=== PATIENT | female | born 1955 | race Caucasian/White ===

== ENCOUNTER → 2017-10-23 13:13 | Outpatient (CLI) | payer OTHER, SELFPAY ==
--- NOTE | 2017-10-23 13:16 | CT_ITS ---
STUDY: CT CHEST WITHOUT CONTRAST REASON FOR EXAM: Female, 62 years old. Lung nodule. History of breast cancer with prior right mastectomy and right breast reconstruction. RADIATION DOSAGE (If Supplied By Facility): CTDIvol = ( 13.72 ) mGy, DLP = ( 479.87 ) mGycm TECHNIQUE: Transaxial imaging was performed without the administration of intravenous contrast material. Multiplanar coronal and sagittal images were reformatted. Individualized dose optimization techniques were used for this CT. COMPARISON: None. FINDINGS: The patient is status post right mastectomy with reconstruction. There is a 7.1 mm calcification in the deep medial aspect of the right breast most likely resenting a calcified fibroadenoma. Increased markings in the anterior aspect of the right middle lobe. This most likely represents post radiation scarring with the patient's history of right breast cancer. There is no demonstrated pleural abnormality. There are calcifications of the coronary arteries. Normal mediastinum. Normal hilar regions. Normal unenhanced pulmonary arteries. Normal aorta arch and descending thoracic aorta. There are degenerative changes of the thoracic spine. Healed anterior right rib fractures. Small hiatal hernia. CT/Chest without Contrast IMPRESSION: No pulmonary nodule is seen. Findings uterus is of scarring in the anterior aspect of the right middle lobe most likely secondary to prior radiation of the right breast. Electronically Signed: Johnathon Benjamin MD at 15:34 EST Tel [phone], Service support ,
== END ==
PROVIDERS: Family Provider Internal Medicine; PCP Internal Medicine; Visit Provider Internal Medicine
DX: R91.1 Solitary pulmonary nodule (principal); Z85.3 Personal history of malignant neoplasm of breast; Z90.11 Acquired absence of right breast and nipple
CPT/HCPCS: 71250

== ENCOUNTER 2017-11-13 10:30 | Outpatient (RCR) | payer OTHER, SELFPAY | END 2017-11-22 23:59 | LOC: DC 10:30 | PROVIDERS: Family Provider Internal Medicine; PCP Internal Medicine; Visit Provider Nurse Practitioner Family | DX: E11.9 Type 2 diabetes mellitus without complications (principal); Z71.3 Dietary counseling and surveillance | CPT/HCPCS: 97802; G0108 ==

== ENCOUNTER 2017-11-30 15:09 | Outpatient (RCR) | payer OTHER, SELFPAY | END 2017-12-23 23:59 | LOC: DC 15:09 | PROVIDERS: Family Provider Internal Medicine; PCP Internal Medicine; Visit Provider Nurse Practitioner Family | DX: E11.9 Type 2 diabetes mellitus without complications (principal); Z71.3 Dietary counseling and surveillance | CPT/HCPCS: 97803 ==

== ENCOUNTER 2017-12-28 16:46 | Outpatient (RCR) | payer OTHER, SELFPAY | END 2018-01-22 23:59 | LOC: DC 16:46 | PROVIDERS: Family Provider Internal Medicine; PCP Internal Medicine; Visit Provider Nurse Practitioner Family | DX: E11.9 Type 2 diabetes mellitus without complications (principal); Z71.3 Dietary counseling and surveillance | CPT/HCPCS: G0109 ==

== ENCOUNTER → 2018-01-17 07:01 | Outpatient (CLI) | payer OTHER, SELFPAY ==
[2018-01-17 09:18] LABS: Hemoglobin A1c 7.6 % (4.2-6.3)
[2018-01-17 09:22] LABS: Microalbumin,Random Urine 16.4 mg/L (NO RANGE EST.); Microalbumin:Creatinine Ratio 72.2 mg/g CRE (<30 mg/g CRE)
== END ==
PROVIDERS: Family Provider Internal Medicine; PCP Internal Medicine; Visit Provider Nurse Practitioner Family
DX: E11.9 Type 2 diabetes mellitus without complications (principal)
CPT/HCPCS: 36415; 82043; 82570; 83036

== ENCOUNTER 2018-02-01 18:30 | Outpatient (RCR) | payer OTHER, SELFPAY | END 2018-02-01 23:59 | LOC: DC 18:30 | PROVIDERS: Family Provider Internal Medicine; PCP Internal Medicine; Visit Provider Nurse Practitioner Family | DX: E11.9 Type 2 diabetes mellitus without complications (principal); Z71.3 Dietary counseling and surveillance | CPT/HCPCS: 97803; G0109 ==

== ENCOUNTER 2018-03-07 15:47 | Outpatient (RCR) | payer OTHER, SELFPAY | END 2018-03-24 23:59 | LOC: DC 15:47 | PROVIDERS: Family Provider Internal Medicine; PCP Internal Medicine; Visit Provider Nurse Practitioner Family | DX: E11.9 Type 2 diabetes mellitus without complications (principal); Z71.3 Dietary counseling and surveillance ==

== ENCOUNTER → 2018-03-23 06:55 | Outpatient (CLI) | payer OTHER, SELFPAY ==
[2018-03-23 08:36] LABS: Microalbumin,Random Urine 64.7 mg/L (NO RANGE EST.); Microalbumin:Creatinine Ratio 120.3 mg/g CRE (<30 mg/g CRE)
[2018-03-23 08:39] LABS: Hemoglobin A1c 8.2 % (4.2-6.3)
[2018-03-23 08:58] LABS: ALB/GLOB Ratio 0.9 RATIO (0.9-2.4); AST(SGOT) 22 U/L (15-37); Alanine Aminotransfer ALT/SGPT 39 U/L (13-56); Albumin, Serum 3.7 g/dL (3.2-5.0); Alkaline Phosphatase 108 U/L (45-117); Anion Gap 8 (5-15); BUN 13 mg/dL (7-18); BUN/Creat Ratio 19.3 RATIO (10-20); Calcium,Total 8.7 mg/dL (8.5-10.1); Chloride 104 mmol/L (98-107); Cholesterol 149 mg/dL (200); Creatinine, Serum 0.68 mg/dL (0.55-1.02); EST Glomerular Filtration Rate 94 mL/min (>60); Est Glom Filt Rate - Afr Amer 114 mL/min (>60); Globulin 3.9 g/dL (2.2-4.2); Glucose 162 mg/dL (74-106); High Density Lipoprotein 41 mg/dL; Potassium 4.4 mmol/L (3.5-5.1); Protein, Total 7.6 g/dL (6.4-8.2); Sodium Level 139 mmol/L (136-145); Triglycerides 96 mg/dL; Very Low Density Lipoprotein 19 mg/dL (5-40)
== END ==
PROVIDERS: Family Provider Internal Medicine; PCP Internal Medicine; Visit Provider Nurse Practitioner Family
DX: E11.9 Type 2 diabetes mellitus without complications (principal); E78.5 Hyperlipidemia, unspecified
CPT/HCPCS: 36415; 80053; 80061; 82043; 82570; 83036

== ENCOUNTER → 2018-04-13 07:58 | Outpatient (CLI) | payer OTHER, SELFPAY ==
[2018-04-13 10:28] LABS: Anion Gap 10 (5-15); BUN 13 mg/dL (7-18); BUN/Creat Ratio 20.7 RATIO (10-20); Calcium,Total 9.5 mg/dL (8.5-10.1); Chloride 102 mmol/L (98-107); Creatinine, Serum 0.63 mg/dL (0.55-1.02); EST Glomerular Filtration Rate 102 mL/min (>60); Est Glom Filt Rate - Afr Amer 123 mL/min (>60); Glucose 115 mg/dL (74-106); Potassium 4.6 mmol/L (3.5-5.1); Sodium Level 139 mmol/L (136-145)
[2018-04-13 10:34] LABS: Hemoglobin A1c 8.6 % (4.2-6.3)
== END ==
PROVIDERS: Family Provider Internal Medicine; PCP Internal Medicine; Visit Provider Nurse Practitioner Family
DX: E11.9 Type 2 diabetes mellitus without complications (principal)
CPT/HCPCS: 36415; 80048; 83036

== ENCOUNTER 2018-06-28 08:53 | Outpatient (RCR) | payer OTHER, SELFPAY | END 2018-07-25 23:59 | LOC: DC 08:53 | PROVIDERS: Family Provider Internal Medicine; PCP Internal Medicine; Visit Provider Nurse Practitioner Family | DX: E11.9 Type 2 diabetes mellitus without complications (principal); Z71.3 Dietary counseling and surveillance ==

== ENCOUNTER → 2018-07-02 10:43 | Outpatient (CLI) | payer OTHER, SELFPAY ==
[2018-07-02 11:55] LABS: Hemoglobin A1c 7.3 % (4.2-6.3)
[2018-07-02 12:19] LABS: Microalbumin,Random Urine 15.8 mg/L (NO RANGE EST.); Microalbumin:Creatinine Ratio 47.4 mg/g CRE (<30 mg/g CRE)
== END ==
PROVIDERS: Nurse Practitioner Family; Family Provider Internal Medicine; PCP Internal Medicine; Referring Provider Internal Medicine; Visit Provider Internal Medicine
DX: E11.9 Type 2 diabetes mellitus without complications (principal)
CPT/HCPCS: 36415; 82043; 82570; 83036

== ENCOUNTER → 2018-10-20 07:32 | Outpatient (CLI) | payer OTHER, SELFPAY ==
[2018-10-20 07:32] VITALS: BMI 28.0
[2018-10-20 08:49] LABS: Hemoglobin A1c 7.9 % (4.2-6.3)
== END ==
PROVIDERS: Family Provider Internal Medicine; PCP Internal Medicine; Referring Provider Nurse Practitioner Family; Visit Provider Nurse Practitioner Family
DX: E11.9 Type 2 diabetes mellitus without complications (principal)
CPT/HCPCS: 36415; 83036

== ENCOUNTER → 2018-10-30 14:35 | Outpatient (CLI) | payer OTHER, SELFPAY ==
[2018-10-30 13:39] VITALS: BMI 26.8
--- NOTE | 2018-10-30 14:39 | EKG12_ITS ---
Test Reason : TACHY Blood Pressure : / mmHG Vent. Rate : 091 BPM Atrial Rate : 091 BPM P-R Int : 176 ms QRS Dur : 090 ms QT Int : 368 ms P-R-T Axes : 063 002 039 degrees QTc Int : 452 ms Normal sinus rhythm with sinus arrhythmia Normal ECG Confirmed by CARMEN DYER, JOSE LUIS ([id number]), social media editor ALOK SOLIMAN ([id number]) on 11/05/2018 10:07:55 AM Referred By: Wan Jain Confirmed By:JOSE LUIS MORALES MD
[2018-10-30 16:08] LABS: T4 Free Direct 0.95 ng/dL (0.76-1.46); Thyroid Stim Hormone (TSH) 1.77 uIU/mL (0.358-3.74)
== END ==
PROVIDERS: Family Provider Internal Medicine; PCP Internal Medicine; Referring Provider Internal Medicine; Visit Provider Internal Medicine
DX: R00.0 Tachycardia, unspecified (principal)
CPT/HCPCS: 36415; 84439; 84443; 93005

== ENCOUNTER 2019-01-07 09:07 | Day surgery (SDC) | payer OTHER, SELFPAY ==
[2018-12-25 10:51] VITALS: BMI 26.8
[2019-01-07] VITALS (7 sets, daily range): BP systolic 86–116; BP diastolic 59–86; PULSE 64–72; RESP 16; TEMP 36.4–36.6; O2SAT 95–100; BMI 26.0
--- NOTE | 2019-01-07 | COLBX_PTH ---
PATIENT: MARYAN HOGAN LOC: EN U#:[id number] AGE/SX: 63/F ROOM: RE01/07/[address]: Dr. Kath Reddy MD : [id number] BED: DIS: 01/07/2019 SPEC #: [id number] RECD: 01/07/19 13:29 STATUS: KENTRELL RESelvin #: [id number] MARY JANE: 01/07/19 00:[address]: Kath Reddy DEPT: SURGICAL PATHOLOGY RECD BY: Jules Colindres ENTERED: 01/07/19 13:29 SP TYPE: COLON BX TAYLOR DR: Dr. Wan Jain MD Tissues: A - Ascending colon B - Transverse colon C - Transverse colon Procedures: Surgery Specimen Level IV HEADER OPERATION: Colonoscopy - open access (MAC) PRE-OP DIAGNOSIS: Screening TISSUE SUBMITTED: A - Ascending colon polyp, B - Transverse colon polyp biopsy, C - Mid transverse colon polyps MICROSCOPIC DIAGNOSIS A. Ascending colon polyp, biopsy: Tubular adenoma. B. Transverse colon polyp, biopsy: Fragments of tubular adenoma. C. Mid transverse colon polyps, biopsy: Fragments of tubular adenoma. AM:zheng 01/08/19 MICROSCOPIC DESCRIPTION Slides are reviewed. GROSS DESCRIPTION A - Received in fixative is one container labeled with the patient's name and designated ascending colon polyp. The specimen consists of one irregular fragment of light hernandez soft tissue that measures 0.4 x 0.3 x 0.1 cm. The specimen is totally submitted in one cassette. B - Received in fixative is one container labeled with the patient's name and designated transverse colon polyp. The specimen consists of multiple irregular fragments of light hernandez soft tissue that in aggregate measure 1 x 0.5 x 0.1 cm. The specimen is totally submitted in one cassette. C - Received in fixative is one container labeled with the patient's name and designated mid transverse colon polyp. The specimen consists of multiple irregular fragments of light hernandez soft tissue that in aggregate measure 1.5 x 0.5 x 0.1 cm. The specimen is totally submitted in one cassette. / JESSICA:zheng 01/07/19 TC:5 CPT: 76986 x3
--- NOTE | 2019-01-07 09:19 | H&P.OPEN ---
History of Present Illness Date of Admission: 01/07/19 The patient is a 63 year old F presents for screening colonoscopy. Patient did have polyps during her last colonoscopy which was about 8 years ago. She was recommended to come back in 5 years. Patient does have balance about every other day, occasional blood she contributes to her hemorrhoids. Patient states her maternal uncle had colon cancer in his 70s. No immediate family history of colon cancer. Past Medical/Surgical History - Planned Operation Planned Operative Procedure/s: cscope open access Date of Operative Procedure: 01/07/19 Permit Signed: No S.O.S: No Is This Patient Having a Total Joint: No - Previous Hospitalizations/Surgeries HX Hospitalizations: Yes - cdiff in the past/septic after 1999 surgery HX of Surgeries: mastectomy right 1995. abdominal tram flap 1999. colonoscopy x2. kidney stones Any Problems With Anesthesia: No You/Your Family Experience Fever (Hyperthermia) With Anes: No Cholinesterase deficiency: No - Cardiovascular Hx Chest Pain within Last 2 months: No Hx of Irregular Heartbeat and/or Afib: No Hx Heart Attack: No Hx Congestive Heart Failure: No Hx Rheumatic Fever: No Hx Hypertension: Yes - controlled with med Hx Internal Defibrillator: No Hx Pacemaker: No Hx Cardiac Catheterization: No Hx Cardiac Surgery/Stents/Etc.: No Hx Stress Test: No HX Edema: No Hx Pain in Legs when Walking/Leg Cramps: No - Respiratory Chronic Cough: No HX of Shortness of Breath: No Hoarseness: No Hx Chronic Obstructive Pulmonary Disease (COPD): No Hx Asthma: No Hx Emphysema: No Hx Sleep Apnea: Yes - . CPAP: Yes BIPAP: No Hx Oxygen Use at Home: No Hx Respiratory Tract Infection/Cold (presently): No Result (for STOP score): Positive Hx Smoking: Yes - quit 15 yrs ago/social smoker Smoking Status: Former smoker - Gastrointestinal Hx Gastroesophageal Reflux: No Hx Gastrointestinal Disorders: No Hx Gastrointestinal Bleed: No Hx Ulcer: No Hx Hiatal Hernia: No Difficulty Chewing/Swallowing: No Recent Onset of Swallowing Problems: No Special diet followed at home: Yes - ada Hx Unplanned Weight Loss of 20#: No HX Unplanned Weight Gain of 20#: No - Neurological Hx Seizures: No HX Syncope/Blackout Spells/Unconsciousness: No Hx CVA/Stroke: No Hx Transient Ischemic Attacks (TIA): No Hx Multiple Sclerosis: No Hx Parkinson's Disease: No Hx Head/Neck Injury: No Hx Headaches: Yes - occ Hx Back Injury/Pain: No Recent Onset of Speech Difficulty: No Restless Legs: No Does patient have nerve stimulator: No Patient instructed to have device shut off: No Rep notified?: No - Blood Disorder Hx Leukemia: No Bleeding Tendencies: No Hx Deep Vein Thrombosis: No Hx High Cholesterol: Yes - on med Blood Transmitted Disease: No Hx Hepatitis: No Hx Cirrhosis: No Hx Anemia: No Hx Blood Disorders: Yes - 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 Insulin: Yes Thyroid Disease: No Hx Steroid Therapy: No - Psycho/Social Hx Substance Use: No Hx Alcohol Use: Yes - occ Hx Anxiety: Yes - on med Hx Depression: Yes - on med Mental Illness: No Hx Dementia: No - Miscellaneous Hx Cancer: Yes - RT MASTECTOMY/chemo and radiation 22 yrs ago Recent Exposure to Contagious Disease: No Active MRSA: No Hx of C-Diff: No Any Loose Teeth: No Allergies amoxicillin Allergy (Verified 01/04/19 11:18) Rash levofloxacin [From Levaquin] Allergy (Verified 01/04/19 11:18) Vomiting promethazine [From Phenergan] Allergy (Verified 01/04/19 11:18) Other - Discharge Is Pt Admitted From a [facility], or a [facility]: No Who Could Help: family After D/C, Where Do you Plan to Go: Return Home - From the PAT History Number of Risk Factors: 6 - Physical Exam General: Alert, Oriented x3, Cooperative, No apparent distress HEENT: Atraumatic Lungs: Normal air movement Cardiovascular: Regular rate Abdomen: Soft, Non Tender, Non-Distended, - - Lower midline scar from previous TRAM flap Extremities: No clubbing, No cyanosis, No edema Neurological: Cranial nerves II-XII grossly intact Psych/Mental Status: Normal Affect Body Mass Index (BMI) 26.8 Assessment/Plan All Active Problems (Last Reviewed 10/30/18 @ 13:38 by Elise Gray) History of breast cancer (Acute) 63-year-old female for screening for colon cancer Surgery Risks - Colonoscopy I discussed with the patient the risks of the procedure: Yes Risks Include but are not Limited To: Risks include but are not limited to: Bleeding, perforation requiring further surgery, inability to complete colonoscopy requiring barium enema. Patient had no further questions.
--- NOTE | 2019-01-07 10:58 | OP.ENDO_ITS ---
01/07/2019 Wna Jain MD [address] [place] [address] [place] [address] Re : Colonoscopy procedure for Brook Burns Dear Dr. Jain This procedure was performed on Monday, January 07, 2019. My impressions and recommendations are as follows: Impressions : - Two less than 5 mm polyps in the transverse colon and in the mid transverse colon, removed with a cold biopsy forceps. Resected and retrieved. - One less than 5 mm polyp in the transverse colon, removed with cold forceps. Resected and retrieved. - One 5 mm polyp in the ascending colon, removed with a hot snare. Resected and retrieved. - The examination was otherwise normal on direct and retroflexion views. Recommendations : - Discharge patient to home. - Continue present medications. - Repeat colonoscopy in 3 - 5 years for surveillance based on pathology results. My findings are described in the full procedure note, which is enclosed. If I can be of further assistance, please feel free to contact me at Doctor phone number(s): , Work: . Sincerely, MD Kath Sam MD 01/07/2019 10:58:13 AM This report has been signed electronically.
[2019-01-07 11:35] LABS: Bedside Glucose 171 mg/dL (70-110)
== END 2019-01-07 11:49 | disposition home or self-care (01) ==
LOC: EN 09:08 → AC 09:09
PROVIDERS: Family Provider Internal Medicine; PCP Internal Medicine; Referring Provider Surgery; Visit Provider Surgery
PROC: 0DJD8ZZ Inspection of Lower Intestinal Tract, Via Natural or Artificial Opening Endoscopic (ICD-10-PCS; CPT 45378; principal; 2019-01-07 10:10)
DX: Z12.11 Encounter for screening for malignant neoplasm of colon (principal); I10 Essential (primary) hypertension; D12.3 Benign neoplasm of transverse colon; D12.2 Benign neoplasm of ascending colon; Z86.010 Personal history of colon polyps; Z87.891 Personal history of nicotine dependence; Z85.3 Personal history of malignant neoplasm of breast; Z90.11 Acquired absence of right breast and nipple
CPT/HCPCS: 45380; 82962; 88305; J7120

== ENCOUNTER → 2019-03-06 21:14 | Outpatient (CLI) | payer OTHER, SELFPAY ==
[2019-02-04 15:05] VITALS: BMI 26.0
== END ==
PROVIDERS: Family Provider Internal Medicine; PCP Internal Medicine; Referring Provider Internal Medicine; Visit Provider Internal Medicine
DX: G47.30 Sleep apnea, unspecified (principal)
CPT/HCPCS: 95810

== ENCOUNTER → 2019-03-13 | Outpatient (CLI) | payer OTHER, SELFPAY ==
[2019-02-04 15:05] VITALS: BMI 26.0
--- NOTE | 2019-03-13 13:39 | RAD_ITS ---
STUDY: X-RAY - RIGHT ANKLE REASON FOR EXAM: Female, 64 years old. Medial ankle pain and swelling following injury. TECHNIQUE: 3 view(s) of the ankle. COMPARISON: None. FINDINGS: Normal visualized distal tibia and fibula. Normal medial and lateral malleoli. Normal tibiotalar articulation and ankle mortise. Plantar spur. The visualized subtalar, talonavicular, calcaneocuboid and tarsal articulations are normal. Medial soft tissue swelling. RAD/Ankle min 3 Views IMPRESSION: Medial soft tissue swelling. Plantar spur. Electronically Signed: Johnathon Benjamin, at 14:07 EDT , Service support ,
== END | disposition home or self-care (01) ==
LOC: HPRAD 13:37
PROVIDERS: Family Provider Internal Medicine; PCP Internal Medicine; Referring Provider Physician Assistant; Visit Provider Physician Assistant
DX: S99.911A Unspecified injury of right ankle, initial encounter (principal)
CPT/HCPCS: 73610

== ENCOUNTER 2019-04-23 10:22 | Emergency (ER) | payer OTHER, SELFPAY ==
[2019-04-19 09:28] VITALS: BMI 26.9
[2019-04-23 10:22] VITALS: BP 110/68; PULSE 82; RESP 17; TEMP 36.5; O2SAT 96; BMI 26.6
--- NOTE | 2019-04-23 10:37 | ED.DCSUM_ITS ---
- ER Visit Summary Date of Service: 04/23/19 Chief Complaint: [Right calf injury] History of Present Illness: The patient is a 64 F [presents to the emergency department with injury to her right calf. Patient states that she was at [employer] doing mountain climbers when she felt a pop in her right calf and she was unable to bear weight. Patient noted pain and swelling to the area. Patient currently being treated for nonhealing wound to the right lower extremity as well and has a wound VAC on the anterior ankle. Patient is a diabetic and has history of hypertension and high cholesterol.] Physical Examination: [HEENT-PERRLA, EOMI. Cranial nerves II through XII grossly intact. TMs clear. Mucous membranes moist. No adenopathy. Cardiovascular-regular rate and rhythm without murmur or ectopy Lungs-clear to auscultation, chest wall stable without crepitus or subcu emphyse ma Abdomen-normoactive bowel sounds, soft, nontender, no rebound or rigidity, no peritoneal signs. Extremities-intact ?4, normal range of motion, normal pulses. Right leg-patient has pain on palpation of the right calf diffusely and edema of the calf. She has no tenderness over the Achilles tendon. Achilles tendon is intact and she has a normal Waters's test. Patient is neurovascular intact distally. She has no bony tenderness over the tibia or fibula. He has normal flexion extension at the knee. Test Results: [None indicated] Emergency Department Course and Treatment: [I suspect patient likely has a tear of her right calf muscle. She will be given crutches. She refused any pain medication. Patient will be referred to orthopedics for follow-up.] Treatment Plan: [Follow-up with orthopedics in 3 to 5 days. Patient advised to be nonweightbearing until that time.] Disposition: [Discharged home in stable condition Impression: [Right calf strain] This note was generated with In Flow dictation software. It may contain incorrect words, spelling, and punctuation that were not noted in review of the chart prior to signing ED Disposition - Plan for ED Patient: Referrals: Wan Jain MD [Primary Care Provider] -
--- NOTE | 2019-04-23 10:40 | ED.DEP ---
ED Disposition - Plan for ED Patient: Instructions: MUSCLE STRAIN, Extremity Referrals: Wan Jain MD [Primary Care Provider] - Melchor Meehan DO [STAFF PHYSICIAN] - 3-5 Days
== END 2019-04-23 11:15 | disposition home or self-care (01) ==
LOC: ED 10:47
PROVIDERS: Emergency Provider Emergency Medicine; Family Provider Internal Medicine; PCP Internal Medicine
DX: S86.811A Strain of other muscle(s) and tendon(s) at lower leg level, right leg, initial encounter (principal); X58.XXXA Exposure to other specified factors, initial encounter; Y93.31 Activity, mountain climbing, rock climbing and wall climbing; Y92.39 Other specified sports and athletic area as the place of occurrence of the external cause; Y99.8 Other external cause status; E11.9 Type 2 diabetes mellitus without complications; I10 Essential (primary) hypertension; E78.00 Pure hypercholesterolemia, unspecified; Z79.4 Long term (current) use of insulin
CPT/HCPCS: 99283

== ENCOUNTER 2019-04-24 08:00 | Outpatient (RCR) | payer OTHER, SELFPAY ==
[2019-03-26 11:17] VITALS: BMI 26.0
[2019-03-27 08:54] VITALS: BP 111/75; PULSE 83; RESP 16; TEMP 36.1; BMI 26.9
--- NOTE | 2019-03-27 09:07 | PCM.WC.HP ---
(1) Wound of right lower extremity Status: Acute Current Visit: Yes Code(s): S81.801A - Unspecified open wound, right lower leg, initial encounter Comment: Traumatic, penetrating with fat layer exposed (2) Type 2 diabetes mellitus Status: Chronic Current Visit: Yes Qualifiers: Code(s): E11.9 - Type 2 diabetes mellitus without complications History of Present Illness Date of Service: 03/27/19 Chief Complaint: Right Leg Wound History of Wound: Ms. Gordon is a 64yo who was referred here by me due to a none healing right lower extremity wound. She was hit by a kettle neri whie exercising and sustained a wound to the area. [facility] and managed as a case of cellulitis. She was has also applied silver dressings and Medihoney without any significant improvement. No significant swelling or drainage. She feels well otherwise. Past Medical History Past Medical History: Chronic Problems (Last Reviewed 03/26/19 @ 11:16 by Catarina Avelar) Tachycardia (Chronic) Type 2 diabetes mellitus (Chronic) Arthritis (Chronic) Vitamin D deficiency (Chronic) Sleep apnea (Chronic) Initial AHI of 17.5 events per hour Hypertension (Chronic) Hyperlipemia (Chronic) Anxiety and depression (Chronic) Diabetes type 2, controlled (Chronic) Allergies/Adverse Reactions: Allergies amoxicillin Allergy (Verified 02/04/19 15:02) Rash levofloxacin [From Levaquin] Allergy (Verified 02/04/19 15:02) Vomiting promethazine [From Phenergan] Allergy (Verified 02/04/19 15:02) Other Home Medications: Ambulatory Orders Medication Instructions Recorded aspirin 81 mg tablet,delayed 81 mg PO QDAY 10/05/17 release cholecalciferol (vitamin D3) 2,000 2,000 unit PO DAILY 10/05/17 unit capsule metformin 1,000 mg tablet 1,000 mg PO BIDCM #180 tab 05/04/18 atorvastatin 80 mg tablet 80 mg PO DAILY #90 tab 06/13/18 Dapagliflozin Propanediol [Farxiga] 10 mg PO QDAY 01/04/19 Insulin Glargine,Hum.rec.anlog 50 unit SUBCUT QHS 01/04/19 [Basaglar Kwikpen U-100] Liraglutide [Victoza 3-José Manuel] 1.8 mg SUBCUT QHS 01/04/19 Venlafaxine HCl 225 mg PO DAILY 01/04/19 lisinopril 20 mg tablet 20 mg PO DAILY #90 tab 03/07/19 Smoking Status: Former smoker Review of Systems Constitutional: Denies: Anorexia, Chills, Night Sweats Eyes: Denies: Blurred vision, Eyelid Inflammation HEENT: Denies: Difficulty Hearing, Difficulty Swallowing Cardiovascular: Denies: Chest Pain, Chest Tightness Respiratory: Denies: Hemoptysis Gastrointestinal: Denies: Abdominal Pain, Hematemesis, Vomiting Genitourinary: Denies: Hematuria Skin: Denies: Jaundice - Physical Exam Vital Signs Temp Pulse Resp BP 96.9 F L 83 16 111/75 03/27/19 08:54 03/27/19 08:54 03/27/19 08:54 03/27/19 08:54 General: Alert, Oriented x3, Cooperative, No apparent distress HEENT: Atraumatic, Normocephalic Oral: Moist Mucosa Neck: Supple, No JVD Lungs: Normal air movement Cardiovascular: Regular rate, Regular Rhythm Extremities: No clubbing, No cyanosis Skin: Ulcer/ Wound Wound Measurements and Assessment WC - Nurse 1 - General Ulcer Measurement Start: 03/27/19 08:49 Freq: Status: Active Protocol: Activity Type Activity Date Activity User E-Sign Co-Sign Detail Recorded Client Recorded Date Recorded By Document 03/27/19 08:54 DV [id number] 03/27/19 09:00 DV 03/27/19 08:54 Wound Center Nurse 1 [Ulcer Assessment] #1 Medial RLE -Combined with other wound No -Current Size (cm) - Length 1.3 -Current Size (cm) - Width 0.7 -Current Size (cm) - Depth 0.1 -Total Square Cm 0.91 -Date of Last Picture (Recall this 03/27/19 field) -Photo Taken Yes -Epithelialization None Present -Tunneling No -Undermining/Tunneling No -Circular Undermining No -Classification - Thickness Full Thickness without Exposed Support Structure -Exudate Amt Medium -Exudate Type Serosanguineous -Wound Margin Flat & Intact -Granulation Amt None Present (0 %) -Granulation Quality N/A -Slough/Fibrin Yes -Necrosis Amt Large (67-100%) -Necrotic Tissue Type Adherent Slough -Structure Exposed None/Limited to Skin Breakdown -Texture (Radha-wound Skin Appearance) Assessed, Localized Edema -Moisture (Radha-wound Skin Appearance Assessed, ) Weeping -Color (Radha-wound Skin Appearance) Assessed, Erythema -Temperature (Radha-wound Skin No Abnormality Appearance) (Pt Warm) -Tenderness on Palpation (Radha-wound No Skin Appearance) -Foul Odor after Cleansing No -Anesthetic Used 5% Lidocaine Gel WC - Nurse 2 - General Ulcer CM Notes Start: 03/27/19 08:49 Freq: Status: Active Protocol: Activity Type Activity Date Activity User E-Sign Co-Sign Detail Recorded Client Recorded Date Recorded By Document 03/27/19 09:01 MW [id number] 03/27/19 09:04 MW 03/27/19 09:01 Wound Center Nurse 2 [Procedure/Treatment] -Time 09:01 -Correct Patient Yes -Correct Side, Site, Position Yes -Correct Procedure Yes -Procedure Performed Yes -Type of Procedure Debridement -Clinical Debridement Subcutaneous -Post Debridement Size (cm) - Length 1.1 -Post Debridement Size (cm) - Width 0.6 -Post Debridement Size (cm) - Depth 0.1 -Total Square Cm 0.66 -Wound/Ulcer Outcome Not Healed -Ulcer Cleansing Rinsed/ Irrigated with Saline -Foul Odor after Cleansing No -Bioengineered Tissue No -Bleeding Controlled with Pressure -Offloading No -Treatment Response Procedure Tolerated Well [See Physician Procedure note for Specifics] Pain Scale: 0-10 Numeric [Pain] -Is Patient Pain Free? Yes Musculoskeletal: No Muscle Wasting Neurological: Cranial nerves II-XII grossly intact Psych/Mental Status: Normal Affect Debridement Note Post-Debridement Measurements/Treatment WC - Nurse 2 - General Ulcer CM Notes Start: 03/27/19 08:49 Freq: Status: Active Protocol: Activity Type Activity Date Activity User E-Sign Co-Sign Detail Recorded Client Recorded Date Recorded By Document 03/27/19 09:01 MW [id number] 03/27/19 09:04 MW 03/27/19 09:01 Wound Center Nurse 2 #1 [facility] RLE -Time 09:01 -Correct Patient Yes -Correct Side, Site, Position Yes -Correct Procedure Yes -Procedure Performed Yes -Type of Procedure Debridement -Clinical Debridement Subcutaneous -Post Debridement Size (cm) - Length 1.1 -Post Debridement Size (cm) - Width 0.6 -Post Debridement Size (cm) - Depth 0.1 -Total Square Cm 0.66 -Wound/Ulcer Outcome Not Healed -Ulcer Cleansing Rinsed/ Irrigated with Saline -Foul Odor after Cleansing No -Bioengineered Tissue No -Bleeding Controlled with Pressure -Offloading No -Treatment Response Procedure Tolerated Well Pain Scale: 0-10 Numeric Is Patient Pain Free? Yes Wound debrided: Right leg ( medial ) Wound Grade/Stage: Stage II Type of Debridement: Excisional debridement Anesthesia Used: 4% Lidocaine Solution Depth: Down to and including healthy tissue, in the subcutaneous layer Percentage of wound debrided: 100 Instrument Used: 3mm curette, #15 blade, Forceps Tissue Removed: Slough and devitalized tissue Severity: Fat Layer Exposed Amount of bleeding with debridement: Mild Bleeding Controlled with: Pressure Patient tolerated procedure well Assessment/Plan Active Problems (Last Reviewed 03/26/19 @ 11:16 by Catarina Avelar) Wound of right lower extremity (Acute) Traumatic, penetrating with fat layer exposed Type 2 diabetes mellitus (Chronic) Assessment: Non healing right lower extremity wound with fat layer exposed. Traumatic. Type 2 diabetes mellitus. Plan: Debridement done as documeneted above, procedure was well tolerated. Moistened Pomogran with adaptoc over top. Chnage daily. 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 optimal blood glucose control and increased protein intkae recommended. Elevate lower extremities when seated and in bed. All her questions were answered and she was advised t call with any questions or concerns.
[2019-04-03 09:05] VITALS: BP 115/69; PULSE 70; RESP 16; TEMP 36.7; BMI 26.9
--- NOTE | 2019-04-03 10:26 | RAD_ITS ---
STUDY: X-RAY - RIGHT TIBIA AND FIBULA REASON FOR EXAM: Female, 64 years old. Trauma TECHNIQUE: 4 view(s) of the tibia and fibula were obtained. COMPARISON: None. FINDINGS: Normal visualized tibia. Normal visualized fibula. Soft tissue wound medial to the distal tibial shaft. No radiopaque foreign body within the soft tissues RAD/Tibia & Fibula 2 Views IMPRESSION: Soft tissue wound medial to the distal tibia without radiopaque foreign body in the soft tissues or acute osteomyelitis Electronically Signed: Garrison Hernandez MD at 20:42 EDT , Service support ,
--- NOTE | 2019-04-03 10:51 | PCM.WC.PN ---
(1) Wound of right lower extremity Status: Acute Current Visit: Yes Code(s): S81.801A - Unspecified open wound, right lower leg, initial encounter Comment: Traumatic, penetrating with fat layer exposed (2) Type 2 diabetes mellitus Status: Chronic Current Visit: Yes Qualifiers: Code(s): E11.9 - Type 2 diabetes mellitus without complications Type of Wound Date of Service: 04/03/19 Chief Complaint: Right Leg Wound History of Wound: Ms. Gordon is a 64yo who was referred here by me due to a none healing right lower extremity wound. She was hit by a kettle neri whie exercising and sustained a wound to the area. [facility] and managed as a case of cellulitis. She was has also applied silver dressings and Medihoney without any significant improvement. No significant swelling or drainage. She feels well otherwise. Progress of Wound: Depth increased. No drianage of significant pain. - Physical Exam Vital Signs Temp Pulse Resp BP 98.0 F 70 16 115/69 04/03/19 09:05 04/03/19 09:05 04/03/19 09:05 04/03/19 09:05 General: Alert, Oriented x3, Cooperative, No apparent distress HEENT: Atraumatic, Normocephalic Oral: Moist Mucosa Neck: Supple Lungs: Normal air movement Extremities: No cyanosis Skin: Ulcer/ Wound Wound Measurements and Assessment WC - Nurse 1 - General Ulcer Measurement Start: 03/27/19 08:49 Freq: Status: Active Protocol: Activity Type Activity Date Activity User E-Sign Co-Sign Detail Recorded Client Recorded Date Recorded By Document 04/03/19 09:05 DV [id number] 04/03/19 09:09 DV 04/03/19 09:05 Wound Center Nurse 1 [Ulcer Assessment] #1 Medial RLE -Combined with other wound No -Current Size (cm) - Length 0.8 -Current Size (cm) - Width 0.4 -Current Size (cm) - Depth 0.1 -Total Square Cm 0.32 -Photo Taken No -Epithelialization None Present -Tunneling No -Undermining/Tunneling No -Circular Undermining No -Classification - Thickness Full Thickness without Exposed Support Structure -Exudate Amt Medium -Exudate Type Serosanguineous -Wound Margin Flat & Intact -Granulation Amt None Present (0 %) -Granulation Quality N/A -Slough/Fibrin Yes -Necrosis Amt Large (67-100%) -Necrotic Tissue Type Adherent Slough -Structure Exposed None/Limited to Skin Breakdown -Texture (Radha-wound Skin Appearance) Assessed, Localized Edema -Moisture (Radha-wound Skin Appearance Assessed, ) Weeping -Color (Radha-wound Skin Appearance) Assessed, Erythema -Temperature (Radha-wound Skin No Abnormality Appearance) (Pt Warm) -Tenderness on Palpation (Radha-wound No Skin Appearance) -Foul Odor after Cleansing No -Anesthetic Used 5% Lidocaine Gel WC - Nurse 2 - General Ulcer CM Notes Start: 03/27/19 08:49 Freq: Status: Active Protocol: Activity Type Activity Date Activity User E-Sign Co-Sign Detail Recorded Client Recorded Date Recorded By Document 04/03/19 09:27 MW [id number] 04/03/19 09:38 MW 04/03/19 09:27 Wound Center Nurse 2 [Procedure/Treatment] -Time 09:27 -Correct Patient Yes -Correct Side, Site, Position Yes -Correct Procedure Yes -Procedure Performed Yes -Type of Procedure Debridement -Clinical Debridement Subcutaneous -Post Debridement Size (cm) - Length 1.0 -Post Debridement Size (cm) - Width 0.6 -Post Debridement Size (cm) - Depth 0.5 -Total Square Cm 0.60 -Wound/Ulcer Outcome Not Healed -Ulcer Cleansing Rinsed/ Irrigated with Saline -Foul Odor after Cleansing No -Bioengineered Tissue No -Bleeding Controlled with Pressure -Offloading No -Treatment Response Procedure Tolerated Well [See Physician Procedure note for Specifics] Pain Scale: 0-10 Numeric [Pain] -Is Patient Pain Free? Yes Musculoskeletal: No Muscle Wasting Neurological: Cranial nerves II-XII grossly intact Psych/Mental Status: Normal Affect Debridement Note Post-Debridement Measurements/Treatment - Nurse 2 - General Ulcer CM Notes Start: 03/27/19 08:49 Freq: Status: Active Protocol: Activity Type Activity Date Activity User E-Sign Co-Sign Detail Recorded Client Recorded Date Recorded By Document 03/27/19 09:01 MW [id number] 03/27/19 09:04 MW Document 04/03/19 09:27 MW [id number] 04/03/19 09:38 MW 03/27/19 04/03/19 09:01 09:27 Wound Center Nurse 2 #1 [facility] RLE -Time 09:01 09:27 -Correct Patient Yes Yes -Correct Side, Site, Position Yes Yes -Correct Procedure Yes Yes -Procedure Performed Yes Yes -Type of Procedure Debridement Debridement -Clinical Debridement Subcutaneous Subcutaneous -Post Debridement Size (cm) - Length 1.1 1.0 -Post Debridement Size (cm) - Width 0.6 0.6 -Post Debridement Size (cm) - Depth 0.1 0.5 -Total Square Cm 0.66 0.60 -Wound/Ulcer Outcome Not Healed Not Healed -Ulcer Cleansing Rinsed/ Rinsed/ Irrigated with Irrigated with Saline Saline -Foul Odor after Cleansing No No -Bioengineered Tissue No No -Bleeding Controlled with Pressure Pressure -Offloading No No -Treatment Response Procedure Procedure Tolerated Well Tolerated Well Pain Scale: 0-10 Numeric Is Patient Pain Free? Yes Yes Wound debrided: Right lower extremity Wound Grade/Stage: Stage II Type of Debridement: Excisional debridement Anesthesia Used: 4% Lidocaine Solution Depth: Down to and including healthy tissue, in the subcutaneous layer Percentage of wound debrided: 100 Instrument Used: 3mm curette Tissue Removed: Slough and devitalized tissue Severity: Fat Layer Exposed Amount of bleeding with debridement: Mild Bleeding Controlled with: Pressure Patient tolerated procedure well Assessment/Plan Active Problems (Last Reviewed 03/26/19 @ 11:16 by Catarina Avelar) Wound of right lower extremity (Acute) Traumatic, penetrating with fat layer exposed Type 2 diabetes mellitus (Chronic) Assessment: Non healing right lower extremity wound with fat layer exposed. Traumatic. Type 2 diabetes mellitus. Plan: Debridement done as documeneted above, procedure was well tolerated. Depth has worsened. No significant drainage apprecaited and probes to bones. Culture taken and Xray ordered. Continue Moistened Pomogran with adaptic over top. Chnage daily. Single layer Tubigrip for edema management. optimal blood glucose control and increased protein intkae recommended. Elevate lower extremities when seated and in bed. All her questions were answered and she was advised to call with any questions or concerns. Follow up in 2 weeks. Out on vacation.
[2019-04-17 08:55] VITALS: BP 121/75; PULSE 86; RESP 18; TEMP 36.6; BMI 26.9
--- NOTE | 2019-04-17 09:53 | PCM.WC.PN ---
(1) Wound of right lower extremity Status: Acute Current Visit: Yes Code(s): S81.801A - Unspecified open wound, right lower leg, initial encounter Comment: Traumatic, penetrating with fat layer exposed (2) Type 2 diabetes mellitus Status: Chronic Current Visit: Yes Qualifiers: Code(s): E11.9 - Type 2 diabetes mellitus without complications Type of Wound Date of Service: 04/17/19 Chief Complaint: Right Leg Wound History of Wound: Ms. Gordon is a 64yo who was referred here by me due to a none healing right lower extremity wound. She was hit by a kettle neri whie exercising and sustained a wound to the area. [facility] and managed as a case of cellulitis. She was has also applied silver dressings and Medihoney without any significant improvement. No significant swelling or drainage. She feels well otherwise. Progress of Wound: No new concerns at this time. Has completed her course of antibiotics. - Physical Exam Vital Signs Temp Pulse Resp BP 97.9 F 86 18 121/75 H 04/17/19 08:55 04/17/19 08:55 04/17/19 08:55 04/17/19 08:55 General: Alert, Oriented x3, Cooperative, No apparent distress HEENT: Atraumatic, Normocephalic Oral: Moist Mucosa Neck: Supple Lungs: Normal air movement Extremities: No cyanosis Skin: Ulcer/ Wound Wound Measurements and Assessment WC - Nurse 1 - General Ulcer Measurement Start: 03/27/19 08:49 Freq: Status: Active Protocol: Activity Type Activity Date Activity User E-Sign Co-Sign Detail Recorded Client Recorded Date Recorded By Document 04/17/19 08:55 DL [id number] 04/17/19 09:02 DL 04/17/19 08:55 Wound Center Nurse 1 [Ulcer Assessment] #1 Medial RLE -Current Size (cm) - Length 0.5 -Current Size (cm) - Width 0.4 -Current Size (cm) - Depth 0.2 -Total Square Cm 0.20 -Photo Taken No -Maximum Distance #2 (cm) 0.2 -Circular Undermining Yes -Exudate Amt Small -Exudate Type Serosanguineous -Wound Margin Distinct, Outline Attached -Granulation Amt None Present (0 %) -Necrosis Amt Large (67-100%) -Necrotic Tissue Type Adherent Slough -Structure Exposed N/A -Texture (Radha-wound Skin Appearance) Scarring -Moisture (Radha-wound Skin Appearance No Abnormality ) -Color (Radha-wound Skin Appearance) Erythema -Temperature (Radha-wound Skin No Abnormality Appearance) (Pt Warm) -Tenderness on Palpation (Radha-wound No Skin Appearance) -Ulcer Cleansing Rinsed/ Irrigated with Saline -Foul Odor after Cleansing No -Anesthetic Used 4% Lidocaine Solution [Edema Assessment] -Right Calf (cm) 36 -Right Ankle (cm) 19 - Nurse 2 - General Ulcer CM Notes Start: 03/27/19 08:49 Freq: Status: Active Protocol: Activity Type Activity Date Activity User E-Sign Co-Sign Detail Recorded Client Recorded Date Recorded By Document 04/17/19 09:20 MW [id number] 04/17/19 09:23 MW 04/17/19 09:20 Wound Center Nurse 2 [Procedure/Treatment] #1 Medial RLE -Time 09:20 -Correct Patient Yes -Correct Side, Site, Position Yes -Correct Procedure Yes -Procedure Performed Yes -Type of Procedure Debridement -Clinical Debridement Subcutaneous -Post Debridement Size (cm) - Length 0.7 -Post Debridement Size (cm) - Width 0.3 -Post Debridement Size (cm) - Depth 0.5 -Total Square Cm 0.21 -Wound/Ulcer Outcome Not Healed -Ulcer Cleansing Rinsed/ Irrigated with Saline -Foul Odor after Cleansing No -Bioengineered Tissue No -Bleeding Controlled with Pressure -Offloading No -Treatment Response Procedure Tolerated Well [See Physician Procedure note for Specifics] Pain Scale: 0-10 Numeric [Pain] -Is Patient Pain Free? Yes Musculoskeletal: No Muscle Wasting Neurological: Cranial nerves II-XII grossly intact Psych/Mental Status: Normal Affect Debridement Note Post-Debridement Measurements/Treatment - Nurse 2 - General Ulcer CM Notes Start: 03/27/19 08:49 Freq: Status: Active Protocol: Activity Type Activity Date Activity User E-Sign Co-Sign Detail Recorded Client Recorded Date Recorded By Document 03/27/19 09:01 MW [id number] 03/27/19 09:04 MW Document 04/03/19 09:27 MW [id number] 04/03/19 09:38 MW Document 04/17/19 09:20 MW [id number] 04/17/19 09:23 MW 03/27/19 04/03/19 04/17/19 09:01 09:27 09:20 Wound Center Nurse 2 #1 Medial RLE -Time 09: 09:27 09:20 -Correct Patient Yes Yes Yes -Correct Side, Site, Position Yes Yes Yes -Correct Procedure Yes Yes Yes -Procedure Performed Yes Yes Yes -Type of Procedure Debridement Debridement Debridement -Clinical Debridement Subcutaneous Subcutaneous Subcutaneous -Post Debridement Size (cm) - Length 1.1 1.0 0.7 -Post Debridement Size (cm) - Width 0.6 0.6 0.3 -Post Debridement Size (cm) - Depth 0.1 0.5 0.5 -Total Square Cm 0.66 0.60 0.21 -Wound/Ulcer Outcome Not Healed Not Healed Not Healed -Ulcer Cleansing Rinsed/ Rinsed/ Rinsed/ Irrigated with Irrigated with Irrigated with Saline Saline Saline -Foul Odor after Cleansing No No No -Bioengineered Tissue No No No -Bleeding Controlled with Pressure Pressure Pressure -Offloading No No No -Treatment Response Procedure Procedure Procedure Tolerated Well Tolerated Well Tolerated Well Pain Scale: 0-10 Numeric Is Patient Pain Free? Yes Yes Yes Wound debrided: Right lower extremity ( Medial ) Wound Grade/Stage: Stage III Type of Debridement: Excisional debridement Anesthesia Used: 4% Lidocaine Solution Depth: Down to and including healthy tissue, in the subcutaneous layer Percentage of wound debrided: 100 Instrument Used: 3mm curette Tissue Removed: Slough and devitalized tissue Severity: Fat Layer Exposed Amount of bleeding with debridement: Mild Bleeding Controlled with: Pressure Patient tolerated procedure well Assessment/Plan Clinical Impression(s) from Imaging Studies Tibia/Fibula X-Ray 04/03/19 10:26 IMPRESSION: Soft tissue wound medial to the distal tibia without radiopaque foreign body in the soft tissues or acute osteomyelitis Electronically Signed: Garrison Hernandez MD at 20:42 EDT , Service support , Active Problems (Last Reviewed 03/26/19 @ 11:16 by Catarina Avelar) Wound of right lower extremity (Acute) Traumatic, penetrating with fat layer exposed Type 2 diabetes mellitus (Chronic) Assessment: Non healing right lower extremity wound with fat layer exposed. Traumatic. Type 2 diabetes mellitus. Plan: Debridement done as documeneted above, procedure was well tolerated. Circumference improved however, depth is same. I believe she wouyld benefi froma Vac due to depth and drainage. History of Diabetes and increased risk for infection. Continue Moistened Pomogran with adaptic over top. Chnage daily. Single layer Tubigrip for edema management. optimal blood glucose control and increased protein intkae recommended. will apply for KOBE Vac. Elevate lower extremities when seated and in bed. All her questions were answered and she was advised to call with any questions or concerns. Follow up in 1 week.
[2019-04-19 09:28] VITALS: BP 125/79; PULSE 80; RESP 16; BMI 26.9
[2019-04-24 08:19] VITALS: BP 108/64; PULSE 68; RESP 18; TEMP 36.9; BMI 26.9
--- NOTE | 2019-04-24 08:49 | PN.PCM_ITS ---
(1) Wound of right lower extremity Status: Acute Current Visit: Yes Code(s): S81.801A - Unspecified open wound, right lower leg, initial encounter Comment: Traumatic, penetrating with fat layer exposed (2) Type 2 diabetes mellitus Status: Chronic Current Visit: Yes Qualifiers: Code(s): E11.9 - Type 2 diabetes mellitus without complications Type of Wound Date of Service: 04/24/19 Chief Complaint: Right Leg Wound History of Wound: Ms. Gordon is a 64yo who was referred here by me due to a none healing right lower extremity wound. She was hit by a kettle neri whie exercising and sustained a wound to the area. [facility] and managed as a case of cellulitis. She was has also applied silver dressings and Medihoney without any significant improvement. No significant swelling or drainage. She feels well otherwise. Progress of Wound: Started KOBE and is tolerating this well. - Physical Exam Vital Signs Temp Pulse Resp BP 98.4 F 68 18 108/64 04/24/19 08:19 04/24/19 08:19 04/24/19 08:19 04/24/19 08:19 General: Alert, Oriented x3, Cooperative, No apparent distress HEENT: Atraumatic, Normocephalic Oral: Moist Mucosa Neck: Supple Lungs: Normal air movement Extremities: No cyanosis Skin: Ulcer/ Wound Wound Measurements and Assessment WC - Nurse 1 - General Ulcer Measurement Start: 03/27/19 08:49 Freq: Status: Active Protocol: Activity Type Activity Date Activity User E-Sign Co-Sign Detail Recorded Client Recorded Date Recorded By Document 04/24/19 08:19 [id number] 04/24/19 08:22 DL 04/24/19 08:19 Wound Center Nurse 1 [Ulcer Assessment] #1 Medial RLE -Current Size (cm) - Length 0.2 -Current Size (cm) - Width 0.2 -Current Size (cm) - Depth 0.1 -Total Square Cm 0.04 -Photo Taken No -Exudate Amt None Present -Wound Margin Flat & Intact -Granulation Amt Small (1-33%) -Granulation [facility] -Necrosis Amt Small (1-33%) -Necrotic Tissue Type Adherent Slough -Structure Exposed N/A -Texture (Radha-wound Skin Appearance) No Abnormality -Moisture (Radha-wound Skin Appearance Maceration ) -Color (Radha-wound Skin Appearance) Hemosiderin Staining -Temperature (Radha-wound Skin No Abnormality Appearance) (Pt Warm) -Tenderness on Palpation (Radha-wound No Skin Appearance) -Ulcer Cleansing Wound Cleanser -Foul Odor after Cleansing No -Anesthetic Used 5% Lidocaine Gel [Edema Assessment] -Right Calf (cm) 36.5 -Right Ankle (cm) 18.8 WC - Nurse 2 - General Ulcer CM Notes Start: 03/27/19 08:49 Freq: Status: Active Protocol: Activity Type Activity Date Activity User E-Sign Co-Sign Detail Recorded Client Recorded Date Recorded By Document 04/24/19 08:28 MW [id number] 04/24/19 08:31 MW 04/24/19 08:28 Wound Center Nurse 2 [Procedure/Treatment] #1 [facility] -Time 08:28 -Correct Patient Yes -Correct Side, Site, Position Yes -Correct Procedure Yes -Procedure Performed Yes -Type of Procedure Debridement -Clinical Debridement Subcutaneous -Post Debridement Size (cm) - Length 0.6 -Post Debridement Size (cm) - Width 0.2 -Post Debridement Size (cm) - Depth 0.3 -Total Square Cm 0.12 -Wound/Ulcer Outcome Not Healed -Ulcer Cleansing Rinsed/ Irrigated with Saline -Foul Odor after Cleansing No -Bioengineered Tissue No -Bleeding Controlled with Pressure -Offloading No -Treatment Response Procedure Tolerated Well [See Physician Procedure note for Specifics] Pain Scale: 0-10 Numeric [Pain] -Is Patient Pain Free? Yes Neurological: Cranial nerves II-XII grossly intact Psych/Mental Status: Normal Affect Debridement Note Post-Debridement Measurements/Treatment - Nurse 2 - General Ulcer CM Notes Start: 03/27/19 08:49 Freq: Status: Active Protocol: Activity Type Activity Date Activity User E-Sign Co-Sign Detail Recorded Client Recorded Date Recorded By Document 03/27/19 09:01 MW [id number] 03/27/19 09:04 MW Document 04/03/19 09:27 MW [id number] 04/03/19 09:38 MW Document 04/17/19 09:20 MW [id number] 04/17/19 09:23 MW Document 04/24/19 08:28 MW [id number] 04/24/19 08:31 MW 07/12/1104/03/19 04/17/19 09:01 09:27 09:20 Wound Center Nurse 2 #1 [facility] RLE -Time 09:01 09:27 09:20 -Correct Patient Yes Yes Yes -Correct Side, Site, Position Yes Yes Yes -Correct Procedure Yes Yes Yes -Procedure Performed Yes Yes Yes -Type of Procedure Debridement Debridement Debridement -Clinical Debridement Subcutaneous Subcutaneous Subcutaneous -Post Debridement Size (cm) - Length 1.1 1.0 0.7 -Post Debridement Size (cm) - Width 0.6 0.6 0.3 -Post Debridement Size (cm) - Depth 0.1 0.5 0.5 -Total Square Cm 0.66 0.60 0.21 -Wound/Ulcer Outcome Not Healed Not Healed Not Healed -Ulcer Cleansing Rinsed/ Rinsed/ Rinsed/ Irrigated with Irrigated with Irrigated with Saline Saline Saline -Foul Odor after Cleansing No No No -Bioengineered Tissue No No No -Bleeding Controlled with Pressure Pressure Pressure -Offloading No No No -Treatment Response Procedure Procedure Procedure Tolerated Well Tolerated Well Tolerated Well Pain Scale: 0-10 Numeric Is Patient Pain Free? Yes Yes Yes 04/24/19 08:28 Wound Center Nurse 2 #1 [facility] RLE -Time 08:28 -Correct Patient Yes -Correct Side, Site, Position Yes -Correct Procedure Yes -Procedure Performed Yes -Type of Procedure Debridement -Clinical Debridement Subcutaneous -Post Debridement Size (cm) - Length 0.6 -Post Debridement Size (cm) - Width 0.2 -Post Debridement Size (cm) - Depth 0.3 -Total Square Cm 0.12 -Wound/Ulcer Outcome Not Healed -Ulcer Cleansing Rinsed/ Irrigated with Saline -Foul Odor after Cleansing No -Bioengineered Tissue No -Bleeding Controlled with Pressure -Offloading No -Treatment Response Procedure Tolerated Well Pain Scale: 0-10 Numeric Is Patient Pain Free? Yes Wound debrided: Right Leg Wound Grade/Stage: Stage II Type of Debridement: Excisional debridement Anesthesia Used: 4% Lidocaine Solution Depth: Down to and including healthy tissue, in the subcutaneous layer Percentage of wound debrided: 100 Instrument Used: 3mm curette Tissue Removed: Slough and devitalized tissue Severity: Fat Layer Exposed Amount of bleeding with debridement: Mild Bleeding Controlled with: Pressure Patient tolerated procedure well Assessment/Plan Clinical Impression(s) from Imaging Studies Tibia/Fibula X-Ray 04/03/19 10:26 IMPRESSION: Soft tissue wound medial to the distal tibia without radiopaque foreign body in the soft tissues or acute osteomyelitis Electronically Signed: Garrison Hernandez MD at 20:42 EDT , Service support , Active Problems (Last Reviewed 03/26/19 @ 11:16 by Catarina Avelar) Wound of right lower extremity (Acute) Traumatic, penetrating with fat layer exposed Type 2 diabetes mellitus (Chronic) Assessment: Non healing right lower extremity wound with fat layer exposed. Traumatic. Type 2 diabetes mellitus. Plan: Debridement done as documeneted above, procedure was well tolerated. Continue Moistened Pomogran with KOBE. Leave in place for 1 week. Continue Optimal blood glucose monitoring and increased protein intake. Elevate lower extremities when seated and in bed. All her questions were answered and she was advised to call with any questions or concerns. Follow up in 1 week.
== END 2019-04-24 23:59 ==
LOC: WC 08:00
PROVIDERS: Family Provider Internal Medicine; PCP Internal Medicine; Visit Provider Internal Medicine
DX: S81.831A Puncture wound without foreign body, right lower leg, initial encounter (principal); W22.8XXA Striking against or struck by other objects, initial encounter; Y93.B9 Activity, other involving muscle strengthening exercises; E11.9 Type 2 diabetes mellitus without complications; E78.5 Hyperlipidemia, unspecified; E55.9 Vitamin D deficiency, unspecified; G47.30 Sleep apnea, unspecified; I10 Essential (primary) hypertension; F41.9 Anxiety disorder, unspecified; F32.9 Major depressive disorder, single episode, unspecified; M19.90 Unspecified osteoarthritis, unspecified site; Z79.899 Other long term (current) drug therapy; Z79.4 Long term (current) use of insulin; Z79.82 Long term (current) use of aspirin; Z87.891 Personal history of nicotine dependence
CPT/HCPCS: 11042; 73590; 87070; 87075; 87077; 87186; 87205; 97607; 99212; 99213; G0463

== ENCOUNTER → 2019-04-29 08:13 | Outpatient (CLI) | payer OTHER, SELFPAY ==
[2019-04-29 07:51] VITALS: BMI 26.6
--- NOTE | 2019-04-29 08:14 | RAD_ITS ---
STUDY: X-RAY - RIGHT TIBIA AND FIBULA REASON FOR EXAM: Female, 64 years old. While working out recently heard and felt a pop in lower leg. TECHNIQUE: 2 view(s) of the tibia and fibula were obtained. COMPARISON: April 03, 2019 FINDINGS: Normal visualized tibia. Normal visualized fibula. Stable soft tissue structures are unremarkable. RAD/Tibia & Fibula 2 Views IMPRESSION: Within normal limits x-ray examination of the tibia and fibula. Electronically Signed: Italia Crump MD at 18:51 EDT Tel , Service support ,
== END ==
PROVIDERS: Family Provider Internal Medicine; PCP Internal Medicine; Referring Provider Orthopaedic Surgery; Visit Provider Orthopaedic Surgery
DX: M79.661 Pain in right lower leg (principal)
CPT/HCPCS: 73590

== ENCOUNTER → 2019-05-08 08:18 | Outpatient (CLI) | payer OTHER, SELFPAY ==
[2019-05-07 08:17] VITALS: BMI 26.6
[2019-05-08 12:38] LABS: AST(SGOT) 24 U/L (15-37); Alanine Aminotransfer ALT/SGPT 47 U/L (13-56); Albumin, Serum 3.9 g/dL (3.2-5.0); Alkaline Phosphatase 106 U/L (45-117); Anion Gap 6 (5-15); BUN 15 mg/dL (7-18); BUN/Creat Ratio 20.9 RATIO (10-20); Calcium,Total 8.8 mg/dL (8.5-10.1); Chloride 103 mmol/L (98-107); Cholesterol 146 mg/dL (200); Creatinine, Serum 0.72 mg/dL (0.55-1.02); EST Glomerular Filtration Rate 87 mL/min (>60); Est Glom Filt Rate - Afr Amer 105 mL/min (>60); Globulin 3.8 g/dL (2.2-4.2); Glucose 156 mg/dL (74-106); High Density Lipoprotein 46 mg/dL; Potassium 4.7 mmol/L (3.5-5.1); Protein, Total 7.7 g/dL (6.4-8.2); Sodium Level 135 mmol/L (136-145); Triglycerides 90 mg/dL; Very Low Density Lipoprotein 18 mg/dL (5-40)
[2019-05-08 12:55] LABS: Microalbumin,Random Urine 27.3 mg/L (NO RANGE EST.); Microalbumin:Creatinine Ratio 41.6 mg/g CRE (<30 mg/g CRE)
== END ==
PROVIDERS: Family Provider Internal Medicine; PCP Internal Medicine; Visit Provider Internal Medicine
DX: I10 Essential (primary) hypertension (principal); E11.9 Type 2 diabetes mellitus without complications; E78.5 Hyperlipidemia, unspecified
CPT/HCPCS: 36415; 80053; 80061; 82043; 82570

== ENCOUNTER 2019-05-16 12:30 | Outpatient (RCR) | payer OTHER, SELFPAY ==
[2019-04-24 09:06] VITALS: BMI 26.6
[2019-04-25 01:07] VITALS: BP 108/64; PULSE 68; RESP 18; TEMP 36.9
[2019-04-29 07:51] VITALS: BMI 26.6
[2019-05-02 09:16] VITALS: BP 117/73; PULSE 87; RESP 18; TEMP 36.1; BMI 26.6
--- NOTE | 2019-05-02 10:08 | PCM.WC.PN ---
(1) Wound of right lower extremity Status: Chronic Current Visit: Yes Code(s): S81.801A - Unspecified open wound, right lower leg, initial encounter Comment: Traumatic, penetrating with fat layer exposed Type of Wound Date of Service: 05/02/19 Chief Complaint: Right Leg Wound History of Wound: Ms. Gordon is a 64yo who was referred here by me due to a none healing right lower extremity wound. She was hit by a kettle neri whie exercising and sustained a wound to the area. [facility] and managed as a case of cellulitis. She was has also applied silver dressings and Medihoney without any significant improvement. No significant swelling or drainage. She feels well otherwise. Progress of Wound: No new cocnerns at this time. - Physical Exam Vital Signs Temp Pulse Resp BP 97 F L 87 18 117/73 05/02/19 09:16 05/02/19 09:16 05/02/19 09:16 05/02/19 09:16 General: Alert, Oriented x3, Cooperative, No apparent distress HEENT: Atraumatic, Normocephalic Oral: Moist Mucosa Neck: Supple Lungs: Normal air movement Extremities: No cyanosis Skin: Ulcer/ Wound Wound Measurements and Assessment WC - Nurse 1 - General Ulcer Measurement Start: 05/02/19 09:16 Freq: Status: Active Protocol: Activity Type Activity Date Activity User E-Sign Co-Sign Detail Recorded Client Recorded Date Recorded By Document 05/02/19 09:16 [id number] 05/02/19 09:18 RB 05/02/19 09:16 Wound Center Nurse 1 [Ulcer Assessment] #1 Medial RLE -Combined with other wound No -Current Size (cm) - Length 0.4 -Current Size (cm) - Width 0.2 -Current Size (cm) - Depth 0.1 -Total Square Cm 0.08 -Photo Taken No -Tunneling No -Undermining/Tunneling No -Circular Undermining No -Exudate Amt Small -Exudate Type Serosanguineous -Wound Margin Flat & Intact -Granulation Amt Large (67-100%) -Granulation Quality [place] -Slough/Fibrin Yes -Necrosis Amt Small (1-33%) -Necrotic Tissue Type Adherent Slough -Structure Exposed N/A -Texture (Radha-wound Skin Appearance) Assessed -Moisture (Radha-wound Skin Appearance Assessed ) -Color (Radha-wound Skin Appearance) Assessed -Temperature (Radha-wound Skin No Abnormality Appearance) (Pt Warm) -Tenderness on Palpation (Radha-wound No Skin Appearance) -Ulcer Cleansing Wound Cleanser -Foul Odor after Cleansing No -Anesthetic Used 5% Lidocaine Gel [Edema Assessment] -Lower Limb Edema Present Yes -Right Calf (cm) 37 -Right Ankle (cm) 22 - Nurse 2 - General Ulcer CM Notes Start: 05/02/19 09:16 Freq: Status: Active Protocol: Activity Type Activity Date Activity User E-Sign Co-Sign Detail Recorded Client Recorded Date Recorded By Document 05/02/19 09:42 MW [id number] 05/02/19 09:43 MW 05/02/19 09:42 Wound Center Nurse 2 [Procedure/Treatment] #1 [facility] RLE -Time 09:42 -Correct Patient Yes -Correct Side, Site, Position Yes -Correct Procedure Yes -Procedure Performed Yes -Type of Procedure Debridement -Clinical Debridement Subcutaneous -Post Debridement Size (cm) - Length 0.4 -Post Debridement Size (cm) - Width 0.2 -Post Debridement Size (cm) - Depth 0.3 -Total Square Cm 0.08 -Wound/Ulcer Outcome Not Healed -Ulcer Cleansing Rinsed/ Irrigated with Saline -Foul Odor after Cleansing No -Bioengineered Tissue No -Bleeding Controlled with Pressure -Offloading No -Treatment Response Procedure Tolerated Well [See Physician Procedure note for Specifics] Pain Scale: 0-10 Numeric [Pain] -Is Patient Pain Free? Yes Musculoskeletal: No Muscle Wasting Neurological: Cranial nerves II-XII grossly intact Psych/Mental Status: Normal Affect Debridement Note Post-Debridement Measurements/Treatment - Nurse 2 - General Ulcer CM Notes Start: 05/02/19 09:16 Freq: Status: Active Protocol: Activity Type Activity Date Activity User E-Sign Co-Sign Detail Recorded Client Recorded Date Recorded By Document 05/02/19 09:42 MW [id number] 05/02/19 09:43 MW 05/02/19 09:42 Wound Center Nurse 2 #1 [facility] RLE -Time 09:42 -Correct Patient Yes -Correct Side, Site, Position Yes -Correct Procedure Yes -Procedure Performed Yes -Type of Procedure Debridement -Clinical Debridement Subcutaneous -Post Debridement Size (cm) - Length 0.4 -Post Debridement Size (cm) - Width 0.2 -Post Debridement Size (cm) - Depth 0.3 -Total Square Cm 0.08 -Wound/Ulcer Outcome Not Healed -Ulcer Cleansing Rinsed/ Irrigated with Saline -Foul Odor after Cleansing No -Bioengineered Tissue No -Bleeding Controlled with Pressure -Offloading No -Treatment Response Procedure Tolerated Well Pain Scale: 0-10 Numeric Is Patient Pain Free? Yes Wound debrided: Right lower extremity Wound Grade/Stage: Stage II Type of Debridement: Excisional debridement Anesthesia Used: 4% Lidocaine Solution Depth: Down to and including healthy tissue, in the subcutaneous layer Percentage of wound debrided: 100 Instrument Used: - - 1mm Tissue Removed: Slough and devitalized tissue Severity: Fat Layer Exposed Amount of bleeding with debridement: Mild Bleeding Controlled with: Pressure Patient tolerated procedure well Assessment/Plan Active Problems (Last Reviewed 05/01/19 @ 08:13 by Sulema Wheeler) Wound of right lower extremity (Chronic) Traumatic, penetrating with fat layer exposed Assessment: Non healing right lower extremity wound with fat layer exposed. Traumatic. Type 2 diabetes mellitus. Plan: Debridement done as documeneted above, procedure was well tolerated. Had concerns with KOBE. Will DC. Continue Pommogran daily. Continue Optimal blood glucose monitoring and increased protein intake. Elevate lower extremities when seated and in bed. All her questions were answered and she was advised to call with any questions or concerns. Follow up in 2 weeks.
[2019-05-16 12:35] VITALS: BP 145/87; PULSE 110; RESP 18; TEMP 36.1; BMI 26.6
--- NOTE | 2019-05-16 13:53 | PN.PCM_ITS ---
(1) Wound of right lower extremity Status: Chronic Current Visit: Yes Code(s): S81.801A - Unspecified open wound, right lower leg, initial encounter Comment: Traumatic, penetrating with fat layer exposed Type of Wound Date of Service: 05/16/19 Chief Complaint: Right Leg Wound History of Wound: Ms. Gordon is a 64yo who was referred here by me due to a none healing right lower extremity wound. She was hit by a kettle neri whie exercising and sustained a wound to the area. [facility] and managed as a case of cellulitis. She was has also applied silver dressings and Medihoney without any significant improvement. No significant swelling or drainage. She feels well otherwise. Progress of Wound: Healed. No new concerns at this time. - Physical Exam Vital Signs Temp Pulse Resp BP 97 F L 110 H 18 145/87 H 05/16/19 12:35 05/16/19 12:35 05/16/19 12:35 05/16/19 12:35 General: Alert, Oriented x3, Cooperative, No apparent distress HEENT: Atraumatic, Normocephalic Oral: Moist Mucosa Neck: Supple Lungs: Normal air movement Extremities: No cyanosis, Edema Wound Measurements and Assessment WC - Nurse 1 - General Ulcer Measurement Start: 05/02/19 09:16 Freq: Status: Active Protocol: Activity Type Activity Date Activity User E-Sign Co-Sign Detail Recorded Client Recorded Date Recorded By Document 05/16/19 12:35 RB [id number] 05/16/19 12:38 RB 05/16/19 12:35 Wound Center Nurse 1 [Ulcer Assessment] #1 Medial RLE -Combined with other wound No -Current Size (cm) - Length 0.1 -Current Size (cm) - Width 0.1 -Current Size (cm) - Depth 0.1 -Total Square Cm 0.01 -Photo Taken No -Tunneling No -Undermining/Tunneling No -Circular Undermining No -Exudate Amt None Present -Wound Margin Distinct, Outline Attached -Granulation Amt Medium (34-66%) -Granulation Quality [place] -Slough/Fibrin No -Necrosis Amt None Present (0 %) -Structure Exposed N/A -Texture (Radha-wound Skin Appearance) Assessed -Moisture (Radha-wound Skin Appearance Assessed ) -Color (Radha-wound Skin Appearance) Assessed -Temperature (Radha-wound Skin No Abnormality Appearance) (Pt Warm) -Tenderness on Palpation (Radha-wound No Skin Appearance) -Ulcer Cleansing Wound Cleanser -Foul Odor after Cleansing No -Anesthetic Used 5% Lidocaine Gel [Edema Assessment] -Lower Limb Edema Present Yes -Right Calf (cm) 37.5 -Right Ankle (cm) 20.8 WC - Nurse 2 - General Ulcer CM Notes Start: 05/02/19 09:16 Freq: Status: Active Protocol: Activity Type Activity Date Activity User E-Sign Co-Sign Detail Recorded Client Recorded Date Recorded By Document 05/16/19 12:54 MW [id number] 05/16/19 12:55 MW 05/16/19 12:54 Wound Center Nurse 2 [Procedure/Treatment] #1 [facility] RLE -Time 12:54 -Correct Patient Yes -Correct Side, Site, Position Yes -Correct Procedure Yes -Procedure Performed No -Post Debridement Size (cm) - Length 0 -Post Debridement Size (cm) - Width 0 -Post Debridement Size (cm) - Depth 0 -Total Square Cm 0 -Wound/Ulcer Outcome Healed- Epithelialized [See Physician Procedure note for Specifics] Musculoskeletal: No Muscle Wasting Neurological: Cranial nerves II-XII grossly intact Psych/Mental Status: Normal Affect Debridement Note Post-Debridement Measurements/Treatment - Nurse 2 - General Ulcer CM Notes Start: 05/02/19 09:16 Freq: Status: Active Protocol: Activity Type Activity Date Activity User E-Sign Co-Sign Detail Recorded Client Recorded Date Recorded By Document 05/02/19 09:42 MW [id number] 05/02/19 09:43 MW Document 05/16/19 12:54 MW [id number] 05/16/19 12:55 MW 05/02/19 05/16/19 09:42 12:54 Wound Center Nurse 2 #1 [facility] RLE -Time 09:42 12:54 -Correct Patient Yes Yes -Correct Side, Site, Position Yes Yes -Correct Procedure Yes Yes -Procedure Performed Yes No -Type of Procedure Debridement -Clinical Debridement Subcutaneous -Post Debridement Size (cm) - Length 0.4 0 -Post Debridement Size (cm) - Width 0.2 0 -Post Debridement Size (cm) - Depth 0.3 0 -Total Square Cm 0.08 0 -Wound/Ulcer Outcome Not Healed Healed- Epithelialized -Ulcer Cleansing Rinsed/ Irrigated with Saline -Foul Odor after Cleansing No -Bioengineered Tissue No -Bleeding Controlled with Pressure -Offloading No -Treatment Response Procedure Tolerated Well Pain Scale: 0-10 Numeric Is Patient Pain Free? Yes No debridement was completed today Assessment/Plan Active Problems (Last Reviewed 05/01/19 @ 08:13 by Sulema Wheeler) Wound of right lower extremity (Chronic) Traumatic, penetrating with fat layer exposed Assessment: Non healing right lower extremity wound with fat layer exposed. Traumatic. Type 2 diabetes mellitus. Plan: Healed. Continue adaptic over top for 2 more weeks. Follow up with me at the office in 1 month. All her questions were answered and she was advised to call with any questions or concerns. Discharged from the wound clinic.
== END 2019-05-25 23:59 ==
LOC: WC 12:30
PROVIDERS: Family Provider Internal Medicine; PCP Internal Medicine; Visit Provider Internal Medicine
DX: S81.831A Puncture wound without foreign body, right lower leg, initial encounter (principal); W22.8XXA Striking against or struck by other objects, initial encounter; E11.9 Type 2 diabetes mellitus without complications; Y93.B9 Activity, other involving muscle strengthening exercises
CPT/HCPCS: 11042; 99213; G0463

== ENCOUNTER → 2019-11-04 06:58 | Outpatient (CLI) | payer OTHER, SELFPAY ==
[2019-08-07 16:50] VITALS: BMI 26.6
[2019-11-04 07:59] LABS: Anion Gap 5 (5-15); BUN 15 mg/dL (7-18); BUN/Creat Ratio 18.5 RATIO (10-20); Calcium,Total 9.3 mg/dL (8.5-10.1); Chloride 101 mmol/L (98-107); Creatinine, Serum 0.81 mg/dL (0.55-1.02); EST Glomerular Filtration Rate 76 mL/min (>60); Est Glom Filt Rate - Afr Amer 92 mL/min (>60); Glucose 173 mg/dL (74-106); Potassium 4.4 mmol/L (3.5-5.1); Sodium Level 135 mmol/L (136-145)
[2020-05-20 13:41] VITALS: BMI 27.6
== END ==
PROVIDERS: PCP Internal Medicine; Referring Provider Internal Medicine; Visit Provider Internal Medicine
DX: E11.9 Type 2 diabetes mellitus without complications (principal); I10 Essential (primary) hypertension
CPT/HCPCS: 36415; 80048

== ENCOUNTER → 2020-05-20 17:13 | Outpatient (CLI) | payer OTHER, SELFPAY ==
[2020-05-20 13:41] VITALS: BMI 27.6
[2020-05-25 13:27] LABS: HPV APTIMA, High Risk Negative (Negative)
== END ==
PROVIDERS: Referring Provider Obstetrics & Gynecology; Visit Provider Obstetrics & Gynecology
DX: Z12.4 Encounter for screening for malignant neoplasm of cervix (principal)
CPT/HCPCS: 87624; 88175; G0145

== ENCOUNTER → 2020-06-17 08:26 | Outpatient (CLI) | payer OTHER, SELFPAY ==
[2020-05-20 13:41] VITALS: BMI 27.6
--- NOTE | 2020-06-17 08:27 | BI_ITS ---
MAMMOGRAPHY - UNILATERAL SCREENING: LEFT BREAST REASON FOR EXAM: Female, 65 years old. Routine annual screening examination (unilateral). PERTINENT HISTORY: Personal history of breast cancer. Prior right mastectomy. Sister with breast cancer. Grandmother with breast cancer. TECHNIQUE: Digital unilateral breast chela (3D mammographic acquisition) in the CC and MLO projections. 2-D mediolateral oblique (MLO) and craniocaudad (CC) views of both breasts were obtained. CAD: Full Field Digital Mammography with Computer Added Detection was performed. COMPARISON: Comparison is made with prior examination dated 01/31/2019. FINDINGS: Breast Composition: There are scattered areas of fibroglandular density. There are no dominant masses or suspicious calcifications. Stable benign-appearing left axillary lymph nodes. No other significant abnormalities are identified. There has been no significant change since the prior study. BI/SCREEN MAMM (CAD) W/CHELA UNI L IMPRESSION: Stable unilateral screening mammogram. Yearly follow-up mammogram recommended. (A) ASSESSMENT CATEGORY: BIRADS Category 2: Benign. A letter regarding these results will be sent to the patient by the facility within 30 days. Approximately 10% of breast cancers are not detected by mammography. A normal mammogram should not delay biopsy of a clinically suspicious abnormality. [id number] Electronically Signed: Johnathon Benjamin, at 14:35 EDT , Service support ,
--- NOTE | 2020-06-17 09:12 | BD_ITS ---
STUDY: DUAL ENERGY X-RAY ABSORPTIOMETRY / DXA REASON FOR EXAM: Female, 65 years old. PMP0- EARLY CHEMO INDUCED AT AGE 41 -- HX OF BREAST CANCER -- TYPE 2 DIABETIC- ON MEDS -- HX OF SMOKING- QUIT AT AGE 41 -- HX OF TAKING ANTISEIZURE MEDS IN PAST 45 YRS AGO -- TAKES VITAMIN D -- DOES MODERATE AMOUNT OF EXERCISE -- FAMILY HX OF OSTEO- MOTHER -- MARY OF 1 INCH TECHNIQUE: Bone Mineral Density (BMD) measurements of lumbar spine and bilateral hips were obtained. COMPARISON: None. FINDINGS: Lumbar Spine (L1-L4): g/cm2 (1.301) / T-score (1.0) / Z-score (2.5) Findings are suggestive of normal bone density with a low fracture risk. Left Femur Total: g/cm2 (0.961) / T-score (-0.4) / Z-score (0.8) Left Femoral Neck: g/cm2 (0.949) / T-score (-0.6) / Z-score (0.8) Right Femur Total: g/cm2 (0.938) / T-score (-0.6) / Z-score (0.6) Right Femoral Neck: g/cm2 (0.917) / T-score (-0.9) / Z-score (0.6) BD/Dexa Bone Density Study IMPRESSION: The patient is considered normal as outlined below according to World Hilario Organization (WHO) criteria with a low fracture risk. Reference Information: The T-score is the number of standard deviations above or below the standard which is normal for young adults at their peak bone mineral density. The World Health Organization (WHO) interprets the T-scores as follows: Above -1 Normal bone density Between -1 and -2.5 Osteopenia Equal to / or below -2.5 Osteoporosis As a practical clinical guideline, osteopenia may be graded as follows: Mild -1 through -1.5 Moderate -1.6 through -2.0 Severe -2.1 through -2.4 The Z-score is the number of standard deviations above or below age-matched controls. A Z-score of less than -1.5 would be considered abnormal. References: 1. NIH Osteoporosis and Related Bone Diseases http://www.osteo.org 2. International Society for Clinical Densitometry http://www.iscd.org 3. National Osteoporosis Foundation http://www.nof.org Electronically Signed: Johnathon Benjamin, at 14:48 EDT , Service support ,
== END ==
PROVIDERS: PCP Internal Medicine; Referring Provider Obstetrics & Gynecology; Visit Provider Obstetrics & Gynecology
DX: Z12.31 Encounter for screening mammogram for malignant neoplasm of breast (principal); Z78.0 Asymptomatic menopausal state
CPT/HCPCS: 77063; 77067; 77080

== ENCOUNTER → 2020-06-24 | Outpatient (CLI) | payer OTHER, SELFPAY ==
[2020-06-24 15:38] VITALS: BMI 27.6
[2020-06-24 16:54] LABS: Absolute Lymphocyte Count 2.34 X10^3/uL (0.83-4.51); Absolute Neutrophil Count 7.3 X10^3/uL (2.0-7.7); Basophil# 0.07 X10^3/uL; Basophil% 0.7 % (0-1); Eosinophil# 0.17 X10^3/uL; Eosinophils% 1.6 % (0-5); Hematocrit 46.3 % (37-47); Hemoglobin 14.9 g/dL (12.0-15.0); Lymphocyte # 2.34 X10^3/ul (4.0); Lymphocyte % 21.9 % (19-41); Mean Corp Hgb Conc 32.2 g/dL (32-36); Mean Corpuscular Volume 90.3 fL (81-99); Mean Platelet Vol. 11.3 fl (6.2-12.0); Monocyte# 0.76 X10^3/uL; Monocyte% 7.1 % (0-10); NRBC Flagged by Analyzer 0 % (0-5); Neutrophil % 68.4 % (47-70); Platelet Count 230 K/mm3 (150-450); RBC Distribution Width CV 12.6 % (11.6-14.6); RBC Distribution Width SD 41.3 fl (35.1-43.9); Red Blood Count 5.13 M/mm3 (4.2-5.4); White Blood Count 10.7 K/mm3 (4.4-11.0)
[2020-06-24 17:34] LABS: AST(SGOT) 29 U/L (15-37); Alanine Aminotransfer ALT/SGPT 54 U/L (13-56); Albumin, Serum 4.1 g/dL (3.2-5.0); Alkaline Phosphatase 106 U/L (45-117); Anion Gap 7 (5-15); BUN 18 mg/dL (7-18); BUN/Creat Ratio 20.3 RATIO (10-20); Calcium,Total 9.7 mg/dL (8.5-10.1); Chloride 104 mmol/L (98-107); Cholesterol 153 mg/dL (200); Creatinine, Serum 0.89 mg/dL (0.55-1.02); EST Glomerular Filtration Rate 68 mL/min (>60); Est Glom Filt Rate - Afr Amer 82 mL/min (>60); Glucose 123 mg/dL (74-106); High Density Lipoprotein 39 mg/dL; Potassium 4.3 mmol/L (3.5-5.1); Protein, Total 8.1 g/dL (6.4-8.2); Sodium Level 136 mmol/L (136-145); Triglycerides 185 mg/dL; Very Low Density Lipoprotein 37 mg/dL (5-40)
[2020-06-24 17:36] LABS: Microalbumin,Random Urine 14.4 mg/L (NO RANGE EST.); Microalbumin:Creatinine Ratio 22.3 mg/g CRE (<30 mg/g CRE)
== END | disposition home or self-care (01) ==
LOC: BIMLAB 16:18
PROVIDERS: PCP Internal Medicine; Referring Provider Internal Medicine; Visit Provider Internal Medicine
DX: E11.9 Type 2 diabetes mellitus without complications (principal); E78.5 Hyperlipidemia, unspecified; I10 Essential (primary) hypertension
CPT/HCPCS: 36415; 80053; 80061; 82043; 82570; 85025

== ENCOUNTER → 2021-03-26 08:41 | Outpatient (CLI) | payer MEDICARE, SELFPAY ==
[2021-01-07 16:46] VITALS: BMI 24.7
[2021-03-26 10:03] LABS: ALB/GLOB Ratio 1.2 RATIO (0.9-2.4); AST(SGOT) 14 U/L (15-37); Alanine Aminotransfer ALT/SGPT 25 U/L (13-56); Albumin, Serum 4.1 g/dL (3.2-5.0); Alkaline Phosphatase 92 U/L (45-117); Anion Gap 4 (5-15); BUN 16 mg/dL (7-18); Calcium,Total 9.5 mg/dL (8.5-10.1); Chloride 101 mmol/L (98-107); EST Glomerular Filtration Rate 76 mL/min (>60); Est Glom Filt Rate - Afr Amer 92 mL/min (>60); Globulin 3.4 g/dL (2.2-4.2); Glucose 135 mg/dL (74-106); Potassium 4.6 mmol/L (3.5-5.1); Protein, Total 7.5 g/dL (6.4-8.2); Sodium Level 135 mmol/L (136-145)
== END ==
PROVIDERS: PCP Internal Medicine; Visit Provider Internal Medicine
DX: I10 Essential (primary) hypertension (principal)
CPT/HCPCS: 36415; 80053

== ENCOUNTER → 2021-04-19 09:49 | Outpatient (CLI) | payer MEDICARE, SELFPAY ==
[2021-04-19 08:59] VITALS: BMI 24.7
[2021-04-19 12:42] LABS: Vitamin B12 308 pg/mL (211-911); Vitamin D,25 Hydroxy 45.1 ng/mL
[2021-04-19 12:49] LABS: Cholesterol 148 mg/dL (200); High Density Lipoprotein 48 mg/dL; Triglycerides 77 mg/dL; Very Low Density Lipoprotein 15 mg/dL (5-40)
== END ==
PROVIDERS: PCP Internal Medicine; Referring Provider Nurse Practitioner Family; Visit Provider Nurse Practitioner Family
DX: E55.9 Vitamin D deficiency, unspecified (principal); R20.0 Anesthesia of skin; R20.2 Paresthesia of skin; E11.29 Type 2 diabetes mellitus with other diabetic kidney complication; R80.9 Proteinuria, unspecified; Z79.4 Long term (current) use of insulin
CPT/HCPCS: 36415; 80061; 82306; 82607

== ENCOUNTER → 2021-04-27 14:24 | Outpatient (CLI) | payer MEDICARE, SELFPAY ==
[2021-04-19 08:59] VITALS: BMI 24.7
--- NOTE | 2021-04-27 14:28 | US_ITS ---
INDICATION: Left soft tissue swelling -- ATTN: LEFT SUPRACLAVICULAR AREA EXAMINATION: Ultrasound US Head/Neck Soft Tissue TECHNIQUE: Mayers scale and color doppler imaging was performed of the thyroid gland. COMPARISON: Previous CT scan of the chest obtained on 10/23/2017 FINDINGS: Serial longitudinal and transverse scans of the left supraclavicular region and in the region of the palpable mass was performed with real-time sector scanner. No obvious mass or lesion is noted in this location the palpable soft tissue density noted by the patient probably represents a subcutaneous lipoma. US/Head/Neck Soft Tissue IMPRESSION: No obvious abnormality is identified in the palpable density noted in the left supraclavicular region probably represents a subcutaneous lipoma Electronically Signed: Vincent Purcell DO at 14:26 EDT Tel , Service support ,
== END ==
PROVIDERS: PCP Internal Medicine; Referring Provider Nurse Practitioner Family; Visit Provider Nurse Practitioner Family
DX: R22.9 Localized swelling, mass and lump, unspecified (principal)
CPT/HCPCS: 76536

== ENCOUNTER → 2021-07-07 09:39 | Outpatient (CLI) | payer MEDICARE, SELFPAY ==
[2021-07-07 12:18] LABS: Absolute Lymphocyte Count 1.78 X10^3/uL (0.83-4.51); Absolute Neutrophil Count 4.7 X10^3/uL (2.0-7.7); Basophil# 0.07 X10^3/uL; Basophil% 0.9 % (0-1); Eosinophil# 0.12 X10^3/uL; Eosinophils% 1.6 % (0-5); Hematocrit 45.3 % (37-47); Hemoglobin 14.8 g/dL (12.0-15.0); Lymphocyte # 1.78 X10^3/ul (0.83-4.51); Mean Corp Hgb Conc 32.7 g/dL (32-36); Mean Corpuscular Volume 88.8 fL (81-99); Mean Platelet Vol. 12.1 fl (6.2-12.0); Monocyte# 0.69 X10^3/uL; Monocyte% 9.3 % (0-10); NRBC Flagged by Analyzer 0 % (0-5); Neutrophil # 4.72 X10^3/uL (2.7-7.7); Neutrophil % 63.8 % (47-70); Platelet Count 295 K/mm3 (150-450); RBC Distribution Width CV 12.4 % (11.6-14.6); RBC Distribution Width SD 40.8 fl (35.1-43.9); White Blood Count 7.4 K/mm3 (4.4-11.0)
[2021-07-07 12:34] LABS: AST(SGOT) 17 U/L (15-37); Alanine Aminotransfer ALT/SGPT 23 U/L (13-56); Albumin, Serum 4.2 g/dL (3.2-5.0); Alkaline Phosphatase 83 U/L (45-117); Anion Gap 4 (5-15); BUN 14 mg/dL (7-18); BUN/Creat Ratio 14.9 RATIO (10-20); Calcium,Total 10.2 mg/dL (8.5-10.1); Chloride 101 mmol/L (98-107); Creatinine, Serum 0.94 mg/dL (0.55-1.02); EST Glomerular Filtration Rate 64 mL/min (>60); Est Glom Filt Rate - Afr Amer 77 mL/min (>60); Globulin 4.2 g/dL (2.2-4.2); Glucose 144 mg/dL (74-106); Potassium 4.8 mmol/L (3.5-5.1); Protein, Total 8.4 g/dL (6.4-8.2); Sodium Level 134 mmol/L (136-145)
[2021-07-07 15:20] LABS: Erythrocyte Sedimentation Rate 11 mm/hr (0-30)
== END ==
PROVIDERS: PCP Internal Medicine; Referring Provider Internal Medicine; Visit Provider Internal Medicine
DX: R68.81 Early satiety (principal); R11.0 Nausea; E11.9 Type 2 diabetes mellitus without complications
CPT/HCPCS: 36415; 80053; 85025; 85652

== ENCOUNTER → 2021-07-14 10:17 | Outpatient (CLI) | payer MEDICARE, SELFPAY ==
--- NOTE | 2021-07-14 10:21 | NM_ITS ---
CLINICAL: 66-year-old female with reported history of chronic nausea and early satiety. SEMI-SOLID PHASE 99m Tc SULFUR COLLOID GASTRIC EMPTYING STUDY COMPARISON: None available FINDINGS: The patient was administered 1.1 mCi of 99m Tc sulfur colloid mixed with oatmeal and consumed per os. Image acquisitions in the anterior-posterior projections for a total of 60 minutes. There is prompt visualization of the stomach. There is no gastroesophageal reflux identified. The T ? emptying was calculated to be 47.64 minutes, (Normal: 12-56 minutes). NM/Gastric Emptying Study IMPRESSION: 1. NORMAL 99m Tc sulfur colloid semi-solid phase (oatmeal) gastric emptying imaging examination. A. There is normal and preserved semi-solid phase gastric emptying compared to normal controls. (Hallie et al, J Nucl Med Tech 38: 186, 2010). Electronically Signed: Jos Burton DO at 23:12 EDT Tel , Service support ,
== END ==
PROVIDERS: PCP Internal Medicine; Referring Provider Internal Medicine; Visit Provider Internal Medicine
DX: R68.81 Early satiety (principal); R11.0 Nausea
CPT/HCPCS: 78264; A9541

== ENCOUNTER → 2021-07-16 07:38 | Outpatient (CLI) | payer MEDICARE, SELFPAY ==
--- NOTE | 2021-07-16 07:58 | BI_ITS ---
MAMMOGRAPHY - UNILATERAL SCREENING: LEFT BREAST REASON FOR EXAM: Female, 66 years old. Routine annual screening examination (unilateral). PERTINENT HISTORY: Personal history of breast cancer. Prior right mastectomy. Sister with breast cancer. Grandmother with breast cancer. TECHNIQUE: Digital unilateral breast chela (3D mammographic acquisition) in the CC and MLO projections. 2-D mediolateral oblique (MLO) and craniocaudad (CC) views of both breasts were obtained. CAD: Full Field Digital Mammography with Computer Added Detection was performed. COMPARISON: Comparison is made with prior study 06/17/2020. FINDINGS: Breast Composition: There are scattered areas of fibroglandular density. There are no dominant masses or suspicious calcifications. No other significant abnormalities are identified. There has been no significant change since the prior study. BI/SCREEN MAMM (CAD) W/CHELA UNI L IMPRESSION: Stable unilateral screening mammogram. Yearly follow-up mammogram recommended. (A) ASSESSMENT CATEGORY: BIRADS Category 1: Negative. A letter regarding these results will be sent to the patient by the facility within 30 days. Approximately 10% of breast cancers are not detected by mammography. A normal mammogram should not delay biopsy of a clinically suspicious abnormality. [id number] Electronically Signed: Johnathon Benjamin MD at 8:40 EDT , Service support ,
== END ==
PROVIDERS: PCP Internal Medicine; Referring Provider Obstetrics & Gynecology; Visit Provider Obstetrics & Gynecology
DX: Z12.31 Encounter for screening mammogram for malignant neoplasm of breast (principal); Z90.11 Acquired absence of right breast and nipple; Z98.890 Other specified postprocedural states
CPT/HCPCS: 77063; 77067

== ENCOUNTER 2021-09-07 13:57 | Day surgery (SDC) | payer MEDICARE, SELFPAY ==
[2021-09-07] VITALS (7 sets, daily range): BP systolic 99–115; BP diastolic 53–67; PULSE 70–78; RESP 16–18; TEMP 36.1; O2SAT 99–100; BMI 22.1
[2021-09-07] MEDS: Lactated Ringers 1,000 ML 15 ML IV (14:44)
[2021-09-07 14:51] LABS: Bedside Glucose 96 mg/dL (70-110)
--- NOTE | 2021-09-07 15:00 | COLBX_PTH ---
PATIENT: MARYAN HOGAN LOC: EN U#:[id number] AGE/SX: 66/F ROOM: RE09/07/[address]: Dr. Nick Gomez DO : 1955 BED: DIS: 09/07/2021 SPEC #: [id number] RECD: 09/07/21 16:17 STATUS: KENTRELL CHRISTOS #: [id number] MARY JANE: 09/07/21 15:[address]: Nick Gomez DEPT: SURGICAL PATHOLOGY RECD BY: Ranjeet Brooks ENTERED: 09/08/21 09:55 SP TYPE: COLON BX OTHR DR: Dr. Wan Jain MD Tissues: A - Gastric mucous membrane B - Duodenum, NOS C - Esophagus, NOS D - Ileum, NOS E - COLON BIOPSY F - Sigmoid colon biopsy Procedures: Special Stain Group II Surgery Specimen Level IV Alcian Blue/PAS (control) HEADER OPERATION: Colonoscopy, EGD ([facility]) PRE-OP DIAGNOSIS: Chronic nausea, early satiety TISSUE SUBMITTED: A ? Gastric body ulcer biopsy, B ? Duodenum biopsy, C ? Distal esophagus biopsy, D ? Terminal ileum biopsy, E ? Random colonic biopsy, F ? Sigmoid biopsy MICROSCOPIC DIAGNOSIS A. Gastric ulcer, biopsy: Chronic gastritis. Focal mucosal ulceration. B. Duodenum, biopsy: No pathologic change. C. Distal esophagus, biopsy: Fragments of gastric mucosa with chronic inflammation. No evidence of goblet cell metaplasia. See comment. D. Terminal ileum, biopsy: No pathologic change. E. Colon, random biopsy: No pathologic change. F. Sigmoid colon, biopsy: No pathologic change. AM:zheng 09/09/2021 COMMENT C. Alcian blue/PAS stain with matched control supports the above diagnosis. MICROSCOPIC DESCRIPTION Slides are reviewed. GROSS DESCRIPTION A - Received in fixative is one container labeled with the patient's name and designated gastric body ulcer. The specimen consists of multiple irregular fragments of light hernandez soft tissue that in aggregate measure 1 x 0.6 x 0.1 cm. The specimen is totally submitted in one cassette. B - Received in fixative is one container labeled with the patient's name and designated duodenum. The specimen consists of multiple irregular fragments of light hernandez soft tissue that in aggregate measure 1 x 0.5 x 0.1 cm. The specimen is totally submitted in one cassette. C - Received in fixative is one container labeled with the patient's name and designated distal esophagus. The specimen consists of two irregular fragments of light hernandez soft tissue that in aggregate measure 0.7 x 0.7 x 0.1 cm. The specimen is totally submitted in one cassette. D - Received in fixative is one container labeled with the patient's name and designated terminal ileum biopsy. The specimen consists of one irregular fragment of light hernandez soft tissue that measures 1 x 0.2 x 0.1 cm. The specimen is totally submitted in one cassette. E - Received in fixative is one container labeled with the patient's name and designated random colon biopsy. The specimen consists of multiple irregular fragments of light hernandez soft tissue that in aggregate measure 2 x 1 x 0.1 cm. The specimen is totally submitted in one cassette. F - Received in fixative is one container labeled with the patient's name and designated sigmoid colon biopsy. The specimen consists of multiple irregular fragments of light hernandez soft tissue that in aggregate measure 1 x 0.2 x 0.1 cm. The specimen is totally submitted in one cassette. / AM:zheng 09/08/21 TC:3 CPT: 96252 x6, [id number]
--- NOTE | 2021-09-07 15:05 | PCM.HP.BLA ---
History and Physical Date of Admission: 09/07/21 66 F who presents to the office today for the evaluation of nausea. She has a long history of diabetes mellitus. She was on insulin for a long time up until recently. She has lost approximately 30 pounds. She has been doing very well on her current regimen. However she has a lot of nausea and abdominal pain. It was originally attributed to her diabetic medicines in particular Ozempic and Metformin. However when she underwent a gastric emptying study did not show any signs of gastroparesis which was the leading diagnosis. The symptom onset this recent spring and include nausea, sudden vomiting, urgent and incontinent diarrhea, weight loss (reports 30lb), LLQ pain. Ozempic started around this time also. Dose reduced and symptoms continued. Blood sugars since starting Ozempic have been very well controlled. Gastric emptying study performed and normal, time 47.6 minutes. Colonoscopy last performed 2 years prior. No history of EGD. ROS Const Constitutional: Positive for fatigue Gastro GI: Positive for abdominal pain, bloating, diarrhea, heartburn and nausea/dyspepsia Musc Musculoskeletal: Positive for stiffness Psych Psychiatric: Positive for anxiety and Positive for depression Endo Endocrine: Positive for fatigue Exam Const General: cooperative and comfortable Nutritional Appearance: average body habitus and well nourished [facility] Head: normal to inspection Ears: hearing grossly normal bilaterally Nose: external nose normal Face and sinus: normal facial exam Mouth: oral mucosae normal Throat: posterior oropharynx normal Eyes General: appearance normal, both eyes and all related structures Neck Neck: normal visual inspection Chest Chest palpation & inspection: normal inspection of the chest and normal palpation of entire chest wall Resp Effort & Inspection: normal respiratory effort Auscultation: Bilateral: Clear to Auscultation Cardio Palpation: normal PMI Rate: regular rate Rhythm: regular rhythm GI Inspection: normal to inspection Auscultation: normal bowel sounds Percussion: normal to percussion Palpation: no hepatosplenomegaly Skin General: no rashes or lesions noted Neuro General: patient alert Extrem General: normal to inspection Psych Affect: normal affect Quality Reporting Tobacco Screening ([facility] 138) Smoking Status: Never smoker Assessment and Plan Assessment and Plan (1) Chronic nausea: Status: Chronic Plan - Dr. Romero Friend, DO: This is probably medication side effect. This is a common problem with Metformin. However she does take an aspirin and in the setting of diabetes she could have nonhealing gastritis or gastric ulcer or duodenal ulcer. She could also be exhibiting symptoms of atypical reflux disease. We will evaluate her upper GI tract with an upper endoscopy. (2) Early satiety: Status: Chronic Plan - Dr. Romero Friend, DO: Early CAD still could be a side effect of a medicine that she is taking. She did have an CT scan the chest in which a hiatal hernia was seen. I do not think that is causing her upper GI symptoms however this week be evaluated with upper endoscopy. I have re-examined the patient. There are no clinical changes since date of exam.
--- NOTE | 2021-09-07 15:36 | OP.EGD_ITS ---
Patient Name: Brook Burns Procedure Date: 09/07/2021 3:09 PM Date of : 1955 Age: 66 Procedure: Upper GI endoscopy Indications: Dyspepsia Providers: Nick Gomez DO Medicines: See the Anesthesia note for documentation of the administered medications Patient Profile: This is a 66 year old female. Refer to note in patient chart for documentation of history and physical. Patient has symptoms of acute nausea. Complications: No immediate complications. Procedure: Pre-Anesthesia Assessment: - Prior to the procedure, a History and Physical was performed, and patient medications and allergies were reviewed. The patient is competent. The risks and benefits of the procedure and the sedation options and risks were discussed with the patient. All questions were answered and informed consent was obtained. Patient identification and proposed procedure were verified by the physician in the pre-procedure area. Mental Status Examination: alert and oriented. Airway Examination: normal oropharyngeal airway and neck mobility. Respiratory Examination: clear to auscultation. CV Examination: normal. Prophylactic Antibiotics: The patient does not require prophylactic antibiotics. Prior Anticoagulants: The patient has taken no previous anticoagulant or antiplatelet agents. After reviewing the risks and benefits, the patient was deemed in satisfactory condition to undergo the procedure. The anesthesia plan was to use moderate sedation / analgesia (conscious sedation). Immediately prior to administration of medications, the patient was re-assessed for adequacy to receive sedatives. The heart rate, respiratory rate, oxygen saturations, blood pressure, adequacy of pulmonary ventilation, and response to care were monitored throughout the procedure. The physical status of the patient was re-assessed after the procedure. After obtaining informed consent, the endoscope was passed under direct vision. Throughout the procedure, the patient's blood pressure, pulse, and oxygen saturations were monitored continuously. The Endoscope was introduced through the mouth, and advanced to the second part of duodenum. The upper GI endoscopy was accomplished without difficulty. The patient tolerated the procedure well. Moderate Sedation: Moderate (conscious) sedation was administered by the endoscopy nurse and supervised by the endoscopist. The following parameters were monitored: oxygen saturation, heart rate, blood pressure, and response to care. Total physician intraservice time was 15 minutes. Scope In: 3:26:28 PM Scope Out: 3:32:11 PM Total Procedure Duration Time 0 hours 5 minutes 43 seconds Findings: LA Grade A (one or more mucosal breaks less than 5 mm, not extending between tops of 2 mucosal folds) esophagitis with no bleeding was found 34 to 35 cm from the incisors. Biopsies were taken with a cold forceps for histology. Verification of patient identification for the specimen was done. Estimated blood loss was minimal. Four non-bleeding cratered gastric ulcers with no stigmata of bleeding were found in the gastric body, on the greater curvature of the stomach and in the gastric antrum. The largest lesion was 5 mm in largest dimension. Biopsies were taken with a cold forceps for histology. Verification of patient identification for the specimen was done. Estimated blood loss was minimal. Estimated blood loss: none. Diffuse mildly erythematous mucosa without active bleeding and with no stigmata of bleeding was found in the duodenal bulb, in the first portion of the duodenum and in the second portion of the duodenum. This was biopsied with a cold forceps for histology. Verification of patient identification for the specimen was done. Estimated blood loss was minimal. Impression: - LA Grade A reflux esophagitis. Biopsied. - Non-bleeding gastric ulcers with no stigmata of bleeding. Biopsied. - Erythematous duodenopathy. Biopsied. Recommendation: - Discharge patient to home. - Resume previous diet. - Continue present medications. - Await pathology results. - Return to my office in 2 weeks. Procedure Code(s): --- Professional --- 36329, Esophagogastroduodenoscopy, flexible, transoral; with biopsy, single or multiple G0500, Moderate sedation services provided by the same physician or other qualified health tire care manager performing a gastrointestinal endoscopic service that sedation supports, requiring the presence of an independent trained observer to assist in the monitoring of the patient's level of consciousness and physiological status; initial 15 minutes of intra-service time; patient age 5 years or older (additional time may be reported with 97931, as appropriate) CPT copyright 2017 [employer]. All rights reserved. The codes documented in this report are preliminary and upon quickbooks bookkeeper review may be revised to meet current compliance requirements. Nick Gomez DO 09/07/2021 3:35:41 PM This report has been signed electronically. Number of Addenda: 1 Note Initiated On: 09/07/2021 3:09 PM Addendum Number: 1 Addendum Date: 06/01/2022 7:11:43 AM MAC was used instead of moderate sedation for the patient. Nick Gomez DO 06/01/2022 7:11:53 AM This report has been signed electronically.
--- NOTE | 2021-09-07 15:37 | OP.CCLET_ITS ---
06/01/2022 Wan Jain MD [address] [place] [place] [address] Re : Upper GI endoscopy procedure for Brook Burns Dear Dr. Jain This procedure was performed on Tuesday, September 07, 2021. My impressions and recommendations are as follows: Impressions : - LA Grade A reflux esophagitis. Biopsied. - Non-bleeding gastric ulcers with no stigmata of bleeding. Biopsied. - Erythematous duodenopathy. Biopsied. Recommendations : - Discharge patient to home. - Resume previous diet. - Continue present medications. - Await pathology results. - Return to my office in 2 weeks. My findings are described in the full procedure note, which is enclosed. If I can be of further assistance, please feel free to contact me at . Sincerely, Nick Gomez, 09/07/2021 3:35:41 PM This report has been signed electronically.
--- NOTE | 2021-09-07 16:06 | OP.COLON_ITS ---
Patient Name: Brook Burns Procedure Date: 09/07/2021 3:34 PM Date of : 1955 Age: 66 Procedure: Colonoscopy Indications: Clinically significant diarrhea of unexplained origin Providers: Nick Gomez DO Medicines: See the Anesthesia note for documentation of the administered medications Patient Profile: This is a 66 year old female. Refer to note in patient chart for documentation of history and physical. Patient has symptoms of acute nausea. Last Colonoscopy: within the past 3 years. Complications: No immediate complications. Procedure: Pre-Anesthesia Assessment: - Prior to the procedure, a History and Physical was performed, and patient medications and allergies were reviewed. The patient is competent. The risks and benefits of the procedure and the sedation options and risks were discussed with the patient. All questions were answered and informed consent was obtained. Patient identification and proposed procedure were verified by the physician in the pre-procedure area. Mental Status Examination: alert and oriented. Airway Examination: normal oropharyngeal airway and neck mobility. Respiratory Examination: clear to auscultation. CV Examination: normal. Prophylactic Antibiotics: The patient does not require prophylactic antibiotics. Prior Anticoagulants: The patient has taken no previous anticoagulant or antiplatelet agents. After reviewing the risks and benefits, the patient was deemed in satisfactory condition to undergo the procedure. The anesthesia plan was to use moderate sedation / analgesia (conscious sedation). Immediately prior to administration of medications, the patient was re-assessed for adequacy to receive sedatives. The heart rate, respiratory rate, oxygen saturations, blood pressure, adequacy of pulmonary ventilation, and response to care were monitored throughout the procedure. The physical status of the patient was re-assessed after the procedure. After I obtained informed consent, the scope was passed under direct vision. Throughout the procedure, the patient's blood pressure, pulse, and oxygen saturations were monitored continuously. The pediatric colonoscope was introduced through the anus and advanced to the terminal ileum. The colonoscopy was performed without difficulty. The patient tolerated the procedure well. The quality of the bowel preparation was good. Moderate Sedation: Moderate (conscious) sedation was administered by the endoscopy nurse and supervised by the endoscopist. The patient's oxygen saturation, heart rate, blood pressure and response to care were monitored. Total physician intraservice time was 15 minutes. Scope In: 3:37:34 PM Scope Withdrawal Time 0 hours 12 minutes 29 seconds Scope Out: 3:59:13 PM Total Procedure Duration Time 0 hours 21 minutes 39 seconds Findings: The perianal and digital rectal examinations were normal. An area of mildly congested mucosa was found in the sigmoid colon. Biopsies were taken with a cold forceps for histology. Verification of patient identification for the specimen was done. Estimated blood loss was minimal. Random biopsies were taken in the colon and in the terminal ileum to look for microscopic disease. The exam was otherwise without abnormality on direct and retroflexion views. Impression: - Congested mucosa in the sigmoid colon. Biopsied. - The examination was otherwise normal on direct and retroflexion views. Recommendation: - Discharge patient to home. - Resume previous diet. - Continue present medications. - Await pathology results. - Return to my office in 2 weeks. - Repeat colonoscopy is recommended for surveillance. The colonoscopy date will be determined after pathology results from today's exam become available for review. Procedure Code(s): --- Professional --- 50757, Colonoscopy, flexible; with biopsy, single or multiple G0500, Moderate sedation services provided by the same physician or other qualified health nursing care partner performing a gastrointestinal endoscopic service that sedation supports, requiring the presence of an independent trained observer to assist in the monitoring of the patient's level of consciousness and physiological status; initial 15 minutes of intra-service time; patient age 5 years or older (additional time may be reported with 91001, as appropriate) CPT copyright 2017 [employer]. All rights reserved. The codes documented in this report are preliminary and upon panel installer review may be revised to meet current compliance requirements. Nick Gomez DO 09/07/2021 4:06:05 PM This report has been signed electronically. Number of Addenda: 1 Note Initiated On: 09/07/2021 3:34 PM Addendum Number: 1 Addendum Date: 06/01/2022 7:13:37 AM MAC was used instead of moderate sedation for the patient. Nick Gomez DO 06/01/2022 7:13:47 AM This report has been signed electronically.
--- NOTE | 2021-09-07 16:07 | OP.CCLET_ITS ---
06/01/2022 Wan Jain MD [address] [place] [address] [place] [address] Re : Colonoscopy procedure for Brook Burns Dear Dr. Jain This procedure was performed on Tuesday, September 07, 2021. My impressions and recommendations are as follows: Impressions : - Congested mucosa in the sigmoid colon. Biopsied. - The examination was otherwise normal on direct and retroflexion views. Recommendations : - Discharge patient to home. - Resume previous diet. - Continue present medications. - Await pathology results. - Return to my office in 2 weeks. - Repeat colonoscopy is recommended for surveillance. The colonoscopy date will be determined after pathology results from today's exam become available for review. My findings are described in the full procedure note, which is enclosed. If I can be of further assistance, please feel free to contact me at . Sincerely, Nick Friend, 09/07/2021 4:06:05 PM This report has been signed electronically.
== END 2021-09-07 17:00 | disposition home or self-care (01) ==
LOC: EN 14:03 → AC 14:05
PROVIDERS: PCP Internal Medicine; Referring Provider Internal Medicine; Visit Provider Internal Medicine Gastroenterology
PROC: 0DJD8ZZ Inspection of Lower Intestinal Tract, Via Natural or Artificial Opening Endoscopic (ICD-10-PCS; CPT 45378; principal; 2021-09-07 14:55)
DX: R19.7 Diarrhea, unspecified (principal); K29.50 Unspecified chronic gastritis without bleeding; K21.00 Gastro-esophageal reflux disease with esophagitis, without bleeding; K25.9 Gastric ulcer, unspecified as acute or chronic, without hemorrhage or perforation; E11.9 Type 2 diabetes mellitus without complications; R68.81 Early satiety; I25.10 Atherosclerotic heart disease of native coronary artery without angina pectoris; K31.89 Other diseases of stomach and duodenum; K44.9 Diaphragmatic hernia without obstruction or gangrene
CPT/HCPCS: 43239; 45380; 82962; 88305; 88313; J7120; J2405

== ENCOUNTER → 2021-09-22 15:14 | Outpatient (CLI) | payer MEDICARE, SELFPAY ==
[2021-09-22 15:39] LABS: Absolute Lymphocyte Count 2.44 X10^3/uL (0.83-4.51); Absolute Neutrophil Count 5.8 X10^3/uL (2.0-7.7); Basophil# 0.08 X10^3/uL; Basophil% 0.9 % (0-1); Eosinophil# 0.15 X10^3/uL; Eosinophils% 1.7 % (0-5); Hematocrit 44.3 % (37-47); Lymphocyte # 2.44 X10^3/ul (0.83-4.51); Mean Corp Hgb Conc 33.9 g/dL (32-36); Mean Corpuscular Hgb 29.8 pg (27.0-32.0); Mean Corpuscular Volume 88.1 fL (81-99); Monocyte# 0.54 X10^3/uL; NRBC Flagged by Analyzer 0 % (0-5); Neutrophil # 5.81 X10^3/uL (2.7-7.7); Neutrophil % 64.1 % (47-70); Platelet Count 263 K/mm3 (150-450); RBC Distribution Width CV 13.1 % (11.6-14.6); RBC Distribution Width SD 42.5 fl (35.1-43.9); Red Blood Count 5.03 M/mm3 (4.2-5.4); White Blood Count 9.1 K/mm3 (4.4-11.0)
[2021-09-22 16:04] LABS: Erythrocyte Sedimentation Rate 6 mm/hr (0-30)
[2021-09-22 16:07] LABS: AST(SGOT) 14 U/L (15-37); Alanine Aminotransfer ALT/SGPT 27 U/L (13-56); Alkaline Phosphatase 89 U/L (45-117); Anion Gap 7 (5-15); BUN 14 mg/dL (7-18); BUN/Creat Ratio 16.1 RATIO (10-20); CRP < 2.90 mg/L (0.0-3.0); Calcium,Total 9.4 mg/dL (8.5-10.1); Chloride 99 mmol/L (98-107); Creatinine, Serum 0.87 mg/dL (0.55-1.02); EST Glomerular Filtration Rate 69 mL/min (>60); Est Glom Filt Rate - Afr Amer 84 mL/min (>60); Globulin 4.1 g/dL (2.2-4.2); Glucose 148 mg/dL (74-106); Potassium 4.4 mmol/L (3.5-5.1); Protein, Total 8.1 g/dL (6.4-8.2); Sodium Level 135 mmol/L (136-145); Thyroid Stim Hormone (TSH) 2.48 uIU/mL (0.358-3.74)
[2021-09-23 09:12] LABS: PTHIN 45.4 pg/mL (18.4-80.1)
[2021-09-24 15:07] LABS: Endomysial Antibody IgA Negative (Negative)
[2021-09-24 22:36] LABS: Deamidated Gliadin IgA 4 units (0-19); Deamidated Gliadin IgG 2 units (0-19); Immunoglobulin A 370 mg/dL (87-352); t-Transglutaminase IgA <2 U/mL (0-3)
== END ==
PROVIDERS: PCP Internal Medicine; Visit Provider Internal Medicine Gastroenterology
DX: E11.29 Type 2 diabetes mellitus with other diabetic kidney complication (principal); R11.0 Nausea; R80.9 Proteinuria, unspecified; Z79.4 Long term (current) use of insulin; E11.9 Type 2 diabetes mellitus without complications
CPT/HCPCS: 36415; 80053; 82784; 83516; 83970; 84443; 85025; 85652; 86140; 86255

== ENCOUNTER → 2022-01-15 | Outpatient (CLI) | payer MEDICARE, SELFPAY ==
[2022-01-19 11:52] LABS: Calprotectin, Stool 174 ug/g (0-120)
[2022-01-19 19:26] LABS: Giardia Lamblia, Stool EIA Negative (Negative)
== END | disposition home or self-care (01) ==
LOC: LABSPEC 08:00
PROVIDERS: PCP Internal Medicine; Visit Provider Internal Medicine Gastroenterology
DX: R19.7 Diarrhea, unspecified (principal)
CPT/HCPCS: 83630; 83993; 87177; 87209; 87329; 87493; 87506

== ENCOUNTER → 2022-01-17 | Outpatient (CLI) | payer MEDICARE, SELFPAY | END | disposition home or self-care (01) | LOC: LAB 11:42 | PROVIDERS: PCP Internal Medicine; Referring Provider Internal Medicine Gastroenterology; Visit Provider Internal Medicine Gastroenterology | DX: Z00.00 Encounter for general adult medical examination without abnormal findings (principal) ==

== ENCOUNTER → 2022-05-03 | Outpatient (CLI) | payer MEDICARE, SELFPAY ==
[2022-05-03 08:13] LABS: ALB/GLOB Ratio 0.9 RATIO (0.9-2.4); AST(SGOT) 16 U/L (15-37); Alanine Aminotransfer ALT/SGPT 27 U/L (13-56); Albumin, Serum 3.7 g/dL (3.2-5.0); Alkaline Phosphatase 89 U/L (45-117); Anion Gap 5 (5-15); BUN 23 mg/dL (7-18); BUN/Creat Ratio 28.7 RATIO (10-20); Calcium,Total 8.7 mg/dL (8.5-10.1); Chloride 104 mmol/L (98-107); Cholesterol 155 mg/dL (200); EST Glomerular Filtration Rate 76 mL/min (>60); Est Glom Filt Rate - Afr Amer 92 mL/min (>60); Globulin 3.9 g/dL (2.2-4.2); Glucose 159 mg/dL (74-106); High Density Lipoprotein 49 mg/dL; Potassium 4.5 mmol/L (3.5-5.1); Protein, Total 7.6 g/dL (6.4-8.2); Sodium Level 135 mmol/L (136-145); Thyroid Stim Hormone (TSH) 1.44 uIU/mL (0.358-3.74); Triglycerides 120 mg/dL; Very Low Density Lipoprotein 24 mg/dL (5-40)
[2022-05-03 08:29] LABS: Vitamin D,25 Hydroxy 50.6 ng/mL
== END | disposition home or self-care (01) ==
LOC: LAB 07:17
PROVIDERS: PCP Internal Medicine; Referring Provider Nurse Practitioner Family; Visit Provider Nurse Practitioner Family
DX: E55.9 Vitamin D deficiency, unspecified (principal); E11.29 Type 2 diabetes mellitus with other diabetic kidney complication; Z79.4 Long term (current) use of insulin; R00.0 Tachycardia, unspecified; R80.9 Proteinuria, unspecified; E78.2 Mixed hyperlipidemia
CPT/HCPCS: 36415; 80053; 80061; 82306; 84443

== ENCOUNTER → 2022-08-09 | Outpatient (CLI) | payer MEDICARE, SELFPAY ==
--- NOTE | 2022-08-09 07:36 | BI_ITS ---
MAMMOGRAPHY - UNILATERAL SCREENING: LEFT BREAST REASON FOR EXAM: Female, 67 years old. Routine annual screening examination (unilateral). PERTINENT HISTORY: Personal history of breast cancer. Prior right mastectomy with chemotherapy and radiation therapy. Sister with breast cancer. Grandmother with breast cancer. TECHNIQUE: Digital unilateral breast chela (3D mammographic acquisition) in the CC and MLO projections. 2-D mediolateral oblique (MLO) and craniocaudad (CC) views of both breasts were obtained. CAD: Full Field Digital Mammography with Computer Added Detection was performed. COMPARISON: Comparison is made with prior study dated 07/16/2021 and 06/17/2020. FINDINGS: Breast Composition: There are scattered areas of fibroglandular density. There are no dominant masses or suspicious calcifications. No other significant abnormalities are identified. There has been no significant change since the prior study. BI/SCREEN MAMM (CAD) W/CHELA UNI L IMPRESSION: Stable unilateral screening mammogram. Yearly follow-up mammogram recommended. (A) ASSESSMENT CATEGORY: BIRADS Category 1: Negative. A letter regarding these results will be sent to the patient by the facility within 30 days. Approximately 10% of breast cancers are not detected by mammography. A normal mammogram should not delay biopsy of a clinically suspicious abnormality. [id number] Electronically Signed: Johnathon Benjamin MD at 9:08 EST ,
== END | disposition home or self-care (01) ==
LOC: OPBI 07:35
PROVIDERS: PCP Internal Medicine; Referring Provider Internal Medicine; Visit Provider Internal Medicine
DX: Z12.31 Encounter for screening mammogram for malignant neoplasm of breast (principal); Z90.11 Acquired absence of right breast and nipple; Z92.21 Personal history of antineoplastic chemotherapy; Z80.3 Family history of malignant neoplasm of breast; Z85.3 Personal history of malignant neoplasm of breast
CPT/HCPCS: 77063; 77067

== ENCOUNTER → 2022-09-30 | Outpatient (CLI) | payer MEDICARE, SELFPAY ==
[2022-09-30 07:29] LABS: Absolute Lymphocyte Count 1.84 X10^3/uL (0.83-4.51); Absolute Neutrophil Count 5.6 X10^3/uL (2.0-7.7); Basophil# 0.07 X10^3/uL; Basophil% 0.8 % (0-1); Eosinophil# 0.26 X10^3/uL; Eosinophils% 3.1 % (0-5); Hematocrit 45.7 % (37-47); Lymphocyte # 1.84 X10^3/ul (0.83-4.51); Lymphocyte % 21.6 % (19-41); Mean Corp Hgb Conc 32.8 g/dL (32-36); Mean Corpuscular Hgb 29.6 pg (27.0-32.0); Mean Corpuscular Volume 90.1 fL (81-99); Mean Platelet Vol. 10.9 fl (6.2-12.0); Monocyte# 0.68 X10^3/uL; NRBC Flagged by Analyzer 0 % (0-5); Neutrophil # 5.64 X10^3/uL (2.7-7.7); Neutrophil % 66.3 % (47-70); Platelet Count 236 K/mm3 (150-450); RBC Distribution Width CV 12.7 % (11.6-14.6); RBC Distribution Width SD 41.6 fl (35.1-43.9); Red Blood Count 5.07 M/mm3 (4.2-5.4); White Blood Count 8.5 K/mm3 (4.4-11.0)
[2022-09-30 07:56] LABS: Anion Gap 2 (5-15); BUN 25 mg/dL (7-18); BUN/Creat Ratio 28.8 RATIO (10-20); Calcium,Total 9.5 mg/dL (8.5-10.1); Chloride 106 mmol/L (98-107); Creatinine, Serum 0.87 mg/dL (0.55-1.02); EST Glomerular Filtration Rate 69 mL/min (>60); Est Glom Filt Rate - Afr Amer 84 mL/min (>60); Glucose 170 mg/dL (74-106); Potassium 4.2 mmol/L (3.5-5.1); Sodium Level 137 mmol/L (136-145)
[2022-09-30 08:08] LABS: Hemoglobin A1c 6.4 % (3.8-5.6)
== END | disposition home or self-care (01) ==
LOC: LAB 07:10
PROVIDERS: Nurse Practitioner Family; PCP Internal Medicine; Referring Provider Internal Medicine; Visit Provider Internal Medicine
DX: I10 Essential (primary) hypertension (principal); E11.29 Type 2 diabetes mellitus with other diabetic kidney complication; Z79.4 Long term (current) use of insulin; R80.9 Proteinuria, unspecified
CPT/HCPCS: 36415; 80048; 83036; 85025

== ENCOUNTER 2022-10-21 09:30 | Outpatient (RCR) | payer MEDICARE, SELFPAY ==
--- NOTE | 2022-09-21 11:03 | HP.PTEVAL ---
Patient's Visit Information MARYAN HAQ is a 67 year old F referred to Physical Therapy by Dr. Melchor Meehan DO with a diagnosis of ADHESIVE CAPSULITIS OF LEFT SHOULDER ,CERVICAL DDD. Date of Evaluation: 09/21/22 Physical Therapist: Mo Hussein, PT, Cert MDT, OCS - Visit Plan Frequency: 2x /Week Duration: 4 Weeks Plan: PT INTERVETIONS ROM/STRERTCHING,MANUAL THERAPY G-H,STRENGTHNEING RTC/SCAPULAR AND POSTURAL EX'S - Subjective This 67 y/o female present to physical therapy with left frozen shoulder . Patient has left shoulder pain for 4 months which progressively worsen. Seen DR Meehan recommended PT and prescribed Celebrex and Steriod injection. Patient has occasionally left arm symptom. Denies paresthesia/tingling. Aggravating factors activity above 90 degrees affects housework tasks ,reaching behind back ,in a cupboards and self hygiene. Patient is right hand dominant. Alleviating factors rest, Patient cervical pain ois absent symptoms not affects by movements or positioning . Patient has no NA/dizziness/nausea. Patient pain affects sleeping on left side . Patient condition affects QOL and function. SOCIAL: . VOCATION: retired teacher - Pain Left Shoulder Pain Intensity (Out of 10): 8 Pain Intensity Range: 10 Comment: movement - Objective POSTURE: mild forward posture. NEURO: denies paresthesia/tingling ,reflexes C5-6-7 2/3. PALAPTION: unremarkable. CERVICAL ROM: flexion min loss, extension/lateral flexion/rotation mod loss. AROM SHOULDER: flexion 120 degrees ,abduction 90 degrees , ER 80 degrees ,IR side of pelvis. MMT: RTC 4/5 ,DELTOID 4-/5 - Special Tests C/S Radiculapathy - Left Upper limb tension test: Negative C/S Radiculapathy - Right Upper limb tension test: Negative C/S Radiculapathy - Left Spurlings: Negative C/S Radiculapathy - Right Spurlings: Negative C/S Radiculapathy - Left Cervical distraction: Negative C/S Radiculapathy - Right Cervical distraction: Negative C/S Radiculapathy - Left Relief test: Negative C/S Radiculapathy - Right Relief test: Negative C/S Radiculapathy - Valsalva: Negative Sharp Cony: Negative Vertebral Artery Test: Negative L Shoulder External Rotation Lag Test - RC Tear: Negative L Shoulder Lift Off Test - Subscapular Tear: Negative L Shoulder Drop Sign - IS Test: Negative L Shoulder Empty Can - SS: Negative L Shoulder Neer - Impingement: Positive L Shoulder Woodson Pacheco - Impingement: Positive L Shoulder Shrug Sign - OA/Adhesive Capsulitis: Positive - Balance/Special Test Scores Quick DASH Score: 47.7250 - Goals Goal 1:: Patient to be I with HEP Goal Time Frame: 4-6 Weeks Goal 2:: Patient to demonstrate 75% improvement with improve ROM for function with less pain Goal Time Frame: 4-6 Weeks Goal 3:: Patient to improve AROM shoulder flexion/abduction to 150 degrees and ER to improve function Goal Time Frame: 4-6 Weeks Goal 4:: Patient to improve quick dash by 10 points to improve QOL and function Goal Time Frame: 4-6 Weeks Goal 5:: Patient to improve strength of left shoulder to good to improve function Goal Time Frame: 4-6 Weeks - Rehabilitation Potential Physical Therapy Diagnosis: This patient has left shoulder adhesive capsulitis with decrease ROM ,strength and pain which impairs activities above 90 degrees ,self hygiene and housework tasks thus benefit from skilled PT Rehabilitation Potential: Good - Anticipated Interventions Patient/Client Instruction: Educate patient on: Condition, Plan of Care For the Purpose of:: To decrease pain, To increase ROM, To improve muscle performance and motor function, To increase tolerance to activity/condition/position, To improve performance and independence with ADL's, To improve ability of physical actions for home/community/work/leisure, To improve health of tissue, To decrease soft tissue restriction, To increase flexibility/ROM, To improve tolerance to ADL's Therapeutic Exercise to Include: Strength training, Postural training, Flexibilty training, Active ROM Comment: RTC/SCAPULAR For the Purpose of:: To decrease pain, To increase ROM, To improve muscle performance and motor function, To improve ability to perform ADL's, To increase tolerance to activity/condition/position, To improve ability of physical actions for home/community/work/leisure, To improve health of tissue, To decrease soft tissue restriction, To increase flexibility/ROM, To prevent re-injury, To improve tolerance to ADL's Manual Therapy Techniques to Include: Mobilization Comment: G-H JOINT GRADE 2-3 For the Purpose of:: To decrease pain, To increase ROM, To improve nutrient delivery to tissue, To increase oxygenation perfusion, To improve health of tissue, To decrease soft tissue restriction, To increase flexibility/ROM TENS: Yes IF ES: Yes Cryotherapy (ice pack, ice massage): Yes Thermo therapy (hot pack): Yes Ultrasound (thermal/non thermal): Yes For the Purpose of:: To decrease pain, To increase ROM, To improve health of tissue, To decrease soft tissue restriction, To increase flexibility/ROM Thank you for the opportunity to evaluate your patient. For Medicare and Medicare HMO plans, please review the plan of care and approve it. It will need to be FAXED BACK to us at [phone] for Medicare purposes. For Medicare only, by signing this I certify the plan of care. Please let me know if there are questions or concerns regarding this plan of care. Physician Signature: Date:
--- NOTE | 2023-01-31 11:04 | HP.PTDCSUM ---
It has been my pleasure to treat MARYAN HAQ referred by Dr. Melchor Meehan DO, with the diagnosis of ADHESIVE CAPSULITIS OF LEFT SHOULDER ,CERVICAL DDD for a total of 10 visit(s). Discharge Date: 10/21/22 Please see the following information for a summary of their discharge status. Subjective: Doing better overall ,have some difficulty with raising arm to get in top cupboard Left Shoulder Pain Intensity (Out of 10): 1 % Improvement: 75 Objective/Function: AROM: shoulder flexion 160 degrees ,abduction 155 degrees ,ER 85 ,IR T11. MMT:4/5 RTC ,DELTOID 4-/5 ,MILD PAIN ABDUCTION Goal 1:: Patient to be I with HEP Goal Progress: Goal Met Goal 2:: Patient to demonstrate 75% improvement with improve ROM for function with less pain Goal Progress: Goal Met Goal 3:: Patient to improve AROM shoulder flexion/abduction to 150 degrees and ER to improve function Goal Progress: Goal Met Goal 4:: Patient to improve quick dash by 10 points to improve QOL and function Goal Progress: Goal Met Goal 5:: Patient to improve strength of left shoulder to good to improve function Plan: RTD If there are questions or concerns regarding this patient's physical therapy, please feel free to call me at [phone]. Thank you for the referral of this patient. Sincerely, Mo Hussein PT, Cert MDT, OCS Balance/Gait/Functional tests - Balance/Special Test Scores Quick DASH Score: 22.7250
== END 2022-10-21 19:00 | disposition home or self-care (01) ==
LOC: PT 09:30
PROVIDERS: PCP Internal Medicine; Referring Provider Orthopaedic Surgery; Visit Provider Orthopaedic Surgery
DX: M50.30 Other cervical disc degeneration, unspecified cervical region (principal); M75.02 Adhesive capsulitis of left shoulder
CPT/HCPCS: 97110; 97162; 97530

== ENCOUNTER → 2023-02-10 | Outpatient (CLI) | payer MEDICARE, SELFPAY ==
[2023-02-10 12:42] LABS: AST(SGOT) 21 U/L (15-37); Alanine Aminotransfer ALT/SGPT 31 U/L (13-56); Albumin, Serum 3.8 g/dL (3.2-5.0); Alkaline Phosphatase 120 U/L (45-117); Anion Gap 5 (5-15); BUN 18 mg/dL (7-18); BUN/Creat Ratio 24.8 RATIO (10-20); Calcium,Total 9.2 mg/dL (8.5-10.1); Chloride 108 mmol/L (98-107); Cholesterol 147 mg/dL (200); Creatinine, Serum 0.73 mg/dL (0.55-1.02); EST Glomerular Filtration Rate 85 mL/min (>60); Est Glom Filt Rate - Afr Amer 103 mL/min (>60); Globulin 3.8 g/dL (2.2-4.2); Glucose 133 mg/dL (74-106); High Density Lipoprotein 43 mg/dL; Protein, Total 7.6 g/dL (6.4-8.2); Sodium Level 139 mmol/L (136-145); Triglycerides 76 mg/dL; Very Low Density Lipoprotein 15 mg/dL (5-40)
== END | disposition home or self-care (01) ==
LOC: BIMLAB 08:37
PROVIDERS: PCP Internal Medicine; Referring Provider Internal Medicine; Visit Provider Internal Medicine
DX: I10 Essential (primary) hypertension (principal); E78.2 Mixed hyperlipidemia
CPT/HCPCS: 36415; 80053; 80061

== ENCOUNTER 2023-04-21 23:02 | Emergency (ER) | payer MEDICARE, SELFPAY ==
[2023-04-21 23:03] VITALS: BP 118/80; PULSE 80; RESP 16; TEMP 36; BMI 24.1
[2023-04-21 23:06] VITALS: BP 118/80; PULSE 80; RESP 16; TEMP 36
[2023-04-21 23:10] VITALS: BP 118/80; PULSE 80; RESP 16; TEMP 36
--- NOTE | 2023-04-21 23:23 | ED.VIS.LOWEX ---
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 She has been able to walk on it without difficulty, she has been on her feet a lot today and it is more sore today, and she noticed more redness and a little swelling around the scabbed abrasion and is concerned about infection. No fevers, chills, systemic symptoms. She is a diabetic. [facility] Medical History Abdominal pain Abrasion, right lower leg, initial encounter Alcohol use Arthritis Cellulitis of right lower leg Chronic nausea Contusion of right lower leg CPAP (continuous positive airway pressure) dependence Early satiety Easy bruising Grief reaction Health care maintenance Heartburn History of breast cancer History of Clostridium difficile infection History of hiatal hernia History of kidney stones History of stress test Itching of ear Preventative health care Tachycardia Vitamin D deficiency Wound of right lower extremity Home Medications aspirin 81 mg tablet,delayed release (Adult Aspirin Regimen) 81 mg PO QDAY 10/05/17 [History Last Taken 01/02/19] cholecalciferol (vitamin D3) 50 mcg (2,000 unit) capsule 2,000 unit PO DAILY 10/05/17 [History Last Taken Unknown] flash glucose scanning reader (Mtivity John 14 Day [place]) #1 ea 11/11/19 [Rx Last Taken Unknown] pen needle, diabetic 29 gauge x 1/2 (Ultra-Thin II Insulin Pen [place]) #100 ea 04/19/21 [Rx Last Taken Unknown] venlafaxine 75 mg tablet 225 mg (3 x 75 mg) PO QHS ANTIDEPRESSANT #270 tabs 02/18/22 [Rx Last Taken Unknown] dapagliflozin propanediol 10 mg tablet 10 mg PO QDAY diabetes #90 tabs 04/20/22 [Rx Last Taken Unknown] oxybutynin chloride 10 mg tablet,extended release 24 hr 15 mg PO DAILY 04/20/22 [History Last Taken Unknown] cyanocobalamin (vitamin B-12) 2,500 mcg tablet 2,500 mcg PO .THREE TIMES A WEEK 07/27/22 [History Last Taken Unknown] docusate sodium 100 mg capsule (Colace) 100 mg PO BID 11/02/22 [History Last Taken Unknown] celecoxib 200 mg capsule (Celebrex) 200 mg PO DAILY #60 caps 09/12/22 [Rx Last Taken Unknown] Ozempic 1 mg/dose (4 mg/3 mL) subcutaneous pen injector (semaglutide) 1 mg (0.75 mL) subcut QWEEK #3 mL 11/02/22 [Rx Last Taken Unknown] True Metrix Glucose Test Strip (blood sugar diagnostic) #50 ea 11/10/22 [Rx Last Taken Unknown] blood-glucose meter (True Metrix Glucose Meter kit) #1 ea 11/10/22 [Rx Last Taken Unknown] flash glucose sensor (FreeStyle John 14 Day Sensor kit) #6 ea 11/11/22 [Rx Last Taken Unknown] lisinopril 20 mg tablet See Rx Instructions .Route .COMPLEX #90 tabs 02/15/23 [Rx Last Taken Unknown] atorvastatin 80 mg tablet 80 mg PO QHS #90 tabs 02/21/23 [Rx Last Taken Unknown] glimepiride 2 mg tablet 1 mg (1/2 x 2 mg) PO DAILY #90 tabs 03/16/23 [Rx Last Taken Unknown] cephalexin 500 mg capsule 500 mg PO Q6 #40 CAPSULES 04/21/23 [Rx Last Taken Unknown] Allergy/AdvReac Type Severity Reaction Status Date / Time amoxicillin Allergy Rash Verified 04/21/23 23:08 levofloxacin [From Levaquin] Allergy Vomiting Verified 04/21/23 23:08 promethazine [From Phenergan] Allergy Other Verified 04/21/23 23:08 Family History Sister Breast cancer Grandmother Breast cancer Uncle Breast cancer Mother Heart disease Thyroid disorder Father Heart disease CVA (cerebral vascular accident) Cancer prostate Brother Crohns disease Grandfather CVA (cerebral vascular accident) Grandmother Diabetes Surgical History abdominal tram flap bunionecmy of right foot History of colonoscopy History of total mastectomy of right breast Hx of cataract extraction Social History Smoking Status: Never smoker alcohol intake: current alcohol intake frequency: a few times a month Alcohol type: beer substance use type: does not use caffeine: Yes what type of physical activity do you participate in: walking frequency: 5-6 times per week do you feel safe at home: Yes ROS ROS ED Constitutional Constitutional ED: Denies chills or fever(s) Musculoskeletal Musculoskeletal: Reports extremity pain; Denies neck pain Integumentary Reports Abrasions and wounds; Denies rash Neurologic Neurologic: Denies paresthesias or weakness EXAM Physical Exam Const Vital Signs: 04/21/23 23:03 04/21/23 23:06 04/21/23 23:10 Temperature 96.8 F L 96.8 F L 96.8 F L Temperature Source Temporal Temporal Oral Pulse Rate 80 80 80 Respiratory Rate 16 16 16 Blood Pressure 118/80 118/80 118/80 Blood Pressure Mean 92 92 92 Oxygen Delivery Method Room Air Positive well nourished and well developed General Appearance ED: well developed and NAD Neck full ROM and supple Back/Spine normal ROM and normal to inspection Extremity Extremity Narrative: There is a broad-based scab at the distal aspect of the anterior right knee, there is only 1 small area that is open without any bleeding or drainage at the distal aspect of it that is very small. Patient there is very mild erythema surrounding the edges, very faint erythema around that. Objectively not tender, the patient states it is sore. She has very slight edema in the tibia proximal half of the lower leg, nothing distal to that. No palpable cords or calf tenderness. No lymphangitis. Nothing seems to be spreading proximally. Neuro oriented x3, no focal motor deficits and no sensory deficits noted Sensorium / Orientation: alert Psych mental status grossly normal and thought process normal Skin Skin Narrative: Scabbed abrasion/wound right knee, see above. No abscess. Rashes: no rashes MDM MDM MDM Narrative Medical decision making narrative: This wound in my opinion does not appear to be acutely infected. However, the patient is concerned because she is a diabetic and there was a change today. We discussed the pros and cons of antibiotics, and although I do not think this is grossly infected, I am not able to rule out the possibility that it is early in the process. I offered her a [id number] prescription for cephalexin, advising not to use it if things do not change, she is comfortable with that plan we discussed taking care of the wound. I did offer an x-ray, she declines does not think she broke anything, I agree. Discharge Plan Triage Chief Complaint: Wound ED Provider: Esau Strickland Dx/Rx/DC Orders Clinical Impression: Visit for wound check, Abrasion of knee, right Instructions: ED Wound Check (No Infection) Prescriptions: New cephalexin [cephalexin] 500 mg capsule 500 mg PO Q6 Qty: 40 0RF No Action aspirin [Adult Aspirin Regimen] 81 mg tablet,delayed release (DR/EC) 81 mg PO QDAY Patient Comments: PT STATES WILL STOP ASPIRIN ON 09/04/21 PER FRIEND INSTRUCTIONS FOR 09/07/21 cholecalciferol (vitamin D3) 2,000 unit capsule 2,000 unit PO DAILY (DME) FreeStyle John 14 Day [place] Misc See Rx Instructions .ROUTE .MEDSUPPLY Qty: 1 0RF Rx Instructions: As directed oxybutynin chloride 10 mg tablet extended release 24hr 15 mg PO DAILY Patient Comments: TAKE 1 TABLET ORALLY ONCE PER DAY FOR 30 DAYS (DME) pen needle, diabetic [Ultra-Thin II Ins Pen [place]] 29 gauge x 1/2 needle See Rx Instructions .ROUTE .MEDSUPPLY Qty: 100 3RF Rx Instructions: As directed twice daily (DME) blood-glucose meter [True Metrix Glucose Meter] Kit See Rx Instructions .Route Qty: 1 0RF Rx Instructions: As directed (DME) True Metrix Glucose Test Strip Strip See Rx Instructions .Route Qty: 50 12RF Rx Instructions: daily cyanocobalamin (vitamin B-12) 2,500 mcg tablet 2,500 mcg PO .THREE TIMES A WEEK docusate sodium [Colace] 100 mg capsule 100 mg PO BID celecoxib [Celebrex] 200 mg capsule 200 mg PO DAILY Qty: 60 0RF Rx Instructions: Do not take in combination with Motrin or other NSAID. Tylenol is okay. venlafaxine 75 mg tablet 225 mg PO QHS Qty: 270 3RF Rx Instructions: . dapagliflozin propanediol 10 mg tablet 10 mg PO QDAY Qty: 90 3RF Ozempic 1 mg/dose (4 mg/3 mL) pen injector 1 mg subcut QWEEK Qty: 3 6RF (DME) FreeStyle John 14 Day Sensor Kit See Rx Instructions .ROUTE .MEDSUPPLY Qty: 6 3RF Rx Instructions: As directed lisinopril 20 mg tablet See Rx Instructions .ROUTE .COMPLEX Qty: 90 3RF Dose Instruction: TAKE 1 TABLET DAILY Rx Instructions: TAKE 1 TABLET DAILY atorvastatin 80 mg tablet 80 mg PO QHS Qty: 90 3RF glimepiride 2 mg tablet 1 mg PO DAILY Qty: 90 1RF Primary Care Provider: Wan Jain Referrals: Wan Jain MD [Primary Care Provider] - 3-5 Days if not improving Activity Restrictions/Additional Instructions: Keep monitoring the wound, if redness and swelling increases outward from the scab, fill and take the prescription as prescribed until completely finished. If it is simply healing and not infected, you should not see worsening/spreading of the redness. Soreness and itching is normal if it is simply inflamed from normal healing processes. Disposition Disposition: Home, Self Care
[2023-04-21 23:36] VITALS: RESP 17
== END 2023-04-21 23:37 | disposition home or self-care (01) ==
LOC: ED 23:28
PROVIDERS: Emergency Provider Emergency Medicine; PCP Internal Medicine; Visit Provider Emergency Medicine
DX: Z51.89 Encounter for other specified aftercare (principal); E11.9 Type 2 diabetes mellitus without complications; S80.211A Abrasion, right knee, initial encounter; Z79.899 Other long term (current) drug therapy; Z79.85 Long-term (current) use of injectable non-insulin antidiabetic drugs; Z99.89 Dependence on other enabling machines and devices; Z90.11 Acquired absence of right breast and nipple; W17.89XA Other fall from one level to another, initial encounter
CPT/HCPCS: 99282

== ENCOUNTER → 2023-08-14 | Outpatient (CLI) | payer MEDICARE, SELFPAY ==
[2023-08-14 13:04] LABS: Anion Gap 5 (5-15); BUN 16 mg/dL (7-18); BUN/Creat Ratio 19.6 RATIO (10-20); Calcium,Total 9.2 mg/dL (8.5-10.1); Chloride 107 mmol/L (98-107); Creatinine, Serum 0.82 mg/dL (0.55-1.02); EST Glomerular Filtration Rate 74 mL/min (>60); Est Glom Filt Rate - Afr Amer 90 mL/min (>60); Glucose 150 mg/dL (74-106); Potassium 5.1 mmol/L (3.5-5.1); Sodium Level 141 mmol/L (136-145)
[2023-08-14 13:20] LABS: Hemoglobin A1c 6.4 % (3.8-5.6)
== END | disposition home or self-care (01) ==
LOC: BIMLAB 08:44
PROVIDERS: PCP Internal Medicine; Referring Provider Internal Medicine; Visit Provider Internal Medicine
DX: E11.69 Type 2 diabetes mellitus with other specified complication (principal)
CPT/HCPCS: 36415; 80048; 83036

== ENCOUNTER 2024-01-16 13:00 | Outpatient (RCR) | payer MEDICARE, SELFPAY ==
[2024-01-09 12:59] VITALS: BP 121/65; PULSE 83; RESP 18; TEMP 36.6; BMI 22.4
--- NOTE | 2024-01-09 13:35 | HP.PCM_ITS ---
History of Present Illness Date of Service: 01/09/24 Chief Complaint: Traumatic left pretibial wound History of Wound: This is a 68-year-old female who presents with a traumatic wound on the left pretibial surface. This occurred approximate 4 to 5 weeks prior to her admission, when she impacted the left pretibial surface against a metal object in her garage. She subsequently developed swelling and redness in the periwound area, for which she was evaluated and treated by her primary care physician. She has received a 10-day course of Keflex which was taken orally. She has been using bacitracin ointment topically on intermittent basis, and at times using only dry gauze. Since the time of her injury, the traumatic wound has failed to heal and progress. This has prompted her to seek medical attention in the [facility]. She is of normal body habitus. She is active, and ambulates liberally without limitations. She denies swelling in her lower extremities. She has no history of thrombophlebitis. [facility] Medical History Abdominal pain Abrasion, right lower leg, initial encounter Alcohol use Arthritis Cellulitis of right lower leg Chronic nausea Contusion of right lower leg CPAP (continuous positive airway pressure) dependence Early satiety Easy bruising Grief reaction Health care maintenance Heartburn History of breast cancer History of Clostridium difficile infection History of hiatal hernia History of kidney stones History of stress test Itching of ear Leg wound, left Obstructive sleep apnea Preventative health care Tachycardia Traumatic open wound of left lower leg with delayed healing Vitamin D deficiency Wound of right lower extremity Home Medications aspirin 81 mg tablet,delayed release (Adult Aspirin Regimen) 81 mg PO QDAY 10/05/17 [History Last Taken 01/02/19] cholecalciferol (vitamin D3) 50 mcg (2,000 unit) capsule 2,000 unit PO DAILY 10/05/17 [History Last Taken Unknown] flash glucose scanning reader (FreeStyle [facility] [employer]) #1 ea 11/11/19 [Rx Last Taken Unknown] pen needle, diabetic 29 gauge x 1/2 (Ultra-Thin II Insulin Pen [place]) #100 ea 04/19/21 [Rx Last Taken Unknown] oxybutynin chloride 10 mg tablet,extended release 24 hr 15 mg PO DAILY 04/20/22 [History Last Taken Unknown] cyanocobalamin (vitamin B-12) 2,500 mcg tablet 2,500 mcg PO .THREE TIMES A WEEK 07/27/22 [History Last Taken Unknown] docusate sodium 100 mg capsule (Colace) 100 mg PO DAILY 07/27/22 [History Last Taken Unknown] True Metrix Glucose Test Strip (blood sugar diagnostic) #50 ea 11/10/22 [Rx Last Taken Unknown] blood-glucose meter (True Metrix Glucose Meter kit) #1 ea 11/10/22 [Rx Last Taken Unknown] Ozempic 1 mg/dose (4 mg/3 mL) subcutaneous pen injector (semaglutide) 1 mg (0.75 mL) subcut QWEEK #3 mL 11/07/23 [Rx Last Taken Unknown] atorvastatin 80 mg tablet 80 mg PO QHS #90 tabs 11/07/23 [Rx Last Taken Unknown] dapagliflozin propanediol 10 mg tablet 10 mg PO QDAY diabetes #90 tabs 11/07/23 [Rx Last Taken Unknown] flash glucose sensor (FreeStyle John [facility] Sensor kit) #6 ea 11/07/23 [Rx Last Taken Unknown] glimepiride 2 mg tablet 1 mg (1/2 x 2 mg) PO DAILY #90 tabs 11/07/23 [Rx Last Taken Unknown] lisinopril 20 mg tablet See Rx Instructions .Route .COMPLEX #90 tabs 11/07/23 [Rx Last Taken Unknown] venlafaxine 75 mg tablet 275 mg PO QHS ANTIDEPRESSANT 01/09/24 [History Last Taken Unknown] Allergy/AdvReac Type Severity Reaction Status Date / Time amoxicillin Allergy Rash Verified 12/26/23 12:50 levofloxacin [From Levaquin] Allergy Vomiting Verified 12/26/23 12:50 promethazine [From Phenergan] Allergy Other Verified 12/26/23 12:50 Family History Sister Breast cancer Grandmother Breast cancer Uncle Breast cancer Mother Heart disease Thyroid disorder Father Heart disease CVA (cerebral vascular accident) Cancer prostate Brother Crohns disease Grandfather CVA (cerebral vascular accident) Grandmother Diabetes Surgical History abdominal tram flap bunionecmy of right foot History of colonoscopy History of total mastectomy of right breast Hx of cataract extraction Social History Smoking Status: Never smoker alcohol intake: current alcohol intake frequency: a few times a month Alcohol type: beer substance use type: does not use caffeine: Yes what type of physical activity do you participate in: walking frequency: 5-6 times per week do you feel safe at home: Yes Vital Signs Vital Signs Vital Signs: 01/09/24 12:59 Temperature 98 F Temperature Source Temporal Pulse Rate 83 Respiratory Rate 18 Blood Pressure 121/65 H Blood Pressure Mean 83 Blood Pressure Source Monitor Blood Pressure Position Semi-Fowlers Blood Pressure Location Left Arm Weight Weight: 143 lb Body Mass Index (BMI) 22.4 Physical Exam Const alert, oriented x3, no apparent distress, average body habitus and well nourished General Appearance: cooperative, comfortable, well kempt and well developed Orientation / Consciousness: awake, oriented to person, oriented to place and oriented to time Exam Limitations: no limitations HEENT normocephalic, head/scalp atraumatic and hearing grossly normal bilaterally Head and Scalp: normal to inspection, normocephalic and atraumatic Face and Sinus: normal facial exam Nose: external nose normal External Ear: external ears normal Eyes PERRL and EOMs intact bilaterally General Eye: normal appearance of both eyes Sclera: sclera normal Neck full ROM General: normal visual inspection and trachea midline Resp normal respiratory effort, normal air movement, no retractions, no use of accessory muscles and clear to auscultation bilaterally Effort and Inspection: able to speak in complete sentences and symmetric chest movement Cardio regular rate, regular rhythm, S1 normal heart sound, S2 normal heart sound and no murmurs Extremity no calf tenderness General Extremity: Negative for clubbing or cyanosis Skin Wound Narrative: A traumatic wound is noted on the patient's left pretibial surface. Dimensions are documented elsewhere. There is eschar at the site of the wound, as well as a significant amount of bioburden. A faint rim of erythema is noted about the wound. No swelling or edema are noted in the lower extremities bilaterally. No other wounds or ulcerations are observed. Neuro oriented x3, CN's II-XII intact bilaterally, moves all extremities and no focal motor deficits Sensorium / Orientation: awake, alert, oriented to person, oriented to place and oriented to time Psych Appearance: grossly normal and appropriate Attitude: calm Activity / Motor Behavior: appropriate eye contact Speech: normal speech Mood & Affect: euthymic mood Thought Process: normal thought process Thought Content: normal thought content Attention / Concentration: attention grossly intact Debridement Note Debridement Note Wound debrided: Left pretibial surface Laterality: Left Type of Debridement: Excisional debridement Anesthesia Used: 5% Lidocaine Gel Depth: Down to and including healthy tissue and in the subcutaneous layer Percentage of wound debrided: 100 Instrument Used: 5mm curette Tissue Removed: Bioburden and eschar Severity: Fat Layer Exposed Amount of bleeding with debridement: Mild Bleeding Controlled with: Compression and gauze Patient tolerated procedure: Patient tolerated procedure well Post-Debridement Measurements and Additional Note: Post-Debridement Measurements/Treatment - Nurse 1 - General Ulcer Assessment Start: 01/09/24 12:59 Freq: Status: Active Protocol: .LOWEXPeewee Activity Type Activity Date Activity User E-sign Co-sign Detail Recorded Client Recorded Date Recorded By Document 01/09/24 12:59 Desktop 01/09/24 13:10 01/09/24 12:59 - Today's Visit Information Type of service Nurse-only Visit Arrival Mode Ambulatory Transfer Assistance None Patient Identification Verified (Name & Yes ) Patient Requires Transmission-Based No Precautions Height and Weight Height 5 ft 7 in Weight 143 lb Weight in Pounds 143.0 lbs Body Mass Index (BMI) 22.4 BMI Classification Normal BSA - Snehal 1.75 Vital Signs Temperature (97.8 F-99.1 F) 98 F Temperature Source Temporal Pulse Rate (60-100) 83 Pulse Location Monitor Respiratory Rate (12-18) 18 Respiratory rate source Observation Blood Pressure (90/60-120/80) 121/65 H Blood Pressure Mean 83 Source Monitor Position Semi-Fowlers Blood Pressure Location Left Arm Pain Scale: 0-10 Numeric Is Patient Pain Free? Yes Lower Extremity Assessment/ Foot Assessment/ Toe Nail Assessment Right -Posterior Tibial Palpable Yes -Posterior Tibial Doppler Multiphasic -Dorsalis Pedis Palpable Yes -Dorsalis Pedis Doppler Multiphasic -Extremity Color Normal -Hair Growth on Legs No -Hair Growth on Toes No -Temperature of Extremity Cool -Capillary Refill Greater than 3 Seconds -Dependent Rubor No -Blanched when Elevated No -Lipodermatosclerosis No -Other Deformity No -Prior Foot Ulcer No -Charcot Joint No -Prior Amputation No -Thick No -Discolored No -Deformed No -Improper Length & Hygeine Yes Left -Posterior Tibial Palpable Yes -Posterior Tibial Doppler Multiphasic -Dorsalis Pedis Palpable Yes -Dorsalis Pedis Doppler Multiphasic -Extremity Color Normal -Hair Growth on Legs No -Hair Growth on Toes No -Temperature of Extremity Cool -Capillary Refill Greater than 3 Seconds -Dependent Rubor No -Blanched when Elevated No -Lipodermatosclerosis No -Other Deformity No -Prior Foot Ulcer No -Charcot Joint No -Prior Amputation No -Thick No -Discolored No -Deformed No -Improper Length & Hygeine Yes Neuropathy Assessment Feet - Top Side and Bottom <Entered> (a) Communication Assessment Preferred language [place] Distance Learning Program Coordinator Required No Able to Read Yes Able to Write Yes Communication Tools None Caregiver Communication Skills No Impairment Impairment Right Hearing Abillity Normal Left Hearing Abillity Normal Visual Assistive Devices None Functional Assessment Recent Decline in Ability to Perform Denies Any Declines Assistive Device With Patient No Culture/Nondenominational/Heading And Priming Operator Cultural/Nondenominational Needs that may affect No Treatment Plan Would you allow our hospital practice clinician to No meet you for the purpose of spiritual/ emotional support? Heading And Priming Operator to contact place of temple No Teaching: Wound Center *Welcome to the Wound Center -Person Taught Patient -Teaching Method Discussion -Response to teaching Verbalize understanding (a) 1 - + throughout WC - Nurse 1 - General Ulcer Measurement Start: 01/09/24 12:59 Freq: Status: Active Protocol: Activity Type Activity Date Activity User E-sign Co-sign Detail Recorded Client Recorded Date Recorded By Document 01/09/24 12:59 RB Desktop 01/09/24 13:10 RB 01/09/24 12:59 Wound Center Nurse 1 2. LLE anterior -Combined with other wound No -Current Size (cm) - Length 1 -Current Size (cm) - Width 0.6 -Current Size (cm) - Depth 0.1 -Total Square Cm 0.6 -Photo Taken Yes -Tunneling No -Undermining/Tunneling No -Circular Undermining No -Exudate Amt Medium -Exudate Type Serosanguineous -Wound Margin Distinct, Outline Attached -Granulation Amt Small (1-33%) -Slough/Fibrin Yes -Necrosis Amt Large (67-100%) -Necrotic Tissue Type Eschar -Structure Exposed N/A -Texture (Radha-wound Skin Appearance) Assessed -Moisture (Radha-wound Skin Appearance) Assessed -Color (Radha-wound Skin Appearance) Assessed, Erythema -Temperature (Radha-wound Skin No Abnormality Appearance) (Pt Warm) -Tenderness on Palpation (Radha-wound No Skin Appearance) -Ulcer Cleansing Wound Cleanser -Foul Odor after Cleansing No -Anesthetic Used 4% Lidocaine Solution Lower Limb Edema Present Yes Left Calf (cm) 34.6 Left Ankle (cm) 19 WC - Nurse 2 - General Ulcer CM Notes Start: 01/09/24 12:59 Freq: Status: Active Protocol: Activity Type Activity Date Activity User E-sign Co-sign Detail Recorded Client Recorded Date Recorded By Document 01/09/24 13:23 Laptop 01/09/24 13:34 01/09/24 13:23 Wound Center Nurse 2 2. LLE anterior -Time 13:25 -Correct Patient Yes -Correct Side, Site, Position Yes -Correct Procedure Yes -Procedure Performed Yes -Type of Procedure Debridement -Clinical Debridement Subcutaneous -Tissue Removed Subcutaneous -Post Debridement (cm) - Length 1.2 -Post Debridement (cm) - Width 1.0 -Post Debridement (cm) - Depth 0.2 -Total Square (Post) (cm) 1.20 -Area of Debridement (cm) - Length 1.2 -Area of Debridement (cm) - Width 1.0 -Total Square (Area) (cm) 1.20 -Tunneling No -Undermining/Tunneling No -Circular Undermining No -Wound/Ulcer Outcome Not Healed -Ulcer Cleansing Rinsed/ Irrigated with Saline -Foul Odor after Cleansing No -Bioengineered Tissue No -Bleeding Controlled with Pressure -Treatment Response Procedure Tolerated Well -Offloading No -Debridement - Subq, 1st 20sq cm Yes Pain Scale: 0-10 Numeric Is Patient Pain Free? Yes Assessment/Plan Assessment/Plan (1) Traumatic open wound of left lower leg with delayed healing: CODE(S): S81.802D - Unspecified open wound, left lower leg, subsequent encounter (2) Leg wound, left: CODE(S): S81.802A - Unspecified open wound, left lower leg, initial encounter QUALIFIERS: Encounter type: initial encounter Qualified Code(s): S81.802A - Unspecified open wound, left lower leg, initial encounter (3) Type 2 diabetes mellitus: CODE(S): E11.9 - Type 2 diabetes mellitus without complications QUALIFIERS: Diabetes mellitus chcf insulin use: unspecified laborer marine terminal insulin use status Diabetes mellitus complication status: with other specified complication Qualified Code(s): E11.69 - Type 2 diabetes mellitus with other specified complication (4) Mixed hyperlipidemia: CODE(S): E78.2 - Mixed hyperlipidemia (5) Sleep apnea: CODE(S): G47.30 - Sleep apnea, unspecified QUALIFIERS: Sleep apnea type: obstructive Qualified Code(s): G47.33 - Obstructive sleep apnea (adult) (pediatric) (6) Hypertension: CODE(S): I10 - Essential (primary) hypertension QUALIFIERS: Hypertension type: essential hypertension Qualified Code(s): I10 - Essential (primary) hypertension (7) Obstructive sleep apnea: CODE(S): G47.33 - Obstructive sleep apnea (adult) (pediatric) PLAN: Plan This is a 68-year-old female who is active and functional. She is of normal body habitus. She suffers from diabetes mellitus, hyperlipidemia, hypertension, and obstructive sleep apnea. She sustained a traumatic wound to the left pretibial surface approximately 4 to 5 weeks prior to her presentation at the [facility]. The wound has shown little progress toward healing, prompting her to seek medical attention. Debridement has been performed in the wound healing center today. The eschar and nonviable tissue present at the surface of the wound have been largely removed. The wound bed appears relatively healthy. Because of a faint rim of radha-wound erythema, swab wound cultures have been obtained for both aerobic and anaerobic bacterial growth. Culture results will be awaited, though may take several days. The patient has been counseled to optimize nutritional intake. She is already collaborating with an rug measurer for glycemic control. Review of past laboratory results reveals a hemoglobin A1c of 7.3 on November 07, 2023. We are temperamentally use of Aquacel silver, apply daily. Patient has been instructed in appropriate means of application. She is to be allowed to shower on a daily basis. The patient will return in 1 week for reevaluation. Total time: 46 minutes
--- NOTE | 2024-01-12 12:27 | NUR.TO.PHY ---
I called with the micro results of the pt wound culture. There was no growth but physician wanted contacted with results either way.
[2024-01-16 13:08] VITALS: BP 123/66; PULSE 101; RESP 18; TEMP 36.1; BMI 22.4
--- NOTE | 2024-01-16 13:26 | HP.PCM_ITS ---
History of Present Illness Date of Service: 01/16/24 Chief Complaint: Traumatic left pretibial wound History of Wound: This is a 68-year-old female who presented with a traumatic wound on the left pretibial surface. This occurred approximately 4 to 5 weeks prior to her admission, when she impacted the left pretibial surface against a metal object in her garage. She subsequently developed swelling and redness in the periwound area, for which she was evaluated and treated by her primary care physician. She received a 10-day course of Keflex which was taken orally. She had been using bacitracin ointment topically on an intermittent basis, and at times using only dry gauze. Since the time of her injury, the traumatic wound failed to heal and progress. This prompted her to seek medical attention in the [facility]. She is of normal body habitus. She is active, and ambulates liberally without limitations. She denies swelling in her lower extremities. She has no history of thrombophlebitis. [facility] [place] Medical History Abdominal pain Abrasion, right lower leg, initial encounter Alcohol use Arthritis Cellulitis of right lower leg Chronic nausea Contusion of right lower leg CPAP (continuous positive airway pressure) dependence Early satiety Easy bruising Grief reaction Health care maintenance Heartburn History of breast cancer History of Clostridium difficile infection History of hiatal hernia History of kidney stones History of stress test Itching of ear Leg wound, left Obstructive sleep apnea Preventative health care Tachycardia Traumatic open wound of left lower leg with delayed healing Vitamin D deficiency Wound of right lower extremity Home Medications aspirin 81 mg tablet,delayed release (Adult Aspirin Regimen) 81 mg PO QDAY 10/05/17 [History Last Taken 01/02/19] cholecalciferol (vitamin D3) 50 mcg (2,000 unit) capsule 2,000 unit PO DAILY 10/05/17 [History Last Taken Unknown] flash glucose scanning reader (Organic To Go John 14 Day [place]) #1 ea 11/11/19 [Rx Last Taken Unknown] pen needle, diabetic 29 gauge x 1/2 (Ultra-Thin II Insulin Pen [place]) #100 ea 04/19/21 [Rx Last Taken Unknown] oxybutynin chloride 10 mg tablet,extended release 24 hr 15 mg PO DAILY 04/20/22 [History Last Taken Unknown] cyanocobalamin (vitamin B-12) 2,500 mcg tablet 2,500 mcg PO .THREE TIMES A WEEK 07/27/22 [History Last Taken Unknown] docusate sodium 100 mg capsule (Colace) 100 mg PO DAILY 07/27/22 [History Last Taken Unknown] True Metrix Glucose Test Strip (blood sugar diagnostic) #50 ea 11/10/22 [Rx Last Taken Unknown] blood-glucose meter (True Metrix Glucose Meter kit) #1 ea 11/10/22 [Rx Last Taken Unknown] Ozempic 1 mg/dose (4 mg/3 mL) subcutaneous pen injector (semaglutide) 1 mg (0.75 mL) subcut QWEEK #3 mL 11/07/23 [Rx Last Taken Unknown] atorvastatin 80 mg tablet 80 mg PO QHS #90 tabs 11/07/23 [Rx Last Taken Unknown] dapagliflozin propanediol 10 mg tablet 10 mg PO QDAY diabetes #90 tabs 11/07/23 [Rx Last Taken Unknown] flash glucose sensor (FreeStyle John 14 Day Sensor kit) #6 ea 11/07/23 [Rx Last Taken Unknown] glimepiride 2 mg tablet 1 mg (1/2 x 2 mg) PO DAILY #90 tabs 11/07/23 [Rx Last Taken Unknown] lisinopril 20 mg tablet See Rx Instructions .Route .COMPLEX #90 tabs 11/07/23 [Rx Last Taken Unknown] venlafaxine 75 mg tablet 275 mg PO QHS ANTIDEPRESSANT 01/09/24 [History Last Taken Unknown] Allergy/AdvReac Type Severity Reaction Status Date / Time amoxicillin Allergy Rash Verified 12/26/23 12:50 levofloxacin [From Levaquin] Allergy Vomiting Verified 12/26/23 12:50 promethazine [From Phenergan] Allergy Other Verified 12/26/23 12:50 Family History Sister Breast cancer Grandmother Breast cancer Uncle Breast cancer Mother Heart disease Thyroid disorder Father Heart disease CVA (cerebral vascular accident) Cancer prostate Brother Crohns disease Grandfather CVA (cerebral vascular accident) Grandmother Diabetes Surgical History abdominal tram flap bunionecmy of right foot History of colonoscopy History of total mastectomy of right breast Hx of cataract extraction Social History Smoking Status: Never smoker alcohol intake: current alcohol intake frequency: a few times a month Alcohol type: beer substance use type: does not use caffeine: Yes what type of physical activity do you participate in: walking frequency: 5-6 times per week do you feel safe at home: Yes Vital Signs Vital Signs Vital Signs: 01/16/24 13:08 Temperature 97 F L Temperature Source Temporal Pulse Rate 101 H Respiratory Rate 18 Blood Pressure 123/66 H Blood Pressure Mean 85 Blood Pressure Source Monitor Blood Pressure Position Semi-Fowlers Blood Pressure Location Left Arm Weight Weight: 143 lb Body Mass Index (BMI) 22.4 Physical Exam Const alert, oriented x3, no apparent distress, average body habitus and well nourished General Appearance: cooperative, comfortable, well kempt and well developed Orientation / Consciousness: awake, oriented to person, oriented to place and oriented to time Exam Limitations: no limitations HEENT normocephalic, head/scalp atraumatic and hearing grossly normal bilaterally Head and Scalp: normal to inspection, normocephalic and atraumatic Face and Sinus: normal facial exam Nose: external nose normal External Ear: external ears normal Eyes PERRL and EOMs intact bilaterally General Eye: normal appearance of both eyes Sclera: sclera normal Neck full ROM General: normal visual inspection and trachea midline Resp normal respiratory effort, normal air movement, no retractions, no use of accessory muscles and clear to auscultation bilaterally Effort and Inspection: able to speak in complete sentences and symmetric chest movement Cardio regular rate, regular rhythm, S1 normal heart sound, S2 normal heart sound and no murmurs Extremity no calf tenderness General Extremity: Negative for clubbing or cyanosis Skin Wound Narrative: A traumatic wound is noted on the patient's left pretibial surface. Dimensions are documented elsewhere. The wound appears to be smaller than noted 1 week ago. The base of the wound is generally pink and healthy in appearance, with evidence of active, healthy granulation tissue. There is a small amount of bioburden. No significant periwound erythema is noted. No swelling or edema are noted in the lower extremities bilaterally. No other wounds or ulcerations are observed. Neuro oriented x3, CN's II-XII intact bilaterally, moves all extremities and no focal motor deficits Sensorium / Orientation: awake, alert, oriented to person, oriented to place and oriented to time Psych Appearance: grossly normal and appropriate Attitude: calm Activity / Motor Behavior: appropriate eye contact Speech: normal speech Mood & Affect: euthymic mood Thought Process: normal thought process Thought Content: normal thought content Attention / Concentration: attention grossly intact Debridement Note Debridement Note Wound debrided: Left pretibial surface Laterality: Left Type of Debridement: Excisional debridement Anesthesia Used: 5% Lidocaine Gel Depth: Down to and including healthy tissue and in the subcutaneous layer Percentage of wound debrided: 100 Instrument Used: 3mm curette Tissue Removed: Bioburden Severity: Fat Layer Exposed Amount of bleeding with debridement: Mild Bleeding Controlled with: Compression and gauze Patient tolerated procedure: Patient tolerated procedure well Post-Debridement Measurements and Additional Note: Post-Debridement Measurements/Treatment - Nurse 1 - General Ulcer Assessment Start: 01/09/24 12:59 Freq: Status: Active Protocol: JEANETTE Activity Type Activity Date Activity User E-sign Co-sign Detail Recorded Client Recorded Date Recorded By Document 01/09/24 12:59 RB Desktop 01/09/24 13:10 RB Document 01/16/24 13:08 RB Desktop 01/16/24 13:13 RB 01/09/24 01/16/24 12:59 13:08 - Today's Visit Information Type of service Nurse-only Follow-up Visit Visit (Physician/AUTOMATIC CIGAR WRAPPER TENDER ) Arrival Mode Ambulatory Ambulatory Transfer Assistance None None Patient Identification Verified (Name & Yes Yes ) Patient Requires Transmission-Based No No Precautions Height and Weight Height 5 ft 7 in Weight 143 lb Weight in Pounds 143.0 lbs Body Mass Index (BMI) 22.4 22.4 BMI Classification Normal Normal BSA - Snehal 1.75 Vital Signs Temperature (97.8 F-99.1 F) 98 F 97 F L Temperature Source Temporal Temporal Pulse Rate (60-100) 83 101 H Pulse Location Monitor Monitor Respiratory Rate (12-18) 18 18 Respiratory rate source Observation Observation Blood Pressure (90/60-120/80) 121/65 H 123/66 H Blood Pressure Mean 83 85 Source Monitor Monitor Position Semi-Fowlers Semi-Fowlers Blood Pressure Location Left Arm Left Arm History Since Last Visit- (Skip if this is Patient's initial visit) Have you changed medications since your No last visit? Any new allergies or adverse reactions No Had a fall/change in ADL's that may No increase risk of falls Signs or symptoms of abuse and/or No neglect since last visit Have you been in the hospital since your No last visit? Has dressing in place as prescribed Yes Has compression in place as prescribed Yes Has offloadiing in place as prescribed No Experienced any changes in pain level or No management Pain Scale: 0-10 Numeric Is Patient Pain Free? Yes Yes Lower Extremity Assessment/ Foot Assessment/ Toe Nail Assessment Right -Posterior Tibial Palpable Yes -Posterior Tibial Doppler Multiphasic -Dorsalis Pedis Palpable Yes -Dorsalis Pedis Doppler Multiphasic -Extremity Color Normal -Hair Growth on Legs No -Hair Growth on Toes No -Temperature of Extremity Cool -Capillary Refill Greater than 3 Seconds -Dependent Rubor No -Blanched when Elevated No -Lipodermatosclerosis No -Other Deformity No -Prior Foot Ulcer No -Charcot Joint No -Prior Amputation No -Thick No -Discolored No -Deformed No -Improper Length & Hygeine Yes Left -Posterior Tibial Palpable Yes -Posterior Tibial Doppler Multiphasic -Dorsalis Pedis Palpable Yes -Dorsalis Pedis Doppler Multiphasic -Extremity Color Normal -Hair Growth on Legs No -Hair Growth on Toes No -Temperature of Extremity Cool -Capillary Refill Greater than 3 Seconds -Dependent Rubor No -Blanched when Elevated No -Lipodermatosclerosis No -Other Deformity No -Prior Foot Ulcer No -Charcot Joint No -Prior Amputation No -Thick No -Discolored No -Deformed No -Improper Length & Hygeine Yes Neuropathy Assessment Feet - Top Side and Bottom <Entered> (a) Communication Assessment Preferred language [place] [employer] Required No Able to Read Yes Able to Write Yes Communication Tools None Caregiver Communication Skills No Impairment Impairment Right Hearing Abillity Normal Left Hearing Abillity Normal Visual Assistive Devices None Functional Assessment Recent Decline in Ability to Perform Denies Any Declines Assistive Device With Patient No Culture/Sikh/Avionics Manager Cultural/Sikh Needs that may affect No Treatment Plan Would you allow our hospital expansion joint builder to No meet you for the purpose of spiritual/ emotional support? Avionics Manager to contact place of scientology No Teaching: Wound Center *Welcome to the Wound Center -Person Taught Patient -Teaching Method Discussion -Response to teaching Verbalize understanding (a) 1 - + throughout WC - Nurse 1 - General Ulcer Measurement Start: 01/09/24 12:59 Freq: Status: Active Protocol: Activity Type Activity Date Activity User E-sign Co-sign Detail Recorded Client Recorded Date Recorded By Document 01/09/24 12:59 RB Desktop 01/09/24 13:10 RB Document 01/16/24 13:08 RB Desktop 01/16/24 13:13 01/09/24 01/16/24 12:59 13:08 Wound Center Nurse 1 2. LLE anterior -Combined with other wound No No -Current Size (cm) - Length 1 1 -Current Size (cm) - Width 0.6 0.7 -Current Size (cm) - Depth 0.1 0.2 -Total Square Cm 0.6 0.7 -Photo Taken Yes -Tunneling No No -Undermining/Tunneling No No -Circular Undermining No No -Exudate Amt Medium Medium -Exudate Type Serosanguineous Serosanguineous -Wound Margin Distinct, Distinct, Outline Outline Attached Attached -Granulation Amt Small (1-33%) Medium (34-66%) -Granulation Quality [place] -Slough/Fibrin Yes Yes -Necrosis Amt Large (67-100%) Medium (34-66%) -Necrotic Tissue Type Eschar Adherent Slough -Structure Exposed N/A N/A -Texture (Radha-wound Skin Appearance) Assessed Assessed -Moisture (Radha-wound Skin Appearance) Assessed Assessed -Color (Radha-wound Skin Appearance) Assessed, Assessed Erythema -Temperature (Radha-wound Skin No Abnormality No Abnormality Appearance) (Pt Warm) (Pt Warm) -Tenderness on Palpation (Radha-wound No No Skin Appearance) -Ulcer Cleansing Wound Cleanser Wound Cleanser -Foul Odor after Cleansing No No -Anesthetic Used 4% Lidocaine 5% Lidocaine Solution Gel Lower Limb Edema Present Yes Yes Left Calf (cm) 34.6 33.2 Left Ankle (cm) 19 19.4 - Nurse 2 - General Ulcer CM Notes Start: 01/09/24 12:59 Freq: Status: Active Protocol: Activity Type Activity Date Activity User E-sign Co-sign Detail Recorded Client Recorded Date Recorded By Document 01/09/24 13:23 Laptop 01/09/24 13:34 Document 01/16/24 13:23 Laptop 01/16/24 13:25 01/09/24 01/16/24 13:23 13:23 Wound Center Nurse 2 2. LLE anterior -Time 13:25 13:23 -Correct Patient Yes Yes -Correct Side, Site, Position Yes Yes -Correct Procedure Yes Yes -Procedure Performed Yes Yes -Type of Procedure Debridement Debridement -Clinical Debridement Subcutaneous Subcutaneous -Tissue Removed Subcutaneous Subcutaneous -Post Debridement (cm) - Length 1.2 1.1 -Post Debridement (cm) - Width 1.0 0.9 -Post Debridement (cm) - Depth 0.2 0.1 -Total Square (Post) (cm) 1.20 0.99 -Area of Debridement (cm) - Length 1.2 1.1 -Area of Debridement (cm) - Width 1.0 0.9 -Total Square (Area) (cm) 1.20 0.99 -Tunneling No No -Undermining/Tunneling No No -Circular Undermining No No -Wound/Ulcer Outcome Not Healed Not Healed -Ulcer Cleansing Rinsed/ Rinsed/ Irrigated with Irrigated with Saline Saline -Foul Odor after Cleansing No No -Bioengineered Tissue No No -Bleeding Controlled with Pressure Pressure -Treatment Response Procedure Procedure Tolerated Well Tolerated Well -Offloading No No -Debridement - Subq, 1st 20sq cm Yes Yes Pain Scale: 0-10 Numeric Is Patient Pain Free? Yes Yes - Nurse 3 - General Ulcer D/C NN Start: 01/09/24 12:59 Freq: Status: Active Protocol: Activity Type Activity Date Activity User E-sign Co-sign Detail Recorded Client Recorded Date Recorded By Document 01/09/24 13:44 Laptop 01/09/24 13:44 01/09/24 13:44 Wound Care Center Nurse 3 2. LLE anterior -Ulcer Cleansing Rinsed/ Irrigated with Saline -Foul Odor after Cleansing No -Primary Dressing Applied Aquacel AG 4x4 -Primary Dressing Covered/Secured with Dry Gauze, Secured with Tape -Aquacel AG 4x4 1 Pain Scale: 0-10 Numeric Is Patient Pain Free? Yes - Visit Discharge Discharge Condition Stable Ambulatory Status Ambulatory Transportation Private Auto Medication Reconcilliation completed & Yes provided to patient/care provider Clinical Summary of Care Provided Yes Assessment/Plan Assessment/Plan (1) Traumatic open wound of left lower leg with delayed healing: CODE(S): S81.802D - Unspecified open wound, left lower leg, subsequent encounter (2) Leg wound, left: CODE(S): S81.802A - Unspecified open wound, left lower leg, initial encounter QUALIFIERS: Encounter type: initial encounter Qualified Code(s): S81.802A - Unspecified open wound, left lower leg, initial encounter (3) Type 2 diabetes mellitus: CODE(S): E11.9 - Type 2 diabetes mellitus without complications QUALIFIERS: Diabetes mellitus snf insulin use: unspecified terminal makeup operator insulin use status Diabetes mellitus complication status: with other specified complication Qualified Code(s): E11.69 - Type 2 diabetes mellitus with other specified complication (4) Mixed hyperlipidemia: CODE(S): E78.2 - Mixed hyperlipidemia (5) Sleep apnea: CODE(S): G47.30 - Sleep apnea, unspecified QUALIFIERS: Sleep apnea type: obstructive Qualified Code(s): G47.33 - Obstructive sleep apnea (adult) (pediatric) (6) Hypertension: CODE(S): I10 - Essential (primary) hypertension QUALIFIERS: Hypertension type: essential hypertension Qualified Code(s): I10 - Essential (primary) hypertension (7) Obstructive sleep apnea: CODE(S): G47.33 - Obstructive sleep apnea (adult) (pediatric) PLAN: Plan This is a 68-year-old female who is active and functional. She is of normal body habitus. She suffers from diabetes mellitus, hyperlipidemia, hypertension, and obstructive sleep apnea. She sustained a traumatic wound to the left pretibial surface approximately 4 to 5 weeks prior to her presentation at the [facility]. The wound had shown little progress toward healing, prompting her to seek medical attention. Debridement has been performed in the wound healing center today. The wound appears much improved since the patient's initial visit. Recent culture results have been reviewed, and are negative for aerobic and anaerobic bacterial growth. The patient has been counseled to optimize nutritional intake. She is already collaborating with an laboratory monitor for glycemic control. Review of past laboratory results reveals a hemoglobin A1c of 7.3 on November 07, 2023. We are to continue the use of moistened Aquacel silver, which will be applied daily. The patient has been instructed in appropriate means of application. She is to be allowed to shower on a daily basis. The patient will return in 2 weeks, as she will accompanying her to the [facility] next week, where he is scheduled to undergo hip replacement surgery. Total time: 22 minutes
--- NOTE | 2024-01-30 16:53 | HP.PCM_ITS ---
History of Present Illness Date of Service: 01/30/24 Chief Complaint: Traumatic left pretibial wound History of Wound: This is a 69-year-old female who presented with a traumatic wound on the left pretibial surface. This occurred approximately 4 to 5 weeks prior to her admission, when she impacted the left pretibial surface against a metal object in her garage. She subsequently developed swelling and redness in the periwound area, for which she was evaluated and treated by her primary care physician. She received a 10-day course of Keflex which was taken orally. She had been using bacitracin ointment topically on an intermittent basis, and at times using only dry gauze. Since the time of her injury, the traumatic wound failed to heal and progress. This prompted her to seek medical attention in the [facility]. She is of normal body habitus. She is active, and ambulates liberally without limitations. She denies swelling in her lower extremities. She has no history of thrombophlebitis. [facility] Medical History Abdominal pain Abrasion, right lower leg, initial encounter Alcohol use Arthritis Cellulitis of right lower leg Chronic nausea Contusion of right lower leg CPAP (continuous positive airway pressure) dependence Early satiety Easy bruising Grief reaction Health care maintenance Heartburn History of breast cancer History of Clostridium difficile infection History of hiatal hernia History of kidney stones History of stress test Itching of ear Leg wound, left Obstructive sleep apnea Preventative health care Tachycardia Traumatic open wound of left lower leg with delayed healing Vitamin D deficiency Wound of right lower extremity Home Medications aspirin 81 mg tablet,delayed release (Adult Aspirin Regimen) 81 mg PO QDAY 10/05/17 [History Last Taken 01/02/19] cholecalciferol (vitamin D3) 50 mcg (2,000 unit) capsule 2,000 unit PO DAILY 10/05/17 [History Last Taken Unknown] flash glucose scanning reader (eSee[employer] John 14 Day [place]) #1 ea 11/11/19 [Rx Last Taken Unknown] pen needle, diabetic 29 gauge x 1/2 (Ultra-Thin II Insulin Pen [place]) #100 ea 04/19/21 [Rx Last Taken Unknown] oxybutynin chloride 10 mg tablet,extended release 24 hr 15 mg PO DAILY 04/20/22 [History Last Taken Unknown] cyanocobalamin (vitamin B-12) 2,500 mcg tablet 2,500 mcg PO .THREE TIMES A WEEK 07/27/22 [History Last Taken Unknown] docusate sodium 100 mg capsule (Colace) 100 mg PO DAILY 07/27/22 [History Last Taken Unknown] True Metrix Glucose Test Strip (blood sugar diagnostic) #50 ea 11/10/22 [Rx Last Taken Unknown] blood-glucose meter (True Metrix Glucose Meter kit) #1 ea 11/10/22 [Rx Last Taken Unknown] Ozempic 1 mg/dose (4 mg/3 mL) subcutaneous pen injector (semaglutide) 1 mg (0.75 mL) subcut QWEEK #3 mL 11/07/23 [Rx Last Taken Unknown] atorvastatin 80 mg tablet 80 mg PO QHS #90 tabs 11/07/23 [Rx Last Taken Unknown] dapagliflozin propanediol 10 mg tablet 10 mg PO QDAY diabetes #90 tabs 11/07/23 [Rx Last Taken Unknown] flash glucose sensor ([employer] John 14 Day Sensor kit) #6 ea 11/07/23 [Rx Last Taken Unknown] glimepiride 2 mg tablet 1 mg (1/2 x 2 mg) PO DAILY #90 tabs 11/07/23 [Rx Last Taken Unknown] lisinopril 20 mg tablet See Rx Instructions .Route .COMPLEX #90 tabs 11/07/23 [Rx Last Taken Unknown] venlafaxine 75 mg tablet 275 mg PO QHS ANTIDEPRESSANT 01/09/24 [History Last Taken Unknown] Allergy/AdvReac Type Severity Reaction Status Date / Time amoxicillin Allergy Rash Verified 12/26/23 12:50 levofloxacin [From Levaquin] Allergy Vomiting Verified 12/26/23 12:50 promethazine [From Phenergan] Allergy Other Verified 12/26/23 12:50 Family History Sister Breast cancer Grandmother Breast cancer Uncle Breast cancer Mother Heart disease Thyroid disorder Father Heart disease CVA (cerebral vascular accident) Cancer prostate Brother Crohns disease Grandfather CVA (cerebral vascular accident) Grandmother Diabetes Surgical History abdominal tram flap bunionecmy of right foot History of colonoscopy History of total mastectomy of right breast Hx of cataract extraction Social History Smoking Status: Never smoker alcohol intake: current alcohol intake frequency: a few times a month Alcohol type: beer substance use type: does not use caffeine: Yes what type of physical activity do you participate in: walking frequency: 5-6 times per week do you feel safe at home: Yes Vital Signs Vital Signs Vital Signs: Weight Weight: 143 lb Body Mass Index (BMI) 22.4 Physical Exam Const alert, oriented x3, no apparent distress, average body habitus and well nourished General Appearance: cooperative, comfortable, well kempt and well developed Orientation / Consciousness: awake, oriented to person, oriented to place and oriented to time Exam Limitations: no limitations HEENT normocephalic, head/scalp atraumatic and hearing grossly normal bilaterally Head and Scalp: normal to inspection, normocephalic and atraumatic Face and Sinus: normal facial exam Nose: external nose normal External Ear: external ears normal Eyes PERRL and EOMs intact bilaterally General Eye: normal appearance of both eyes Sclera: sclera normal Neck full ROM General: normal visual inspection and trachea midline Resp normal respiratory effort, normal air movement, no retractions, no use of accessory muscles and clear to auscultation bilaterally Effort and Inspection: able to speak in complete sentences and symmetric chest movement Cardio regular rate, regular rhythm, S1 normal heart sound, S2 normal heart sound and no murmurs Extremity no calf tenderness General Extremity: Negative for clubbing or cyanosis Skin Wound Narrative: A traumatic wound is noted on the patient's left pretibial surface. Dimensions are documented elsewhere. The wound appears to be slightly larger than noted 1 week ago. The base of the wound is generally pink and healthy in appearance, with a moderate amount of bioburden, though with evidence of active, healthy granulation tissue. There is a rim of peripheral erythema, which may be cellulitic in nature. Therefore, we have obtained swab cultures for aerobic and anaerobic bacterial growth. No swelling or edema are noted in the lower extremities bilaterally. No other wounds or ulcerations are observed. Neuro oriented x3, CN's II-XII intact bilaterally, moves all extremities and no focal motor deficits Sensorium / Orientation: awake, alert, oriented to person, oriented to place and oriented to time Psych Appearance: grossly normal and appropriate Attitude: calm Activity / Motor Behavior: appropriate eye contact Speech: normal speech Mood & Affect: euthymic mood Thought Process: normal thought process Thought Content: normal thought content Attention / Concentration: attention grossly intact Debridement Note Debridement Note Wound debrided: Left pretibial surface Laterality: Left Type of Debridement: Excisional debridement Anesthesia Used: 5% Lidocaine Gel Depth: Down to and including healthy tissue and in the subcutaneous layer Percentage of wound debrided: 100 Instrument Used: 3mm curette Tissue Removed: Bioburden Severity: Fat Layer Exposed Amount of bleeding with debridement: Mild Bleeding Controlled with: Compression and gauze Patient tolerated procedure: Patient tolerated procedure well Debridement Free Text: Because of erythema about the wound itself, there is suspicion of possible developing cellulitis. Therefore, swab cultures were obtained for aerobic and anaerobic bacterial growth. The results will be awaited. Post-Debridement Measurements and Additional Note: Post-Debridement Measurements/Treatment - Nurse 1 - General Ulcer Assessment Start: 01/09/24 12:59 Freq: Status: Active Protocol: JEANETTE Activity Type Activity Date Activity User E-sign Co-sign Detail Recorded Client Recorded Date Recorded By Document 01/09/24 12:59 Desktop 01/09/24 13:10 RB Document 01/16/24 13:08 RB Desktop 01/16/24 13:13 RB 01/09/24 01/16/24 12:59 13:08 - Today's Visit Information Type of service Nurse-only Follow-up Visit Visit (Physician/ADULT CARE MANAGER ) Arrival Mode Ambulatory Ambulatory Transfer Assistance None None Patient Identification Verified (Name & Yes Yes ) Patient Requires Transmission-Based No No Precautions Height and Weight Height 5 ft 7 in Weight 143 lb Weight in Pounds 143.0 lbs Body Mass Index (BMI) 22.4 22.4 BMI Classification Normal Normal BSA - Snehal 1.75 Vital Signs Temperature (97.8 F-99.1 F) 98 F 97 F L Temperature Source Temporal Temporal Pulse Rate (60-100) 83 101 H Pulse Location Monitor Monitor Respiratory Rate (12-18) 18 18 Respiratory rate source Observation Observation Blood Pressure (90/60-120/80) 121/65 H 123/66 H Blood Pressure Mean 83 85 Source Monitor Monitor Position Semi-Fowlers Semi-Fowlers Blood Pressure Location Left Arm Left Arm History Since Last Visit- (Skip if this is Patient's initial visit) Have you changed medications since your No last visit? Any new allergies or adverse reactions No Had a fall/change in ADL's that may No increase risk of falls Signs or symptoms of abuse and/or No neglect since last visit Have you been in the hospital since your No last visit? Has dressing in place as prescribed Yes Has compression in place as prescribed Yes Has offloadiing in place as prescribed No Experienced any changes in pain level or No management Pain Scale: 0-10 Numeric Is Patient Pain Free? Yes Yes Lower Extremity Assessment/ Foot Assessment/ Toe Nail Assessment Right -Posterior Tibial Palpable Yes -Posterior Tibial Doppler Multiphasic -Dorsalis Pedis Palpable Yes -Dorsalis Pedis Doppler Multiphasic -Extremity Color Normal -Hair Growth on Legs No -Hair Growth on Toes No -Temperature of Extremity Cool -Capillary Refill Greater than 3 Seconds -Dependent Rubor No -Blanched when Elevated No -Lipodermatosclerosis No -Other Deformity No -Prior Foot Ulcer No -Charcot Joint No -Prior Amputation No -Thick No -Discolored No -Deformed No -Improper Length & Hygeine Yes Left -Posterior Tibial Palpable Yes -Posterior Tibial Doppler Multiphasic -Dorsalis Pedis Palpable Yes -Dorsalis Pedis Doppler Multiphasic -Extremity Color Normal -Hair Growth on Legs No -Hair Growth on Toes No -Temperature of Extremity Cool -Capillary Refill Greater than 3 Seconds -Dependent Rubor No -Blanched when Elevated No -Lipodermatosclerosis No -Other Deformity No -Prior Foot Ulcer No -Charcot Joint No -Prior Amputation No -Thick No -Discolored No -Deformed No -Improper Length & Hygeine Yes Neuropathy Assessment Feet - Top Side and Bottom <Entered> (a) Communication Assessment Preferred language Upper Sorbian Caustic Plant Worker Required No Able to Read Yes Able to Write Yes Communication Tools None Caregiver Communication Skills No Impairment Impairment Right Hearing Abillity Normal Left Hearing Abillity Normal Visual Assistive Devices None Functional Assessment Recent Decline in Ability to Perform Denies Any Declines Assistive Device With Patient No Culture/Anabaptism/Bench Worker Binding Cultural/Anabaptism Needs that may affect No Treatment Plan Would you allow our hospital operator weapon locating radar to No meet you for the purpose of spiritual/ emotional support? Bench Worker Binding to contact place of restorationism No Teaching: Wound Center *Welcome to the Wound Center -Person Taught Patient -Teaching Method Discussion -Response to teaching Verbalize understanding (a) 1 - + throughout WC - Nurse 1 - General Ulcer Measurement Start: 01/09/24 12:59 Freq: Status: Active Protocol: Activity Type Activity Date Activity User E-sign Co-sign Detail Recorded Client Recorded Date Recorded By Document 01/09/24 12:59 RB Desktop 01/09/24 13:10 RB Document 01/16/24 13:08 RB Desktop 01/16/24 13:13 RB 01/09/24 01/16/24 12:59 13:08 Wound Center Nurse 1 2. LLE anterior -Combined with other wound No No -Current Size (cm) - Length 1 1 -Current Size (cm) - Width 0.6 0.7 -Current Size (cm) - Depth 0.1 0.2 -Total Square Cm 0.6 0.7 -Photo Taken Yes -Tunneling No No -Undermining/Tunneling No No -Circular Undermining No No -Exudate Amt Medium Medium -Exudate Type Serosanguineous Serosanguineous -Wound Margin Distinct, Distinct, Outline Outline Attached Attached -Granulation Amt Small (1-33%) Medium (34-66%) -Granulation Quality [place] -Slough/Fibrin Yes Yes -Necrosis Amt Large (67-100%) Medium (34-66%) -Necrotic Tissue Type Eschar Adherent Slough -Structure Exposed N/A N/A -Texture (Radha-wound Skin Appearance) Assessed Assessed -Moisture (Radha-wound Skin Appearance) Assessed Assessed -Color (Radha-wound Skin Appearance) Assessed, Assessed Erythema -Temperature (Radha-wound Skin No Abnormality No Abnormality Appearance) (Pt Warm) (Pt Warm) -Tenderness on Palpation (Radha-wound No No Skin Appearance) -Ulcer Cleansing Wound Cleanser Wound Cleanser -Foul Odor after Cleansing No No -Anesthetic Used 4% Lidocaine 5% Lidocaine Solution Gel Lower Limb Edema Present Yes Yes Left Calf (cm) 34.6 33.2 Left Ankle (cm) 19 19.4 - Nurse 2 - General Ulcer CM Notes Start: 01/09/24 12:59 Freq: Status: Active Protocol: Activity Type Activity Date Activity User E-sign Co-sign Detail Recorded Client Recorded Date Recorded By Document 01/09/24 13:23 Laptop 01/09/24 13:34 Document 01/16/24 13:23 Laptop 01/16/24 13:25 01/09/24 01/16/24 13:23 13:23 Wound Center Nurse 2 2. LLE anterior -Time 13:25 13:23 -Correct Patient Yes Yes -Correct Side, Site, Position Yes Yes -Correct Procedure Yes Yes -Procedure Performed Yes Yes -Type of Procedure Debridement Debridement -Clinical Debridement Subcutaneous Subcutaneous -Tissue Removed Subcutaneous Subcutaneous -Post Debridement (cm) - Length 1.2 1.1 -Post Debridement (cm) - Width 1.0 0.9 -Post Debridement (cm) - Depth 0.2 0.1 -Total Square (Post) (cm) 1.20 0.99 -Area of Debridement (cm) - Length 1.2 1.1 -Area of Debridement (cm) - Width 1.0 0.9 -Total Square (Area) (cm) 1.20 0.99 -Tunneling No No -Undermining/Tunneling No No -Circular Undermining No No -Wound/Ulcer Outcome Not Healed Not Healed -Ulcer Cleansing Rinsed/ Rinsed/ Irrigated with Irrigated with Saline Saline -Foul Odor after Cleansing No No -Bioengineered Tissue No No -Bleeding Controlled with Pressure Pressure -Treatment Response Procedure Procedure Tolerated Well Tolerated Well -Offloading No No -Debridement - Subq, 1st 20sq cm Yes Yes Pain Scale: 0-10 Numeric Is Patient Pain Free? Yes Yes - Nurse 3 - General Ulcer D/C NN Start: 01/09/24 12:59 Freq: Status: Active Protocol: Activity Type Activity Date Activity User E-sign Co-sign Detail Recorded Client Recorded Date Recorded By Document 01/09/24 13:44 Laptop 01/09/24 13:44 01/09/24 13:44 Wound Care Center Nurse 3 2. LLE anterior -Ulcer Cleansing Rinsed/ Irrigated with Saline -Foul Odor after Cleansing No -Primary Dressing Applied Aquacel AG 4x4 -Primary Dressing Covered/Secured with Dry Gauze, Secured with Tape -Aquacel AG 4x4 1 Pain Scale: 0-10 Numeric Is Patient Pain Free? Yes - Visit Discharge Discharge Condition Stable Ambulatory Status Ambulatory Transportation Private Auto Medication Reconcilliation completed & Yes provided to patient/care provider Clinical Summary of Care Provided Yes Assessment/Plan Assessment/Plan (1) Traumatic open wound of left lower leg with delayed healing: CODE(S): S81.802D - Unspecified open wound, left lower leg, subsequent encounter (2) Leg wound, left: CODE(S): S81.802A - Unspecified open wound, left lower leg, initial encounter QUALIFIERS: Encounter type: initial encounter Qualified Code(s): S81.802A - Unspecified open wound, left lower leg, initial encounter (3) Type 2 diabetes mellitus: CODE(S): E11.9 - Type 2 diabetes mellitus without complications QUALIFIERS: Diabetes mellitus terminal makeup operator insulin use: unspecified penitentiary insulin use status Diabetes mellitus complication status: with other specified complication Qualified Code(s): E11.69 - Type 2 diabetes mellitus with other specified complication (4) Mixed hyperlipidemia: CODE(S): E78.2 - Mixed hyperlipidemia (5) Sleep apnea: CODE(S): G47.30 - Sleep apnea, unspecified QUALIFIERS: Sleep apnea type: obstructive Qualified Code(s): G47.33 - Obstructive sleep apnea (adult) (pediatric) (6) Hypertension: CODE(S): I10 - Essential (primary) hypertension QUALIFIERS: Hypertension type: essential hypertension Qualified Code(s): I10 - Essential (primary) hypertension (7) Obstructive sleep apnea: CODE(S): G47.33 - Obstructive sleep apnea (adult) (pediatric) PLAN: Plan This is a 69-year-old female who is active and functional. She is of normal body habitus. She suffers from diabetes mellitus, hyperlipidemia, hypertension, and obstructive sleep apnea. She sustained a traumatic wound to the left pretibial surface approximately 4 to 5 weeks prior to her presentation at the [facility]. The wound had shown little progress toward healing, prompting her to seek medical attention. Debridement has been performed in the wound healing center today. The wound appears slightly larger than noted 1 week prior, and is now surrounded by erythema, likely cellulitic in nature. Therefore, swab cultures have been obtained for aerobic and anaerobic bacterial growth. Results of the cultures will be awaited. Cultures in the recent past have been negative for aerobic and anaerobic bacterial growth. The patient has been counseled to optimize nutritional intake. She is already collaborating with an inside sales professional for glycemic control. Review of past laboratory results reveals a hemoglobin A1c of 7.3 on November 07, 2023. We are to continue the use of moistened Aquacel silver, which will be applied daily. The patient has been instructed in appropriate means of application. She is to be allowed to shower on a daily basis. The patient will return in 1 week. Her is to undergo a cardiac catheterization later this week, and hip replacement surgery in the very near future at the [facility]. Total time: 26 minutes
== END 2024-01-23 23:59 | disposition home or self-care (01) ==
LOC: WC 13:00
PROVIDERS: PCP Internal Medicine; Referring Provider Physician Assistant; Visit Provider Surgery
DX: E11.622 Type 2 diabetes mellitus with other skin ulcer (principal); L97.222 Non-pressure chronic ulcer of left calf with fat layer exposed; E11.40 Type 2 diabetes mellitus with diabetic neuropathy, unspecified; S81.802D Unspecified open wound, left lower leg, subsequent encounter; G47.33 Obstructive sleep apnea (adult) (pediatric); Z80.3 Family history of malignant neoplasm of breast; Z79.82 Long term (current) use of aspirin; I10 Essential (primary) hypertension; E78.2 Mixed hyperlipidemia; Z79.85 Long-term (current) use of injectable non-insulin antidiabetic drugs; Z79.84 Long term (current) use of oral hypoglycemic drugs
CPT/HCPCS: 11042; 87070; 87075; 87205; 99213; G0463

== ENCOUNTER → 2024-02-12 | Outpatient (CLI) | payer MEDICARE, SELFPAY ==
[2024-02-12 12:46] LABS: Absolute Lymphocyte Count 1.65 X10^3/uL (0.83-4.51); Absolute Neutrophil Count 5.3 X10^3/uL (2.0-7.7); Basophil# 0.06 X10^3/uL; Basophil% 0.8 % (0-1); Eosinophil# 0.17 X10^3/uL; Eosinophils% 2.2 % (0-5); Hematocrit 43.9 % (37-47); Lymphocyte # 1.65 X10^3/ul (0.83-4.51); Lymphocyte % 21.4 % (19-41); Mean Corp Hgb Conc 31.9 g/dL (32-36); Mean Corpuscular Hgb 29.3 pg (27.0-32.0); Mean Corpuscular Volume 91.8 fL (81-99); Mean Platelet Vol. 12.3 fl (6.2-12.0); Monocyte# 0.51 X10^3/uL; Monocyte% 6.6 % (0-10); NRBC Flagged by Analyzer 0 % (0-5); Neutrophil % 68.6 % (47-70); Platelet Count 215 K/mm3 (150-450); RBC Distribution Width CV 12.8 % (11.6-14.6); RBC Distribution Width SD 42.9 fl (35.1-43.9); Red Blood Count 4.78 M/mm3 (4.2-5.4); White Blood Count 7.7 K/mm3 (4.4-11.0)
[2024-02-12 13:07] LABS: Vitamin D,25 Hydroxy 57.8 ng/mL
[2024-02-12 13:12] LABS: AST(SGOT) 17 U/L (15-37); Alanine Aminotransfer ALT/SGPT 32 U/L (13-56); Albumin, Serum 3.9 g/dL (3.2-5.0); Alkaline Phosphatase 121 U/L (45-117); Anion Gap 5 (5-15); BUN 19 mg/dL (7-18); BUN/Creat Ratio 20.9 RATIO (10-20); Calcium,Total 9.6 mg/dL (8.5-10.1); Chloride 106 mmol/L (98-107); Cholesterol 145 mg/dL (200); Creatinine, Serum 0.91 mg/dL (0.55-1.02); EST Glomerular Filtration Rate 65 mL/min (>60); Est Glom Filt Rate - Afr Amer 79 mL/min (>60); Globulin 3.8 g/dL (2.2-4.2); Glucose 247 mg/dL (74-106); High Density Lipoprotein 49 mg/dL; Potassium 4.8 mmol/L (3.5-5.1); Protein, Total 7.7 g/dL (6.4-8.2); Sodium Level 137 mmol/L (136-145); Triglycerides 110 mg/dL; Very Low Density Lipoprotein 22 mg/dL (5-40)
[2024-02-12 13:58] LABS: Thyroid Stim Hormone (TSH) 1.42 uIU/mL (0.358-3.74)
== END | disposition home or self-care (01) ==
LOC: BIMLAB 08:40
PROVIDERS: Internal Medicine Endocrinology, Diabetes & Metabolism; PCP Internal Medicine; Visit Provider Internal Medicine
DX: I10 Essential (primary) hypertension (principal); E11.9 Type 2 diabetes mellitus without complications; F41.8 Other specified anxiety disorders; E78.2 Mixed hyperlipidemia
CPT/HCPCS: 36415; 80053; 80061; 82306; 84443; 85025

== ENCOUNTER 2024-02-20 13:00 | Outpatient (RCR) | payer MEDICARE, SELFPAY ==
[2024-01-24 00:55] VITALS: BP 123/66; PULSE 101; RESP 18; TEMP 36.1; BMI 22.4
[2024-01-30 13:19] VITALS: BP 113/59; PULSE 87; RESP 18; TEMP 35.8; BMI 22.4
[2024-02-06 13:08] VITALS: BP 109/61; PULSE 67; RESP 18; TEMP 35.9; BMI 22.4
--- NOTE | 2024-02-06 16:23 | PCM.WC.HP ---
History of Present Illness Date of Service: 02/06/24 Chief Complaint: Traumatic left pretibial wound History of Wound: This is a 69-year-old female who presented with a traumatic wound on the left pretibial surface. This occurred approximately 4 to 5 weeks prior to her admission, when she impacted the left pretibial surface against a metal object in her garage. She subsequently developed swelling and redness in the periwound area, for which she was evaluated and treated by her primary care physician. She received a 10-day course of Keflex which was taken orally. She had been using bacitracin ointment topically on an intermittent basis, and at times using only dry gauze. Since the time of her injury, the traumatic wound failed to heal and progress. This prompted her to seek medical attention in the [facility]. She is of normal body habitus. She is active, and ambulates liberally without limitations. She denies swelling in her lower extremities. She has no history of thrombophlebitis. [facility] Medical History Leg wound, left Obstructive sleep apnea Traumatic open wound of left lower leg with delayed healing Itching of ear Health care maintenance Preventative health care Abdominal pain History of Clostridium difficile infection Alcohol use History of kidney stones Easy bruising History of hiatal hernia Heartburn CPAP (continuous positive airway pressure) dependence History of stress test Early satiety Chronic nausea Wound of right lower extremity Cellulitis of right lower leg Contusion of right lower leg Abrasion, right lower leg, initial encounter Grief reaction Tachycardia Arthritis Vitamin D deficiency History of breast cancer Home Medications ?Medication ?Instructions ?Recorded ?Last Taken ?Type aspirin 81 mg tablet,delayed 81 mg PO QDAY 10/05/17 01/02/19 History release (Adult Aspirin Regimen) cholecalciferol (vitamin D3) 50 2,000 unit PO DAILY 10/05/17 Unknown History mcg (2,000 unit) capsule flash glucose scanning reader #1 ea 11/11/19 Unknown Rx (FreeStyle John 14 Day [place]) pen needle, diabetic 29 gauge x #100 ea 04/19/21 Unknown Rx 1/2 (Ultra-Thin II Insulin Pen [facility]) oxybutynin chloride 10 mg 15 mg PO DAILY 04/20/22 Unknown History tablet,extended release 24 hr cyanocobalamin (vitamin B-12) 2,500 mcg PO .THREE TIMES A WEEK 07/27/22 Unknown History 2,500 mcg tablet docusate sodium 100 mg capsule 100 mg PO DAILY 07/27/22 Unknown History (Colace) True Metrix Glucose Test Strip #50 ea 11/10/22 Unknown Rx (blood sugar diagnostic) blood-glucose meter (True Metrix #1 ea 11/10/22 Unknown Rx Glucose Meter kit) Ozempic 1 mg/dose (4 mg/3 mL) 1 mg (0.75 mL) subcut QWEEK #3 mL 11/07/23 Unknown Rx subcutaneous pen injector (semaglutide) atorvastatin 80 mg tablet 80 mg PO QHS #90 tabs 11/07/23 Unknown Rx dapagliflozin propanediol 10 mg 10 mg PO QDAY diabetes #90 tabs 11/07/23 Unknown Rx tablet flash glucose sensor (FreeStyle #6 ea 11/07/23 Unknown Rx John 14 Day Sensor kit) glimepiride 2 mg tablet 1 mg (1/2 x 2 mg) PO DAILY #90 tabs 11/07/23 Unknown Rx lisinopril 20 mg tablet See Rx Instructions .Route 11/07/23 Unknown Rx .COMPLEX #90 tabs venlafaxine 75 mg tablet 275 mg PO QHS ANTIDEPRESSANT 01/09/24 Unknown History Allergy/AdvReac Type Severity Reaction Status Date / Time amoxicillin Allergy Rash Verified 12/26/23 12:50 levofloxacin (From Levaquin) Allergy Vomiting Verified 12/26/23 12:50 promethazine (From Phenergan) Allergy Other Verified 12/26/23 12:50 Family History Sister Breast cancer Grandmother Breast cancer Uncle Breast cancer Mother Heart disease Thyroid disorder Father Heart disease CVA (cerebral vascular accident) Cancer prostate Brother Crohns disease Grandfather CVA (cerebral vascular accident) Grandmother Diabetes Surgical History Hx of cataract extraction History of colonoscopy bunionecmy of right foot abdominal tram flap History of total mastectomy of right breast Social History Smoking Status: Never smoker alcohol intake: current alcohol intake frequency: a few times a month Alcohol type: beer substance use type: does not use caffeine: Yes what type of physical activity do you participate in: walking frequency: 5-6 times per week do you feel safe at home: Yes Vital Signs Vital Signs Vital Signs: 02/06/24 13:08 Temperature 96.7 F L Temperature Source Temporal Pulse Rate 67 Respiratory Rate 18 Blood Pressure 109/61 Blood Pressure Mean 77 Blood Pressure Source Monitor Blood Pressure Position Semi-Fowlers Blood Pressure Location Left Arm Weight Weight: 143 lb Body Mass Index (BMI) 22.4 Physical Exam Const alert, oriented x3, no apparent distress, average body habitus and well nourished General Appearance: cooperative, comfortable, well kempt and well developed Orientation / Consciousness: awake, oriented to person, oriented to place and oriented to time Exam Limitations: no limitations HEENT normocephalic, head/scalp atraumatic and hearing grossly normal bilaterally Head and Scalp: normal to inspection, normocephalic and atraumatic Face and Sinus: normal facial exam Nose: external nose normal External Ear: external ears normal Eyes PERRL and EOMs intact bilaterally General Eye: normal appearance of both eyes Sclera: sclera normal Neck full ROM General: normal visual inspection and trachea midline Resp normal respiratory effort, normal air movement, no retractions, no use of accessory muscles and clear to auscultation bilaterally Effort and Inspection: able to speak in complete sentences and symmetric chest movement Cardio regular rate, regular rhythm, S1 normal heart sound, S2 normal heart sound and no murmurs Extremity no calf tenderness General Extremity: Negative for clubbing or cyanosis Skin Wound Narrative: A traumatic wound is noted on the patient's left pretibial surface. Dimensions are documented elsewhere. The wound appears to be slightly smaller in size. The base of the wound is generally pink and healthy in appearance, with a small amount of bioburden, though with evidence of active, healthy granulation tissue. There is a slight rim of peripheral erythema, which has decreased since the week before. No swelling or edema are noted in the lower extremities bilaterally. No other wounds or ulcerations are observed. Neuro oriented x3, CN's II-XII intact bilaterally, moves all extremities and no focal motor deficits Sensorium / Orientation: awake, alert, oriented to person, oriented to place and oriented to time Psych Appearance: grossly normal and appropriate Attitude: calm Activity / Motor Behavior: appropriate eye contact Speech: normal speech Mood & Affect: euthymic mood Thought Process: normal thought process Thought Content: normal thought content Attention / Concentration: attention grossly intact Debridement Note Debridement Note Wound debrided: Left pretibial surface Laterality: Left Type of Debridement: Excisional debridement Anesthesia Used: 5% Lidocaine Gel Depth: Down to and including healthy tissue and in the subcutaneous layer Percentage of wound debrided: 100 Instrument Used: 3mm curette Tissue Removed: Bioburden Severity: Fat Layer Exposed Amount of bleeding with debridement: Mild Bleeding Controlled with: Compression and gauze Patient tolerated procedure: Patient tolerated procedure well Post-Debridement Measurements and Additional Note: Post-Debridement Measurements/Treatment - Nurse 1 - General Ulcer Assessment Start: 01/30/24 13:19 Freq: Status: Active Protocol: JEANETTE Activity Type Activity Date Activity User E-sign Co-sign Detail Recorded Client Recorded Date Recorded By Document 01/30/24 13:19 Desktop 01/30/24 13:21 RB Document 02/06/24 13:08 [id number] 02/06/24 13:11 KW 01/30/24 02/06/24 13:19 13:08 - Today's Visit Information Type of service Follow-up Visit Follow-up Visit (Physician/PATIENT FINANCIAL COUNSELOR (Physician/PATIENT FINANCIAL COUNSELOR ) ) Arrival Mode Ambulatory Ambulatory Transfer Assistance None None Patient Identification Verified (Name & Yes Yes ) Patient Requires Transmission-Based No No Precautions Height and Weight Body Mass Index (BMI) 22.4 22.4 BMI Classification Normal Normal Vital Signs Temperature (97.8 F-99.1 F) 96.5 F L 96.7 F L Temperature Source Temporal Temporal Pulse Rate (60-100) 87 67 Pulse Location Monitor Monitor Respiratory Rate (12-18) 18 18 Respiratory rate source Observation Observation Blood Pressure (90/60-120/80) 113/59 L 109/61 Blood Pressure Mean 77 77 Source Monitor Monitor Position Semi-Fowlers Semi-Fowlers Blood Pressure Location Left Arm Left Arm History Since Last Visit- (Skip if this is Patient's initial visit) Have you changed medications since your No No last visit? Any new allergies or adverse reactions No No Had a fall/change in ADL's that may No No increase risk of falls Signs or symptoms of abuse and/or No No neglect since last visit Have you been in the hospital since your No No last visit? Has dressing in place as prescribed Yes Yes Has compression in place as prescribed Yes Yes Has offloadiing in place as prescribed No No Experienced any changes in pain level or No No management Pain Scale: 0-10 Numeric Is Patient Pain Free? Yes Yes WC - Nurse 1 - General Ulcer Measurement Start: 01/30/24 13:19 Freq: Status: Active Protocol: Activity Type Activity Date Activity User E-sign Co-sign Detail Recorded Client Recorded Date Recorded By Document 01/30/24 13:19 RB Desktop 01/30/24 13:21 RB Document 02/06/24 13:08 KW [id number] 02/06/24 13:11 KW 01/30/24 02/06/24 13:19 13:08 Wound Center Nurse 1 2. LLE anterior -Combined with other wound No No -Current Size (cm) - Length 1 1.1 -Current Size (cm) - Width 1 0.9 -Current Size (cm) - Depth 0.1 0.1 -Total Square Cm 1 0.99 -Photo Taken Yes -Tunneling No No -Undermining/Tunneling No No -Circular Undermining No No -Exudate Amt Medium Medium -Exudate Type Serosanguineous Serosanguineous -Wound Margin Distinct, Distinct, Outline Outline Attached Attached -Granulation Amt Large (67-100%) Medium (34-66%) -Granulation Quality [place] -Slough/Fibrin Yes Yes -Necrosis Amt Small (1-33%) Medium (34-66%) -Necrotic Tissue Type Adherent Slough Adherent Slough -Structure Exposed N/A N/A -Texture (Radha-wound Skin Appearance) Assessed Assessed -Moisture (Radha-wound Skin Appearance) Assessed Assessed -Color (Radha-wound Skin Appearance) Assessed Hemosiderin Staining -Temperature (Radha-wound Skin No Abnormality No Abnormality Appearance) (Pt Warm) (Pt Warm) -Tenderness on Palpation (Radha-wound No No Skin Appearance) -Ulcer Cleansing Wound Cleanser Wound Cleanser -Foul Odor after Cleansing No No -Anesthetic Used 4% Lidocaine 5% Lidocaine Solution Gel Lower Limb Edema Present Yes Yes Left Calf (cm) 34 34 Left Ankle (cm) 19.6 19 WC - Nurse 2 - General Ulcer CM Notes Start: 01/30/24 13:19 Freq: Status: Active Protocol: Activity Type Activity Date Activity User E-sign Co-sign Detail Recorded Client Recorded Date Recorded By Document 01/30/24 13:26 DS Desktop 01/30/24 13:32 DS Document 02/06/24 13:30 DS [id number] 02/06/24 13:31 DS 01/30/24 02/06/24 13:26 13:30 Wound Center Nurse 2 2. LLE anterior -Time 13:26 13:30 -Correct Patient Yes Yes -Correct Side, Site, Position Yes Yes -Correct Procedure Yes Yes -Procedure Performed Yes Yes -Type of Procedure Debridement Debridement -Clinical Debridement Subcutaneous Subcutaneous -Tissue Removed Subcutaneous Subcutaneous -Post Debridement (cm) - Length 1.1 1.1 -Post Debridement (cm) - Width 1.2 0.9 -Post Debridement (cm) - Depth 0.2 0.1 -Total Square (Post) (cm) 1.32 0.99 -Area of Debridement (cm) - Length 1.1 1.1 -Area of Debridement (cm) - Width 1.2 0.9 -Total Square (Area) (cm) 1.32 0.99 -Tunneling No No -Undermining/Tunneling No No -Circular Undermining No No -Wound/Ulcer Outcome Not Healed Not Healed -Ulcer Cleansing Rinsed/ Rinsed/ Irrigated with Irrigated with Saline Saline -Bleeding Controlled with Pressure Pressure -Treatment Response Procedure Procedure Tolerated Well Tolerated Well -Offloading No -Debridement - Subq, 1st 20sq cm Yes Yes Pain Scale: 0-10 Numeric Is Patient Pain Free? Yes Yes WC - Nurse 3 - General Ulcer D/C NN Start: 01/30/24 13:19 Freq: Status: Active Protocol: Activity Type Activity Date Activity User E-sign Co-sign Detail Recorded Client Recorded Date Recorded By Document 01/30/24 13:45 RB Desktop 01/30/24 13:46 RB Document 02/06/24 14:08 RB [id number] 02/06/24 14:09 RB 01/30/24 02/06/24 13:45 14:08 Wound Care Center Nurse 3 2. LLE anterior -Ulcer Cleansing Rinsed/ Irrigated with Saline -Other Dressing aquacel AG aquacel ag -Primary Dressing Covered/Secured with Dry Gauze, Dry Gauze, Secured with Secured with Tape Tape Left -Tubular Bandage Single Layer Single Layer -Size of Tubigrip Used Size D Size D -Size D ($) 1 1 Treatment Response Procedure Procedure Tolerated Well Tolerated Well Pain Scale: 0-10 Numeric Is Patient Pain Free? Yes Yes WC - Visit Discharge Discharge Condition Stable Stable Ambulatory Status Ambulatory Ambulatory Transportation Private Auto Private Auto Medication Reconcilliation completed & No No provided to patient/care provider Clinical Summary of Care Provided Yes Yes Assessment/Plan Assessment/Plan (1) Traumatic open wound of left lower leg with delayed healing: CODE(S): S81.802D - Unspecified open wound, left lower leg, subsequent encounter (2) Leg wound, left: CODE(S): S81.802A - Unspecified open wound, left lower leg, initial encounter QUALIFIERS: Encounter type: initial encounter Qualified Code(s): S81.802A - Unspecified open wound, left lower leg, initial encounter (3) Type 2 diabetes mellitus: CODE(S): E11.9 - Type 2 diabetes mellitus without complications QUALIFIERS: Diabetes mellitus nursing home insulin use: unspecified extermination supervisor insulin use status Diabetes mellitus complication status: with other specified complication Qualified Code(s): E11.69 - Type 2 diabetes mellitus with other specified complication (4) Mixed hyperlipidemia: CODE(S): E78.2 - Mixed hyperlipidemia (5) Sleep apnea: CODE(S): G47.30 - Sleep apnea, unspecified QUALIFIERS: Sleep apnea type: obstructive Qualified Code(s): G47.33 - Obstructive sleep apnea (adult) (pediatric) (6) Hypertension: CODE(S): I10 - Essential (primary) hypertension QUALIFIERS: Hypertension type: essential hypertension Qualified Code(s): I10 - Essential (primary) hypertension (7) Obstructive sleep apnea: CODE(S): G47.33 - Obstructive sleep apnea (adult) (pediatric) PLAN: Plan This is a 69-year-old female who is active and functional. She is of normal body habitus. She suffers from diabetes mellitus, hyperlipidemia, hypertension, and obstructive sleep apnea. She sustained a traumatic wound to the left pretibial surface approximately 4 to 5 weeks prior to her presentation at the [facility]. The wound had shown little progress toward healing, prompting her to seek medical attention. Debridement has been performed in the wound healing center today. The wound appears pink and healthy in appearance with evidence of active granulation tissue. Slight radha-ulcer erythema persists, though culture results from 1 week ago were negative for aerobic and anaerobic bacterial growth. The patient has been counseled to optimize nutritional intake. She is already collaborating with an yarn weigher for glycemic control. Review of past laboratory results reveals a hemoglobin A1c of 7.3 on November 07, 2023. We are to continue the use of moistened Aquacel silver, which will be applied daily. The patient has been instructed in appropriate means of application. She is to be allowed to shower on a daily basis. The patient will return in 1 week. Her is scheduled to undergo hip replacement surgery on February 14, 2024. Total time: 24 minutes
[2024-02-13 10:49] VITALS: BP 102/61; PULSE 71; RESP 18; TEMP 35.7; BMI 22.4
--- NOTE | 2024-02-13 13:01 | HP.PCM_ITS ---
History of Present Illness Date of Service: 02/13/24 Chief Complaint: Traumatic left pretibial wound History of Wound: This is a 69-year-old female who presented with a traumatic wound on the left pretibial surface. This occurred approximately 4 to 5 weeks prior to her presentation, when she impacted the left pretibial surface against a metal object in her garage. She subsequently developed swelling and redness in the periwound area, for which she was evaluated and treated by her primary care physician. She received a 10-day course of Keflex which was taken orally. She had been using bacitracin ointment topically on an intermittent basis, and at times using only dry gauze. Since the time of her injury, the traumatic wound failed to heal and progress. This prompted her to seek medical attention in the [facility]. She is of normal body habitus. She is active, and ambulates liberally without limitations. She denies swelling in her lower extremities. She has no history of thrombophlebitis. [facility] Medical History Overactive bladder Leg wound, left Obstructive sleep apnea Traumatic open wound of left lower leg with delayed healing Itching of ear Health care maintenance Preventative health care Abdominal pain History of Clostridium difficile infection Alcohol use History of kidney stones Easy bruising History of hiatal hernia Heartburn CPAP (continuous positive airway pressure) dependence History of stress test Early satiety Chronic nausea Wound of right lower extremity Cellulitis of right lower leg Contusion of right lower leg Abrasion, right lower leg, initial encounter Grief reaction Tachycardia Arthritis Vitamin D deficiency History of breast cancer Home Medications ?Medication ?Instructions ?Recorded ?Last Taken ?Type aspirin 81 mg tablet,delayed 81 mg PO QDAY 10/05/17 01/02/19 History release (Adult Aspirin Regimen) cholecalciferol (vitamin D3) 50 2,000 unit PO DAILY 10/05/17 Unknown History mcg (2,000 unit) capsule flash glucose scanning reader #1 ea 11/11/19 Unknown Rx (FreeStyle John 14 Day [place]) pen needle, diabetic 29 gauge x #100 ea 04/19/21 Unknown Rx 1/2 (Ultra-Thin II Insulin Pen [place]) oxybutynin chloride 10 mg 15 mg PO DAILY 04/20/22 Unknown History tablet,extended release 24 hr cyanocobalamin (vitamin B-12) 2,500 mcg PO .THREE TIMES A WEEK 07/27/22 Unknown History 2,500 mcg tablet docusate sodium 100 mg capsule 100 mg PO DAILY 07/27/22 Unknown History (Colace) True Metrix Glucose Test Strip #50 ea 11/10/22 Unknown Rx (blood sugar diagnostic) blood-glucose meter (True Metrix #1 ea 11/10/22 Unknown Rx Glucose Meter kit) Ozempic 1 mg/dose (4 mg/3 mL) 1 mg (0.75 mL) subcut QWEEK #3 mL 11/07/23 Unknown Rx subcutaneous pen injector (semaglutide) atorvastatin 80 mg tablet 80 mg PO QHS #90 tabs 11/07/23 Unknown Rx dapagliflozin propanediol 10 mg 10 mg PO QDAY diabetes #90 tabs 11/07/23 Unknown Rx tablet flash glucose sensor (FreeStyle #6 ea 11/07/23 Unknown Rx John 14 Day Sensor kit) glimepiride 2 mg tablet 1 mg (1/2 x 2 mg) PO DAILY #90 tabs 11/07/23 Unknown Rx lisinopril 20 mg tablet See Rx Instructions .Route 11/07/23 Unknown Rx .COMPLEX #90 tabs venlafaxine 75 mg tablet 275 mg PO QHS ANTIDEPRESSANT 01/09/24 Unknown History Allergy/AdvReac Type Severity Reaction Status Date / Time amoxicillin Allergy Rash Verified 02/12/24 08:11 levofloxacin (From Levaquin) Allergy Vomiting Verified 02/12/24 08:11 promethazine (From Phenergan) Allergy Other Verified 02/12/24 08:11 Family History Sister Breast cancer Grandmother Breast cancer Uncle Breast cancer Mother Heart disease Thyroid disorder Father Heart disease CVA (cerebral vascular accident) Cancer prostate Brother Crohns disease Grandfather CVA (cerebral vascular accident) Grandmother Diabetes Surgical History Hx of cataract extraction History of colonoscopy bunionecmy of right foot abdominal tram flap History of total mastectomy of right breast Social History Smoking Status: Never smoker alcohol intake: current alcohol intake frequency: a few times a month Alcohol type: beer substance use type: does not use caffeine: Yes what type of physical activity do you participate in: walking frequency: 5-6 times per week do you feel safe at home: Yes Vital Signs Vital Signs Vital Signs: 02/13/24 10:49 Temperature 96.2 F L Temperature Source Temporal Pulse Rate 71 Respiratory Rate 18 Blood Pressure 102/61 Blood Pressure Mean 74 Blood Pressure Source Monitor Blood Pressure Position Semi-Fowlers Blood Pressure Location Left Arm Oxygen Delivery Method Room Air Weight Weight: 143 lb Body Mass Index (BMI) 22.4 Physical Exam Const alert, oriented x3, no apparent distress, average body habitus and well nourished General Appearance: cooperative, comfortable, well kempt and well developed Orientation / Consciousness: awake, oriented to person, oriented to place and oriented to time Exam Limitations: no limitations HEENT normocephalic, head/scalp atraumatic and hearing grossly normal bilaterally Head and Scalp: normal to inspection, normocephalic and atraumatic Face and Sinus: normal facial exam Nose: external nose normal External Ear: external ears normal Eyes PERRL and EOMs intact bilaterally General Eye: normal appearance of both eyes Sclera: sclera normal Neck full ROM General: normal visual inspection and trachea midline Resp normal respiratory effort, normal air movement, no retractions, no use of accessory muscles and clear to auscultation bilaterally Effort and Inspection: able to speak in complete sentences and symmetric chest movement Cardio regular rate, regular rhythm, S1 normal heart sound, S2 normal heart sound and no murmurs Extremity no calf tenderness General Extremity: Negative for clubbing or cyanosis Skin Wound Narrative: A traumatic wound is noted on the patient's left pretibial surface. Dimensions are documented elsewhere. The wound appears to be slightly smaller in size. The base of the wound is generally pink and healthy in appearance, with a small amount of bioburden, though with evidence of active, healthy granulation tissue. There is a slight rim of peripheral erythema, which continues to decrease. No swelling or edema are noted in the lower extremities bilaterally. No other wounds or ulcerations are observed. Neuro oriented x3, CN's II-XII intact bilaterally, moves all extremities and no focal motor deficits Sensorium / Orientation: awake, alert, oriented to person, oriented to place and oriented to time Psych Appearance: grossly normal and appropriate Attitude: calm Activity / Motor Behavior: appropriate eye contact Speech: normal speech Mood & Affect: euthymic mood Thought Process: normal thought process Thought Content: normal thought content Attention / Concentration: attention grossly intact Debridement Note Debridement Note Wound debrided: Left pretibial surface Laterality: Left Type of Debridement: Excisional debridement Anesthesia Used: 5% Lidocaine Gel Depth: Down to and including healthy tissue and in the subcutaneous layer Percentage of wound debrided: 100 Instrument Used: 5mm curette Tissue Removed: Bioburden Severity: Fat Layer Exposed Amount of bleeding with debridement: Mild Bleeding Controlled with: Compression and gauze Patient tolerated procedure: Patient tolerated procedure well Post-Debridement Measurements and Additional Note: Post-Debridement Measurements/Treatment - Nurse 1 - General Ulcer Assessment Start: 01/30/24 13:19 Freq: Status: Active Protocol: JEANETTE Activity Type Activity Date Activity User E-sign Co-sign Detail Recorded Client Recorded Date Recorded By Document 01/30/24 13:19 RB Desktop 01/30/24 13:21 RB Document 02/06/24 13:08 [id number] 02/06/24 13:11 KW Document 02/13/24 10:49 KW wound center 02/13/24 10:52 KW 01/30/24 02/06/24 02/13/24 13:19 13:08 10:49 - Today's Visit Information Type of service Follow-up Visit Follow-up Visit Follow-up Visit (Physician/SUPERVISOR [employer]SE [employer]ADING (Physician/SUPERVISOR [employer]ADING (Physician/SUPERVISOR [employer] ) ) ) Arrival Mode Ambulatory Ambulatory Ambulatory Transfer Assistance None None Patient Identification Verified (Name & Yes Yes Yes ) Patient Requires Transmission-Based No No Precautions Height and Weight Body Mass Index (BMI) 22.4 22.4 22.4 BMI Classification Normal Normal Normal Vital Signs Temperature (97.8 F-99.1 F) 96.5 F L 96.7 F L 96.2 F L Temperature Source Temporal Temporal Temporal Pulse Rate (60-100) 87 67 71 Pulse Location Monitor Monitor Monitor Respiratory Rate (12-18) 18 18 18 Respiratory rate source Observation Observation Observation Oxygen Delivery Method Room Air Blood Pressure (90/60-120/80) 113/59 L 109/61 102/61 Blood Pressure Mean 77 77 74 Source Monitor Monitor Monitor Position Semi-Fowlers Semi-Fowlers Semi-Fowlers Blood Pressure Location Left Arm Left Arm Left Arm History Since Last Visit- (Skip if this is Patient's initial visit) Have you changed medications since your No No No last visit? Any new allergies or adverse reactions No No No Had a fall/change in ADL's that may No No No increase risk of falls Signs or symptoms of abuse and/or No No No neglect since last visit Have you been in the hospital since your No No No last visit? Has dressing in place as prescribed Yes Yes Yes Has compression in place as prescribed Yes Yes Yes Has offloadiing in place as prescribed No No N/A Experienced any changes in pain level or No No No management Left Footwear Regular Shoe Right Footwear Regular Shoe Pain Scale: 0-10 Numeric Is Patient Pain Free? Yes Yes Yes WC - Nurse 1 - General Ulcer Measurement Start: 01/30/24 13:19 Freq: Status: Active Protocol: Activity Type Activity Date Activity User E-sign Co-sign Detail Recorded Client Recorded Date Recorded By Document 01/30/24 13:19 RB Desktop 01/30/24 13:21 RB Document 02/06/24 13:08 [id number] 02/06/24 13:11 KW Document 02/13/24 10:49 KW wound center 02/13/24 10:52 KW 01/30/24 02/06/24 02/13/24 13:19 13:08 10:49 Wound Center Nurse 1 2. LLE anterior -Combined with other wound No No -Current Size (cm) - Length 1 1.1 0.8 -Current Size (cm) - Width 1 0.9 0.9 -Current Size (cm) - Depth 0.1 0.1 0.1 -Total Square Cm 1 0.99 0.72 -Photo Taken Yes -Tunneling No No -Undermining/Tunneling No No -Circular Undermining No No -Exudate Amt Medium Medium Small -Exudate Type Serosanguineous Serosanguineous Serosanguineous -Wound Margin Distinct, Distinct, Distinct, Outline Outline Outline Attached Attached Attached -Granulation Amt Large (67-100%) Medium (34-66%) Large (67-100%) -Granulation Quality Reagan Reagan Reagan -Slough/Fibrin Yes Yes -Necrosis Amt Small (1-33%) Medium (34-66%) -Necrotic Tissue Type Adherent Slough Adherent Slough -Structure Exposed N/A N/A -Texture (Radha-wound Skin Appearance) Assessed Assessed Assessed -Moisture (Radha-wound Skin Appearance) Assessed Assessed Assessed -Color (Radha-wound Skin Appearance) Assessed Hemosiderin Assessed Staining -Temperature (Radha-wound Skin No Abnormality No Abnormality No Abnormality Appearance) (Pt Warm) (Pt Warm) (Pt Warm) -Tenderness on Palpation (Radha-wound No No No Skin Appearance) -Ulcer Cleansing Wound Cleanser Wound Cleanser Rinsed/ Irrigated with Saline -Foul Odor after Cleansing No No -Anesthetic Used 4% Lidocaine 5% Lidocaine 5% Lidocaine Solution Gel Gel Lower Limb Edema Present Yes Yes Left Calf (cm) 34 34 Left Ankle (cm) 19.6 19 WC - Nurse 2 - General Ulcer CM Notes Start: 01/30/24 13:19 Freq: Status: Active Protocol: Activity Type Activity Date Activity User E-sign Co-sign Detail Recorded Client Recorded Date Recorded By Document 01/30/24 13:26 DS Desktop 01/30/24 13:32 DS Document 02/06/24 13:30 DS [id number] 02/06/24 13:31 DS Document 02/13/24 12:23 RB wound center 02/13/24 12:26 RB Edit Result 02/13/24 12:23 RB (1) [id number] 02/13/24 12:32 DS (1) 2. LLE anterior - Area of Debridement (cm) - Length => 0.9 - Area of Debridement (cm) - Width => 0.8 - Total Square (Area) (cm) => 0.72 - Wound/Ulcer Outcome Healed- Surgical => Not Healed Closure => - Ulcer Cleansing => Rinsed/Irrigated => with Saline 01/30/24 02/06/24 02/13/24 13:26 13:30 12:23 Wound Center Nurse 2 2. LLE anterior -Time 13: 13:30 11:15 -Correct Patient Yes Yes Yes -Correct Side, Site, Position Yes Yes Yes -Correct Procedure Yes Yes Yes -Procedure Performed Yes Yes Yes -Type of Procedure Debridement Debridement Debridement -Clinical Debridement Subcutaneous Subcutaneous Subcutaneous -Tissue Removed Subcutaneous Subcutaneous Subcutaneous -Post Debridement (cm) - Length 1.1 1.1 0.9 -Post Debridement (cm) - Width 1.2 0.9 0.8 -Post Debridement (cm) - Depth 0.2 0.1 0.1 -Total Square (Post) (cm) 1.32 0.99 0.72 -Area of Debridement (cm) - Length 1.1 1.1 0.9 -Area of Debridement (cm) - Width 1.2 0.9 0.8 -Total Square (Area) (cm) 1.32 0.99 0.72 -Tunneling No No No -Undermining/Tunneling No No No -Circular Undermining No No No -Wound/Ulcer Outcome Not Healed Not Healed Not Healed -Ulcer Cleansing Rinsed/ Rinsed/ Rinsed/ Irrigated with Irrigated with Irrigated with Saline Saline Saline -Foul Odor after Cleansing No -Bioengineered Tissue No -Bleeding Controlled with Pressure Pressure NA -Treatment Response Procedure Procedure Procedure Tolerated Well Tolerated Well Tolerated Well -Offloading No No -Debridement - Open, 1st 20sq cm No -Debridement - Subq, 1st 20sq cm Yes Yes Yes -Debridement - Muscle / Fascia, 1st No 20sq cm -Debridement - Bone, 1st 20sq cm No Pain Scale: 0-10 Numeric Is Patient Pain Free? Yes Yes Yes WC - Nurse 3 - General Ulcer D/C NN Start: 01/30/24 13:19 Freq: Status: Active Protocol: Activity Type Activity Date Activity User E-sign Co-sign Detail Recorded Client Recorded Date Recorded By Document 01/30/24 13:45 RB Desktop 01/30/24 13:46 RB Document 02/06/24 14:08 [id number] 02/06/24 14:09 RB Document 02/13/24 11:24 wound center 02/13/24 11:25 RB 01/30/24 02/06/24 02/13/24 13:45 14:08 11:24 Wound Care Center Nurse 3 2. LLE anterior -Ulcer Cleansing Rinsed/ Rinsed/ Irrigated with Irrigated with Saline Saline -Primary Dressing Applied Aquacel Extra -Other Dressing aquacel AG aquacel ag -Primary Dressing Covered/Secured with Dry Gauze, Dry Gauze, Dry Gauze, Secured with Secured with Secured with Tape Tape Tape -Aquacel Extra 1 Left -Tubular Bandage Single Layer Single Layer -Size of Tubigrip Used Size D Size D -Size D ($) 1 1 -Other TUBIGRIP SIZE D SINGLE Treatment Response Procedure Procedure Procedure Tolerated Well Tolerated Well Tolerated Well Pain Scale: 0-10 Numeric Is Patient Pain Free? Yes Yes Yes WC - Visit Discharge Discharge Condition Stable Stable Stable Ambulatory Status Ambulatory Ambulatory Ambulatory Transportation Private Auto Private Auto Private Auto Medication Reconcilliation completed & No No No provided to patient/care provider Clinical Summary of Care Provided Yes Yes Yes Assessment/Plan Assessment/Plan (1) Traumatic open wound of left lower leg with delayed healing: CODE(S): S81.802D - Unspecified open wound, left lower leg, subsequent encounter (2) Leg wound, left: CODE(S): S81.802A - Unspecified open wound, left lower leg, initial encounter QUALIFIERS: Encounter type: initial encounter Qualified Code(s): S81.802A - Unspecified open wound, left lower leg, initial encounter (3) Type 2 diabetes mellitus: CODE(S): E11.9 - Type 2 diabetes mellitus without complications QUALIFIERS: Diabetes mellitus residential insulin use: unspecified residential insulin use status Diabetes mellitus complication status: with other specified complication Qualified Code(s): E11.69 - Type 2 diabetes mellitus with other specified complication (4) Mixed hyperlipidemia: CODE(S): E78.2 - Mixed hyperlipidemia (5) Sleep apnea: CODE(S): G47.30 - Sleep apnea, unspecified QUALIFIERS: Sleep apnea type: obstructive Qualified Code(s): G47.33 - Obstructive sleep apnea (adult) (pediatric) (6) Hypertension: CODE(S): I10 - Essential (primary) hypertension QUALIFIERS: Hypertension type: essential hypertension Qualified Code(s): I10 - Essential (primary) hypertension (7) Obstructive sleep apnea: CODE(S): G47.33 - Obstructive sleep apnea (adult) (pediatric) PLAN: Plan This is a 69-year-old female who is active and functional. She is of normal body habitus. She suffers from diabetes mellitus, hyperlipidemia, hypertension, and obstructive sleep apnea. She sustained a traumatic wound to the left pretibial surface approximately 4 to 5 weeks prior to her presentation at the [facility]. The wound had shown little progress toward healing, prompting her to seek medical attention. Debridement has been performed in the wound healing center today. The wound appears pink and healthy in appearance with evidence of active granulation tissue. Slight radha-ulcer erythema persists, though recent culture results were negative for aerobic and anaerobic bacterial growth. The patient has been counseled to optimize nutritional intake. She is already collaborating with an housekeeping associate for glycemic control. Review of past laboratory results reveals a hemoglobin A1c of 7.3 on November 07, 2023. We are to continue the use of moistened Aquacel, which will be applied daily. The patient has been instructed in appropriate means of application. She is to be allowed to shower on a daily basis. The patient will return in 1 week. The patient is scheduled to undergo a noninvasive lower extremity arterial study later today. Her is scheduled to undergo hip replacement surgery tomorrow, February 14, 2024. Total time: 22 minutes
--- NOTE | 2024-02-13 13:55 | ART_ITS ---
Reason For Study: Ruiz ulcer Procedure A bilateral lower extremity continuous wave Doppler with analog waveform analysis,segmental pressures,and ankle brachial indexes without exercise. Left Segmental Pressures Left brachial= 96mmHg. Left posterior tibial artery = 98mmHg. Left dorsalis pedis artery = 115mmHg. Left digit = 84 mmHg. The left dorsalis pedis waveforms are triphasic. The left posterior tibial artery waveforms are triphasic. Right Segmental Pressures Right posterior tibial artery = 101mmHg. Right dorsalis pedis artery = 116mmHg. Right digit = 89 mmHg. The right dorsalis pedis waveforms are triphasic. The right posterior tibial artery waveforms are triphasic. Indices The right ankle brachial index by the dorsalis pedis is 1.21. The right ankle brachial index by the posterior tibial artery is 1.05. The right digital-brachial index is 0.93. The left ankle brachial index by the dorsalis pedis is 1.20. The left ankle brachial index by the posterior tibial artery is 1.02. The left digital-brachial index is 0.88. VL/Lower Ext Art Exam w/o Exercis Interpretation Summary Triphasic Doppler waveforms are noted at ankle level bilaterally. Pulse-volume recordings appear satisfactory at all levels bilaterally. Resting ankle-brachial indices are norm al bilaterally. Digital-brachial indices are normal bilaterally. There is no evidence of significant arterial occlusive disease in the lower ext remities bilaterally. Ordering Physician: Ronaldo Kothari Referring Physician: Wan Jain Performed By: Martina Steiner RVT
[2024-02-20 13:14] VITALS: BP 121/63; PULSE 72; RESP 18; TEMP 36; BMI 22.4
--- NOTE | 2024-02-20 15:38 | HP.PCM_ITS ---
History of Present Illness Date of Service: 02/20/24 Chief Complaint: Traumatic left pretibial wound History of Wound: This is a 69-year-old female who presented with a traumatic wound on the left pretibial surface. This occurred approximately 4 to 5 weeks prior to her presentation, when she impacted the left pretibial surface against a metal object in her garage. She subsequently developed swelling and redness in the periwound area, for which she was evaluated and treated by her primary care physician. She received a 10-day course of Keflex which was taken orally. She had been using bacitracin ointment topically on an intermittent basis, and at times using only dry gauze. Since the time of her injury, the traumatic wound failed to heal and progress. This prompted her to seek medical attention in the [facility]. She is of normal body habitus. She is active, and ambulates liberally without limitations. She denies swelling in her lower extremities. She has no history of thrombophlebitis. [facility] Medical History Overactive bladder Leg wound, left Obstructive sleep apnea Traumatic open wound of left lower leg with delayed healing Itching of ear Health care maintenance Preventative health care Abdominal pain History of Clostridium difficile infection Alcohol use History of kidney stones Easy bruising History of hiatal hernia Heartburn CPAP (continuous positive airway pressure) dependence History of stress test Early satiety Chronic nausea Wound of right lower extremity Cellulitis of right lower leg Contusion of right lower leg Abrasion, right lower leg, initial encounter Grief reaction Tachycardia Arthritis Vitamin D deficiency History of breast cancer Home Medications ?Medication ?Instructions ?Recorded ?Last Taken ?Type aspirin 81 mg tablet,delayed 81 mg PO QDAY 10/05/17 01/02/19 History release (Adult Aspirin Regimen) cholecalciferol (vitamin D3) 50 2,000 unit PO DAILY 10/05/17 Unknown History mcg (2,000 unit) capsule flash glucose scanning reader #1 ea 11/11/19 Unknown Rx (FreeStyle John 14 Day [place]) pen needle, diabetic 29 gauge x #100 ea 04/19/21 Unknown Rx 1/2 (Ultra-Thin II Insulin Pen Tranquillity) oxybutynin chloride 10 mg 15 mg PO DAILY 04/20/22 Unknown History tablet,extended release 24 hr cyanocobalamin (vitamin B-12) 2,500 mcg PO .THREE TIMES A WEEK 07/27/22 Unknown History 2,500 mcg tablet docusate sodium 100 mg capsule 100 mg PO DAILY 07/27/22 Unknown History (Colace) True Metrix Glucose Test Strip #50 ea 11/10/22 Unknown Rx (blood sugar diagnostic) blood-glucose meter (True Metrix #1 ea 11/10/22 Unknown Rx Glucose Meter kit) Ozempic 1 mg/dose (4 mg/3 mL) 1 mg (0.75 mL) subcut QWEEK #3 mL 11/07/23 Unknown Rx subcutaneous pen injector (semaglutide) atorvastatin 80 mg tablet 80 mg PO QHS #90 tabs 11/07/23 Unknown Rx dapagliflozin propanediol 10 mg 10 mg PO QDAY diabetes #90 tabs 11/07/23 Unknown Rx tablet flash glucose sensor (FreeStyle #6 ea 11/07/23 Unknown Rx John 14 Day Sensor kit) glimepiride 2 mg tablet 1 mg (1/2 x 2 mg) PO DAILY #90 tabs 11/07/23 Unknown Rx lisinopril 20 mg tablet See Rx Instructions .Route 11/07/23 Unknown Rx .COMPLEX #90 tabs venlafaxine 75 mg tablet 275 mg PO QHS ANTIDEPRESSANT 01/09/24 Unknown History Allergy/AdvReac Type Severity Reaction Status Date / Time amoxicillin Allergy Rash Verified 02/12/24 08:11 levofloxacin (From Levaquin) Allergy Vomiting Verified 02/12/24 08:11 promethazine (From Phenergan) Allergy Other Verified 02/12/24 08:11 Family History Sister Breast cancer Grandmother Breast cancer Uncle Breast cancer Mother Heart disease Thyroid disorder Father Heart disease CVA (cerebral vascular accident) Cancer prostate Brother Crohns disease Grandfather CVA (cerebral vascular accident) Grandmother Diabetes Surgical History Hx of cataract extraction History of colonoscopy bunionecmy of right foot abdominal tram flap History of total mastectomy of right breast Social History Smoking Status: Never smoker alcohol intake: current alcohol intake frequency: a few times a month Alcohol type: beer substance use type: does not use caffeine: Yes what type of physical activity do you participate in: walking frequency: 5-6 times per week do you feel safe at home: Yes Vital Signs Vital Signs Vital Signs: 02/20/24 13:14 Temperature 96.8 F L Temperature Source Temporal Pulse Rate 72 Respiratory Rate 18 Blood Pressure 121/63 H Blood Pressure Mean 82 Blood Pressure Source Monitor Blood Pressure Position Semi-Fowlers Blood Pressure Location Left Arm Weight Weight: 143 lb Body Mass Index (BMI) 22.4 Physical Exam Const alert, oriented x3, no apparent distress, average body habitus and well nourished General Appearance: cooperative, comfortable, well kempt and well developed Orientation / Consciousness: awake, oriented to person, oriented to place and oriented to time Exam Limitations: no limitations HEENT normocephalic, head/scalp atraumatic and hearing grossly normal bilaterally Head and Scalp: normal to inspection, normocephalic and atraumatic Face and Sinus: normal facial exam Nose: external nose normal External Ear: external ears normal Eyes PERRL and EOMs intact bilaterally General Eye: normal appearance of both eyes Sclera: sclera normal Neck full ROM General: normal visual inspection and trachea midline Resp normal respiratory effort, normal air movement, no retractions, no use of accessory muscles and clear to auscultation bilaterally Effort and Inspection: able to speak in complete sentences and symmetric chest movement Cardio regular rate, regular rhythm, S1 normal heart sound, S2 normal heart sound and no murmurs Extremity no calf tenderness General Extremity: Negative for clubbing or cyanosis Skin Wound Narrative: A traumatic wound is noted on the patient's left pretibial surface. Dimensions are documented elsewhere. The wound appears to be slightly smaller in size. Dimensions are documented elsewhere. The base of the wound is generally pink and healthy in appearance, with a small amount of bioburden, though with evidence of active, healthy granulation tissue. There is a slight rim of radha pheral erythema, which continues to decrease. No swelling or edema are noted in the lower extremities bilaterally. No other wounds or ulcerations are observed. Neuro oriented x3, CN's II-XII intact bilaterally, moves all extremities and no focal motor deficits Sensorium / Orientation: awake, alert, oriented to person, oriented to place and oriented to time Psych Appearance: grossly normal and appropriate Attitude: calm Activity / Motor Behavior: appropriate eye contact Speech: normal speech Mood & Affect: euthymic mood Thought Process: normal thought process Thought Content: normal thought content Attention / Concentration: attention grossly intact Debridement Note Debridement Note Wound debrided: Left pretibial surface Laterality: Left Type of Debridement: Excisional debridement Anesthesia Used: 5% Lidocaine Gel Depth: Down to and including healthy tissue and in the subcutaneous layer Percentage of wound debrided: 100 Instrument Used: 5mm curette Tissue Removed: Bioburden Severity: Fat Layer Exposed Amount of bleeding with debridement: Mild Bleeding Controlled with: Compression and gauze Patient tolerated procedure: Patient tolerated procedure well Post-Debridement Measurements and Additional Note: Post-Debridement Measurements/Treatment - Nurse 1 - General Ulcer Assessment Start: 01/30/24 13:19 Freq: Status: Active Protocol: JEANETTE Activity Type Activity Date Activity User E-sign Co-sign Detail Recorded Client Recorded Date Recorded By Document 01/30/24 13:19 RB Desktop 01/30/24 13:21 RB Document 02/06/24 13:08 KW [id number] 02/06/24 13:11 KW Document 02/13/24 10:49 KW wound center 02/13/24 10:52 KW Document 02/20/24 13:14 RB wound cnter 02/20/24 13:15 RB 01/30/24 02/06/24 02/13/24 13:19 13:08 10:49 - Today's Visit Information Type of service Follow-up Visit Follow-up Visit Follow-up Visit (Physician/BRIQUETTER OPERATOR (Physician/BRIQUETTER OPERATOR (Physician/BRIQUETTER OPERATOR ) ) ) Arrival Mode Ambulatory Ambulatory Ambulatory Transfer Assistance None None Patient Identification Verified (Name & Yes Yes Yes ) Patient Requires Transmission-Based No No Precautions Height and Weight Body Mass Index (BMI) 22.4 22.4 22.4 BMI Classification Normal Normal Normal Vital Signs Temperature (97.8 F-99.1 F) 96.5 F L 96.7 F L 96.2 F L Temperature Source Temporal Temporal Temporal Pulse Rate (60-100) 87 67 71 Pulse Location Monitor Monitor Monitor Respiratory Rate (12-18) 18 18 18 Respiratory rate source Observation Observation Observation Oxygen Delivery Method Room Air Blood Pressure (90/60-120/80) 113/59 L 109/61 102/61 Blood Pressure Mean 77 77 74 Source Monitor Monitor Monitor Position Semi-Fowlers Semi-Fowlers Semi-Fowlers Blood Pressure Location Left Arm Left Arm Left Arm History Since Last Visit- (Skip if this is Patient's initial visit) Have you changed medications since your No No No last visit? Any new allergies or adverse reactions No No No Had a fall/change in ADL's that may No No No increase risk of falls Signs or symptoms of abuse and/or No No No neglect since last visit Have you been in the hospital since your No No No last visit? Has dressing in place as prescribed Yes Yes Yes Has compression in place as prescribed Yes Yes Yes Has offloadiing in place as prescribed No No N/A Experienced any changes in pain level or No No No management Left Footwear Regular Shoe Right Footwear Regular Shoe Pain Scale: 0-10 Numeric Is Patient Pain Free? Yes Yes Yes 02/20/24 13:14 WC - Today's Visit Information Type of service Follow-up Visit (Physician/BRIQUETTER OPERATOR ) Arrival Mode Ambulatory Transfer Assistance None Patient Identification Verified (Name & Yes ) Patient Requires Transmission-Based No Precautions Height and Weight Body Mass Index (BMI) 22.4 BMI Classification Normal Vital Signs Temperature (97.8 F-99.1 F) 96.8 F L Temperature Source Temporal Pulse Rate (60-100) 72 Pulse Location Monitor Respiratory Rate (12-18) 18 Respiratory rate source Observation Oxygen Delivery Method Blood Pressure (90/60-120/80) 121/63 H Blood Pressure Mean 82 Source Monitor Position Semi-Fowlers Blood Pressure Location Left Arm History Since Last Visit- (Skip if this is Patient's initial visit) Have you changed medications since your No last visit? Any new allergies or adverse reactions No Had a fall/change in ADL's that may No increase risk of falls Signs or symptoms of abuse and/or No neglect since last visit Have you been in the hospital since your No last visit? Has dressing in place as prescribed Yes Has compression in place as prescribed Yes Has offloadiing in place as prescribed No Experienced any changes in pain level or No management Left Footwear Right Footwear Pain Scale: 0-10 Numeric Is Patient Pain Free? Yes - Nurse 1 - General Ulcer Measurement Start: 01/30/24 13:19 Freq: Status: Active Protocol: Activity Type Activity Date Activity User E-sign Co-sign Detail Recorded Client Recorded Date Recorded By Document 01/30/24 13:19 RB Desktop 01/30/24 13:21 RB Document 02/06/24 13:08 [id number] [id number] 02/06/24 13:11 KW Document 02/13/24 10:49 KW wound center 02/13/24 10:52 KW Document 02/20/24 13:14 RB wound cnter 02/20/24 13:15 RB 01/30/24 02/06/24 02/13/24 13:19 13:08 10:49 Wound Center Nurse 1 2. LLE anterior -Combined with other wound No No -Current Size (cm) - Length 1 1.1 0.8 -Current Size (cm) - Width 1 0.9 0.9 -Current Size (cm) - Depth 0.1 0.1 0.1 -Total Square Cm 1 0.99 0.72 -Photo Taken Yes -Tunneling No No -Undermining/Tunneling No No -Circular Undermining No No -Exudate Amt Medium Medium Small -Exudate Type Serosanguineous Serosanguineous Serosanguineous -Wound Margin Distinct, Distinct, Distinct, Outline Outline Outline Attached Attached Attached -Granulation Amt Large (67-100%) Medium (34-66%) Large (67-100%) -Granulation Quality [place] -Slough/Fibrin Yes Yes -Necrosis Amt Small (1-33%) Medium (34-66%) -Necrotic Tissue Type Adherent Slough Adherent Slough -Structure Exposed N/A N/A -Texture (Radha-wound Skin Appearance) Assessed Assessed Assessed -Moisture (Radha-wound Skin Appearance) Assessed Assessed Assessed -Color (Radha-wound Skin Appearance) Assessed Hemosiderin Assessed Staining -Temperature (Radha-wound Skin No Abnormality No Abnormality No Abnormality Appearance) (Pt Warm) (Pt Warm) (Pt Warm) -Tenderness on Palpation (Radha-wound No No No Skin Appearance) -Ulcer Cleansing Wound Cleanser Wound Cleanser Rinsed/ Irrigated with Saline -Foul Odor after Cleansing No No -Anesthetic Used 4% Lidocaine 5% Lidocaine 5% Lidocaine Solution Gel Gel Lower Limb Edema Present Yes Yes Left Calf (cm) 34 34 Left Ankle (cm) 19.6 19 02/20/24 13:14 Wound Center Nurse 1 2. LLE anterior -Combined with other wound No -Current Size (cm) - Length 0.8 -Current Size (cm) - Width 0.6 -Current Size (cm) - Depth 0.1 -Total Square Cm 0.48 -Photo Taken -Tunneling No -Undermining/Tunneling No -Circular Undermining No -Exudate Amt Medium -Exudate Type Serosanguineous -Wound Margin Distinct, Outline Attached -Granulation Amt Medium (34-66%) -Granulation Quality [place] -Slough/Fibrin Yes -Necrosis Amt Medium (34-66%) -Necrotic Tissue Type Adherent Slough -Structure Exposed N/A -Texture (Radha-wound Skin Appearance) Assessed, Scarring -Moisture (Radha-wound Skin Appearance) Assessed -Color (Radha-wound Skin Appearance) Assessed -Temperature (Radha-wound Skin No Abnormality Appearance) (Pt Warm) -Tenderness on Palpation (Radha-wound No Skin Appearance) -Ulcer Cleansing Wound Cleanser -Foul Odor after Cleansing No -Anesthetic Used 5% Lidocaine Gel Lower Limb Edema Present Yes Left Calf (cm) 35 Left Ankle (cm) 19.5 WC - Nurse 2 - General Ulcer CM Notes Start: 01/30/24 13:19 Freq: Status: Active Protocol: Activity Type Activity Date Activity User E-sign Co-sign Detail Recorded Client Recorded Date Recorded By Document 01/30/24 13:26 DS Desktop 01/30/24 13:32 DS Document 02/06/24 13:30 DS [id number] 02/06/24 13:31 DS Document 02/13/24 12:23 RB wound center 02/13/24 12:26 RB Edit Result 02/13/24 12:23 RB (1) [id number] 02/13/24 12:32 DS Document 02/20/24 13:25 DS [id number] 02/20/24 13:28 DS (1) 2. LLE anterior - Area of Debridement (cm) - Length => 0.9 - Area of Debridement (cm) - Width => 0.8 - Total Square (Area) (cm) => 0.72 - Wound/Ulcer Outcome Healed- Surgical => Not Healed Closure => - Ulcer Cleansing => Rinsed/Irrigated => with Saline 01/30/24 02/06/24 02/13/24 13:26 13:30 12:23 Wound Center Nurse 2 2. LLE anterior -Time 13: 13:30 11:15 -Correct Patient Yes Yes Yes -Correct Side, Site, Position Yes Yes Yes -Correct Procedure Yes Yes Yes -Procedure Performed Yes Yes Yes -Type of Procedure Debridement Debridement Debridement -Clinical Debridement Subcutaneous Subcutaneous Subcutaneous -Tissue Removed Subcutaneous Subcutaneous Subcutaneous -Post Debridement (cm) - Length 1.1 1.1 0.9 -Post Debridement (cm) - Width 1.2 0.9 0.8 -Post Debridement (cm) - Depth 0.2 0.1 0.1 -Total Square (Post) (cm) 1.32 0.99 0.72 -Area of Debridement (cm) - Length 1.1 1.1 0.9 -Area of Debridement (cm) - Width 1.2 0.9 0.8 -Total Square (Area) (cm) 1.32 0.99 0.72 -Tunneling No No No -Undermining/Tunneling No No No -Circular Undermining No No No -Wound/Ulcer Outcome Not Healed Not Healed Not Healed -Ulcer Cleansing Rinsed/ Rinsed/ Rinsed/ Irrigated with Irrigated with Irrigated with Saline Saline Saline -Foul Odor after Cleansing No -Bioengineered Tissue No -Bleeding Controlled with Pressure Pressure NA -Treatment Response Procedure Procedure Procedure Tolerated Well Tolerated Well Tolerated Well -Offloading No No -Debridement - Open, 1st 20sq cm No -Debridement - Subq, 1st 20sq cm Yes Yes Yes -Debridement - Muscle / Fascia, 1st No 20sq cm -Debridement - Bone, 1st 20sq cm No Pain Scale: 0-10 Numeric Is Patient Pain Free? Yes Yes Yes 02/20/24 13:25 Wound Center Nurse 2 2. DEBBIE anterior -Time 13:26 -Correct Patient Yes -Correct Side, Site, Position Yes -Correct Procedure Yes -Procedure Performed Yes -Type of Procedure Debridement -Clinical Debridement Subcutaneous -Tissue Removed Subcutaneous -Post Debridement (cm) - Length 0.9 -Post Debridement (cm) - Width 0.8 -Post Debridement (cm) - Depth 0.1 -Total Square (Post) (cm) 0.72 -Area of Debridement (cm) - Length 0.9 -Area of Debridement (cm) - Width 0.8 -Total Square (Area) (cm) 0.72 -Tunneling No -Undermining/Tunneling No -Circular Undermining No -Wound/Ulcer Outcome Not Healed -Ulcer Cleansing Rinsed/ Irrigated with Saline -Foul Odor after Cleansing -Bioengineered Tissue -Bleeding Controlled with Pressure -Treatment Response Procedure Tolerated Well -Offloading -Debridement - Open, 1st 20sq cm -Debridement - Subq, 1st 20sq cm Yes -Debridement - Muscle / Fascia, 1st 20sq cm -Debridement - Bone, 1st 20sq cm Pain Scale: 0-10 Numeric Is Patient Pain Free? Yes - Nurse 3 - General Ulcer D/C NN Start: 01/30/24 13:19 Freq: Status: Active Protocol: Activity Type Activity Date Activity User E-sign Co-sign Detail Recorded Client Recorded Date Recorded By Document 01/30/24 13:45 RB Desktop 01/30/24 13:46 RB Document 02/06/24 14:08 RB [id number] 02/06/24 14:09 RB Document 02/13/24 11:24 RB wound center 02/13/24 11:25 RB Document 02/20/24 13:32 KW wound center 02/20/24 13:33 KW 01/30/24 02/06/24 02/13/24 13:45 14:08 11:24 Wound Care Center Nurse 3 2. LLE anterior -Ulcer Cleansing Rinsed/ Rinsed/ Irrigated with Irrigated with Saline Saline -Primary Dressing Applied Aquacel Extra -Other Dressing aquacel AG aquacel ag -Primary Dressing Covered/Secured with Dry Gauze, Dry Gauze, Dry Gauze, Secured with Secured with Secured with Tape Tape Tape -Aquacel Extra 1 Left -Tubular Bandage Single Layer Single Layer -Size of Tubigrip Used Size D Size D -Size D ($) 1 1 -Other TUBIGRIP SIZE D SINGLE Treatment Response Procedure Procedure Procedure Tolerated Well Tolerated Well Tolerated Well Pain Scale: 0-10 Numeric Is Patient Pain Free? Yes Yes Yes - Visit Discharge Discharge Condition Stable Stable Stable Ambulatory Status Ambulatory Ambulatory Ambulatory Transportation Private Auto Private Auto Private Auto Medication Reconcilliation completed & No No No provided to patient/care provider Clinical Summary of Care Provided Yes Yes Yes 02/20/24 13:32 Wound Care Center Nurse 3 2. LLE anterior -Ulcer Cleansing Rinsed/ Irrigated with Saline -Primary Dressing Applied -Other Dressing PT OWN AQUACEL EXTRA -Primary Dressing Covered/Secured with Dry Gauze, Secured with Tape -Aquacel Extra Left -Tubular Bandage Single Layer -Size of Tubigrip Used Size D -Size D ($) 1 -Other Treatment Response Pain Scale: 0-10 Numeric Is Patient Pain Free? Yes WC - Visit Discharge Discharge Condition Stable Ambulatory Status Ambulatory Transportation Private Auto Medication Reconcilliation completed & No provided to patient/care provider Clinical Summary of Care Provided Yes Assessment/Plan Assessment/Plan (1) Traumatic open wound of left lower leg with delayed healing: CODE(S): S81.802D - Unspecified open wound, left lower leg, subsequent encounter (2) Leg wound, left: CODE(S): S81.802A - Unspecified open wound, left lower leg, initial encounter QUALIFIERS: Encounter type: initial encounter Qualified Code(s): S81.802A - Unspecified open wound, left lower leg, initial encounter (3) Type 2 diabetes mellitus: CODE(S): E11.9 - Type 2 diabetes mellitus without complications QUALIFIERS: Diabetes mellitus termite control service representative insulin use: unspecified shelter insulin use status Diabetes mellitus complication status: with other specified complication Qualified Code(s): E11.69 - Type 2 diabetes mellitus with other specified complication (4) Mixed hyperlipidemia: CODE(S): E78.2 - Mixed hyperlipidemia (5) Sleep apnea: CODE(S): G47.30 - Sleep apnea, unspecified QUALIFIERS: Sleep apnea type: obstructive Qualified Code(s): G47.33 - Obstructive sleep apnea (adult) (pediatric) (6) Hypertension: CODE(S): I10 - Essential (primary) hypertension QUALIFIERS: Hypertension type: essential hypertension Qualified Code(s): I10 - Essential (primary) hypertension (7) Obstructive sleep apnea: CODE(S): G47.33 - Obstructive sleep apnea (adult) (pediatric) PLAN: Plan This is a 69-year-old female who is active and functional. She is of normal body habitus. She suffers from diabetes mellitus, hyperlipidemia, hypertension, and obstructive sleep apnea. She sustained a traumatic wound to the left pretibial surface approximately 4 to 5 weeks prior to her presentation at the [facility]. The wound had shown little progress toward healing, prompting her to seek medical attention. Debridement has been performed in the wound healing center today. The wound appears pink and healthy in appearance with evidence of active granulation tissue. Slight radha-ulcer erythema persists, though recent culture results were negative for aerobic and anaerobic bacterial growth. The patient has been counseled to optimize nutritional intake. She is already collaborating with an legal specialist for glycemic control. Review of past laboratory results reveals a hemoglobin A1c of 7.3 on November 07, 2023. We are to continue the use of moistened Aquacel, which will be applied daily. The patient has been instructed in appropriate means of application. She is to be allowed to shower on a daily basis. The patient will return in 1 week. A recent noninvasive lower extremity arterial study, performed on February 13, 2024, revealed no evidence of significant arterial occlusive disease in her lower extremities bilaterally. Total time: 24 minutes
== END 2024-02-23 23:59 | disposition home or self-care (01) ==
LOC: WC 13:00
PROVIDERS: PCP Internal Medicine; Referring Provider Physician Assistant; Visit Provider Surgery
DX: E11.622 Type 2 diabetes mellitus with other skin ulcer (principal); L97.222 Non-pressure chronic ulcer of left calf with fat layer exposed; E11.69 Type 2 diabetes mellitus with other specified complication; S81.802D Unspecified open wound, left lower leg, subsequent encounter; G47.33 Obstructive sleep apnea (adult) (pediatric); I10 Essential (primary) hypertension; E78.2 Mixed hyperlipidemia; Z79.84 Long term (current) use of oral hypoglycemic drugs; Z79.82 Long term (current) use of aspirin; Z99.89 Dependence on other enabling machines and devices; Z85.3 Personal history of malignant neoplasm of breast; Z79.85 Long-term (current) use of injectable non-insulin antidiabetic drugs
CPT/HCPCS: 11042; 87070; 87075; 87205; 93923

== ENCOUNTER 2024-03-12 13:15 | Outpatient (RCR) | payer MEDICARE, SELFPAY ==
[2024-02-24 02:28] VITALS: BP 123/66; PULSE 101; RESP 18; TEMP 36.1; BMI 22.4
[2024-02-26 08:34] VITALS: BP 108/55; PULSE 71; RESP 16; TEMP 35.8; BMI 22.4
--- NOTE | 2024-02-26 08:49 | HP.PCM_ITS ---
History of Present Illness Date of Service: 02/26/24 Chief Complaint: Traumatic left pretibial wound History of Wound: This is a 69-year-old female who presented with a traumatic wound on the left pretibial surface. This occurred approximately 4 to 5 weeks prior to her admission, when she impacted the left pretibial surface against a metal object in her garage. She subsequently developed swelling and redness in the periwound area, for which she was evaluated and treated by her primary care physician. She received a 10-day course of Keflex which was taken orally. She had been using bacitracin ointment topically on an intermittent basis, and at times using only dry gauze. Since the time of her injury, the traumatic wound failed to heal and progress. This prompted her to seek medical attention in the [facility]. She is of normal body habitus. She is active, and ambulates liberally without limitations. She denies swelling in her lower extremities. She has no history of thrombophlebitis. [facility] Medical History Overactive bladder Leg wound, left Obstructive sleep apnea Traumatic open wound of left lower leg with delayed healing Itching of ear Health care maintenance Preventative health care Abdominal pain History of Clostridium difficile infection Alcohol use History of kidney stones Easy bruising History of hiatal hernia Heartburn CPAP (continuous positive airway pressure) dependence History of stress test Early satiety Chronic nausea Wound of right lower extremity Cellulitis of right lower leg Contusion of right lower leg Abrasion, right lower leg, initial encounter Grief reaction Tachycardia Arthritis Vitamin D deficiency History of breast cancer Home Medications ?Medication ?Instructions ?Recorded ?Last Taken ?Type aspirin 81 mg tablet,delayed 81 mg PO QDAY 10/05/17 01/02/19 History release (Adult Aspirin Regimen) cholecalciferol (vitamin D3) 50 2,000 unit PO DAILY 10/05/17 Unknown History mcg (2,000 unit) capsule flash glucose scanning reader #1 ea 11/11/19 Unknown Rx (FreeStyle John 14 Day [place]) pen needle, diabetic 29 gauge x #100 ea 04/19/21 Unknown Rx 1/2 (Ultra-Thin II Insulin Pen [place]) oxybutynin chloride 10 mg 15 mg PO DAILY 04/20/22 Unknown History tablet,extended release 24 hr cyanocobalamin (vitamin B-12) 2,500 mcg PO .THREE TIMES A WEEK 07/27/22 Unknown History 2,500 mcg tablet docusate sodium 100 mg capsule 100 mg PO DAILY 07/27/22 Unknown History (Colace) True Metrix Glucose Test Strip #50 ea 11/10/22 Unknown Rx (blood sugar diagnostic) blood-glucose meter (True Metrix #1 ea 11/10/22 Unknown Rx Glucose Meter kit) Ozempic 1 mg/dose (4 mg/3 mL) 1 mg (0.75 mL) subcut QWEEK #3 mL 11/07/23 Unknown Rx subcutaneous pen injector (semaglutide) atorvastatin 80 mg tablet 80 mg PO QHS #90 tabs 11/07/23 Unknown Rx dapagliflozin propanediol 10 mg 10 mg PO QDAY diabetes #90 tabs 11/07/23 Unknown Rx tablet flash glucose sensor (FreeStyle #6 ea 11/07/23 Unknown Rx John 14 Day Sensor kit) glimepiride 2 mg tablet 1 mg (1/2 x 2 mg) PO DAILY #90 tabs 11/07/23 Unknown Rx lisinopril 20 mg tablet See Rx Instructions .Route 11/07/23 Unknown Rx .COMPLEX #90 tabs venlafaxine 75 mg tablet 275 mg PO QHS ANTIDEPRESSANT 01/09/24 Unknown History Allergy/AdvReac Type Severity Reaction Status Date / Time amoxicillin Allergy Rash Verified 02/12/24 08:11 levofloxacin (From Levaquin) Allergy Vomiting Verified 02/12/24 08:11 promethazine (From Phenergan) Allergy Other Verified 02/12/24 08:11 Family History Sister Breast cancer Grandmother Breast cancer Uncle Breast cancer Mother Heart disease Thyroid disorder Father Heart disease CVA (cerebral vascular accident) Cancer prostate Brother Crohns disease Grandfather CVA (cerebral vascular accident) Grandmother Diabetes Surgical History Hx of cataract extraction History of colonoscopy bunionecmy of right foot abdominal tram flap History of total mastectomy of right breast Social History Smoking Status: Never smoker alcohol intake: current alcohol intake frequency: a few times a month Alcohol type: beer substance use type: does not use caffeine: Yes what type of physical activity do you participate in: walking frequency: 5-6 times per week do you feel safe at home: Yes Vital Signs Vital Signs Vital Signs: 02/26/24 08:34 Temperature 96.5 F L Temperature Source Temporal Pulse Rate 71 Respiratory Rate 16 Blood Pressure 108/55 L Blood Pressure Mean 72 Blood Pressure Source Monitor Blood Pressure Position Semi-Fowlers Blood Pressure Location Left Arm Weight Weight: 143 lb Body Mass Index (BMI) 22.4 Physical Exam Const alert, oriented x3, no apparent distress, average body habitus and well nourished General Appearance: cooperative, comfortable, well kempt and well developed Orientation / Consciousness: awake, oriented to person, oriented to place and oriented to time Exam Limitations: no limitations HEENT normocephalic, head/scalp atraumatic and hearing grossly normal bilaterally Head and Scalp: normal to inspection, normocephalic and atraumatic Face and Sinus: normal facial exam Nose: external nose normal External Ear: external ears normal Eyes PERRL and EOMs intact bilaterally General Eye: normal appearance of both eyes Sclera: sclera normal Neck full ROM General: normal visual inspection and trachea midline Resp normal respiratory effort, normal air movement, no retractions, no use of accessory muscles and clear to auscultation bilaterally Effort and Inspection: able to speak in complete sentences and symmetric chest movement Cardio regular rate, regular rhythm, S1 normal heart sound, S2 normal heart sound and no murmurs Extremity no calf tenderness General Extremity: Negative for clubbing or cyanosis Skin Wound Narrative: A traumatic wound is noted on the patient's left pretibial surface. Dimensions are documented elsewhere. There has been little change in the size of the wound. The base of the wound is generally pink and healthy in appearance, with a small amount of bioburden, though with evidence of active, healthy granulation tissue. There is a slight rim of peripheral erythema, which continues to decrease. No swelling or edema are noted in the lower extremities bilaterally. No other wounds or ulcerations are observed. Neuro oriented x3, CN's II-XII intact bilaterally, moves all extremities and no focal motor deficits Sensorium / Orientation: awake, alert, oriented to person, oriented to place and oriented to time Psych Appearance: grossly normal and appropriate Attitude: calm Activity / Motor Behavior: appropriate eye contact Speech: normal speech Mood & Affect: euthymic mood Thought Process: normal thought process Thought Content: normal thought content Attention / Concentration: attention grossly intact Debridement Note Debridement Note Wound debrided: Left pretibial surface Laterality: Left Type of Debridement: Excisional debridement Anesthesia Used: 5% Lidocaine Gel Depth: Down to and including healthy tissue and in the subcutaneous layer Percentage of wound debrided: 100 Instrument Used: 5mm curette Tissue Removed: Bioburden Severity: Fat Layer Exposed Amount of bleeding with debridement: Mild Bleeding Controlled with: Compression and gauze Patient tolerated procedure: Patient tolerated procedure well Post-Debridement Measurements and Additional Note: Post-Debridement Measurements/Treatment - Nurse 1 - General Ulcer Assessment Start: 02/26/24 08:34 Freq: Status: Active Protocol: JEANETTE Activity Type Activity Date Activity User E-sign Co-sign Detail Recorded Client Recorded Date Recorded By Document 02/26/24 08:34 JOS [id number] 02/26/24 08:35 JOS 02/26/24 08:34 YULIET - Today's Visit Information Type of service Follow-up Visit (Physician/[employer] ) Arrival Mode Ambulatory Patient Identification Verified (Name & Yes ) Patient Requires Transmission-Based No Precautions Height and Weight Body Mass Index (BMI) 22.4 BMI Classification Normal Vital Signs Temperature (97.8 F-99.1 F) 96.5 F L Temperature Source Temporal Pulse Rate (60-100) 71 Pulse Location Monitor Respiratory Rate (12-18) 16 Respiratory rate source Observation Blood Pressure (90/60-120/80) 108/55 L Blood Pressure Mean 72 Source Monitor Position Semi-Fowlers Blood Pressure Location Left Arm History Since Last Visit- (Skip if this is Patient's initial visit) Have you changed medications since your No last visit? Any new allergies or adverse reactions No Had a fall/change in ADL's that may No increase risk of falls Signs or symptoms of abuse and/or No neglect since last visit Have you been in the hospital since your No last visit? Has dressing in place as prescribed Yes Has compression in place as prescribed N/A Has offloadiing in place as prescribed N/A Experienced any changes in pain level or No management Left Footwear Regular Shoe Right Footwear Slipper Pain Scale: 0-10 Numeric Is Patient Pain Free? Yes - Nurse 1 - General Ulcer Measurement Start: 02/26/24 08:34 Freq: Status: Active Protocol: Activity Type Activity Date Activity User E-sign Co-sign Detail Recorded Client Recorded Date Recorded By Document 02/26/24 08:34 [id number] [id number] 02/26/24 08:35 JF 02/26/24 08:34 Wound Center Nurse 1 2. LLE anterior -Combined with other wound No -Current Size (cm) - Length 0.9 -Current Size (cm) - Width 0.8 -Current Size (cm) - Depth 0.2 -Total Square Cm 0.72 -Photo Taken No -Epithelialization Small 1-33% -Tunneling No -Undermining/Tunneling No -Circular Undermining No -Exudate Amt Small -Exudate Type Serosanguineous -Wound Margin Flat & Intact -Granulation Amt Large (67-100%) -Granulation Quality Red -Slough/Fibrin Yes -Necrosis Amt Small (1-33%) -Necrotic Tissue Type Adherent Slough -Structure Exposed N/A -Texture (Radha-wound Skin Appearance) Assessed -Moisture (Radha-wound Skin Appearance) Assessed,Dry/ Scaly -Color (Radha-wound Skin Appearance) Assessed -Temperature (Radha-wound Skin No Abnormality Appearance) (Pt Warm) -Tenderness on Palpation (Radha-wound No Skin Appearance) -Ulcer Cleansing Rinsed/ Irrigated with Saline -Foul Odor after Cleansing No -Anesthetic Used 5% Lidocaine Gel Lower Limb Edema Present No Left Calf (cm) 33.6 Left Ankle (cm) 19.0 WC - Nurse 2 - General Ulcer CM Notes Start: 02/26/24 08:34 Freq: Status: Active Protocol: Activity Type Activity Date Activity User E-sign Co-sign Detail Recorded Client Recorded Date Recorded By Document 02/26/24 08:43 DS [id number] 02/26/24 08:47 DS 02/26/24 08:43 Wound Center Nurse 2 2. LLE anterior -Time 08:43 -Correct Patient Yes -Correct Side, Site, Position Yes -Correct Procedure Yes -Procedure Performed Yes -Type of Procedure Debridement -Clinical Debridement Subcutaneous -Tissue Removed Subcutaneous -Post Debridement (cm) - Length 1.0 -Post Debridement (cm) - Width 0.8 -Post Debridement (cm) - Depth 0.1 -Total Square (Post) (cm) 0.80 -Area of Debridement (cm) - Length 1.0 -Area of Debridement (cm) - Width 0.8 -Total Square (Area) (cm) 0.80 -Tunneling No -Undermining/Tunneling No -Circular Undermining No -Wound/Ulcer Outcome Not Healed -Ulcer Cleansing Rinsed/ Irrigated with Saline -Bleeding Controlled with Pressure -Treatment Response Procedure Tolerated Well -Debridement - Subq, 1st 20sq cm Yes Pain Scale: 0-10 Numeric Is Patient Pain Free? Yes Assessment/Plan Assessment/Plan (1) Traumatic open wound of left lower leg with delayed healing: CODE(S): S81.802D - Unspecified open wound, left lower leg, subsequent encounter (2) Leg wound, left: CODE(S): S81.802A - Unspecified open wound, left lower leg, initial encounter QUALIFIERS: Encounter type: subsequent encounter Qualified Code(s): S81.802D - Unspecified open wound, left lower leg, subsequent encounter (3) Type 2 diabetes mellitus: CODE(S): E11.9 - Type 2 diabetes mellitus without complications QUALIFIERS: Diabetes mellitus fpc insulin use: unspecified termite technician insulin use status Diabetes mellitus complication status: with other specified complication Qualified Code(s): E11.69 - Type 2 diabetes mellitus with other specified complication (4) Mixed hyperlipidemia: CODE(S): E78.2 - Mixed hyperlipidemia (5) Sleep apnea: CODE(S): G47.30 - Sleep apnea, unspecified QUALIFIERS: Sleep apnea type: obstructive Qualified Code(s): G47.33 - Obstructive sleep apnea (adult) (pediatric) (6) Hypertension: CODE(S): I10 - Essential (primary) hypertension QUALIFIERS: Hypertension type: essential hypertension Qualified Code(s): I10 - Essential (primary) hypertension (7) Obstructive sleep apnea: CODE(S): G47.33 - Obstructive sleep apnea (adult) (pediatric) PLAN: Plan This is a 69-year-old female who is active and functional. She is of normal body habitus. She suffers from diabetes mellitus, hyperlipidemia, hypertension, and obstructive sleep apnea. She sustained a traumatic wound to the left pretibial surface approximately 4 to 5 weeks prior to her presentation at the [facility]. The wound had shown little progress toward healing, prompting her to seek medical attention. Debridement has been performed in the wound healing center today. The wound appears pink and healthy in appearance with evidence of active granulation tissue. Slight radha-ulcer erythema persists, though recent culture results were negative for aerobic and anaerobic bacterial growth. The patient has been counseled to optimize nutritional intake. She is already collaborating with an customer solutions representative for glycemic control. Review of past laboratory results reveals a hemoglobin A1c of 7.3 on November 07, 2023. We are to continue the use of m oistened Aquacel, which will be applied daily. The patient has been instructed in appropriate means of application. She is to be allowed to shower on a daily basis. The patient will return in 2 weeks. A recent noninvasive lower extremity arterial study, performed on February 13, 2024, revealed no evidence of significant arterial occlusive disease in her lower extremities bilaterally. Total time: 22 minutes
[2024-03-12 13:09] VITALS: BP 103/56; PULSE 83; RESP 16; BMI 22.4
--- NOTE | 2024-03-12 15:13 | HP.PCM_ITS ---
History of Present Illness Date of Service: 03/12/24 Chief Complaint: Traumatic left pretibial wound History of Wound: This is a 69-year-old female who presented with a traumatic wound on the left pretibial surface. This occurred approximately 4 to 5 weeks prior to her admission, when she impacted the left pretibial surface against a metal object in her garage. She subsequently developed swelling and redness in the periwound area, for which she was evaluated and treated by her primary care physician. She received a 10-day course of Keflex which was taken orally. She had been using bacitracin ointment topically on an intermittent basis, and at times using only dry gauze. Since the time of her injury, the traumatic wound failed to heal and progress. This prompted her to seek medical attention in the [facility]. She is of normal body habitus. She is active, and ambulates liberally without limitations. She denies swelling in her lower extremities. She has no history of thrombophlebitis. [facility] Medical History Overactive bladder Leg wound, left Obstructive sleep apnea Traumatic open wound of left lower leg with delayed healing Itching of ear Health care maintenance Preventative health care Abdominal pain History of Clostridium difficile infection Alcohol use History of kidney stones Easy bruising History of hiatal hernia Heartburn CPAP (continuous positive airway pressure) dependence History of stress test Early satiety Chronic nausea Wound of right lower extremity Cellulitis of right lower leg Contusion of right lower leg Abrasion, right lower leg, initial encounter Grief reaction Tachycardia Arthritis Vitamin D deficiency History of breast cancer Home Medications ?Medication ?Instructions ?Recorded ?Last Taken ?Type aspirin 81 mg tablet,delayed 81 mg PO QDAY 10/05/17 01/02/19 History release (Adult Aspirin Regimen) cholecalciferol (vitamin D3) 50 2,000 unit PO DAILY 10/05/17 Unknown History mcg (2,000 unit) capsule flash glucose scanning reader #1 ea 11/11/19 Unknown Rx (FreeStyle John 14 Day [place]) pen needle, diabetic 29 gauge x #100 ea 04/19/21 Unknown Rx 1/2 (Ultra-Thin II Insulin Pen [place]) oxybutynin chloride 10 mg 15 mg PO DAILY 04/20/22 Unknown History tablet,extended release 24 hr cyanocobalamin (vitamin B-12) 2,500 mcg PO .THREE TIMES A WEEK 07/27/22 Unknown History 2,500 mcg tablet docusate sodium 100 mg capsule 100 mg PO DAILY 07/27/22 Unknown History (Colace) True Metrix Glucose Test Strip #50 ea 11/10/22 Unknown Rx (blood sugar diagnostic) blood-glucose meter (True Metrix #1 ea 11/10/22 Unknown Rx Glucose Meter kit) Ozempic 1 mg/dose (4 mg/3 mL) 1 mg (0.75 mL) subcut QWEEK #3 mL 11/07/23 Unknown Rx subcutaneous pen injector (semaglutide) atorvastatin 80 mg tablet 80 mg PO QHS #90 tabs 11/07/23 Unknown Rx dapagliflozin propanediol 10 mg 10 mg PO QDAY diabetes #90 tabs 11/07/23 Unknown Rx tablet flash glucose sensor (FreeStyle #6 ea 11/07/23 Unknown Rx John 14 Day Sensor kit) glimepiride 2 mg tablet 1 mg (1/2 x 2 mg) PO DAILY #90 tabs 11/07/23 Unknown Rx lisinopril 20 mg tablet See Rx Instructions .Route 11/07/23 Unknown Rx .COMPLEX #90 tabs venlafaxine 75 mg tablet 275 mg PO QHS ANTIDEPRESSANT 01/09/24 Unknown History Allergy/AdvReac Type Severity Reaction Status Date / Time amoxicillin Allergy Rash Verified 02/12/24 08:11 levofloxacin (From Levaquin) Allergy Vomiting Verified 02/12/24 08:11 promethazine (From Phenergan) Allergy Other Verified 02/12/24 08:11 Family History Sister Breast cancer Grandmother Breast cancer Uncle Breast cancer Mother Heart disease Thyroid disorder Father Heart disease CVA (cerebral vascular accident) Cancer prostate Brother Crohns disease Grandfather CVA (cerebral vascular accident) Grandmother Diabetes Surgical History Hx of cataract extraction History of colonoscopy bunionecmy of right foot abdominal tram flap History of total mastectomy of right breast Social History Smoking Status: Never smoker alcohol intake: current alcohol intake frequency: a few times a month Alcohol type: beer substance use type: does not use caffeine: Yes what type of physical activity do you participate in: walking frequency: 5-6 times per week do you feel safe at home: Yes Vital Signs Vital Signs Vital Signs: 03/12/24 13:09 Pulse Rate 83 Respiratory Rate 16 Blood Pressure 103/56 L Blood Pressure Mean 71 Blood Pressure Source Monitor Blood Pressure Position Semi-Fowlers Blood Pressure Location Left Arm Oxygen Delivery Method Room Air Weight Weight: 143 lb Body Mass Index (BMI) 22.4 Physical Exam Const alert, oriented x3, no apparent distress, average body habitus and well nourished General Appearance: cooperative, comfortable, well kempt and well developed Orientation / Consciousness: awake, oriented to person, oriented to place and oriented to time Exam Limitations: no limitations HEENT normocephalic, head/scalp atraumatic and hearing grossly normal bilaterally Head and Scalp: normal to inspection, normocephalic and atraumatic Face and Sinus: normal facial exam Nose: external nose normal External Ear: external ears normal Eyes PERRL and EOMs intact bilaterally General Eye: normal appearance of both eyes Sclera: sclera normal Neck full ROM General: normal visual inspection and trachea midline Resp normal respiratory effort, normal air movement, no retractions, no use of accessory muscles and clear to auscultation bilaterally Effort and Inspection: able to speak in complete sentences and symmetric chest movement Cardio regular rate, regular rhythm, S1 normal heart sound, S2 normal heart sound and no murmurs Extremity no calf tenderness General Extremity: Negative for clubbing or cyanosis Skin Wound Narrative: A traumatic wound is noted on the patient's left pretibial surface. Dimensions are documented elsewhere. The wound has decreased in size since the patient's last visit. The base of the wound is generally pink and healthy in appearance, with a small amount of bioburden, though with evidence of active, healthy granulation tissue. Peripheral epithelialization is noted. No swelling or edema are noted in the lower extremities bilaterally. No other wounds or ulcerations are observed. Neuro oriented x3, CN's II-XII intact bilaterally, moves all extremities and no focal motor deficits Sensorium / Orientation: awake, alert, oriented to person, oriented to place and oriented to time Psych Appearance: grossly normal and appropriate Attitude: calm Activity / Motor Behavior: appropriate eye contact Speech: normal speech Mood & Affect: euthymic mood Thought Process: normal thought process Thought Content: normal thought content Attention / Concentration: attention grossly intact Debridement Note Debridement Note Wound debrided: Left pretibial surface Laterality: Left Type of Debridement: Excisional debridement Anesthesia Used: 5% Lidocaine Gel Depth: Down to and including healthy tissue and in the subcutaneous layer Percentage of wound debrided: 100 Instrument Used: 3mm curette Tissue Removed: Bioburden Severity: Fat Layer Exposed Amount of bleeding with debridement: Mild Bleeding Controlled with: Compression and gauze Patient tolerated procedure: Patient tolerated procedure well Post-Debridement Measurements and Additional Note: Post-Debridement Measurements/Treatment - Nurse 1 - General Ulcer Assessment Start: 02/26/24 08:34 Freq: Status: Active Protocol: JEANETTE Activity Type Activity Date Activity User E-sign Co-sign Detail Recorded Client Recorded Date Recorded By Document 02/26/24 08:34 JOS [id number] 02/26/24 08:35 Document 03/12/24 13:09 KW g 03/12/24 13:13 KW 02/26/24 03/12/24 08:34 13:09 - Today's Visit Information Type of service Follow-up Visit Follow-up Visit (Physician/CAR REPAIRER HELPER (Physician/CAR REPAIRER HELPER ) ) Arrival Mode Ambulatory Ambulatory Patient Identification Verified (Name & Yes Yes ) Patient Requires Transmission-Based No Precautions Height and Weight Body Mass Index (BMI) 22.4 22.4 BMI Classification Normal Normal Vital Signs Temperature (97.8 F-99.1 F) 96.5 F L Temperature Source Temporal Pulse Rate (60-100) 71 83 Pulse Location Monitor Monitor Respiratory Rate (12-18) 16 16 Respiratory rate source Observation Observation Oxygen Delivery Method Room Air Blood Pressure (90/60-120/80) 108/55 L 103/56 L Blood Pressure Mean 72 71 Source Monitor Monitor Position Semi-Fowlers Semi-Fowlers Blood Pressure Location Left Arm Left Arm History Since Last Visit- (Skip if this is Patient's initial visit) Have you changed medications since your No No last visit? Any new allergies or adverse reactions No No Had a fall/change in ADL's that may No No increase risk of falls Signs or symptoms of abuse and/or No No neglect since last visit Have you been in the hospital since your No No last visit? Has dressing in place as prescribed Yes Yes Has compression in place as prescribed N/A N/A Has offloadiing in place as prescribed N/A N/A Experienced any changes in pain level or No No management Left Footwear Regular Shoe Regular Shoe Right Footwear Slipper Regular Shoe Pain Scale: 0-10 Numeric Is Patient Pain Free? Yes Yes YULIET - Nurse 1 - General Ulcer Measurement Start: 02/26/24 08:34 Freq: Status: Active Protocol: Activity Type Activity Date Activity User E-sign Co-sign Detail Recorded Client Recorded Date Recorded By Document 02/26/24 08:34 [id number] 02/26/24 08:35 JF Document 03/12/24 13:09 KW g 03/12/24 13:13 KW 02/26/24 03/12/24 08:34 13:09 Wound Center Nurse 1 2. LLE anterior -Combined with other wound No -Current Size (cm) - Length 0.9 0.5 -Current Size (cm) - Width 0.8 0.5 -Current Size (cm) - Depth 0.2 0.1 -Total Square Cm 0.72 0.25 -Date of Last Picture (Recall this 03/12/24 field) -Photo Taken No -Epithelialization Small 1-33% Large 67-100% -Tunneling No -Undermining/Tunneling No -Circular Undermining No -Exudate Amt Small Small -Exudate Type Serosanguineous Serosanguineous -Wound Margin Flat & Intact Distinct, Outline Attached -Granulation Amt Large (67-100%) Large (67-100%) -Granulation Quality Red Red -Slough/Fibrin Yes -Necrosis Amt Small (1-33%) -Necrotic Tissue Type Adherent Slough -Structure Exposed N/A -Texture (Radha-wound Skin Appearance) Assessed Assessed -Moisture (Radha-wound Skin Appearance) Assessed,Dry/ Assessed Scaly -Color (Radha-wound Skin Appearance) Assessed Assessed -Temperature (Radha-wound Skin No Abnormality No Abnormality Appearance) (Pt Warm) (Pt Warm) -Tenderness on Palpation (Radha-wound No No Skin Appearance) -Ulcer Cleansing Rinsed/ Rinsed/ Irrigated with Irrigated with Saline Saline -Foul Odor after Cleansing No No -Anesthetic Used 5% Lidocaine 5% Lidocaine Gel Gel Lower Limb Edema Present No Left Calf (cm) 33.6 Left Ankle (cm) 19.0 - Nurse 2 - General Ulcer CM Notes Start: 02/26/24 08:34 Freq: Status: Active Protocol: Activity Type Activity Date Activity User E-sign Co-sign Detail Recorded Client Recorded Date Recorded By Document 02/26/24 08:43 DS [id number] 02/26/24 08:47 DS Document 03/12/24 13:23 DS 1 03/12/24 13:24 DS 02/26/24 03/12/24 08:43 13:23 Wound Center Nurse 2 2. LLE anterior -Time 08:43 13:24 -Correct Patient Yes Yes -Correct Side, Site, Position Yes Yes -Correct Procedure Yes Yes -Procedure Performed Yes Yes -Type of Procedure Debridement Debridement -Clinical Debridement Subcutaneous Subcutaneous -Tissue Removed Subcutaneous Subcutaneous -Post Debridement (cm) - Length 1.0 0.9 -Post Debridement (cm) - Width 0.8 0.6 -Post Debridement (cm) - Depth 0.1 0.1 -Total Square (Post) (cm) 0.80 0.54 -Area of Debridement (cm) - Length 1.0 0.9 -Area of Debridement (cm) - Width 0.8 0.6 -Total Square (Area) (cm) 0.80 0.54 -Tunneling No No -Undermining/Tunneling No No -Circular Undermining No No -Wound/Ulcer Outcome Not Healed Not Healed -Ulcer Cleansing Rinsed/ Rinsed/ Irrigated with Irrigated with Saline Saline -Bleeding Controlled with Pressure Pressure -Treatment Response Procedure Procedure Tolerated Well Tolerated Well -Debridement - Subq, 1st 20sq cm Yes Yes Pain Scale: 0-10 Numeric Is Patient Pain Free? Yes Yes - Nurse 3 - General Ulcer D/C NN Start: 02/26/24 08:34 Freq: Status: Active Protocol: Activity Type Activity Date Activity User E-sign Co-sign Detail Recorded Client Recorded Date Recorded By Document 02/26/24 08:56 JF [id number] 02/26/24 08:59 JF Document 03/12/24 13:27 KW g 03/12/24 13:28 KW 02/26/24 03/12/24 08:56 13:27 Wound Care Center Nurse 3 2. LLE anterior -Ulcer Cleansing Wound Cleanser -Foul Odor after Cleansing No -Other Dressing aquacel extra pt own aquacel extra -Primary Dressing Covered/Secured with Dry Gauze, Dry Gauze, Secured with Secured with Tape Tape Left -Tubular Bandage Single Layer Single Layer -Size of Tubigrip Used Size D Size D -Size D ($) 1 1 Pain Scale: 0-10 Numeric Is Patient Pain Free? Yes Yes WC - Visit Discharge Discharge Condition Stable Stable Ambulatory Status Ambulatory Ambulatory Transportation Private Auto Private Auto Medication Reconcilliation completed & Yes No provided to patient/care provider Clinical Summary of Care Provided Yes Yes Charges/Coding Procedures Integumentary [id number]: [id number] Jannette subq tissue 20 sq cm/< Assessment/Plan Assessment/Plan (1) Traumatic open wound of left lower leg with delayed healing: CODE(S): S81.802D - Unspecified open wound, left lower leg, subsequent encounter (2) Leg wound, left: CODE(S): S81.802A - Unspecified open wound, left lower leg, initial encounter QUALIFIERS: Encounter type: subsequent encounter Qualified Code(s): S81.802D - Unspecified open wound, left lower leg, subsequent encounter (3) Type 2 diabetes mellitus: CODE(S): E11.9 - Type 2 diabetes mellitus without complications QUALIFIERS: Diabetes mellitus complication status: with other specified complication Diabetes mellitus terminal computer operator insulin use: unspecified terminal computer operator insulin use status Qualified Code(s): E11.69 - Type 2 diabetes mellitus with other specified complication (4) Mixed hyperlipidemia: CODE(S): E78.2 - Mixed hyperlipidemia (5) Sleep apnea: CODE(S): G47.30 - Sleep apnea, unspecified QUALIFIERS: Sleep apnea type: obstructive Qualified Code(s): G47.33 - Obstructive sleep apnea (adult) (pediatric) (6) Hypertension: CODE(S): I10 - Essential (primary) hypertension QUALIFIERS: Hypertension type: essential hypertension Qualified Code(s): I10 - Essential (primary) hypertension (7) Obstructive sleep apnea: CODE(S): G47.33 - Obstructive sleep apnea (adult) (pediatric) PLAN: Plan This is a 69-year-old female who is active and functional. She is of normal body habitus. She suffers from diabetes mellitus, hyperlipidemia, hypertension, and obstructive sleep apnea. She sustained a traumatic wound to the left pretibial surface approximately 4 to 5 weeks prior to her presentation at the [facility]. The wound had shown little progress toward healing, prompting her to seek medical attention. Debridement has been performed in the wound healing center today. The wound appears pink and healthy in appearance with evidence of active granulation tissue. The wound has decreased in size since the patient's last visit. The patient has been counseled to optimize nutritional intake. She is already collaborating with an rn clinical for glycemic control. Review of past laboratory results reveals a hemoglobin A1c of 7.3 on November 07, 2023. We are to continue the use of moistened Aquacel, which will be applied daily. The patient has been instructed in appropriate means of application. She is to be allowed to shower on a daily basis. The patient will return in 2 weeks. A recent noninvasive lower extremity arterial study, performed on February 13, 2024, revealed no evidence of significant arterial occlusive disease in her lower extremities bilaterally. Total time: 24 minutes
== END 2024-03-24 23:59 | disposition home or self-care (01) ==
LOC: WC 13:15
PROVIDERS: PCP Internal Medicine; Referring Provider Physician Assistant; Visit Provider Surgery
DX: E11.622 Type 2 diabetes mellitus with other skin ulcer (principal); L97.222 Non-pressure chronic ulcer of left calf with fat layer exposed; Z79.4 Long term (current) use of insulin; E11.69 Type 2 diabetes mellitus with other specified complication; S81.802D Unspecified open wound, left lower leg, subsequent encounter; E78.2 Mixed hyperlipidemia; Z79.85 Long-term (current) use of injectable non-insulin antidiabetic drugs; I10 Essential (primary) hypertension; G47.33 Obstructive sleep apnea (adult) (pediatric); Z85.3 Personal history of malignant neoplasm of breast; Z99.89 Dependence on other enabling machines and devices
CPT/HCPCS: 11042

== ENCOUNTER → 2024-03-26 | Outpatient (CLI) | payer MEDICARE, SELFPAY ==
--- NOTE | 2024-03-26 12:51 | BI_ITS ---
MAMMOGRAPHY - UNILATERAL SCREENING: LEFT BREAST REASON FOR EXAM: Female, 69 years old. Routine annual screening examination (unilateral). PERTINENT HISTORY: Non-contributory. TECHNIQUE: Digital examination. Mediolateral oblique (MLO) and craniocaudad (CC) views of the breast were obtained. CAD: CAD was performed on this study. COMPARISON: 08/09/2022 FINDINGS: Breast Composition: There are scattered areas of fibroglandular density. There are no dominant masses or suspicious calcifications. No other significant abnormalities are identified. BI/SCREEN MAMM (CAD) W/CHELA UNI L IMPRESSION: Stable left screening mammogram. ASSESSMENT CATEGORY: BIRADS Category 1: Negative. A letter regarding these results will be sent to the patient by the facility within 30 days. FOLLOW UP RECOMMENDATION: Yearly follow up mammogram recommended. (A) [id number] Approximately 10% of breast cancers are not detected by mammography. A normal mammogram should not delay biopsy of a clinically suspicious abnormality. [id number] Electronically Signed: Jos Low MD at 19:07 EDT ,
--- NOTE | 2024-03-26 12:58 | BD_ITS ---
STUDY: DUAL ENERGY X-RAY ABSORPTIOMETRY / DXA REASON FOR EXAM: Female, 69 years old. Post - Menopausal TECHNIQUE: Bone Mineral Density (BMD) measurements of lumbar spine and bilateral hips were obtained. COMPARISON: Comparison is made with prior study date June 17, 2020. FINDINGS: Lumbar Spine (L1-L4): g/cm2 (1.077) / T-score (0.0) / Z-score (2.0) Findings are suggestive of normal bone density with a low fracture risk. Left Femur Total: g/cm2 (0.821) / T-score (-1.0) / Z-score (0.4) Left Femoral Neck: g/cm2 (0.644) / T-score (-1.8) / Z-score (-0.2) Right Femur Total: g/cm2 (0.807) / T-score (-1.1) / Z-score (0.3) Right Femoral Neck: g/cm2 (0.725) / T-score (-1.1) / Z-score (0.6) The T-Scores on the most recent prior examination were: Lumbar Spine (L1-L4): There has been worsening of bone density since the previous examination. Left Femur Total: which represents a worsening of 8.4%. Right Femur Total: which represents a worsening of 7.7%. BD/Dexa Bone Density Study IMPRESSION: The patient is considered osteopenic as outlined below according to World Hilario Organization (WHO) criteria with a moderate fracture risk. There has been worsening of bone density since the previous examination. Reference Information: The T-score is the number of standard deviations above or below the standard which is normal for young adults at their peak bone mineral density. The World Health Organization (WHO) interprets the T-scores as follows: Above -1 Normal bone density Between -1 and -2.5 Osteopenia Equal to / or below -2.5 Osteoporosis As a practical clinical guideline, osteopenia may be graded as follows: Mild -1 through -1.5 Moderate -1.6 through -2.0 Severe -2.1 through -2.4 The Z-score is the number of standard deviations above or below age-matched controls. A Z-score of less than -1.5 would be considered abnormal. References: 1. NIH Osteoporosis and Related Bone Diseases www osteo.org 2. International Society for Clinical Densitometry www iscd.org 3. National Osteoporosis Foundation www nof.org Electronically Signed: Johnathon Benjamin MD at 13:24 EDT ,
== END | disposition home or self-care (01) ==
LOC: OPBD 12:51
PROVIDERS: PCP Internal Medicine; Referring Provider Internal Medicine; Visit Provider Internal Medicine
DX: Z12.31 Encounter for screening mammogram for malignant neoplasm of breast (principal); Z78.0 Asymptomatic menopausal state
CPT/HCPCS: 77063; 77067; 77080

== ENCOUNTER 2024-04-09 13:00 | Outpatient (RCR) | payer MEDICARE, SELFPAY ==
[2024-03-25 00:23] VITALS: BP 123/66; PULSE 101; RESP 18; TEMP 36.1; BMI 22.4
[2024-03-26 13:29] VITALS: BP 104/55; PULSE 75; RESP 18; TEMP 35.9; BMI 22.4
--- NOTE | 2024-03-26 16:00 | HP.PCM_ITS ---
History of Present Illness Date of Service: 03/26/24 Chief Complaint: Traumatic left pretibial wound History of Wound: This is a 69-year-old female who presented with a traumatic wound on the left pretibial surface. This occurred approximately 4 to 5 weeks prior to her presentation, when she impacted the left pretibial surface against a metal object in her garage. She subsequently developed swelling and redness in the periwound area, for which she was evaluated and treated by her primary care physician. She received a 10-day course of Keflex which was taken orally. She had been using bacitracin ointment topically on an intermittent basis, and at times using only dry gauze. Since the time of her injury, the traumatic wound failed to heal and progress. This prompted her to seek medical attention in the [facility]. She is of normal body habitus. She is active, and ambulates liberally without limitations. She denies swelling in her lower extremities. She has no history of thrombophlebitis. [facility] Medical History (Updated 03/26/24 @ 16:[address] 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 Overactive bladder Leg wound, left Obstructive sleep apnea Traumatic open wound of left lower leg with delayed healing Itching of ear Health care maintenance Preventative health care Abdominal pain History of Clostridium difficile infection Alcohol use History of kidney stones Easy bruising History of hiatal hernia Heartburn CPAP (continuous positive airway pressure) dependence History of stress test Early satiety Chronic nausea Wound of right lower extremity Cellulitis of right lower leg Contusion of right lower leg Abrasion, right lower leg, initial encounter Grief reaction Tachycardia Arthritis Vitamin D deficiency History of breast cancer Home Medications ?Medication ?Instructions ?Recorded ?Last Taken ?Type aspirin 81 mg tablet,delayed 81 mg PO QDAY 10/05/17 01/02/19 History release (Adult Aspirin Regimen) cholecalciferol (vitamin D3) 50 2,000 unit PO DAILY 10/05/17 Unknown History mcg (2,000 unit) capsule flash glucose scanning reader #1 ea 11/11/19 Unknown Rx (FreeStyle John 14 Day [place]) pen needle, diabetic 29 gauge x #100 ea 04/19/21 Unknown Rx 1/2 (Ultra-Thin II Insulin [place]) oxybutynin chloride 10 mg 15 mg PO DAILY 04/20/22 Unknown History tablet,extended release 24 hr cyanocobalamin (vitamin B-12) 2,500 mcg PO .THREE TIMES A WEEK 07/27/22 Unknown History 2,500 mcg tablet docusate sodium 100 mg capsule 100 mg PO DAILY 07/27/22 Unknown History (Colace) True Metrix Glucose Test Strip #50 ea 11/10/22 Unknown Rx (blood sugar diagnostic) blood-glucose meter (True Metrix #1 ea 11/10/22 Unknown Rx Glucose Meter kit) Ozempic 1 mg/dose (4 mg/3 mL) 1 mg (0.75 mL) subcut QWEEK #3 mL 11/07/23 Unknown Rx subcutaneous pen injector (semaglutide) atorvastatin 80 mg tablet 80 mg PO QHS #90 tabs 11/07/23 Unknown Rx dapagliflozin propanediol 10 mg 10 mg PO QDAY diabetes #90 tabs 11/07/23 Unknown Rx tablet flash glucose sensor (FreeStyle #6 ea 11/07/23 Unknown Rx John 14 Day Sensor kit) glimepiride 2 mg tablet 1 mg (1/2 x 2 mg) PO DAILY #90 tabs 11/07/23 Unknown Rx lisinopril 20 mg tablet See Rx Instructions .Route 11/07/23 Unknown Rx .COMPLEX #90 tabs venlafaxine 75 mg tablet 275 mg PO QHS ANTIDEPRESSANT 01/09/24 Unknown History Allergy/AdvReac Type Severity Reaction Status Date / Time amoxicillin Allergy Rash Verified 02/12/24 08:11 levofloxacin (From Levaquin) Allergy Vomiting Verified 02/12/24 08:11 promethazine (From Phenergan) Allergy Other Verified 02/12/24 08:11 Family History Sister Breast cancer Grandmother Breast cancer Uncle Breast cancer Mother Heart disease Thyroid disorder Father Heart disease CVA (cerebral vascular accident) Cancer prostate Brother Crohns disease Grandfather CVA (cerebral vascular accident) Grandmother Diabetes Surgical History Hx of cataract extraction History of colonoscopy bunionecmy of right foot abdominal tram flap History of total mastectomy of right breast Social History Smoking Status: Never smoker alcohol intake: current alcohol intake frequency: a few times a month Alcohol type: beer substance use type: does not use caffeine: Yes what type of physical activity do you participate in: walking frequency: 5-6 times per week do you feel safe at home: Yes Vital Signs Vital Signs Vital Signs: 03/26/24 13:29 Temperature 96.7 F L Temperature Source Temporal Pulse Rate 75 Respiratory Rate 18 Blood Pressure 104/55 L Blood Pressure Mean 71 Blood Pressure Source Monitor Blood Pressure Position Sitting Blood Pressure Location Left Arm Oxygen Delivery Method Room Air Weight Weight: 143 lb Body Mass Index (BMI) 22.4 Physical Exam Const alert, oriented x3, no apparent distress, average body habitus and well nourished General Appearance: cooperative, comfortable, well kempt and well developed Orientation / Consciousness: awake, oriented to person, oriented to place and oriented to time Exam Limitations: no limitations HEENT normocephalic, head/scalp atraumatic and hearing grossly normal bilaterally Head and Scalp: normal to inspection, normocephalic and atraumatic Face and Sinus: normal facial exam Nose: external nose normal External Ear: external ears normal Eyes PERRL and EOMs intact bilaterally General Eye: normal appearance of both eyes Sclera: sclera normal Neck full ROM General: normal visual inspection and trachea midline Resp normal respiratory effort, normal air movement, no retractions, no use of accessory muscles and clear to auscultation bilaterally Effort and Inspection: able to speak in complete sentences and symmetric chest movement Cardio regular rate, regular rhythm, S1 normal heart sound, S2 normal heart sound and no murmurs Extremity no calf tenderness General Extremity: Negative for clubbing or cyanosis Skin Wound Narrative: A traumatic wound is noted on the patient's left pretibial surface. Dimensions are documented elsewhere. The wound has decreased in size since the patient's last visit. The base of the wound is generally pink and healthy in appearance, with a small amount of bioburden, though with evidence of active, healthy granulation tissue. Peripheral epithelialization is noted. No swelling or edema are noted in the lower extremities bilaterally. No other wounds or ulcerations are observed. Neuro oriented x3, CN's II-XII intact bilaterally, moves all extremities and no focal motor deficits Sensorium / Orientation: awake, alert, oriented to person, oriented to place and oriented to time Psych Appearance: grossly normal and appropriate Attitude: calm Activity / Motor Behavior: appropriate eye contact Speech: normal speech Mood & Affect: euthymic mood Thought Process: normal thought process Thought Content: normal thought content Attention / Concentration: attention grossly intact Debridement Note Debridement Note Wound debrided: Left pretibial surface Laterality: Left Type of Debridement: Excisional debridement Anesthesia Used: 5% Lidocaine Gel Depth: Down to and including healthy tissue and in the subcutaneous layer Percentage of wound debrided: 100 Instrument Used: 3mm curette Tissue Removed: Bioburden Severity: Fat Layer Exposed Amount of bleeding with debridement: Mild Bleeding Controlled with: Compression and gauze Patient tolerated procedure: Patient tolerated procedure well Post-Debridement Measurements and Additional Note: Post-Debridement Measurements/Treatment - Nurse 1 - General Ulcer Assessment Start: 03/26/24 13:29 Freq: Status: Active Protocol: JEANETTE Activity Type Activity Date Activity User E-sign Co-sign Detail Recorded Client Recorded Date Recorded By Document 03/26/24 13:29 KW z 03/26/24 13:35 KW 03/26/24 13:29 - Today's Visit Information Type of service Follow-up Visit (Physician/STATION AGENT ) Arrival Mode Ambulatory Patient Identification Verified (Name & Yes ) Height and Weight Body Mass Index (BMI) 22.4 BMI Classification Normal Vital Signs Temperature (97.8 F-99.1 F) 96.7 F L Temperature Source Temporal Pulse Rate (60-100) 75 Pulse Location Monitor Respiratory Rate (12-18) 18 Respiratory rate source Observation Oxygen Delivery Method Room Air Blood Pressure (90/60-120/80) 104/55 L Blood Pressure Mean 71 Source Monitor Position Sitting Blood Pressure Location Left Arm History Since Last Visit- (Skip if this is Patient's initial visit) Have you changed medications since your No last visit? Any new allergies or adverse reactions No Had a fall/change in ADL's that may No increase risk of falls Signs or symptoms of abuse and/or No neglect since last visit Have you been in the hospital since your No last visit? Has dressing in place as prescribed Yes Has compression in place as prescribed Yes Has offloadiing in place as prescribed N/A Experienced any changes in pain level or No management Left Footwear Regular Shoe Right Footwear Regular Shoe Pain Scale: 0-10 Numeric Is Patient Pain Free? Yes - Nurse 1 - General Ulcer Measurement Start: 03/26/24 13:29 Freq: Status: Active Protocol: Activity Type Activity Date Activity User E-sign Co-sign Detail Recorded Client Recorded Date Recorded By Document 03/26/24 13:29 KW z 03/26/24 13:35 KW 03/26/24 13:29 Wound Center Nurse 1 2. LLE anterior -Current Size (cm) - Length 0.5 -Current Size (cm) - Width 0.4 -Current Size (cm) - Depth 0.1 -Total Square Cm 0.20 -Date of Last Picture (Recall this 03/26/24 field) -Epithelialization Large 67-100% -Exudate Amt Small -Exudate Type Serosanguineous -Wound Margin Distinct, Outline Attached -Granulation Amt Large (67-100%) -Granulation Quality Red -Texture (Radha-wound Skin Appearance) Assessed -Moisture (Radha-wound Skin Appearance) Assessed -Color (Radha-wound Skin Appearance) Assessed -Temperature (Radha-wound Skin No Abnormality Appearance) (Pt Warm) -Tenderness on Palpation (Radha-wound No Skin Appearance) -Ulcer Cleansing Rinsed/ Irrigated with Saline -Foul Odor after Cleansing No -Anesthetic Used 5% Lidocaine Gel Left Calf (cm) 34 Left Ankle (cm) 19 - Nurse 2 - General Ulcer CM Notes Start: 03/26/24 13:29 Freq: Status: Active Protocol: Activity Type Activity Date Activity User E-sign Co-sign Detail Recorded Client Recorded Date Recorded By Document 03/26/24 13:51 [id number] [id number] 03/26/24 13:54 JF 03/26/24 13:51 Wound Center Nurse 2 2. LLE anterior -Time 13:52 -Correct Patient Yes -Correct Side, Site, Position Yes -Correct Procedure Yes -Procedure Performed Yes -Type of Procedure Debridement -Clinical Debridement Subcutaneous -Tissue Removed Subcutaneous -Post Debridement (cm) - Length 0.5 -Post Debridement (cm) - Width 0.6 -Post Debridement (cm) - Depth 0.1 -Total Square (Post) (cm) 0.30 -Area of Debridement (cm) - Length 0.5 -Area of Debridement (cm) - Width 0.6 -Total Square (Area) (cm) 0.30 -Tunneling No -Undermining/Tunneling No -Circular Undermining No -Wound/Ulcer Outcome Not Healed -Ulcer Cleansing Rinsed/ Irrigated with Saline -Foul Odor after Cleansing No -Bioengineered Tissue No -Bleeding Controlled with Pressure -Treatment Response Procedure Tolerated Well -Offloading No -Debridement - Subq, 1st 20sq cm Yes Pain Scale: 0-10 Numeric Is Patient Pain Free? Yes WC - Nurse 3 - General Ulcer D/C NN Start: 03/26/24 13:29 Freq: Status: Active Protocol: Activity Type Activity Date Activity User E-sign Co-sign Detail Recorded Client Recorded Date Recorded By Document 03/26/24 14:16 KW z 03/26/24 14:16 KW 03/26/24 14:16 Wound Care Center Nurse 3 2. LLE anterior -Primary Dressing Applied C Hydrogel ($), NonAdherent Contact Layer -Primary Dressing Covered/Secured with Dry Gauze & Roll Gauze, Secured with Tape Pain Scale: 0-10 Numeric Is Patient Pain Free? Yes WC - Visit Discharge Discharge Condition Stable Ambulatory Status Ambulatory Transportation Private Auto Medication Reconcilliation completed & No provided to patient/care provider Clinical Summary of Care Provided Yes Charges/Coding Procedures Integumentary [id number]: [id number] Jannette subq tissue 20 sq cm/< Assessment/Plan Assessment/Plan (1) Non-pressure chronic ulcer of left calf with fat layer exposed: CODE(S): L97.222 - Non-pressure chronic ulcer of left calf with fat layer exposed (2) Traumatic open wound of left lower leg with delayed healing: CODE(S): S81.802D - Unspecified open wound, left lower leg, subsequent encounter (3) Leg wound, left: CODE(S): S81.802A - Unspecified open wound, left lower leg, initial encounter QUALIFIERS: Encounter type: subsequent encounter Qualified Code(s): S81.802D - Unspecified open wound, left lower leg, subsequent encounter (4) Type 2 diabetes mellitus: CODE(S): E11.9 - Type 2 diabetes mellitus without complications QUALIFIERS: Diabetes mellitus prison insulin use: unspecified prison insulin use status Diabetes mellitus complication status: with other specified complication Qualified Code(s): E11.69 - Type 2 diabetes mellitus with other specified complication (5) Mixed hyperlipidemia: CODE(S): E78.2 - Mixed hyperlipidemia (6) Sleep apnea: CODE(S): G47.30 - Sleep apnea, unspecified QUALIFIERS: Sleep apnea type: obstructive Qualified Code(s): G47.33 - Obstructive sleep apnea (adult) (pediatric) (7) Hypertension: CODE(S): I10 - Essential (primary) hypertension QUALIFIERS: Hypertension type: essential hypertension Qualified Code(s): I10 - Essential (primary) hypertension (8) Obstructive sleep apnea: CODE(S): G47.33 - Obstructive sleep apnea (adult) (pediatric) PLAN: Plan This is a 69-year-old female who is active and functional. She is of normal body habitus. She suffers from diabetes mellitus, hyperlipidemia, hypertension, and obstructive sleep apnea. She sustained a traumatic wound to the left pretibial surface approximately 4 to 5 weeks prior to her presentation at the [facility]. The wound had shown little progress toward healing, prompting her to seek medical attention. Debridement has been performed in the wound healing center today. The wound appears pink and healthy in appearance with evidence of active granulation tissue. The wound has decreased in size since the patient's last visit. The patient has been counseled to optimize nutritional intake. She is already collaborating with an shale planer operator for glycemic control. Review of past laboratory results reveals a hemoglobin A1c of 7.3 on November 07, 2023. We are to transition to the use of collagen hydrogel topically on a daily basis, covered with Adaptic. The patient has been instructed in appropriate means of application. She is to be allowed to shower on a daily basis. The patient will return in 2 weeks. A recent noninvasive lower extremity arterial study, performed on February 13, 2024, revealed no evidence of significant arterial occlusive disease in her lower extremities bilaterally. Total time: 22 minutes
--- NOTE | 2024-03-27 09:52 | WC ---
PHOTO LEFT LOWER DYE 03/26/2024
--- NOTE | 2024-04-04 08:48 | WC ---
PHOTO 03/26/2024 DEBBIE DYE
[2024-04-09 12:58] VITALS: BP 109/59; PULSE 78; RESP 18; TEMP 35.8; BMI 22.4
--- NOTE | 2024-04-09 17:49 | PCM.WC.HP ---
History of Present Illness Date of Service: 04/09/24 Chief Complaint: Traumatic left pretibial wound History of Wound: This is a 69-year-old female who presented with a traumatic wound on the left pretibial surface. This occurred approximately 4 to 5 weeks prior to her presentation, when she impacted the left pretibial surface against a metal object in her garage. She subsequently developed swelling and redness in the periwound area, for which she was evaluated and treated by her primary care physician. She received a 10-day course of Keflex which was taken orally. She had been using bacitracin ointment topically on an intermittent basis, and at times using only dry gauze. Since the time of her injury, the traumatic wound failed to heal and progress. This prompted her to seek medical attention in the [facility]. She is of normal body habitus. She is active, and ambulates liberally without limitations. She denies swelling in her lower extremities. She has no history of thrombophlebitis. 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 Overactive bladder Leg wound, left Obstructive sleep apnea Traumatic open wound of left lower leg with delayed healing Itching of ear Health care maintenance Preventative health care Abdominal pain History of Clostridium difficile infection Alcohol use History of kidney stones Easy bruising History of hiatal hernia Heartburn CPAP (continuous positive airway pressure) dependence History of stress test Early satiety Chronic nausea Wound of right lower extremity Cellulitis of right lower leg Contusion of right lower leg Abrasion, right lower leg, initial encounter Grief reaction Tachycardia Arthritis Vitamin D deficiency History of breast cancer Home Medications ?Medication ?Instructions ?Recorded ?Last Taken ?Type aspirin 81 mg tablet,delayed 81 mg PO QDAY 10/05/17 01/02/19 History release (Adult Aspirin Regimen) cholecalciferol (vitamin D3) 50 2,000 unit PO DAILY 10/05/17 Unknown History mcg (2,000 unit) capsule flash glucose scanning reader #1 ea 11/11/19 Unknown Rx (FreeStyle John 14 Day [place]) pen needle, diabetic 29 gauge x #100 ea 04/19/21 Unknown Rx 1/2 (Ultra-Thin II Insulin Pen Ignacio) oxybutynin chloride 10 mg 15 mg PO DAILY 04/20/22 Unknown History tablet,extended release 24 hr cyanocobalamin (vitamin B-12) 2,500 mcg PO .THREE TIMES A WEEK 07/27/22 Unknown History 2,500 mcg tablet docusate sodium 100 mg capsule 100 mg PO DAILY 07/27/22 Unknown History (Colace) True Metrix Glucose Test Strip #50 ea 11/10/22 Unknown Rx (blood sugar diagnostic) blood-glucose meter (True Metrix #1 ea 11/10/22 Unknown Rx Glucose Meter kit) Ozempic 1 mg/dose (4 mg/3 mL) 1 mg (0.75 mL) subcut QWEEK #3 mL 11/07/23 Unknown Rx subcutaneous pen injector (semaglutide) atorvastatin 80 mg tablet 80 mg PO QHS #90 tabs 11/07/23 Unknown Rx dapagliflozin propanediol 10 mg 10 mg PO QDAY diabetes #90 tabs 11/07/23 Unknown Rx tablet flash glucose sensor (FreeStyle #6 ea 11/07/23 Unknown Rx John 14 Day Sensor kit) glimepiride 2 mg tablet 1 mg (1/2 x 2 mg) PO DAILY #90 tabs 11/07/23 Unknown Rx lisinopril 20 mg tablet See Rx Instructions .Route 11/07/23 Unknown Rx .COMPLEX #90 tabs venlafaxine 75 mg tablet 275 mg PO QHS ANTIDEPRESSANT 01/09/24 Unknown History calcium carbonate (Calcium 600) 600 mg PO DAILY 04/09/24 Unknown History Allergy/AdvReac Type Severity Reaction Status Date / Time amoxicillin Allergy Rash Verified 02/12/24 08:11 levofloxacin (From Levaquin) Allergy Vomiting Verified 02/12/24 08:11 promethazine (From Phenergan) Allergy Other Verified 02/12/24 08:11 Family History Sister Breast cancer Grandmother Breast cancer Uncle Breast cancer Mother Heart disease Thyroid disorder Father Heart disease CVA (cerebral vascular accident) Cancer prostate Brother Crohns disease Grandfather CVA (cerebral vascular accident) Grandmother Diabetes Surgical History Hx of cataract extraction History of colonoscopy bunionecmy of right foot abdominal tram flap History of total mastectomy of right breast Social History Smoking Status: Never smoker alcohol intake: current alcohol intake frequency: a few times a month Alcohol type: beer substance use type: does not use caffeine: Yes what type of physical activity do you participate in: walking frequency: 5-6 times per week do you feel safe at home: Yes Vital Signs Vital Signs Vital Signs: 04/09/24 12:58 Temperature 96.5 F L Temperature Source Temporal Pulse Rate 78 Respiratory Rate 18 Blood Pressure 109/59 L Blood Pressure Mean 75 Blood Pressure Source Monitor Blood Pressure Position Semi-Fowlers Blood Pressure Location Left Arm Weight Weight: 143 lb Body Mass Index (BMI) 22.4 Physical Exam Const alert, oriented x3, no apparent distress, average body habitus and well nourished General Appearance: cooperative, comfortable, well kempt and well developed Orientation / Consciousness: awake, oriented to person, oriented to place and oriented to time Exam Limitations: no limitations HEENT normocephalic, head/scalp atraumatic and hearing grossly normal bilaterally Head and Scalp: normal to inspection, normocephalic and atraumatic Face and Sinus: normal facial exam Nose: external nose normal External Ear: external ears normal Eyes PERRL and EOMs intact bilaterally General Eye: normal appearance of both eyes Sclera: sclera normal Neck full ROM General: normal visual inspection and trachea midline Resp normal respiratory effort, normal air movement, no retractions, no use of accessory muscles and clear to auscultation bilaterally Effort and Inspection: able to speak in complete sentences and symmetric chest movement Cardio regular rate, regular rhythm, S1 normal heart sound, S2 normal heart sound and no murmurs Extremity no calf tenderness General Extremity: Negative for clubbing or cyanosis Skin Wound Narrative: The traumatic wound on the patient's left pretibial surface is now completely healed and epithelialized. There is no sign of infection or cellulitis. Neuro oriented x3, CN's II-XII intact bilaterally, moves all extremities and no focal motor deficits Sensorium / Orientation: awake, alert, oriented to person, oriented to place and oriented to time Psych Appearance: grossly normal and appropriate Attitude: calm Activity / Motor Behavior: appropriate eye contact Speech: normal speech Mood & Affect: euthymic mood Thought Process: normal thought process Thought Content: normal thought content Attention / Concentration: attention grossly intact Debridement Note Debridement Note No debridement was completed: No debridement was completed today (The patient's wound is now completely healed.) Post-Debridement Measurements and Additional Note: Post-Debridement Measurements/Treatment WC - Nurse 1 - General Ulcer Assessment Start: 03/26/24 13:29 Freq: Status: Active Protocol: JEANETTE Activity Type Activity Date Activity User E-sign Co-sign Detail Recorded Client Recorded Date Recorded By Document 03/26/24 13:29 KW z 03/26/24 13:35 KW Document 04/09/24 12:58 RB wound 04/09/24 12:59 RB 03/26/24 04/09/24 13:29 12:58 WC - Today's Visit Information Type of service Follow-up Visit Follow-up Visit (Physician/ETCHER ENAMELING (Physician/ETCHER ENAMELING ) ) Arrival Mode Ambulatory Ambulatory Transfer Assistance None Patient Identification Verified (Name & Yes Yes ) Patient Requires Transmission-Based No Precautions Height and Weight Body Mass Index (BMI) 22.4 22.4 BMI Classification Normal Normal Vital Signs Temperature (97.8 F-99.1 F) 96.7 F L 96.5 F L Temperature Source Temporal Temporal Pulse Rate (60-100) 75 78 Pulse Location Monitor Monitor Respiratory Rate (12-18) 18 18 Respiratory rate source Observation Observation Oxygen Delivery Method Room Air Blood Pressure (90/60-120/80) 104/55 L 109/59 L Blood Pressure Mean 71 75 Source Monitor Monitor Position Sitting Semi-Fowlers Blood Pressure Location Left Arm Left Arm History Since Last Visit- (Skip if this is Patient's initial visit) Have you changed medications since your No No last visit? Any new allergies or adverse reactions No No Had a fall/change in ADL's that may No No increase risk of falls Signs or symptoms of abuse and/or No No neglect since last visit Have you been in the hospital since your No No last visit? Has dressing in place as prescribed Yes Yes Has compression in place as prescribed Yes No Has offloadiing in place as prescribed N/A No Experienced any changes in pain level or No No management Left Footwear Regular Shoe Right Footwear Regular Shoe Pain Scale: 0-10 Numeric Is Patient Pain Free? Yes Yes YULIET - Nurse 1 - General Ulcer Measurement Start: 03/26/24 13:29 Freq: Status: Active Protocol: Activity Type Activity Date Activity User E-sign Co-sign Detail Recorded Client Recorded Date Recorded By Document 03/26/24 13:29 KW z 03/26/24 13:35 KW Document 04/09/24 12:58 RB wound 04/09/24 12:59 RB 03/26/24 04/09/24 13:29 12:58 Wound Center Nurse 1 2. LLE anterior -Combined with other wound No -Current Size (cm) - Length 0.5 0 -Current Size (cm) - Width 0.4 0 -Current Size (cm) - Depth 0.1 0 -Total Square Cm 0.20 0 -Date of Last Picture (Recall this 03/26/24 field) -Photo Taken Yes -Epithelialization Large 67-100% Large 67-100% -Exudate Amt Small -Exudate Type Serosanguineous -Wound Margin Distinct, Outline Attached -Granulation Amt Large (67-100%) -Granulation Quality Red -Texture (Radha-wound Skin Appearance) Assessed -Moisture (Radha-wound Skin Appearance) Assessed -Color (Radha-wound Skin Appearance) Assessed -Temperature (Radha-wound Skin No Abnormality Appearance) (Pt Warm) -Tenderness on Palpation (Radha-wound No Skin Appearance) -Ulcer Cleansing Rinsed/ Irrigated with Saline -Foul Odor after Cleansing No -Anesthetic Used 5% Lidocaine Gel Lower Limb Edema Present Yes Left Calf (cm) 34 34.5 Left Ankle (cm) 19 19.5 WC - Nurse 2 - General Ulcer CM Notes Start: 03/26/24 13:29 Freq: Status: Active Protocol: Activity Type Activity Date Activity User E-sign Co-sign Detail Recorded Client Recorded Date Recorded By Document 03/26/24 13:51 [id number] 03/26/24 13:54 JF Document 04/09/24 13:13 DS 1 04/09/24 13:14 DS 03/26/24 04/09/24 13:51 13:13 Wound Center Nurse 2 2. LLE anterior -Time 13:52 13:13 -Correct Patient Yes -Correct Side, Site, Position Yes -Correct Procedure Yes -Procedure Performed Yes -Type of Procedure Debridement -Clinical Debridement Subcutaneous -Tissue Removed Subcutaneous -Post Debridement (cm) - Length 0.5 -Post Debridement (cm) - Width 0.6 -Post Debridement (cm) - Depth 0.1 -Total Square (Post) (cm) 0.30 -Area of Debridement (cm) - Length 0.5 -Area of Debridement (cm) - Width 0.6 -Total Square (Area) (cm) 0.30 -Tunneling No -Undermining/Tunneling No -Circular Undermining No -Wound/Ulcer Outcome Not Healed Healed- Epithelialized -Ulcer Cleansing Rinsed/ Irrigated with Saline -Foul Odor after Cleansing No -Bioengineered Tissue No -Bleeding Controlled with Pressure -Treatment Response Procedure Tolerated Well -Offloading No -Debridement - Subq, 1st 20sq cm Yes Pain Scale: 0-10 Numeric Is Patient Pain Free? Yes Yes - Nurse 3 - General Ulcer D/C NN Start: 03/26/24 13:29 Freq: Status: Active Protocol: Activity Type Activity Date Activity User E-sign Co-sign Detail Recorded Client Recorded Date Recorded By Document 03/26/24 14:16 KW z 03/26/24 14:16 KW Document 04/09/24 13:16 DS 1 04/09/24 13:17 DS 03/26/24 04/09/24 14:16 13:16 Wound Care Center Nurse 3 2. LLE anterior -Primary Dressing Applied C Hydrogel ($), NonAdherent Contact Layer -Primary Dressing Covered/Secured with Dry Gauze & Dry Gauze, Roll Gauze, Secured with Secured with Tape Tape Pain Scale: 0-10 Numeric Is Patient Pain Free? Yes Yes - Visit Discharge Discharge Condition Stable Ambulatory Status Ambulatory Transportation Private Auto Medication Reconcilliation completed & No provided to patient/care provider Clinical Summary of Care Provided Yes Charges/Coding Visit Charges Office Visits / Consults: [id number] OV L3 Est 20min Assessment/Plan Assessment/Plan (1) Non-pressure chronic ulcer of left calf with fat layer exposed: CODE(S): L97.222 - Non-pressure chronic ulcer of left calf with fat layer exposed (2) Traumatic open wound of left lower leg with delayed healing: CODE(S): S81.802D - Unspecified open wound, left lower leg, subsequent encounter (3) Leg wound, left: CODE(S): S81.802A - Unspecified open wound, left lower leg, initial encounter QUALIFIERS: Encounter type: subsequent encounter Qualified Code(s): S81.802D - Unspecified open wound, left lower leg, subsequent encounter (4) Type 2 diabetes mellitus: CODE(S): E11.9 - Type 2 diabetes mellitus without complications QUALIFIERS: Diabetes mellitus manager intermediate insulin use: unspecified manager intermediate insulin use status Diabetes mellitus complication status: with other specified complication Qualified Code(s): E11.69 - Type 2 diabetes mellitus with other specified complication (5) Mixed hyperlipidemia: CODE(S): E78.2 - Mixed hyperlipidemia (6) Sleep apnea: CODE(S): G47.30 - Sleep apnea, unspecified QUALIFIERS: Sleep apnea type: obstructive Qualified Code(s): G47.33 - Obstructive sleep apnea (adult) (pediatric) (7) Hypertension: CODE(S): I10 - Essential (primary) hypertension QUALIFIERS: Hypertension type: essential hypertension Qualified Code(s): I10 - Essential (primary) hypertension (8) Obstructive sleep apnea: CODE(S): G47.33 - Obstructive sleep apnea (adult) (pediatric) PLAN: Plan This is a 69-year-old female who is active and functional. She is of normal body habitus. She suffers from diabetes mellitus, hyperlipidemia, hypertension, and obstructive sleep apnea. She sustained a traumatic wound to the left pretibial surface approximately 4 to 5 weeks prior to her presentation at the [facility]. The wound had shown little progress toward healing, prompting her to seek medical attention. At the patient's visit today, it is noted that her left pretibial wound is completely healed and epithelialized. Therefore, the patient is to be discharged, and will follow-up henceforth on an as-needed basis. She has been advised to protect the area of the healed wound from even light trauma, particularly within the next several weeks. Total time: 22 minutes
== END 2024-04-24 23:59 | disposition home or self-care (01) ==
LOC: WC 13:00
PROVIDERS: PCP Internal Medicine; Referring Provider Physician Assistant; Visit Provider Surgery
DX: E11.622 Type 2 diabetes mellitus with other skin ulcer (principal); L97.222 Non-pressure chronic ulcer of left calf with fat layer exposed; E11.69 Type 2 diabetes mellitus with other specified complication; G47.33 Obstructive sleep apnea (adult) (pediatric); Z79.85 Long-term (current) use of injectable non-insulin antidiabetic drugs; Z79.84 Long term (current) use of oral hypoglycemic drugs; I10 Essential (primary) hypertension; E78.2 Mixed hyperlipidemia; S81.802D Unspecified open wound, left lower leg, subsequent encounter; Z79.82 Long term (current) use of aspirin
CPT/HCPCS: 11042; 99212; G0463

== ENCOUNTER → 2024-08-19 | Outpatient (CLI) | payer MEDICARE, SELFPAY ==
[2024-08-19 15:27] LABS: Absolute Lymphocyte Count 1.47 X10^3/uL (0.83-4.51); Absolute Neutrophil Count 5.5 X10^3/uL (2.0-7.7); Basophil# 0.08 X10^3/uL; Eosinophil# 0.32 X10^3/uL; Hematocrit 46.6 % (37-47); Hemoglobin 14.8 g/dL (12.0-15.0); Lymphocyte # 1.47 X10^3/ul (0.83-4.51); Lymphocyte % 18.4 % (19-41); Mean Corp Hgb Conc 31.8 g/dL (32-36); Mean Corpuscular Hgb 28.6 pg (27.0-32.0); Mean Platelet Vol. 11.7 fl (6.2-12.0); Monocyte% 7.5 % (0-10); NRBC Flagged by Analyzer 0 % (0-5); Neutrophil # 5.49 X10^3/uL (2.7-7.7); Neutrophil % 68.7 % (47-70); Platelet Count 262 K/mm3 (150-450); RBC Distribution Width CV 12.4 % (11.6-14.6); RBC Distribution Width SD 41.1 fl (35.1-43.9); Red Blood Count 5.18 M/mm3 (4.2-5.4)
[2024-08-19 15:43] LABS: ALB/GLOB Ratio 0.8 RATIO (0.9-2.4); AST(SGOT) 20 U/L (15-37); Alanine Aminotransfer ALT/SGPT 32 U/L (13-56); Albumin, Serum 3.7 g/dL (3.2-5.0); Alkaline Phosphatase 133 U/L (45-117); Anion Gap 5 (5-15); BUN 13 mg/dL (7-18); Chloride 102 mmol/L (98-107); EST Glomerular Filtration Rate 59 mL/min (>60); Est Glom Filt Rate - Afr Amer 71 mL/min (>60); Globulin 4.4 g/dL (2.2-4.2); Glucose 163 mg/dL (74-106); Potassium 4.6 mmol/L (3.5-5.1); Protein, Total 8.1 g/dL (6.4-8.2); Sodium Level 134 mmol/L (136-145)
[2024-08-19 15:57] LABS: Microalbumin,Random Urine 49.2 mg/L (NO RANGE EST.); Microalbumin:Creatinine Ratio 67.2 mg/g CRE (<30 mg/g CRE)
== END | disposition home or self-care (01) ==
LOC: BIMLAB 11:49
PROVIDERS: PCP Internal Medicine; Referring Provider Internal Medicine; Visit Provider Internal Medicine
DX: E11.69 Type 2 diabetes mellitus with other specified complication (principal); E78.2 Mixed hyperlipidemia
CPT/HCPCS: 36415; 80053; 82043; 82570; 85025

== ENCOUNTER → 2025-03-25 | Outpatient (CLI) | payer MEDICARE, SELFPAY ==
[2025-03-25 12:40] LABS: AST(SGOT) 26 U/L (<=31); Alanine Aminotransfer ALT/SGPT 27 U/L (<=34); Albumin, Serum 4.3 g/dL (3.4-4.8); Alkaline Phosphatase 121 U/L (35-104); Anion Gap 12 (5-15); BUN 16 mg/dL (4-19); BUN/Creat Ratio 16.6 RATIO (10-20); Calcium,Total 9.7 mg/dL (7.6-11.0); Carbon Dioxide 25.8 mmol/L (21.0-32.0); Chloride 100 mmol/L (98-108); Globulin 3.2 g/dL (2.2-4.2); Glucose 169 mg/dL (70-99); Potassium 5.1 mmol/L (3.3-5.1)
== END | disposition home or self-care (01) ==
LOC: LAB 10:28
PROVIDERS: PCP Internal Medicine; Referring Provider Internal Medicine; Visit Provider Internal Medicine
DX: E11.69 Type 2 diabetes mellitus with other specified complication (principal); I10 Essential (primary) hypertension
CPT/HCPCS: 36415; 80053

== ENCOUNTER → 2025-03-27 | Outpatient (CLI) | payer MEDICARE, SELFPAY | END | disposition home or self-care (01) | PROVIDERS: PCP Internal Medicine; Referring Provider Internal Medicine; Visit Provider Internal Medicine | DX: Z12.31 Encounter for screening mammogram for malignant neoplasm of breast (principal) | CPT/HCPCS: 77063; 77067 ==

== ENCOUNTER → 2025-05-27 | Outpatient (CLI) | payer MEDICARE, SELFPAY ==
[2025-05-27 10:51] LABS: Creatinine, Urine (random) 78.60 mg/dL (28.00-217.00); Microalbumin,Random Urine 51.7 mg/L (<20 mg/L)
[2025-05-27 11:50] LABS: Cholesterol 116 mg/dL (<=200); Low Density Lipoprotein Calc. 65 mg/dL; Triglycerides 103 mg/dL; Very Low Density Lipoprotein 21 mg/dL (5-40); Vitamin D,25 Hydroxy 32.7 ng/mL (30-100); cholesterol:hdl ratio screen 3.75
== END | disposition home or self-care (01) ==
LOC: LAB 08:03
PROVIDERS: PCP Internal Medicine; Referring Provider Nurse Practitioner Family; Visit Provider Nurse Practitioner Family
DX: E55.9 Vitamin D deficiency, unspecified (principal); E11.69 Type 2 diabetes mellitus with other specified complication
CPT/HCPCS: 36415; 80061; 82043; 82306; 82570

== ENCOUNTER 2025-06-15 20:46 | Emergency (ER) | payer MEDICARE, SELFPAY ==
[2025-06-15 20:47] VITALS: BP 118/63; PULSE 108; RESP 20; TEMP 36.8; O2SAT 98; BMI 21.9
--- NOTE | 2025-06-15 21:16 | RAD_ITS ---
PROCEDURE: PELVIS 1 OR 2 VIEWS 06/15/2025 REASON FOR EXAM: INJURY/PAIN TECHNIQUE: Procedure Code: RADPEL Modality: DX Procedure: PELVIS 1 OR 2 VIEWS COMPARISON: None FINDINGS: Osseous: The sacrum is partially obscured by bowel gas and fecal material. Pelvic congruency is maintained. No acute displaced fracture seen. The femoral heads are centered to the acetabula. If there are symptoms related to either hip, dedicated joint views are advised. Severe degenerative change of the visualized lower lumbar spine noted. If there are symptoms related to the spine consider dedicated views. Soft tissues: Surgical clips seen overlying the left hemipelvis. Soft tissue injury is not reliably assessed by this technique. RAD/Pelvis 1 or 2 Views IMPRESSION: No radiographic evidence of an acute displaced fracture. - Other findings and recommendations discussed above. Reading Location: [id number]
--- OUTSIDE RECORDS SUMMARY | 2025-06-15 21:57 | XMS RPT_ITS | CCD ---
Author Organization [facility] Care Team Providers Care [employer] Name Role Phone Adrián NEWELL, Tyson Vuong Unavailable Unavailable Dr. Wan Jain Primary Care Provider [phone] Dr. Wan Jain Referring Provider [phone] Dr. Joseph Lutz Attending Provider Dr. Nick Gomez Attending Provider [phone] Dr. Nicolas Cohen Attending Provider Dr. Wan Jain Attending Provider [phone] Dr. Wan Jain Primary Care Provider [phone] Dr. Wan Jain Referring Provider [phone] Dr. Joseph Lutz Attending Provider Dr. Nick Gomez Attending Provider [phone] QUYNH Davalos Attending Provider Dr. Wan Jain Primary Care Provider [phone] Dr. Wan Jain Attending Provider [phone] Dr. Wan Jain Referring Provider [phone] Dr. Melchor Meehan Attending Provider [phone] Dr. Alvarado Lira Attending Provider Dr. Wan Jain Primary Care Provider [phone] Dr. Wan Jain Referring Provider [phone] Dr. Melchor Meehan Attending Provider [phone] Dr. Nicolas Cohen Attending Provider Dr. Joseph Lutz Attending Provider Susy, Dr. Blas Primary Care Provider [phone] Susy, Dr. Blas Attending Provider [phone] Susy, Dr. Blas Referring Provider [phone] Dr. Nick Gomez Attending Provider [phone] Susy, Dr. Blas Primary Care Provider [phone] Susy, Dr. Blas Referring Provider [phone] Dr. Nick Gomez Attending Provider [phone] Dr. Joseph Lutz Attending Provider Susy, Dr. Blas Attending Provider [phone] Susy, Dr. Blas Primary Care Provider [phone] Olenatividad, Dr. Blas Referring Provider [phone] Dr. Nicolas Cohen Attending Provider Dr. Joseph Lutz Attending Provider ATIYA Jc Attending Provider [phone] Susy DYER, Dr. Blas Primary Care Provider Susy DYER, Dr. Blas Attending Provider [phone] Susy DYER, Dr. Blas Referring Provider [phone] Selam DYER, Dr. Issa Attending Provider Anoop GREEN MARKETER-CJoana Attending Provider [phone] Anoop GREEN MARKETER-CJoana Referring Provider [phone] Oleghe, Efewongbe Referring Unavailable Oleghe, Efewongbe Attending Unavailable Oleghe, Efewongbe Primary Care Unavailable Oleghe, Efewongbe Referring Unavailable Oleghe, Efewongbe Primary Care Unavailable Oleghe, Efewongbe Attending Unavailable Oleghe, Efewongbe Attending Unavailable Oleghe, Efewongbe Referring Unavailable Oleghe, Efewongbe Primary Care Unavailable Joseph Lutz Attending Unavailable Oleghe, Efewongbe Referring Unavailable Oleghe, Efewongbe Primary Care Unavailable Oleghe, Efewongbe Attending Unavailable Oleghe, Efewongbe Referring Unavailable Oleghe, Efewongbe Primary Care Unavailable Oleghe, Efewongbe Referring Unavailable Oleghe, Efewongbe Primary Care Unavailable Joana Davalos Attending Unavailable Oleghe, Efewongbe Primary Care Unavailable Joana Davalos Attending Unavailable Joana Davalos Referring Unavailable Oleghe, Efewongbe Attending Unavailable Oleghe, Efewongbe Referring Unavailable Oleghe, Efewongbe Primary Care Unavailable Allergies Allergy Classification Reported Allergen(s) Allergy Type Date of Onset Reaction(s) Facility (14 sources) amoxicillin; Translations: [amoxicillin] Drug Allergy 02-07-2017 Rash [facility] Work Phone: (1 source) Latex drug allergy 02-07-2017 [facility] Work Phone: (1 source) promethazine Drug Allergy 02-07-2017 [facility] Work Phone: (1 source) LEVOQUIN drug allergy 02-07-2017 [facility] Work Phone: (12 sources) levoFLOXacin Drug Allergy 01-03-2022 Vomiting [facility] (12 sources) Promethazine Drug Allergy 01-03-2022 Other [facility] (1 source) levoFLOXacin Drug Allergy 05-14-2025 [facility] (1 source) Promethazine Drug Allergy 05-14-2025 [facility] Medications Current Medications Medication Drug Class(es) Dates Sig (Normalized) Sig (Original) aspirin 81 mg delayed release oral tablet (13 sources) Nonsteroidal Anti-inflammatory Drug Start: 10-05-2017 take 1 tablet by mouth once daily Aspirin (Adult Aspirin Regimen) 81 mg tablet,delayed release (DR/EC) Active 81 mg PO daily October 05, 2017 1:00am ASPIRIN 81 MG CH EW q d ASPIRIN [id number] Sabine Guerra LPN Blood-Glucose Meter (True Me trix Glucose Meter) kit (9 sources) Start: 11-10-2022 Blood-Glucose Meter (True Metrix Glucose Meter) kit Active 0 .Route 1 0 November 10, 2022 1:00am As directed Start: 11-10-2022 Blood-Glucose Meter (True Metrix Glucose Meter) kit Active 0 .Route 1 November 10, 2022 12:00am As directed Start: 11-10-2022 Blood-Glucose Meter (True Metrix Glucose Meter) kit Active 0 .Route 1 November 10, 2022 1:00am As directed Blood-Glucose Sensor (Freest yle John 3 Plus Sensor) device (15 sources) Start: 02-10-2025 Blood-Glucose Sensor (Freestyle John 3 Plus Sensor) device Active 0 .Route 6 February 10, 2025 10:38am As directed Start: 02-10-2025 Blood-Glucose Sensor (Freestyle John 3 Plus Sensor) device Active 0 .Route 6 February 10, 2025 10:38am As directed Start: 09-16-2024 End: 02-10-2025 Blood-Glucose Sensor (Freest yle John 3 Plus Sensor) device Discontinued 0 .Route 6 September 16, 2024 5:17pm February 10, 2025 10:38am As directed Start: 09-16-2024 End: 02-10-2025 Blood-Glucose Sensor (Freest yle John 3 Plus Sensor) device Discontinued 0 .Route 6 September 16, 2024 5:17pm February 10, 2025 10:38am As directed Start: 07-16-2024 End: 09-16-2024 Blood-Glucose Sensor (Freest yle John 3 Plus Sensor) device Discontinued 0 .Route 2 July 16, 2024 12:00am September 16, 2024 5:18pm As directed Start: 07-16-2024 End: 09-16-2024 Blood-Glucose Sensor (Freest yle John 3 Plus Sensor) device Discontinued 0 .Route 2 July 16, 2024 12:00am September 16, 2024 5:18pm As directed calcium carbonate 1500 mg oral tablet (5 sources) Start: 04-09-2024 take 1 tablet by mouth once daily Calcium Carbonate (Calcium 600) 600 mg calcium (1,500 mg) tablet Active 600 mg PO DAILY April 09, 2024 12:00am cholecalciferol 0.05 mg oral capsule (13 sources) Vitamin D Start: 10-05-2017 take 1 capsule by mouth once daily Cholecalciferol (Vitamin D3) 2,000 unit capsule Active 2000 U PO DAILY October 05, 2017 1:00am Start: 02-07-2017 EQL VITAMIN D3 2000 UNIT CAPS as directed CHOLECALCIFEROL [id number] Sabrina Segundo LPN docusate sodium 100 mg oral capsule (20 sources) Start: 07-27-2022 take 1 capsule by mouth once daily Docusate Sodium (Colace) 100 mg capsule Active 100 mg PO DAILY July 27, 2022 12:00am Start: 07-27-2022 take 1 capsule by mo uth twice daily Docusate Sodium (Colace) 100 mg capsule Active 100 MG PO TWICE A DAY July 26, 2022 11:00pm Start: 01-03-2022 End: 05-20-2022 take 1 capsule by mouth twice daily Docusate Sodium (Colace) 100 mg capsule Discontinued 100 mg PO TWICE A DAY January 03, 2022 12:00am May 20, 2022 8:22am Flash Glucose Scanning Reade r (Freestyle John 14 Day Cadet) misc (12 sources) Start: 11-11-2019 Flash Glucose Scanning Cadet (Freestyle John 14 Day Cadet) misc Active 0 .ROUTE .MEDSUPPLY 1 November 11, 2019 10:13am As directed Start: 11-11-2019 End: 09-13-2024 Flash Glucose Scanning Reade r (Freestyle John 14 Day Cadet) misc Discontinued 0 .ROUTE .MEDSUPPLY 1 0 November 11, 2019 1:00am September 13, 2024 11:59am Type 2 diabetes mellitus with hyperglycemia As directed Start: 11-11-2019 End: 09-13-2024 Flash Glucose Scanning Reade r (Freestyle John 14 Day Cadet) misc Discontinued 0 .ROUTE .MEDSUPPLY 1 November 11, 2019 1:00am September 13, 2024 11:59am As directed Start: 11-11-2019 Flash Glucose Scanning Cadet (Freestyle John 14 Day Cadet) misc Active 0 .ROUTE .MEDSUPPLY 1 November 11, 2019 12:00am As directed Start: 11-11-2019 Flash Glucose Scanning Cadet (Freestyle John 14 Day Cadet) [facility] [place] 0 .ROUTE .MEDSUPPLY November 11, 2019 1:00am As directed glimepiride 1 mg oral tablet (20 sources) Sulfonylurea Start: 05-14-2025 take 1 tablet by mouth once daily at breakfast Glimepiride 1 mg tablet Active 1 mg PO EVERY MORNING 90 3 May 14, 2025 12:00am Type 2 diabetes mellitus Type 2 diabetes mellitus with other specified complication administer with breakfast Start: 11-10-2022 End: 11-07-2023 take 1 mg by mouth once daily Glimepiride Active 1 MG PO DAILY 90 November 07, 2023 9:15am Start: 04-20-2022 End: 12-15-2024 take 1 mg by mouth once daily Glimepiride 2 mg tablet Discontinued 1 mg PO DAILY 90 August 26, 2024 9:03am September 13, 2024 12:19pm Miscellaneous Medical Supply (7 sources) Start: 05-24-2021 Miscellaneous Medical Supply Active 1 EACH MC DAILY May 24, 2021 1:41pm Bra Start: 05-24-2021 End: 09-12-2022 Miscellaneous Medical Supply Discontinued 1 EACH MC DAILY May 24, 2021 12:00am September 12, 2022 9:42am Bra Start: 05-24-2021 End: 09-12-2022 Miscellaneous Medical Supply Discontinued 1 EACH MC DAILY May 23, 2021 11:00pm September 12, 2022 8:42am Bra Start: 05-24-2021 Miscellaneous Medical Supply Active 1 EACH MC DAILY May 24, 2021 12:00am Bra Semaglutide (Ozempic) 2 mg/d ose (8 mg/3 mL) pen injector (20 sources) Start: 02-20-2025 Semaglutide (O zempic) 2 mg/dose (8 mg/3 mL) pen injector Active 2 mg SC EVERY WEEK 9 February 20, 2025 5:06pm Start: 02-20-2025 Semaglutide (O zempic) 2 mg/dose (8 mg/3 mL) pen injector Active 2 mg SC EVERY WEEK February 20, 2025 5:06pm Start: 09-20-2024 End: 02-20-2025 Semaglutide (Ozempic) 2 mg/d ose (8 mg/3 mL) pen injector Discontinued 2 mg SC EVERY WEEK 9 September 20, 2024 8:12am February 20, 2025 5:06pm Start: 09-20-2024 End: 02-20-2025 Semaglutide (Ozempic) 2 mg/d ose (8 mg/3 mL) pen injector Discontinued 2 mg SC EVERY WEEK September 20, 2024 8:12am February 20, 2025 5:06pm Start: 09-13-2024 End: 09-20-2024 Semaglutide (Ozempic) 2 mg/d ose (8 mg/3 mL) pen injector Discontinued 2 mg SC EVERY WEEK 05 26September 13, 2024 12:19pm September 20, 2024 8:12am Start: 09-13-2024 End: 09-20-2024 Semaglutide (Ozempic) 2 mg/d ose (8 mg/3 mL) pen injector Discontinued 2 mg SC EVERY WEEK September 13, 2024 12:19pm September 20, 2024 8:12am Start: 05-07-2024 End: 09-13-2024 Semaglutide (Ozempic) 2 mg/d ose (8 mg/3 mL) pen injector Discontinued 2 mg SC EVERY WEEK 05 26May 07, 2024 12:00am September 13, 2024 12:19pm Start: 05-07-2024 End: 09-13-2024 Semaglutide (Ozempic) 2 mg/d ose (8 mg/3 mL) pen injector Discontinued 2 mg SC EVERY WEEK May 07, 2024 12:00am September 13, 2024 12:19pm vitamin b12 2.5 mg oral tablet (10 sources) Vitamin B12 Start: 07-27-2022 take 1 tablet by mouth three times weekly Cyanocobalamin (Vitamin B-12) 2,500 mcg tablet Active 2500 ug PO .THREE TIMES A WEEK July 27, 2022 12:00am Completed/Discontinued Medications Medication Drug Class(es) Dates Sig (Normalized) Sig (Original) albuterol 0.83 mg/ml inhalation solution (20 sources) beta2-Adrenergic Agonist Start: 09-23-2017 End: 12-22-2017 take 2.5 mg by inhalation every four hours as needed for wheezing Albuterol Sulfate 2.5 MG/3 ML solution for nebulization Discontinued 2.5 mg INHALATION EVERY 4 HOURS NEEDED 25 September 23, 2017 1:00am December 22, 2017 8:24am Wheezing Wheezing Use q4 hours and PRN for wheezing Start: 09-23-2017 End: 12-22-2017 Albuterol Sulfate 1 INHALER inhaler Discontinued 1 - 2 NMA INHALATION EVERY 4 HOURS NEEDED as needed for Wheezing 1 September 23, 2017 1:00am December 22, 2017 8:25am Wheezing Wheezing Start: 09-23-2017 End: 12-22-2017 take 1 puff(s) by inhalation every four hours as needed Albuterol Sulfate Discontinued 1 - 2 PUFF INHALATION EVERY 4 HOURS NEEDED September 23, 2017 1:00am December 22, 2017 8:25am atorvastatin 80 mg oral tablet (20 sources) HMG-CoA Reductase Inhibitor Start: 09-23-2017 End: 09-13-2024 take 1 tablet by mouth at bedtime Atorvastatin 80 mg tablet Discontinued 80 mg PO AT BEDTIME 90 3 February 21, 2023 8:44am November 07, 2023 9:16am Start: 02-07-2017 take 1 tablet by jabari th once daily LIPITOR 80 MG TABS One tablet by mouth daily at night ATORVASTATIN CALCIUM [id number] Tyson Sampson CANVAS BASTER-C azithromycin 250 mg oral tablet (12 sources) Macrolide Antimicrobial Start: 03-13-2019 End: 03-26-2019 Azithromycin 250 mg tablet Discontinued 250 mg PO daily 6 0 March 13, 2019 12:00am March 26, 2019 11:16am 2 tablets today, then 1 tablet daily on days 2 through 5 bisacodyl 5 mg delayed release oral tablet (12 sources) Stimulant Laxative Start: 08-10-2021 End: 09-22-2021 take 1 tablet by mouth once Bisacodyl 5 mg tablet,delayed release (DR/EC) Discontinued 5 mg PO ONCE 4 0 August 10, 2021 1:00am September 22, 2021 8:29am take as directed for bowel prep. Blood-Glucose Sensor (Freestyle John 3 Sensor) device (5 sources) Start: 05-07-2024 End: 07-16-2024 Blood-Glucose Sensor (Freestyle John 3 Sensor) device Discontinued 0 .Route 2 6 May 07, 2024 12:00am July 16, 2024 3:11pm As directed Start: 05-07-2024 End: 07-16-2024 Blood-Glucose Sensor (Freest yle John 3 Sensor) device Discontinued 0 .Route 2 May 07, 2024 12:00am July 16, 2024 3:11pm As directed Blood-Glucose,Teacher Associate,Cont (Freestyle John 3 Cadet) misc (8 sources) Start: 04-04-2025 End: 05-14-2025 Blood-Glucose,Teacher Associate,Cont (Freestyle John 3 Cadet) misc Discontinued 0 .Route 1 0 April 04, 2025 1:06pm May 14, 2025 9:25am As directed Start: 04-04-2025 Blood-Glucose, Teacher Associate,Cont (Freestyle John 3 Cadet) misc Active 0 .Route 1 0 April 04, 2025 1:06pm As directed Start: 05-07-2024 End: 04-04-2025 Blood-Glucose,Teacher Associate,Cont (Freestyle John 3 Cadet) misc Discontinued 0 .Route 1 0 May 07, 2024 12:00am April 04, 2025 1:06pm As directed Start: 05-07-2024 Blood-Glucose, Teacher Associate,Cont (Freestyle John 3 Cadet) misc Active 0 .Route 1 0 May 07, 2024 12:00am As directed Start: 05-07-2024 Blood-Glucose, Teacher Associate,Cont (Freestyle John 3 Cadet) misc Active 0 .Route 1 May 07, 2024 12:00am As directed celecoxib 200 mg oral capsule (10 sources) Nonsteroidal Anti-inflammatory Drug Start: 09-12-2022 End: 05-09-2023 take 1 capsule by mouth once daily Celecoxib (Celebrex) 200 mg capsule Discontinued 200 mg PO DAILY 60 0 September 12, 2022 1:00am May 09, 2023 10:58am Do not take in combination with Motrin or other NSAID. Tylenol is okay. cephalexin 500 mg oral capsule (14 sources) Cephalosporin Antibacterial Start: 12-21-2023 End: 12-31-2023 take 1 capsule by mouth four times daily Cephalexin 500 mg capsule Discontinued 500 mg PO .QID 40 10 0 December 21, 2023 12:00am December 30, 2023 12:00am December 31, 2023 12:05am Start: 04-21-2023 End: 05-09-2023 take 1 capsule by mouth every six hours Cephalexin 500 mg capsule Discontinued 500 mg PO EVERY 6 HOURS 40 0 April 21, 2023 12:00am May 09, 2023 10:58am codeine phosphate 2 mg/ml / guaiFENesin 20 mg/ml oral solution (12 sources) Opioid Agonist Start: 09-23-2017 End: 10-05-2017 take 1 mL by mouth every six hours as needed for cough Codeine-Guaifenesin 10 ML liquid Discontinued 10 mL PO EVERY 6 HOURS NEEDED as needed for Cough 200 0 September 23, 2017 10:04pm October 05, 2017 5:07pm Bronchitis Bronchitis, not specified as acute or chronic Start: 09-23-2017 End: 10-05-2017 take 1 mL by mouth every six hours as needed Codeine-Guaifenesin Discontinued 10 ML PO EVERY 6 HOURS NEEDED 200 September 23, 2017 10:04pm October 05, 2017 5:07pm dapagliflozin 10 mg oral tablet (20 sources) Sodium-Glucose Cotransporter 2 Inhibitor Start: 03-27-2018 End: 09-13-2024 take 1 tablet by mouth once daily Dapagliflozin Propanediol 10 mg tablet Discontinued 10 mg PO daily 90 3 April 24, 2023 9:09am May 09, 2023 11:10am diabetes Start: 2018 End: 03-27-2018 take 1 tablet by mouth once daily Dapagliflozin Propanediol (Farxiga) 5 mg tablet Discontinued 5 mg PO daily 90 3 March 22, 2018 10:18am March 27, 2018 3:46pm doxycycline monohydrate 100 mg oral capsule (12 sources) Tetracycline-class Drug Start: 09-23-2017 End: 10-05-2017 take 1 capsule by mouth twice daily Doxycycline Monohydrate 100 MG capsule Discontinued 100 mg PO TWICE A DAY 20 0 September 23, 2017 1:00am October 05, 2017 5:07pm Bronchitis Bronchitis, not specified as acute or chronic empagliflozin 10 mg oral tablet (13 sources) Sodium-Glucose Cotransporter 2 Inhibitor Start: 09-23-2017 End: 2018 take 1 tablet by mouth once daily Empagliflozin 10 MG tablet Discontinued 10 mg PO DAILY September 23, 2017 1:00am 2018 9:57am Start: 02-07-2017 JARDISANDRA 10 M G TABS as directed EMPAGLIFLOZIN [id number] Allison Beck GREEN MARKETER Flash Glucose Sensor (Freestyle John 14 Day Sensor) kit (20 sources) Start: 11-07-2023 End: 09-13-2024 Flash Glucose Sensor (Freest yle John 14 Day Sensor) kit Discontinued 0 .ROUTE .MEDSUPPLY 6 November 07, 2023 9:17am September 13, 2024 11:59am Type 2 diabetes mellitus with hyperglycemia As directed Start: 11-07-2023 End: 09-13-2024 Flash Glucose Sensor (Freest yle John 14 Day Sensor) kit Discontinued 0 .ROUTE .MEDSUPPLY November 07, 2023 9:17am September 13, 2024 11:59am As directed Start: 11-07-2023 Flash Glucose Sensor (Freestyle John 14 Day Sensor) kit Active 0 .ROUTE .MEDSUPPLY November 07, 2023 9:17am As directed Start: 11-11-2022 End: 11-07-2023 Flash Glucose Sensor (Freest yle John 14 Day Sensor) kit Discontinued 0 .ROUTE .MEDSUPPLY 6 3 November 11, 2022 8:31am November 07, 2023 9:17am Type 2 diabetes mellitus with hyperglycemia As directed Start: 11-11-2022 End: 11-07-2023 Flash Glucose Sensor (Freest yle John 14 Day Sensor) kit Discontinued 0 .ROUTE .MEDSUPPLY November 11, 2022 8:31am November 07, 2023 9:17am As directed Start: 11-11-2022 Flash Glucose Sensor (Freestyle John 14 Day Sensor) kit Active 0 .ROUTE .MEDSUPPLY November 11, 2022 7:31am As directed Start: 11-11-2022 Flash Glucose Sensor (Freestyle John 14 Day Sensor) kit Active 0 .ROUTE .MEDSUPPLY November 11, 2022 8:31am As directed Start: 02-09-2021 End: 11-11-2022 Flash Glucose Sensor (Freest yle John 14 Day Sensor) kit Discontinued 0 .ROUTE .MEDSUPPLY 2 8 February 09, 2021 11:07am November 11, 2022 8:31am Type 2 diabetes mellitus with hyperglycemia As directed Start: 02-09-2021 End: 11-11-2022 Flash Glucose Sensor (Freest yle John 14 Day Sensor) kit Discontinued 0 .ROUTE .MEDSUPPLY 2 February 09, 2021 10:07am November 11, 2022 7:31am As directed Start: 02-09-2021 End: 11-11-2022 Flash Glucose Sensor (Freest yle John 14 Day Sensor) kit Discontinued 0 .ROUTE .MEDSUPPLY 2 February 09, 2021 11:07am November 11, 2022 8:31am As directed Start: 02-09-2021 Flash Glucose Sensor (Freestyle John 14 Day Sensor) kit Active 0 .ROUTE .MEDSUPPLY 2 February 09, 2021 10:07am As directed Start: 02-09-2021 Flash Glucose Sensor (Freestyle John 14 Day Sensor) kit Active 0 .ROUTE .MEDSUPPLY 2 February 09, 2021 11:07am As directed Start: 06-22-2020 End: 02-09-2021 Flash Glucose Sensor (Freest yle John 14 Day Sensor) kit Discontinued 0 .ROUTE .MEDSUPPLY 2 June 22, 2020 10:54am February 09, 2021 11:07am Type 2 diabetes mellitus with hyperglycemia As directed Start: 06-22-2020 End: 02-09-2021 Flash Glucose Sensor (Freest yle John 14 Day Sensor) kit Discontinued 0 .ROUTE .MEDSUPPLY 2 June 22, 2020 9:54am February 09, 2021 10:07am As directed Start: 06-22-2020 End: 02-09-2021 Flash Glucose Sensor (Freest yle John 14 Day Sensor) kit Discontinued 0 .ROUTE .MEDSUPPLY 2 June 22, 2020 10:54am February 09, 2021 11:07am As directed Start: 11-21-2019 End: 06-22-2020 Flash Glucose Sensor (Freest yle John 14 Day Sensor) kit Discontinued 0 .ROUTE .MEDSUPPLY 2 8 November 21, 2019 8:49am June 22, 2020 10:56am Type 2 diabetes mellitus with hyperglycemia As directed Start: 11-21-2019 End: 06-22-2020 Flash Glucose Sensor (Freest yle John 14 Day Sensor) kit Discontinued 0 .ROUTE .MEDSUPPLY 2 November 21, 2019 7:49am June 22, 2020 9:56am As directed Start: 11-21-2019 End: 06-22-2020 Flash Glucose Sensor (Freest yle John 14 Day Sensor) kit Discontinued 0 .ROUTE .MEDSUPPLY 2 November 21, 2019 8:49am June 22, 2020 10:56am As directed Start: 11-11-2019 End: 11-21-2019 Flash Glucose Sensor (Freest yle John 14 Day Sensor) kit Discontinued 0 .ROUTE .MEDSUPPLY 1 November 11, 2019 10:13am November 21, 2019 8:50am As directed Start: 11-11-2019 End: 11-21-2019 Flash Glucose Sensor (Freest yle John 14 Day Sensor) kit Discontinued 0 .ROUTE .MEDSUPPLY 1 0 November 11, 2019 1:00am November 21, 2019 8:50am Type 2 diabetes mellitus with hyperglycemia As directed Start: 11-11-2019 End: 11-21-2019 Flash Glucose Sensor (Freest yle John 14 Day Sensor) kit Discontinued 0 .ROUTE .MEDSUPPLY 1 November 11, 2019 12:00am November 21, 2019 7:50am As directed Start: 11-11-2019 End: 11-21-2019 Flash Glucose Sensor (Freest yle John 14 Day Sensor) kit Discontinued 0 .ROUTE .MEDSUPPLY 1 November 11, 2019 1:00am November 21, 2019 8:50am As directed flu vac qs 2016(4 yr up)CD(PF) (1 source) Start: 10-05-2017 End: 10-05-2017 inject 60 ug by intramuscular injection once flu vac qs 2016(4 yr up)CD(PF) Discontinued 60 MCG IM ONCE 1 October 05, 2017 5:58pm October 05, 2017 6:42pm Fluad Quad [id number](65yr up)(PF) 60 mcg (15 mcg x 4)/0.5mL IM syringe (flu vac (1 source) Start: 07-07-2021 End: 07-07-2021 Fluad Quad (65yr up)(PF) 60 mcg (15 mcg x 4)/0.5mL IM syringe (flu vac Discontinued 60 MCG IM ONCE 0.5 July 07, 2021 8:55am July 07, 2021 9:42am hydroCHLOROthiazide 25 mg / moexipril hydrochloride 15 mg oral tablet (2 sources) Thiazide Diuretic, Angiotensin Converting Enzyme Inhibitor Start: 02-07-2017 End: 04-24-2017 MOEXIPRIL-HYDROC HLOROTHIAZIDE 15-25 MG TABS as directed MOEXIPRIL-HYDROC HLOROTHIAZIDE [id number] Sabrina Segundo LPN 3 ml insulin aspart protamine, human 70 unt/ml / insulin aspart, human 30 unt/ml pen injector (20 sources) Insulin Analog Start: 06-24-2020 End: 12-29-2020 Insulin Asp Prt-Insulin Aspart (Novolog Mix 70-30flexpen U-100) 100 unit/mL (70-30) insulin pen Discontinued 32 U SC TWICE A DAY June 24, 2020 3:36pm December 29, 2020 9:11am Start: 03-13-2020 End: 06-24-2020 Insulin Asp Prt-Insulin Aspa rt (Novolog Mix 70-30flexpen U-100) 100 unit/mL (70-30) insulin pen Discontinued 28 U SC TWICE A DAY 60 2 April 23, 2020 8:30am June 24, 2020 3:37pm Start: 02-27-2020 End: 03-13-2020 Insulin Asp Prt-Insulin Aspa rt (Novolog Mix 70-30flexpen U-100) 100 unit/mL (70-30) insulin pen Discontinued 25 U SC TWICE A DAY 15 6 February 27, 2020 12:00am March 13, 2020 9:20am 3 ml insulin glargine 100 unt/ml pen injector (20 sources) Insulin Analogue Start: 08-07-2019 End: 02-27-2020 Insulin Glargine 100 unit/mL (3 mL) insulin pen Discontinued 55 U SC AT BEDTIME 49.5 90 3 August 07, 2019 6:08pm February 27, 2020 11:21am Start: 01-04-2019 End: 08-07-2019 Insulin Glargine 100 unit/mL (3 mL) insulin pen Discontinued 50 U SC AT BEDTIME 45 90 3 May 07, 2019 4:38pm August 07, 2019 6:08pm Start: 10-30-2018 End: 01-04-2019 Insulin Glargine 100 unit/mL (3 mL) insulin pen Discontinued 50 U SC DAILY 15 October 30, 2018 5:00pm January 04, 2019 11:21am Start: 12-22-2017 End: 10-30-2018 Insulin Glargine 100 unit/mL (3 mL) insulin pen Discontinued 44 U SC DAILY 15 October 17, 2018 2:25pm October 30, 2018 5:01pm Start: 10-13-2017 End: 12-22-2017 Insulin Glargine 100 UNIT/ML insulin pen Discontinued 48 U SC DAILY October 13, 2017 3:09pm December 22, 2017 8:49am Start: 09-23-2017 End: 10-13-2017 inject 40 [IU] by subcutaneous injection once daily Insulin Glargine 100 UNIT/ML insulin pen Discontinued 40 U SQ DAILY September 23, 2017 1:00am October 13, 2017 3:10pm Start: 03-20-2017 End: 06-20-2025 BASAGLAR KWIKPEN 100 UNIT/ML SOPN Inject 40 units daily INSULIN GLARGINE [id number] Allison Beck GREEN MARKETER Start: 02-07-2017 LANTUS 100 UNI T/ML SOLN as directed INSULIN GLARGINE [id number] Sabrina Segundo LPN 3 ml insulin lispro 50 unt/ml / insulin lispro protamine, human 50 unt/ml pen injector (12 sources) Insulin Analog Start: 02-27-2020 End: 02-27-2020 Insulin Lispro Protamin-Lispro (Humalog Mix 50-50 Kwikpen) 100 unit/mL (50-50) insulin pen Discontinued 25 U SC TWICE A DAY 15 February 27, 2020 12:00am February 27, 2020 2:20pm 3 ml liraglutide 6 mg/ml pen injector (20 sources) GLP-1 Receptor Agonist Start: 02-07-2017 End: 07-01-2025 Liraglutide (Victoza 3-José Manuel) 0.6 mg/0.1 mL (18 mg/3 mL) pen injector Discontinued 1.8 mg SC AT BEDTIME 27 90 3 June 14, 2019 11:52am June 22, 2020 10:55am lisinopril 20 mg oral tablet (20 sources) Angiotensin Converting Enzyme Inhibitor Start: 03-27-2018 End: 09-13-2024 Lisinopril 20 mg tablet Discontinued 0 .ROUTE .COMPLEX 90 February 15, 2023 10:02am November 07, 2023 9:16am TAKE 1 TABLET DAILY Start: 09-23-2017 End: 03-27-2018 take 1 tablet by mouth once daily Lisinopril 10 mg tablet Discontinued 10 mg PO DAILY 90 March 22, 2018 10:19am March 27, 2018 3:46pm Start: 04-24-2017 take 1 tablet by jabari th once daily LISINOPRIL 10 MG TABS One tablet by mouth daily LISINOPRIL [id number] Wan Jain MD LORazepam 0.5 mg oral tablet (12 sources) Benzodiazepine Start: 10-05-2017 End: 12-22-2017 take 1 tablet by mouth at bedtime as needed for anxiety Lorazepam 0.5 mg tablet Discontinued 0.5 mg PO AT BEDTIME as needed for anxiety, insomnia 30 0 October 05, 2017 1:00am December 22, 2017 8:25am metFORMIN hydrochloride 1000 mg oral tablet (20 sources) Biguanide Start: 09-23-2017 End: 10-18-2021 Metformin 1,000 mg tablet Discontinued 0 .ROUTE .COMPLEX 180 April 27, 2021 12:15pm October 18, 2021 9:44am TAKE 1 TABLET TWICE A DAY WITH MEALS Start: 02-07-2017 METFORMIN HCL 1000 MG TABS as directed METFORMIN HCL [id number] Allison Beck NP 24 hr mirabegron 50 mg extended release oral tablet (12 sources) beta3-Adrenergic Agonist Start: 06-24-2020 End: 01-07-2021 take 1 tablet by mouth once daily Mirabegron (Myrbetriq) 50 mg tablet extended release 24 hr Discontinued 50 mg PO DAILY June 24, 2020 12:00am January 07, 2021 4:44pm Miscellaneous Medical Supply misc (5 sources) Start: 05-24-2021 End: 09-12-2022 Miscellaneous Medical Supply misc Discontinued 1 NMA MC DAILY 2 0 May 24, 2021 12:00am September 12, 2022 9:42am Bra Start: 05-24-2021 End: 09-12-2022 Miscellaneous Medical Supply misc Discontinued 1 NMA MC DAILY 2 May 24, 2021 12:00am September 12, 2022 9:42am Bra moexipril hydrochloride 15 mg oral tablet (12 sources) Start: 09-23-2017 End: 10-05-2017 take 1 tablet by mouth once daily Moexipril 15 MG tablet Discontinued 15 mg PO DAILY September 23, 2017 1:00am October 05, 2017 5:08pm 24 hr oxybutynin chloride 10 mg extended release oral tablet (20 sources) Cholinergic Muscarinic Antagonist Start: 04-20-2022 take 15 mg by mouth once daily Oxybutynin Chloride Active 15 MG PO DAILY April 20, 2022 11:12am Start: 10-19-2020 End: 08-19-2024 take 1 tablet by mouth once daily Oxybutynin Chloride 10 mg tablet extended release 24hr Discontinued 15 mg PO DAILY April 20, 2022 11:12am August 19, 2024 12:28pm Start: 10-19-2020 End: 04-20-2022 take 20 mg by mouth once daily Oxybutynin Chloride Dis continued 20 MG PO DAILY October 19, 2020 1:00am April 20, 2022 11:12am pantoprazole 40 mg delayed release oral tablet (12 sources) Proton Pump Inhibitor Start: 09-22-2021 End: 04-20-2022 Pantoprazole (Protonix) 40 mg tablet,delayed release (DR/EC) Discontinued 40 mg PO DAILY 60 2 September 22, 2021 1:00am April 20, 2022 11:12am Take two times a day for eight weeks the once a day for eight weeks then stop. polyethylene glycol 3350 22881 mg powder for oral solution (20 sources) Osmotic Laxative Start: 01-03-2022 End: 04-20-2022 Polyethylene Glycol 3350 (Miralax) 17 gram/dose powder Discontinued 17 g PO DAILY January 03, 2022 12:00am April 20, 2022 11:12am Start: 08-10-2021 End: 09-22-2021 Polyethylene Glycol 3350 (Mi ralax) 17 gram/dose powder Discontinued 17 g PO DAILY 238 August 10, 2021 1:00am September 22, 2021 8:29am take as directed for bowel prep. 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 Overweight Start: 11-07-2023 End: 05-07-2024 Semaglutide (Ozempic) 1 mg/d ose (4 mg/3 mL) pen injector Discontinued 1 mg SC EVERY WEEK 3 November 07, 2023 9:16am May 07, 2024 8:17am Start: 11-07-2023 Semaglutide (O zempic) 1 mg/dose (4 mg/3 mL) pen injector Active 1 MG SC EVERY WEEK 3 November 07, 2023 9:16am Start: 05-09-2023 End: 11-07-2023 Semaglutide (Ozempic) 1 mg/d ose (4 mg/3 mL) pen injector Discontinued 1 mg SC EVERY WEEK 3 May 09, 2023 11:09am November 07, 2023 9:16am Diabetes mellitus Overweight with body mass index (BMI) 25.0-29.9 Type 2 diabetes mellitus with other diabetic kidney complication Proteinuria, unspecified [facility] (current) use of insulin Overweight Start: 05-09-2023 End: 11-07-2023 Semaglutide (Ozempic) 1 mg/d ose (4 mg/3 mL) pen injector Discontinued 1 mg SC EVERY WEEK 3 May 09, 2023 11:09am November 07, 2023 9:16am Start: 05-09-2023 End: 11-07-2023 Semaglutide (Ozempic) 1 mg/d ose (4 mg/3 mL) pen injector Discontinued 1 MG SC EVERY WEEK 3 May 09, 2023 11:09am November 07, 2023 9:16am Start: 05-09-2023 Semaglutide (O zempic) 1 mg/dose (4 mg/3 mL) pen injector Active 1 MG SC EVERY WEEK 3 May 09, 2023 10:09am Start: 11-02-2022 End: 05-09-2023 Semaglutide (Ozempic) 1 mg/d ose (4 mg/3 mL) pen injector Discontinued 1 mg SC EVERY WEEK 3 November 02, 2022 5:13pm May 09, 2023 11:10am Diabetes mellitus Overweight with body mass index (BMI) 25.0-29.9 Type 2 diabetes mellitus with other diabetic kidney complication Proteinuria, unspecified [employer] (current) use of insulin Overweight Start: 11-02-2022 End: 05-09-2023 Semaglutide (Ozempic) 1 mg/d ose (4 mg/3 mL) pen injector Discontinued 1 mg SC EVERY WEEK 3 November 02, 2022 5:13pm May 09, 2023 11:10am Start: 11-02-2022 End: 05-09-2023 Semaglutide (Ozempic) 1 mg/d ose (4 mg/3 mL) pen injector Discontinued 1 MG SC EVERY WEEK 3 November 02, 2022 5:13pm May 09, 2023 11:10am Start: 11-02-2022 End: 05-09-2023 Semaglutide (Ozempic) 1 mg/d ose (4 mg/3 mL) pen injector Discontinued 1 MG SC EVERY WEEK 3 November 02, 2022 4:13pm May 09, 2023 10:10am Start: 11-02-2022 Semaglutide (O zempic) 1 mg/dose (4 mg/3 mL) pen injector Active 1 MG SC EVERY WEEK 3 November 02, 2022 5:13pm Start: 10-31-2022 End: 11-02-2022 Semaglutide (Ozempic) 1 mg/d ose (4 mg/3 mL) pen injector Discontinued 1 mg SC EVERY WEEK 3 October 31, 2022 1:48pm November 02, 2022 5:17pm Diabetes mellitus Overweight with body mass index (BMI) 25.0-29.9 Type 2 diabetes mellitus with other diabetic kidney complication Proteinuria, unspecified [employer] (current) use of insulin Overweight Start: 10-31-2022 End: 11-02-2022 Semaglutide (Ozempic) 1 mg/d ose (4 mg/3 mL) pen injector Discontinued 1 mg SC EVERY WEEK 3 October 31, 2022 1:48pm November 02, 2022 5:17pm Start: 10-31-2022 End: 11-02-2022 Semaglutide (Ozempic) 1 mg/d ose (4 mg/3 mL) pen injector Discontinued 1 MG SC EVERY WEEK 3 October 31, 2022 12:48pm November 02, 2022 4:17pm Start: 10-31-2022 End: 11-02-2022 Semaglutide (Ozempic) 1 mg/d ose (4 mg/3 mL) pen injector Discontinued 1 MG SC EVERY WEEK 3 October 31, 2022 1:48pm November 02, 2022 5:17pm Start: 04-20-2022 End: 10-31-2022 Semaglutide (Ozempic) 1 mg/d ose (4 mg/3 mL) pen injector Discontinued 1 mg SC EVERY WEEK 3 April 20, 2022 11:48am October 31, 2022 1:48pm Diabetes mellitus Overweight with body mass index (BMI) 25.0-29.9 Type 2 diabetes mellitus with other diabetic kidney complication Proteinuria, unspecified [facility] (current) use of insulin Overweight Start: 04-20-2022 End: 10-31-2022 Semaglutide (Ozempic) 1 mg/d ose (4 mg/3 mL) pen injector Discontinued 1 mg SC EVERY WEEK 3 April 20, 2022 11:48am October 31, 2022 1:48pm Start: 04-20-2022 End: 10-31-2022 Semaglutide (Ozempic) 1 mg/d ose (4 mg/3 mL) pen injector Discontinued 1 MG SC EVERY WEEK 3 April 20, 2022 10:48am October 31, 2022 12:48pm Start: 04-20-2022 End: 10-31-2022 Semaglutide (Ozempic) 1 mg/d ose (4 mg/3 mL) pen injector Discontinued 1 MG SC EVERY WEEK 3 April 20, 2022 11:48am October 31, 2022 1:48pm Start: 04-20-2022 Semaglutide (O zempic) 1 mg/dose (4 mg/3 mL) pen injector Active 1 MG SC EVERY WEEK 3 April 20, 2022 10:48am Start: 04-20-2022 Semaglutide (O zempic) 1 mg/dose (4 mg/3 mL) pen injector Active 1 MG SC EVERY WEEK 3 April 20, 2022 11:48am Start: 03-07-2022 End: 04-20-2022 Semaglutide (Ozempic) 1 mg/d ose (4 mg/3 mL) pen injector Discontinued 1 mg SC EVERY WEEK 3 March 07, 2022 8:58am April 20, 2022 11:48am Diabetes mellitus Overweight with body mass index (BMI) 25.0-29.9 Type 2 diabetes mellitus with other diabetic kidney complication Proteinuria, unspecified [employer] (current) use of insulin Overweight Start: 03-07-2022 End: 04-20-2022 Semaglutide (Ozempic) 1 mg/d ose (4 mg/3 mL) pen injector Discontinued 1 mg SC EVERY WEEK 3 March 07, 2022 8:58am April 20, 2022 11:48am Start: 03-07-2022 End: 04-20-2022 Semaglutide (Ozempic) 1 mg/d ose (4 mg/3 mL) pen injector Discontinued 1 MG SC EVERY WEEK 3 March 07, 2022 7:58am April 20, 2022 10:48am Start: 03-07-2022 End: 04-20-2022 Semaglutide (Ozempic) 1 mg/d ose (4 mg/3 mL) pen injector Discontinued 1 MG SC EVERY WEEK 3 March 07, 2022 8:58am April 20, 2022 11:48am Start: 11-08-2021 End: 03-07-2022 Semaglutide (Ozempic) 1 mg/d ose (4 mg/3 mL) pen injector Discontinued 1 mg SC EVERY WEEK 3 3 November 08, 2021 3:25pm March 07, 2022 8:58am Diabetes mellitus Overweight with body mass index (BMI) 25.0-29.9 Type 2 diabetes mellitus with other diabetic kidney complication Proteinuria, unspecified [employer] (current) use of insulin Overweight Start: 11-08-2021 End: 03-07-2022 Semaglutide (Ozempic) 1 mg/d ose (4 mg/3 mL) pen injector Discontinued 1 mg SC EVERY WEEK 3 November 08, 2021 3:25pm March 07, 2022 8:58am Start: 11-08-2021 End: 03-07-2022 Semaglutide (Ozempic) 1 mg/d ose (4 mg/3 mL) pen injector Discontinued 1 MG SC EVERY WEEK 3 November 08, 2021 2:25pm March 07, 2022 7:58am Start: 11-08-2021 End: 03-07-2022 Semaglutide (Ozempic) 1 mg/d ose (4 mg/3 mL) pen injector Discontinued 1 MG SC EVERY WEEK 3 November 08, 2021 3:25pm March 07, 2022 8:58am Start: 11-08-2021 Semaglutide (O zempic) 1 mg/dose (4 mg/3 mL) pen injector Active 1 MG SC EVERY WEEK 3 November 08, 2021 3:25pm Start: 09-03-2021 End: 11-08-2021 Semaglutide (Ozempic) 1 mg/d ose (4 mg/3 mL) pen injector Discontinued 1 mg SC EVERY WEEK September 03, 2021 5:17pm November 08, 2021 3:26pm WT LOSS Start: 09-03-2021 End: 11-08-2021 Semaglutide (Ozempic) 1 mg/d ose (4 mg/3 mL) pen injector Discontinued 1 mg SC EVERY WEEK September 03, 2021 5:17pm November 08, 2021 3:26pm Start: 09-03-2021 End: 11-08-2021 Semaglutide (Ozempic) 1 mg/d ose (4 mg/3 mL) pen injector Discontinued 1 MG SC EVERY WEEK September 03, 2021 4:17pm November 08, 2021 2:26pm Start: 09-03-2021 End: 11-08-2021 Semaglutide (Ozempic) 1 mg/d ose (4 mg/3 mL) pen injector Discontinued 1 MG SC EVERY WEEK September 03, 2021 5:17pm November 08, 2021 3:26pm Start: 09-03-2021 End: 09-03-2021 Semaglutide (Ozempic) 1 mg/d ose (4 mg/3 mL) pen injector Discontinued 1 MG SC EVERY WEEK 3 September 03, 2021 8:31am September 03, 2021 5:17pm Start: 09-03-2021 End: 09-03-2021 Semaglutide (Ozempic) 1 mg/d ose (4 mg/3 mL) pen injector Discontinued 1 mg SC EVERY WEEK 3 2 September 03, 2021 1:00am September 03, 2021 5:17pm Start: 09-03-2021 End: 09-03-2021 Semaglutide (Ozempic) 1 mg/d ose (4 mg/3 mL) pen injector Discontinued 1 mg SC EVERY WEEK 3 September 03, 2021 1:00am September 03, 2021 5:17pm Start: 09-03-2021 End: 09-03-2021 Semaglutide (Ozempic) 1 mg/d ose (4 mg/3 mL) pen injector Discontinued 1 MG SC EVERY WEEK 3 September 03, 2021 12:00am September 03, 2021 4:17pm Start: 09-03-2021 End: 09-03-2021 Semaglutide (Ozempic) 1 mg/d ose (4 mg/3 mL) pen injector Discontinued 1 MG SC EVERY WEEK 3 September 03, 2021 1:00am September 03, 2021 5:17pm 1 mg dose 1.5 ml semaglutide 1.34 mg/ml pen injector (20 sources) Start: 06-22-2020 End: 09-03-2021 Semaglutide (Ozempic) 1 mg/d ose (2 mg/1.5 mL) pen injector Discontinued 1 MG SC EVERY WEEK August 09, 2021 11:26am September 03, 2021 8:31am Semaglutide (Ozempic) 1 mg/d ose (2 mg/1.5 mL) pen injector (15 sources) Start: 08-09-2021 End: 09-03-2021 Semaglutide (Ozempic) 1 mg/d ose (2 mg/1.5 mL) pen injector Discontinued 1 mg SC EVERY WEEK 9 3 August 09, 2021 11:26am September 03, 2021 8:31am Start: 08-09-2021 End: 09-03-2021 Semaglutide (Ozempic) 1 mg/d ose (2 mg/1.5 mL) pen injector Discontinued 1 mg SC EVERY WEEK 9 August 09, 2021 11:26am September 03, 2021 8:31am Start: 05-25-2021 End: 08-09-2021 Semaglutide (Ozempic) 1 mg/d ose (2 mg/1.5 mL) pen injector Discontinued 1 mg SC EVERY WEEK 9 3 May 25, 2021 4:20pm August 09, 2021 11:27am Start: 05-25-2021 End: 08-09-2021 Semaglutide (Ozempic) 1 mg/d ose (2 mg/1.5 mL) pen injector Discontinued 1 mg SC EVERY WEEK 9 May 25, 2021 4:20pm August 09, 2021 11:27am Start: 06-22-2020 End: 05-25-2021 Semaglutide (Ozempic) 1 mg/d ose (2 mg/1.5 mL) pen injector Discontinued 1 mg SC EVERY WEEK 9 June 22, 2020 12:00am May 25, 2021 4:20pm Start: 06-22-2020 End: 05-25-2021 Semaglutide (Ozempic) 1 mg/d ose (2 mg/1.5 mL) pen injector Discontinued 1 mg SC EVERY WEEK June 22, 2020 12:00am May 25, 2021 4:20pm sucralfate 100 mg/ml oral suspension (12 sources) Aluminum Complex Start: 09-22-2021 End: 12-01-2021 Sucralfate (Carafate) 100 mg/mL suspension Discontinued 10 mL PO before meals 1000 0 September 22, 2021 1:00am December 01, 2021 8:51am take three times a day, one hour prior to meals on an empty stomach for thirty days. Separate from other medications by two hours. traZODone hydrochloride 100 mg oral tablet (15 sources) Serotonin Reuptake Inhibitor Start: 09-23-2017 End: 12-22-2017 take 1 tablet by mouth once daily Trazodone 100 MG tablet Discontinued 100 mg PO DAILY September 23, 2017 1:00am December 22, 2017 8:25am Start: 04-24-2017 TRAZODONE HCL 50 MG TABS 1 tablet at night as needed TRAZODONE HCL [id number] Wan Jain MD Start: 04-24-2017 take 1 tablet by mouth once TR AZODONE HCL 100 MG TABS One tablet by mouth nightly TRAZODONE HCL [id number] Tyson Sampson [employer]-C venlafaxine 75 mg oral tablet (20 sources) Serotonin and Norepinephrine Reuptake Inhibitor Start: 06-28-2024 End: 02-24-2025 take 3 tablets by mouth at bedtime Venlafaxine 75 mg tablet Discontinued 225 mg PO AT BEDTIME 270 90 1 December 13, 2024 3:57pm February 24, 2025 5:01pm ANTIDEPRESSANT . Start: 01-09-2024 End: 06-28-2024 Venlafaxine 75 mg tablet Dis continued 275 mg PO AT BEDTIME January 09, 2024 12:00am June 28, 2024 11:30am ANTIDEPRESSANT . Start: 01-09-2024 take 275 mg by mouth at bedtime Venlafaxine Active 275 MG PO AT BEDTIME January 09, 2024 12:00am . Start: 01-04-2019 End: 01-09-2024 take 3 tablets by mouth at bedtime Venlafaxine 75 mg tablet Discontinued 225 mg PO AT BEDTIME 270 2 November 07, 2023 1:17pm January 09, 2024 1:18pm Anxiety and depression Other specified anxiety disorders ANTIDEPRESSANT . Start: 01-04-2019 End: 01-09-2024 take 225 mg by mouth at bedtime Venlafaxine Discontinued 225 MG PO AT BEDTIME 270 November 07, 2023 1:17pm January 09, 2024 1:18pm . Start: 06-13-2018 End: 01-04-2019 take 2 tablets by mouth once daily, then take 3 tablets by mouth once daily Venlafaxine 75 mg tablet Discontinued 75 mg PO DAILY 3 June 13, 2018 4:15pm January 04, 2019 11:21am Take with Venlafaxine 150mg for a total of 225mg daily. Start: 06-13-2018 End: 01-04-2019 take 150 mg by mouth once daily, then take 225 mg by mouth once daily Venlafaxine Discontinued 75 MG PO DAILY June 13, 2018 4:15pm January 04, 2019 11:21am Take with Venlafaxine 150mg for a total of 225mg daily. Start: 06-13-2018 End: 06-13-2018 take 1 tablet by mouth once daily Venlafaxine 75 mg tablet Discontinued 75 mg PO DAILY June 13, 2018 12:00am June 13, 2018 4:17pm Start: 05-03-2018 End: 06-13-2018 take 1 capsule by mouth once daily Venlafaxine (Effexor Xr) 150 mg capsule,extended release 24hr Discontinued 150 mg PO daily 3 May 04, 2018 7:56am June 13, 2018 4:17pm Start: 11-02-2017 End: 05-03-2018 Venlafaxine 150 MG capsule Discontinued 225 mg PO DAILY November 02, 2017 4:20pm May 03, 2018 1:56pm Start: 11-02-2017 End: 05-03-2018 take 225 mg by mouth once daily Venlafaxine Discontinued 225 MG PO DAILY November 02, 2017 4:20pm May 03, 2018 1:56pm Start: 10-05-2017 End: 11-02-2017 Venlafaxine 150 MG capsule Discontinued 250 mg PO DAILY October 05, 2017 5:10pm November 02, 2017 4:21pm Start: 10-05-2017 End: 11-02-2017 take 250 mg by mouth once daily Venlafaxine Discontinued 250 MG PO DAILY October 05, 2017 5:10pm November 02, 2017 4:21pm Start: 09-23-2017 End: 10-05-2017 take 1 capsule by mouth once daily Venlafaxine 150 MG capsule Discontinued 150 mg PO DAILY September 23, 2017 1:00am October 05, 2017 5:10pm Start: 06-30-2017 take 1 tablet by th once daily EFFEXOR XR 75 MG [id number] One tablet by mouth daily VENLAFAXINE HCL [id number] Tyson Sampson [employer]ER-C Start: 02-07-2017 EFFEXOR XR 150 MG [id number] 1 tablet daily VENLAFAXINE HCL [id number] Wan Jain MD Problems Active Problems Problem Classification Problem Date Documented Da te Episodic/Chronic Abdominal pain (14 sources) Abdominal pain; Translations: [Unspecified abdominal pain] Episodic Adjustment disorders (12 sources) Grief finding; Translations: [Adjustment disorder with depressed mood] 05-20-2022 Chronic Anxiety disorders (19 sources) Mixed anxiety and depressive disorder; Translations: [Anxiety disorder, unspecified] Chronic Cancer of breast (12 sources) History of malignant neoplasm of breast; Translations: [Personal history of malignant neoplasm of breast] 05-20-2022 Episodic Comment on above: 1995 Cardiac dysrhythmias (12 sources) Tachycardia; Translations: [Tachycardia, unspecified] 05-20-2022 Episodic Chronic ulcer of skin (10 sources) Non-pressure chronic ulcer of left thigh with fat layer exposed; Translations: [Non-pressure chronic ulcer of left thigh with fat layer exposed] 03-26-2024 Chronic Diabetes mellitus with complications (1 source) Type 2 diabetes mellitus with other specified complication; Translations: [Type 2 diabetes mellitus with other specified complication] Onset: 05-14-2025 Chronic Diabetes mellitus without complication (20 sources) Type 2 diabetes mellitus; Translations: [Diabetes mellitus] Onset: 03-20-2017 03-20-2017 Chronic Disorders of lipid metabolism (20 sources) Hyperlipidemia; Translations: [Hyperlipidemia, unspecified] Onset: 03-20-2017 03-20-2017 Chronic Essential hypertension (20 sources) Hypertensive disorder; Translations: [Essential (primary) hypertension] Onset: 02-24-2025 04-24-2017 Chronic Mood disorders (1 source) Depressive disorder; Translations: [Major depressive disorder, single episode, unspecified] Onset: 06-30-2017 06-30-2017 Chronic Nausea and vomiting (15 sources) Nausea; Translations: [Nausea] Episodic Nutritional deficiencies (14 sources) Vitamin D deficiency; Translations: [Vitamin D deficiency, unspecified] Onset: 03-20-2017 03-20-2017 Chronic Open wounds of extremities (12 sources) Injury of lower extremity; Translations: [Unspecified open wound, right lower leg, initial encounter] 05-20-2022 Episodic Comment on above: Traumatic, penetrati ng with fat layer exposed Open wounds of extremities (20 sources) Open wound of lower leg with complication; Translations: [Unspecified open wound, left lower leg, subsequent encounter] 01-09-2024 Episodic Osteoarthritis (12 sources) Arthritis; Translations: [Unspecified osteoarthritis, unspecified site] 05-20-2022 Chronic Other aftercare (8 sources) Wound finding; Translations: [Encounter for other specified aftercare] 04-21-2023 Episodic Other connective tissue disease (10 sources) Pain in upper limb; Translations: [Pain in arm, unspecified] 09-12-2022 Episodic Other connective tissue disease (3 sources) Adhesive capsulitis of shoulder; Translations: [Adhesive capsulitis of left shoulder] 09-12-2022 Episodic Other connective tissue disease (2 sources) Adhesive capsulitis of left shoulder; Translations: [Adhesive capsulitis of shoulder] 09-12-2022 Episodic Other connective tissue disease (7 sources) Adhesive capsulitis of left shoulder; Translations: [Adhesive capsulitis of left shoulder] 09-12-2022 Episodic Other diseases of bladder and urethra (5 sources) Overactive bladder; Translations: [Overactive bladder] 02-12-2024 Chronic Other ear and sense organ disorders (8 sources) Blood in ear canal; Translations: [Otorrhagia, left ear] 02-24-2025 Episodic Other gastrointestinal disorders (12 sources) Heartburn; Translations: [Heartburn] 05-20-2022 Episodic Other gastrointestinal disorders (12 sources) Chronic constipation; Translations: [Other constipation] 01-03-2022 Episodic Other gastrointestinal disorders (4 sources) Other constipation; Translations: [Constipation, unspecified] Episodic Other infections; including parasitic (6 sources) History of bacterial infection; Translations: [Personal history of other infectious and parasitic diseases] 01-09-2024 Episodic Comment on above: 2000 Other inflammatory condition of skin (10 sources) Itching of ear; Translations: [Pruritus, unspecified] 07-27-2022 Episodic Other inflammatory condition of skin (1 source) Pruritus, unspecified; Translations: [Unspecified pruritic disorder] 07-27-2022 Episodic Other nervous system disorders (1 source) Ulnar neuritis; Translations: [Lesion of ulnar nerve, unspecified upper limb] Onset: 02-07-2017 02-14-2017 Chronic Other nervous system disorders (12 sources) Paresthesia of foot ; Translations: [Anesthesia of skin] 04-19-2021 Episodic Other non-traumatic joint disorders (10 sources) Shoulder pain; Translations: [Pain in unspecified shoulder] 09-12-2022 Episodic Other nutritional; endocrine; and metabolic disorders (12 sources) Body mass index 25-29 - overweight; Translations: [Overweight] 06-22-2020 Episodic Other screening for suspected conditions (not mental disorders or infectious disease) (1 source) Encounter for screening mammogram for malignant neoplasm of breast; Translations: [Encounter for screening mammogram for malignant neoplasm of breast] Onset: 04-04-2025 Episodic Other skin disorders (12 sources) Soft tissue swelling; Translations: [Localized swelling, mass and lump, unspecified] 04-19-2021 Episodic Residual codes; unclassified (4 sources) Sleep apnea, unspecified; Translations: [Unspecified sleep apnea] Chronic Residual codes; unclassified (6 sources) Obstructive sleep apnea syndrome; Translations: [Obstructive sleep apnea (adult) (pediatric)] 01-09-2024 Chronic Residual codes; unclassified (1 source) Obstructive sleep apnea (adult) (pediatric); Translations: [Obstructive sleep apnea (adult)(pediatric)] 01-23-2024 Chronic Residual codes; unclassified (12 sources) History of right mastectomy; Translations: [Acquired absence of right breast and nipple] 09-03-2021 Episodic Comment on above: 1996 Residual codes; unclassified (12 sources) Early satiety; Translations: [Early satiety] 05-20-2022 Episodic Residual codes; unclassified (14 sources) Body mass index 20-24 - normal; Translations: [Body mass index (BMI) 24.0-24.9, adult] 10-18-2021 Episodic Residual codes; unclassified (1 source) Body mass index (BMI) 24.0-24.9, adult; Translations: [Body Mass Index between 19-24, adult] Episodic Residual codes; unclassified (1 source) Early satiety; Translations: [Early satiety] Episodic Skin and subcutaneous tissue infections (12 sources) Cellulitis of lower leg; Translations: [Cellulitis of right lower limb] 05-20-2022 Episodic Spondylosis; intervertebral disc disorders; other back problems (11 sources) Degeneration of cervical intervertebral disc; Translations: [Other cervical disc degeneration, unspecified cervical region] 09-12-2022 Chronic Superficial injury; contusion (20 sources) Abrasion, right lower leg, initial encounter; Translations: [Abrasion of right lower leg, initial encounter] 05-20-2022 Episodic Unclassified (13 sources) Sleep apnea; Translations: [Sleep apnea, unspecified] Onset: 04-24-2017 04-24-2017 Chronic Comment on above: Initial AHI of 17.5 events per hour. Well controlled on AutoPap Unclassified (12 sources) abdominal tram flap 11-04-2019 Comment on above: reconstructive after masectomy Past or Other Problems Problem Classification Problem Date Documented Date Episodic/Chronic Other connective tissue disease (1 source) Extensor tenosynovitis of wrist; Translations: [Other synovitis and tenosynovitis, unspecified forearm] Onset: 02-07-2017 02-14-2017 Episodic Other non-traumatic joint disorders (1 source) Pain in wrist; Translations: [Pain in left wrist] Onset: 02-06-2017 02-06-2017 Episodic Unclassified (12 sources) bunionecmy of right foot 11-04-2019 Unclassified (10 sources) Abrasion, right lower leg, initial encounter 05-20-2022 Results Test Name Value Interpretation Reference Range Facility Calculated very low density lipoprotein (VLDL) cholesterol measurementOrdered By: Joana Davalos on 05-27-2025 Calculated very low density lipoprotein (VLDL) cholesterol measurement 21 mg/dL 5-40 [facility] LDL calc ser/plasOrdered By: Joana Davalos on 05-27-2025 Cholesterol in LDL [Mass/Vol] 65 mg/dL [facility] Comment on above: Gblcjycwqh=590-428 m g/dL & Higher Krvh=119 mg/dL or greaterFriedwald Equation for LDL-C Lipid Profileon 05-27-2025 CHOL:HDL 3.75 Normal [facility] Comment on above: Performed By: #### L 502.0250, L500.4100, L506.1001 #### [facility] [address] [place], [address] Cholesterol [Mass/Vol] 116 mg/dL Normal <=200 [facility] Comment on above: Result Comment: Chol esterol level, Desirable <200 mg/dL Borderline high cholesterol 200-239 mg/dL High cholesterol >=240 mg/dL Recommendations of the NCEP Adult Treatment Panel for the following risk-cutoff thresholds for the [place] population. Performed By: #### L 502.0250, L500.4100, L506.1001 #### [facility] [address] [place], [address] Cholesterol in HDL [Mass/Vol] 31 mg/dL Low [facility] Comment on above: Result Comment: Katie onal Cholesterol Education Program (NCEP) guidelines: <40 mg/dL: Low HDL-cholesterol (major risk factor for CHD) >= 60 mg/dL: High HDL-cholesterol (negative risk factor for CHD) HDL-cholesterol is affected by a number of factors, e.g. smoking, exercise, hormones, sex and age. Performed By: #### L 502.0250, L500.4100, L506.1001 #### [facility] [address] [place], [address] Cholesterol in LDL [Mass/Vol] 65 mg/dL Normal [facility] Comment on above: Result Comment: Bord riqzrn=944-118 mg/dL Higher Xjap=817 mg/dL or greater Friedwald Equation for LDL-C Performed By: #### L 502.0250, L500.4100, L506.1001 #### [facility] [address] [place], [address] Cholesterol in VLDL [Mass/Vol] 21 mg/dL Normal 5-40 [facility] Comment on above: Performed By: #### L 502.0250, L500.4100, L506.1001 #### [facility] [address] [place], [address] Triglyceride [Mass/Vol] 103 mg/dL Normal [facility] Comment on above: Result Comment: The drugs N-Acetylcysteine and Metamizole may falsely depress this assay. Normal range: <150 mg/dL Borderline High: 150-199 mg/dL High: 200-499 mg/dL Very High: >500 mg/dL Performed By: #### L 502.0250, L500.4100, L506.1001 #### [facility] [address] [place], [address] Microalb:Creat Ratio,Random URon 05-27-2025 Creatinine [Mass/Vol] 78.60 mg/dL Normal 28.00-217.00 [facility] Comment on above: Performed By: #### L 502.0250, L500.4100, L506.1001 #### [facility] [address] [place], [address] MALB:CREAT 65.8 mg/g CRE High <30 mg/g CRE [facility] Comment on above: Performed By: #### L 502.0250, L500.4100, L506.1001 #### [facility] [address] [place], [address] MICROALBUMIN,UR 51.7 mg/L Normal <20 mg/L [facility] Comment on above: Performed By: #### L 502.0250, L500.4100, L506.1001 #### [facility] [address] [place], [address] Random urine creatinine antoni urement (mass/volume)Ordered By: Joana Davalos on 05-27-2025 Creatinine Unsp time (U) [Mass/Vol] 78.60 mg/dL 28.00-217.00 [facility] Screening total cholesterol/ high density lipoprotein (HDL) cholesterol ratioOrdered By: Joana Davalos on 05-27-2025 Cholesterol.total/Cho lesterol in HDL [Mass ratio] 3.75 {ratio} [facility] Serum or plasma cholesterol in HDL measurement (mass/volume)Ordered By: Joana Davalos on 05-27-2025 Cholesterol in HDL [Mass/Vol] 31 mg/dL Low >40 [facility] Comment on above: National Cholesterol Education Program (NCEP) guidelines:<40 mg/dL: Low HDL-cholesterol (major risk factor for CHD)>= 60 mg/dL: High HDL-cholesterol (negative risk factor for CHD)HDL-cholesterol is affected by a number of factors, e.g. smoking, exercise, hormones, sex and age. Serum or plasma cholesterol measurement (mass/volume)Ordered By: Joana Davalos on 05-27-2025 Cholesterol [Mass/Vol] 116 mg/dL <201 [facility] Comment on above: Cholesterol level, D esirable <200 mg/dLBorderline high cholesterol 200-239 mg/dLHigh cholesterol >=240 mg/dLRecommendations of the NCEP Adult Treatment Panel for the following risk-cutoff thresholds for the [place] population. Triglycerides measurementOrd ered By: Joana Davalos on 05-27-2025 Triglyceride [Mass/Vol] 103 mg/dL <199 [facility] Comment on above: The drugs N-Acetylcy steine and Metamizole may falsely depress this assay. Normal range: <150 mg/dLBorderline High: 150-199 mg/dLHigh: 200-499 mg/dLVery High: >500 mg/dL Urine albumin measurement wi detection limit of 20 mg/L or less (mass/volume)Ordered By: Joana Davalos on 05-27-2025 Albumin DL <= 20 mg/L (U) [Mass/Vol] 51.7 mg/L <20 mg/L [facility] Vitamin D,25 Hydroxyon 05-27 Vitamin D 25-OH 32.7 ng/mL Normal 30-100 [facility] Comment on above: Result Comment: Jackie min D Status Deficiency: <20 ng/mL (50nmol/L) Insufficiency: 20-30 ng/mL (50-75 nmol/L) Sufficiency: 30-100 ng/mL (75-250 nmol/L) Toxicity: >100 ng/mL (>250 nmol/L) Performed By: #### L 502.0250, L500.4100, L506.1001 #### [facility] [place], [address] Endocrinology Visit Reporton 05-14-2025 Endocrinology Visit Report [facility] [address] [place] [address] OFFICE VISIT Date of Service: 05/14/25 MR#: [id number] Acct: [id number] Name: MARYAN HOGAN Rep #: [id number] : 1955 Provider: QUYNH douglas Age/Sex: 70/F Location: [facility] Status: Signed Intake Vital Signs 09/13/24 10:58 02/24/25 08:36 05/14/25 08:07 Height 5 ft 7 in 5 ft 7 in 5 ft 7 in Weight: 141 lb 143 lb BMI 22.1 22.4 BP 106/62 91/63 Blood Pressure Location Lt brachial Lt brachial Position Sitting Sitting Respiration 14 Pulse 73 74 Pulse Source Monitor Monitor Temp 97.7 F L Temp Source Temporal Pulse Oximetry (%) 99 98 Oxygen Delivery Method room air room air Intake Visit Reasons: 6 M FU Chief Complaint: f/u diabetes Business Attorney Required: No Accompanied by: Self Is patient in pain?: No Allergies amoxicillin Allergy (Verified 05/14/25 08:07) Rash levofloxacin (From Levaquin) Allergy (Verified 05/14/25 08:07) Vomiting promethazine (From Phenergan) Allergy (Verified 05/14/25 08:07) Other Medications ???Medication ???Instructions ???Recorded ???Confirmed ???Type aspirin 81 mg tablet,delayed 81 mg PO QDAY 10/05/17 05/14/25 Hi story release (Adult Aspirin Regimen) cholecalciferol (vitamin D3) 50 2,000 unit PO DAILY 10/05/1705/14 History mcg (2,000 unit) capsule cyanocobalamin (vitamin B-12) 2,500 mcg PO .THREE TIMES A WEEK 1 09/26/21 05/14/25 History 2,500 mcg tablet docusate sodium 100 mg capsule 100 mg PO DAILY 07/27/22 05/14/25 History (Colace) True Metrix Glucose Test Strip #50 ea 11/10/22 05/14/25 Rx (blood sugar diagnostic) blood-glucose meter (True Metrix #1 ea 11/10/22 05/14/25 Rx Glucose Meter kit) calcium carbonate (Calcium 600) 600 mg PO DAILY 04/09/24 05/14/25 History atorvastatin 80 mg tablet 80 mg PO QHS #90 tabs 09/13/24 Rx dapagliflozin propanediol 10 mg 10 mg PO QDAY diabetes #90 tabs 05/14/25 Rx tablet lisinopril 20 mg tablet See Rx Instructions .Route 4 05/14/25 Rx .COMPLEX #90 tabs glimepiride 2 mg tablet 1 mg (1/2 x 2 mg) PO DAILY #90 tab s 12/15/24 05/14/25 Rx blood-glucose sensor (FreeStyle #6 ea 02/10/25 05/14/25 Rx John 3 Plus Sensor device) Ozempic 2 mg/dose (8 mg/3 mL) 2 mg (0.75 mL) subcut QWEEK #9 mL 02/20/25 05/14/25 Rx subcutaneous pen injector (semaglutide) venlafaxine 75 mg tablet 225 mg (3 x 75 mg) PO QHS 02/24/25 05/14/25 Rx ANTIDEPRESSANT 3 months #270 tabs blood-glucose,receive r,cont #1 ea 04/04/25 05/14/25 Rx (FreeStyle John 3 Cadet) glimepiride 1 mg tablet 1 mg PO QAM #90 tabs 05/14/2504/26 Rx Have you fallen in the past year?: No PFSH Medical History (Updated 05/14/25 @ 09:20 by Joana Davalos NP-C) Blood in left ear canal 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 Overactive bladder Leg wound, left Obstructive sleep apnea Traumatic open wound of left lower leg with delayed healing Itching of ear Health care maintenance Preventative health care Abdominal pain History of Clostridium difficile infection Alcohol use History of kidney stones Easy bruising History of hiatal hernia Heartburn CPAP (continuous positive airway pressure) dependence History of stress test Early satiety Chronic nausea Wound of right lower extremity Cellulitis of right lower leg Contusion of right lower leg Abrasion, right lower leg, initial encounter Grief reaction Tachycardia Arthritis Vitamin D deficiency History of breast cancer Surgical History Hx of cataract extraction History of colonoscopy bunionecmy of right foot abdominal tram flap History of total mastectomy of right breast Family History Sister Breast cancer Grandmother Breast cancer Uncle Breast cancer Mother Heart disease Thyroid disorder Father Heart disease CVA (cerebral vascular accident) Cancer prostate Brother Crohns disease Grandfather CVA (cerebral vascular accident) Grandmother Diabetes Social History Smoking Status: Never smoker alcohol intake: current alcohol intake frequency: a few times a month Alcohol type: beer substance use type: does not use caffeine: Yes what type of physical activity do you participate in: walking frequency: 5-6 times per week do you feel safe at home: Yes HPI HPI Chief Complaint: f/u diabetes Details: MARYAN HAQ, is a 70 F who presents to the office today for evaluation and management (more content not included)... Normal [facility] - Hematology and Cell countsOrdered By: Joana Davalos on 05-14-2025 HbA1c (Bld) [Mass fraction] 6.7 % High 4.2-6.3 [facility] Breast imaging reportOrdered By: Rahel Cota on 03-27-2025 Study report [facility] Imaging Services [address] [place] [address] SCREEN MAMM (CAD) W/CHELA UNI L MR#: [id number] Acct: [id number] Name: MARYAN HOGAN Rep #: : [id number] F 70 From: Gloria Cota MD PCP: Dr. Wan Jain MD Status: [facility] CLI Study:SCREEN MAMM (CAD) W/CHELA UNI L Date of Exam: 03/27/25 Exam# [id number] Ordering Dr: Antonio Jain MD EXAM: SCREEN MAMM (CAD) W/CHELA UNI L DATE: 03/27/2025 CLINICAL HISTORY: F, Age 70 y/o , BREAST CANCER SCREENING TECHNIQUE: SCREEN MAMM (CAD) W/CHELA UNI L COMPARISON: Prior exam(s) dated 03/26/2024, 08/09/2022, 07/16/2021. FINDINGS: TISSUE DENSITY: There are scattered areas of fibroglandular density. Unilateral Left Breast Mammographic Findings: No significant masses, calcifications or other abnormalities are identified. BI/SCREEN MAMM (CAD) W/CHELA UNI L IMPRESSION: There is no mammographic evidence of malignancy. OVERALL FINAL ASSESSMENT BI-RADS 1: NEGATIVE. RECOMMEND ANNUAL MAMMOGRAPHIC SCREENING. RECOMMENDATION: Routine annual follow-up in 1 Year A letter with findings and recommendations will be mailed to the patient. Reading Location: [facility] CC: Dr. Wan Jain MD ~ Operations Asst: Signed [facility] SCREEN MAMM (CAD) W/CHELA UNI Ian 03-27-2025 SCREEN MAMM (CAD) W/CHELA UNI L [facility] Imaging Services [address] [place], [place] [id number] SCREEN MAMM (CAD) W/CHELA UNI L MR#: [id number] Acct: [id number] Name: MARYAN HOGAN Rep #: [id number] : 1955 F 70 From: Rahel Cota MD PCP: Dr. Wan Jain MD Status: [facility] Study: SCREEN MAMM (CAD) W/CHELA UNI L Date of Exam: 0 03/27/25 Exam# [id number] Ordering Dr: Wan Jain MD EXAM: SCREEN MAMM (CAD) W/CHELA UNI L DATE: 03/27/2025 CLINICAL HISTORY: F, Age 70 y/o , BREAST CANCER SCREENING TECHNIQUE: SCREEN MAMM (CAD) W/CHELA UNI L COMPARISON: Prior exam(s) dated 03/26/2024, 08/09/2022, 07/16/2021. FINDINGS: TISSUE DENSITY: There are scattered areas of fibroglandular density. Unilateral Left Breast Mammographic Findings: No significant masses, calcifications or other abnormalities are identified. BI/SCREEN MAMM (CAD) W/CHELA UNI L IMPRESSION: There is no mammographic evidence of malignancy. OVERALL FINAL ASSESSMENT BI-RADS 1: NEGATIVE. RECOMMEND ANNUAL MAMMOGRAPHIC SCREENING. RECOMMENDATION: Routine annual follow-up in 1 Year A letter with findings and recommendations will be mailed to the patient. Reading Location: [id number] CC: Dr. Wan Jain MD Operations Asst: Signed Normal [facility] Anion gap in Serum or Plasma Ordered By: Wan Jain on 03-25-2025 Anion gap [Moles/Vol] 12 mmol/L 5-15 [facility] BUN/creatinine ratioOrdered By: Wan Jain on 03-25-2025 Urea nitrogen/Creatinine [Mass ratio] 16.6 mg/mg 10-20 [facility] Bilirubin, totalOrdered By: Wan Jain on 03-25-2025 Bilirubin [Mass/Vol] 0.36 mg/dL 0.00-1.30 [facility] Carbon dioxide, total [Moles /volume] in Central venous bloodOrdered By: Wan Jain on 03-25-2025 CO2 [Moles/Vol] 25.8 mmol/L 21.0-32.0 [facility] Chloride assayOrdered By: Ritu Jain on 03-25-2025 Chloride [Moles/Vol] 100 mmol/L 98-108 [facility] Comprehensive Metabolic Prof ilon 03-25-2025 Albumin [Mass/Vol] 4.3 g/dL Normal 3.4-4.8 [facility] Comment on above: Performed By: #### L 500.4050 ####[facility] [address] [place], [place], [address] Albumin/Globulin [Mass ratio] 1.3 {ratio} Normal 0.9-2.4 [facility] Comment on above: Performed By: #### L 500.4050 ####[facility] [address] [place], [address] ALK PHOS 121 U/L High 35-104 [facility] Comment on above: Performed By: #### L 500.4050 ####[facility] [address] [place], [address] ALT [Catalytic activity/Vol] 27 U/L Normal <=34 [facility] Comment on above: Performed By: #### L 500.4050 ####[facility] [address] [place], [address] AST [Catalytic activity/Vol] 26 U/L Normal <=31 [facility] Comment on above: Result Comment: Hemo lysis present, Results??could be affected. ?? Performed By: #### L 500.4050 ####[facility] [address] [place], [address] Bilirubin [Mass/Vol] 0.36 mg/dL Normal 0.00-1.30 [facility] Comment on above: Performed By: #### L 500.4050 ####[facility] [address] [place], [address] BUN/CRE 16.6 RATIO Normal 10-20 [facility] Comment on above: Performed By: #### L 500.4050 ####[facility] [address] [place], [address] Calcium [Mass/Vol] 9.7 mg/dL Normal 7.6-11.0 [facility] Comment on above: Performed By: #### L 500.4050 ####[facility] [address] [place], [address] Chloride [Moles/Vol] 100 mmol/L Normal 98-108 [facility] Comment on above: Performed By: #### L 500.4050 ####[facility] [address] [place], [address] CO2 [Moles/Vol] 25.8 mmol/L Normal 21.0-32.0 [facility] Comment on above: Performed By: #### L 500.4050 ####[facility] [address] [place], [address] Creatinine [Mass/Vol] 0.94 mg/dL Normal 0.70-1.20 [facility] Comment on above: Performed By: #### L 500.4050 ####[facility] [address] [place], [address] GAP 12 Normal 5-15 [facility] Comment on above: Performed By: #### L 500.4050 ####[facility] [address] [place], [address] GFR/1.73 sq M.predicted among non-blacks MDRD (S/P/Bld) [Vol rate/Area] 66 mL/min/{1.73_m2} Normal >60 [facility] Comment on above: Result Comment: mL/m in/1.73m2 CKD-EPI Creatinine Equation (2020) Performed By: #### L 500.4050 ####[facility] [address] [place], [address] Globulin (S) [Mass/Vol] 3.2 g/dL Normal 2.2-4.2 [facility] Comment on above: Performed By: #### L 500.4050 ####[facility] [address] [place], [address] Glucose [Mass/Vol] 169 mg/dL High 70-99 [facility] Comment on above: Performed By: #### L 500.4050 ####[facility] [address] [place], [address] Potassium [Moles/Vol] 5.1 mmol/L Normal 3.3-5.1 [facility] Comment on above: Result Comment: Hemo lysis present, Results??could be affected. ?? Performed By: #### L 500.4050 ####[facility] [address] [place], [place], [address] Sodium [Moles/Vol] 138 mmol/L Normal 133-145 [facility] Comment on above: Performed By: #### L 500.4050 ####[facility] [address] [place], [place], [address] T PROT 7.5 g/dL Normal 5.9-8.4 [facility] Comment on above: Performed By: #### L 500.4050 ####[facility] [address] [place], [place], [address] Urea nitrogen [Mass/Vol] 16 mg/dL Normal 4-19 [facility] Comment on above: Performed By: #### L 500.4050 ####[facility] [address] [place], [place], [address] Glomerular filtration rate ( GFR) estimation/1.73 sq m using serum, plasma, or whole bOrdered By: Wan Jain on 03-25-2025 GFR/1.73 sq M.predicted among non-blacks MDRD (S/P/Bld) [Vol rate/Area] 66 mL/min/{1.73_m2} >60 [facility] Comment on above: mL/min/1.73m2 CKD-EP I Creatinine Equation (2020) Laboratory - Chemistry and C hemistry - challengeOrdered By: Wan Jain on 03-25-2025 AST [Catalytic activity/Vol] 26 U/L <32 [facility] Comment on above: Hemolysis present, R esults could be affected. Potassium measurement (mass/ volume)Ordered By: Wan Jain on 03-25-2025 Potassium (Unsp spec) [Mass/Vol] 5.1 mmol/L 3.3-5.1 [facility] Comment on above: Hemolysis present, R esults could be affected. Serum creatinine measurement (mass/volume)Ordered By: Wan Jain on 03-25-2025 Creatinine [Mass/Vol] 0.94 mg/dL 0.70-1.20 [facility] Serum globulin measurementOr dered By: Wan Jain on 03-25-2025 Globulin (S) [Mass/Vol] 3.2 g/dL 2.2-4.2 [facility] Serum glucose measurement (m ass/volume)Ordered By: Wan Jain on 03-25-2025 Glucose [Mass/Vol] 169 mg/dL High 70-99 [facility] Serum or plasma alanine wagner otransferase (ALT) measurementOrdered By: Wan Jain on 03-25-2025 ALT [Catalytic activity/Vol] 27 U/L <35 [facility] Serum or plasma albumin antoni urement (mass/volume)Ordered By: Wan Jain on 03-25-2025 Albumin [Mass/Vol] 4.3 g/dL 3.4-4.8 [facility] Serum or plasma albumin/glob ulin mass ratioOrdered By: Wan Jain on 03-25-2025 Albumin/Globulin [Mass ratio] 1.3 {ratio} 0.9-2.4 [facility] Serum or plasma alkaline ezra sphatase measurementOrdered By: Wan Jain on 03-25-2025 ALP [Catalytic activity/Vol] 121 U/L High 35-104 [facility] Serum or plasma calcium antoni urement (mass/volume)Ordered By: Wan Jain on 03-25-2025 Calcium [Mass/Vol] 9.7 mg/dL 7.6-11.0 [facility] Serum or plasma urea nitroge n measurement (mass/volume)Ordered By: Wan Jain on 03-25-2025 Urea nitrogen [Mass/Vol] 16 mg/dL 4-19 [facility] Sodium levelOrdered By: Virginia Jain on 03-25-2025 Sodium [Moles/Vol] 138 mmol/L 133-145 [facility] Total proteinOrdered By: Chava Jain on 03-25-2025 Protein [Mass/Vol] 7.5 g/dL 5.9-8.4 [facility] Vis mariana 02-24-2025 Internal Medicine Office Visit [facility] [address] [place] [address] [place] [address] OFFICE VISIT Date of Service: 02/24/25 MR#: [id number] Acct: [id number] Name: MARYAN HOGAN Rep #: [id number] : 1955 Provider: Dr. Wan reid MD Age/Sex: 70/F Location: [facility] Status: Signed Intake Vital Signs 08/19/24 11:29 09/13/24 10:58 02/24/25 08:36 Height 5 ft 7 in 5 ft 7 in 5 ft 7 in Weight: 146 lb 141 lb BMI 22.8 22.1 BP 103/67 106/62 Blood Pressure Location Lt brachial Lt brachial Position Sitting Sitting Respiration 14 Pulse 68 73 Pulse Source Monitor Monitor Temp 97.7 F L Temp Source Temporal Pulse Oximetry (%) 95 99 Oxygen Delivery Method room air room air Intake Visit Reasons: 6 M FU Chief Complaint: Follow-up chronic conditions Business Attorney Required: No Is patient in pain?: No Allergies amoxicillin Allergy (Verified 02/24/25 08:28) Rash levofloxacin (From Levaquin) Allergy (Verified 02/24/25 08:28) Vomiting promethazine (From Phenergan) Allergy (Verified 02/24/25 08:28) Other Medications ???Medication ???Instructions ???Recorded ???Confirmed ???Type aspirin 81 mg tablet,delayed 81 mg PO QDAY 10/05/17 02/24/25 Hi story release (Adult Aspirin Regimen) cholecalciferol (vitamin D3) 50 2,000 unit PO DAILY 10/05/1702/24 History mcg (2,000 unit) capsule cyanocobalamin (vitamin B-12) 2,500 mcg PO .THREE TIMES A WEEK 1 09/26/21 02/24/25 History 2,500 mcg tablet docusate sodium 100 mg capsule 100 mg PO DAILY 07/27/22 02/24/25 History (Colace) True Metrix Glucose Test Strip #50 ea 11/10/22 02/24/25 Rx (blood sugar diagnostic) blood-glucose meter (True Metrix #1 ea 11/10/22 02/24/25 Rx Glucose Meter kit) calcium carbonate (Calcium 600) 600 mg PO DAILY 04/09/24 02/24/25 History blood-glucose,receive r,cont #1 ea 05/07/24 02/24/25 Rx (FreeStyle John 3 Cadet) atorvastatin 80 mg tablet 80 mg PO QHS #90 tabs 09/13/2411/19 Rx dapagliflozin propanediol 10 mg 10 mg PO QDAY diabetes #90 tabs 02/24/25 Rx tablet lisinopril 20 mg tablet See Rx Instructions .Route 4 02/24/25 Rx .COMPLEX #90 tabs glimepiride 2 mg tablet 1 mg (1/2 x 2 mg) PO DAILY #90 tab s 12/15/24 02/24/25 Rx blood-glucose sensor (FreeStyle #6 ea 02/10/25 02/24/25 Rx John 3 Plus Sensor device) Ozempic 2 mg/dose (8 mg/3 mL) 2 mg (0.75 mL) subcut QWEEK #9 mL 02/20/25 02/24/25 Rx subcutaneous pen injector (semaglutide) venlafaxine 75 mg tablet 225 mg (3 x 75 mg) PO QHS 02/24/25 02/24/25 Rx ANTIDEPRESSANT 3 months #270 tabs Have you fallen in the past year?: No [facility] History (Updated 02/24/25 @ 10:[address] 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 Overactive bladder Leg wound, left Obstructive sleep apnea Traumatic open wound of left lower leg with delayed healing Itching of ear Health care maintenance Preventative health care Abdominal pain History of Clostridium difficile infection Alcohol use History of kidney stones Easy bruising History of hiatal hernia Heartburn CPAP (continuous positive airway pressure) dependence History of stress test Early satiety Chronic nausea Wound of right lower extremity Cellulitis of right lower leg Contusion of right lower leg Abrasion, right lower leg, initial encounter Grief reaction Tachycardia Arthritis Vitamin D deficiency History of breast cancer Surgical History Hx of cataract extraction History of colonoscopy bunionecmy of right foot abdominal tram flap History of total mastectomy of right breast Family History Sister Breast cancer Grandmother Breast cancer Uncle Breast cancer Mother Heart disease Thyroid disorder Father Heart disease CVA (cerebral vascular accident) Cancer prostate Brother Crohns disease Grandfather CVA (cerebral vascular accident) Grandmother Diabetes Social History Smoking Status: Never smoker alcohol intake: current alcohol intake frequency: a few times a month Alcohol type: beer substance use type: does not use caffeine: Yes what type of physical activity do you participate in: walking frequency: 5-6 times per week do you feel safe at home: Yes HPI HPI Chief Complaint: Follow-up chronic conditions Details: MARYAN HAQ, is a 70 F who presents to the office today for follow-up of her chronic medical conditions. Also has some concerns. She states that she has been traveling a lot lately an (more content not included)... Normal [facility] Endocrinology Visit Reporton 09-13-2024 Endocrinology Visit Report [facility] [address] [place] [address] [address] [place] [address] OFFICE VISIT Date of Service: 09/13/24 MR#: [id number] Acct: [id number] Name: MARYAN HOGAN Rep #: [id number] : 1955 Provider: Aleks Kunz Age/Sex: 69/F Location: [facility] Status: Signed Intake Vital Signs 05/07/24 08:30 08/19/24 11:29 09/13/24 10:58 Height 5 ft 7 in 5 ft 7 in 5 ft 7 in Weight: 142 lb 146 lb BMI 22.2 22.8 BP 118/70 103/67 Blood Pressure Location Lt brachial Lt brachial Position Sitting Sitting Respiration 16 Pulse 72 68 Pulse Source Monitor Monitor Temp 97.3 F L Temp Source Temporal Pulse Oximetry (%) 99 95 Oxygen Delivery Method room air room air Intake Visit Reasons: 4 M FU Chief Complaint: Diabetes Business Attorney Required: No Accompanied by: Self Is patient in pain?: No Allergies amoxicillin Allergy (Verified 09/13/24 10:58) Rash levofloxacin (From Levaquin) Allergy (Verified 09/13/24 10:58) Vomiting promethazine (From Phenergan) Allergy (Verified 09/13/24 10:58) Other Medications ???Medication ???Instructions ???Recorded ???Confirmed ???Type aspirin 81 mg tablet,delayed 81 mg PO QDAY 10/05/17 09/13/24 History release (Adult Aspirin Regimen) cholecalciferol (vitamin D3) 50 2,000 unit PO DAILY 10/05/17 09/13/24 History mcg (2,000 unit) capsule cyanocobalamin (vitamin B-12) 2,500 mcg PO .THREE TIMES A WEEK 07/27/22 09/13/24 History 2,500 mcg tablet docusate sodium 100 mg capsule 100 mg PO DAILY 07/27/22 09/13/24 History (Colace) True Metrix Glucose Test Strip #50 ea 11/10/22 09/13/24 Rx (blood sugar diagnostic) blood-glucose meter (True Metrix #1 ea 11/10/22 09/13/24 Rx Glucose Meter kit) calcium carbonate (Calcium 600) 600 mg PO DAILY 04/09/24 09/13/24 History blood-glucose meter,continuous #1 ea 05/07/24 09/13/24 Rx (FreeStyle John 3 Cadet) venlafaxine 75 mg tablet 225 mg (3 x 75 mg) PO QHS 06/28/24 09/13/24 Rx ANTIDEPRESSANT 90 days #270 tabs atorvastatin 80 mg tablet 80 mg PO QHS #90 tabs 09/13/24 09/13/24 Rx dapagliflozin propanediol 10 mg 10 mg PO QDAY diabetes #90 tabs 09/13/24 09/13/24 Rx tablet glimepiride 2 mg tablet 1 mg (1/2 x 2 mg) PO DAILY #90 tabs 09/13/24 09/13/24 Rx lisinopril 20 mg tablet See Rx Instructions .Route 09/13/24 09/13/24 Rx .COMPLEX #90 tabs blood-glucose sensor (FreeStyle #6 ea 09/16/24 Rx John 3 Plus Sensor device) Ozempic 2 mg/dose (8 mg/3 mL) 2 mg (0.75 mL) subcut QWEEK #9 mL 09/20/24 Rx subcutaneous pen injector (semaglutide) Have you fallen in the past year?: No PFSH Medical History 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 Overactive bladder Leg wound, left Obstructive sleep apnea Traumatic open wound of left lower leg with delayed healing Itching of ear Health care maintenance Preventative health care Abdominal pain History of Clostridium difficile infection Alcohol use History of kidney stones Easy bruising History of hiatal hernia Heartburn CPAP (continuous positive airway pressure) dependence History of stress test Early satiety Chronic nausea Wound of right lower extremity Cellulitis of right lower leg Contusion of right lower leg Abrasion, right lower leg, initial encounter Grief reaction Tachycardia Arthritis Vitamin D deficiency History of breast cancer Surgical History Hx of cataract extraction History of colonoscopy bunionecmy of right foot abdominal tram flap History of total mastectomy of right breast Family History Sister Breast cancer Grandmother Breast cancer Uncle Breast cancer Mother Heart disease Thyroid disorder Father Heart disease CVA (cerebral vascular accident) Cancer prostate Brother Crohns disease Grandfather CVA (cerebral vascular accident) Grandmother Diabetes Social History Smoking Status: Never smoker alcohol intake: current alcohol intake frequency: a few times a month Alcohol type: beer substance use type: does not use caffeine: Yes what type of physical activity do you participate in: walking frequency: 5-6 times per week do you feel safe at home: Yes HPI HPI Chief Complaint: Diabetes Details: MARYAN HAQ, is a 69 F who presents to the office today for follow up. A1C is down to 6.4% She is taking Ozempic, Farxiga, and glimepiride. No significant lows. She is on statin and PEG. She is feeling well. ROS Const Constitutional: No anorexia, excessi (more content not included)... Normal [facility] CBC W/Diff, Automatedon 11-2 Absolute Lymph 1.47 X10 3/uL Normal 0.83-4.51 [facility] Comment on above: Performed By: #### L 500.4050, L100.0100 #### [facility] [address] [place], [address] Absolute Neut 5.5 X10 3/uL Normal 2.0-7.7 [facility] Comment on above: Performed By: #### L 500.4050, L100.0100 #### [facility] [address] [place], [address] Basophils/100 WBC (Bld) 1.0 % Normal 0-1 [facility] Comment on above: Performed By: #### L 500.4050, L100.0100 #### [facility] [address] [place], [address] Eosinophils/100 WBC (Bld) 4.0 % Normal 0-5 [facility] Comment on above: Performed By: #### L 500.4050, L100.0100 #### [facility] [address] [place], [address] Erythrocyte distribution width (RBC) [Ratio] 12.4 % Normal 11.6-14.6 [facility] Comment on above: Performed By: #### L 500.4050, L100.0100 #### [facility] [address] [place], [address] Hematocrit (Bld) [Volume fraction] 46.6 % Normal 37-47 [facility] Comment on above: Performed By: #### L 500.4050, L100.0100 #### [facility] [address] [place], [address] Hemoglobin (Bld) [Mass/Vol] 14.8 g/dL Normal 12.0-15.0 [facility] Comment on above: Performed By: #### L 500.4050, L100.0100 #### [facility] [address] [place], [address] IG% 0.400 Normal 0.0-0.9 [facility] Comment on above: Result Comment: IG% - Immature Granulocytes (promyelocytes, myelocytes and metamyelocytes) > 1% indicates that a LEFT SHIFT is Present. Performed By: #### L 500.4050, L100.0100 #### [facility] [address] [place], [address] Lymphocytes/100 WBC (Bld) 18.4 % Low 19-41 [facility] Comment on above: Performed By: #### L 500.4050, L100.0100 #### [facility] [address] [place], [address] MCH (RBC) [Entitic mass] 28.6 pg Normal 27.0-32.0 [facility] Comment on above: Performed By: #### L 500.4050, L100.0100 #### [facility] [address] [place], [address] MCHC (RBC) [Mass/Vol] 31.8 g/dL Low 32-36 [facility] Comment on above: Performed By: #### L 500.4050, L100.0100 #### [facility] [address] [place], [address] MCV (RBC) [Entitic vol] 90.0 fL Normal 81-99 [facility] Comment on above: Performed By: #### L 500.4050, L100.0100 #### [facility] [address] [place], [address] Monocytes/100 WBC (Bld) 7.5 % Normal 0-10 [facility] Comment on above: Performed By: #### L 500.4050, L100.0100 #### [facility] [address] [place], [address] Neutrophils/100 WBC (Bld) 68.7 % Normal 47-70 [facility] Comment on above: Performed By: #### L 500.4050, L100.0100 #### [facility] [address] [place], [address] Nucleated RBC (Bld) [#/Vol] 0 10*3/uL Normal 0-5 [facility] Comment on above: Performed By: #### L 500.4050, L100.0100 #### [facility] [address] [place], [address] Platelet mean volume (Bld) [Entitic vol] 11.7 fL Normal 6.2-12.0 [facility] Comment on above: Performed By: #### L 500.4050, L100.0100 #### [facility] [address] [place], [address] Platelets (Bld) [#/Vol] 262 10*3/uL Normal 150-450 [facility] Comment on above: Performed By: #### L 500.4050, L100.0100 #### [facility] [address] [place], [address] RBC (Bld) [#/Vol] 5.18 10*6/uL Normal 4.2-5.[address] [facility] Comment on above: Performed By: #### L 500.4050, L100.0100 #### [facility] [address] [place], [address] RDW SD 41.1 fl Normal 35.1-43.9 [facility] Comment on above: Performed By: #### L 500.4050, L100.0100 #### [facility] [address] [place], [address] WBC (Bld) [#/Vol] 8.0 10*3/uL Normal 4.4-11.0 [facility] Comment on above: Performed By: #### L 500.4050, L100.0100 #### [facility] [address] [place], [address] Comprehensive Metabolic Prof ilon 08-19-2024 Albumin [Mass/Vol] 3.7 g/dL Normal 3.2-5.0 [facility] Comment on above: Performed By: #### L 500.4050, L100.0100 #### [facility] [address] [place], [address] Albumin/Globulin [Mass ratio] 0.8 {ratio} Low 0.9-2.4 [facility] Comment on above: Performed By: #### L 500.4050, L100.0100 #### [facility] [address] [place], [address] ALK P 133 U/L High 45-117 [facility] Comment on above: Performed By: #### L 500.4050, L100.0100 #### [facility] [address] [place], [address] ALT [Catalytic activity/Vol] 32 U/L Normal 13-56 [facility] Comment on above: Performed By: #### L 500.4050, L100.0100 #### [facility] [address] [place], [address] AST [Catalytic activity/Vol] 20 U/L Normal 15-37 [facility] Comment on above: Performed By: #### L 500.4050, L100.0100 #### [facility] [address] [place], [address] Bilirubin [Mass/Vol] 0.40 mg/dL Normal 0.20-1.00 [facility] Comment on above: Result Comment: For patients on eltrombopag therapy, use of Dimension Debary TBIL is not recommended. Performed By: #### L 500.4050, L100.0100 #### [facility] [address] [place], [address] BUN/CRE 13.0 RATIO Normal 10-20 [facility] Comment on above: Performed By: #### L 500.4050, L100.0100 #### [facility] [address] [place], [address] CA,Total 10.0 mg/dL Normal 8.5-10.1 [facility] Comment on above: Performed By: #### L 500.4050, L100.0100 #### [facility] [address] [place], [address] Chloride [Moles/Vol] 102 mmol/L Normal 98-107 [facility] Comment on above: Performed By: #### L 500.4050, L100.0100 #### [facility] [address] [place], [address] CO2 [Moles/Vol] 27.0 mmol/L Normal 21.0-32.0 [facility] Comment on above: Performed By: #### L 500.4050, L100.0100 #### [facility] [address] [place], [address] Creatinine [Mass/Vol] 1.00 mg/dL Normal 0.55-1.02 [facility] Comment on above: Result Comment: The validity of the calculated GFR GFRAA in patients over 70 years has not been determined. Clinical correlation is essential. Performed By: #### L 500.4050, L100.0100 #### [facility] [address] [place], [address] EST GFR - AA 71 mL/min Normal >60 [facility] Comment on above: Result Comment: Afri can Swiss GFR Calc Performed By: #### L 500.4050, L100.0100 #### [facility] [address] [place], [address] GAP 5 Normal 5-15 [facility] Comment on above: Performed By: #### L 500.4050, L100.0100 #### [facility] [address] [place], [address] GFR/1.73 sq M.predicted among non-blacks MDRD (S/P/Bld) [Vol rate/Area] 59 mL/min/{1.73_m2} Low >60 [facility] Comment on above: Result Comment: Non- GFR Calc Performed By: #### L 500.4050, L100.0100 #### [facility] [address] [place], [address] Globulin (S) [Mass/Vol] 4.4 g/dL High 2.2-4.2 [facility] Comment on above: Performed By: #### L 500.4050, L100.0100 #### [facility] [address] [place], [address] Glucose [Mass/Vol] 163 mg/dL High 74-106 [facility] Comment on above: Result Comment: Fast ing Glucose result greater than or equal to 126 mg/dL suggests DIABETES MELLITUS per A.D.A. criteria. Performed By: #### L 500.4050, L100.0100 #### [facility] [address] [place], [address] Potassium [Moles/Vol] 4.6 mmol/L Normal 3.5-5.1 [facility] Comment on above: Performed By: #### L 500.4050, L100.0100 #### [facility] [address] [place], [address] Sodium [Moles/Vol] 134 mmol/L Low 136-145 [facility] Comment on above: Performed By: #### L 500.4050, L100.0100 #### [facility] [address] [place], [address] T PROT 8.1 g/dL Normal 6.4-8.2 [facility] Comment on above: Performed By: #### L 500.4050, L100.0100 #### [facility] [address] [place], [address] Urea nitrogen [Mass/Vol] 13 mg/dL Normal 7-18 [facility] Comment on above: Performed By: #### L 500.4050, L100.0100 #### [facility] [address] [place], [address] Internal Medicine Office Vis [facility] 08-19-2024 Internal Medicine Office Visit [facility] [address] [place] [address] [place] [address] OFFICE VISIT Date of Service: 08/19/24 MR#: [id number] Acct: [id number] Name: MARYAN HOGAN Rep #: [id number] : 1955 Provider: Dr. Wan reid MD Age/Sex: 69/F Location: [facility] Status: Signed Intake Vital Signs 05/07/24 08:30 08/19/24 11:29 Height 5 ft 7 in 5 ft 7 in Weight: 142 lb BMI 22.2 BP 118/70 Blood Pressure Location Lt brachial Position Sitting Respiration 16 Pulse 72 Pulse Source Monitor Temp 97.3 F L Temp Source Temporal Pulse Oximetry (%) 99 Oxygen Delivery Method room air Intake Visit Reasons: 6 M FU Chief Complaint: 6m f/u Business Attorney Required: No Accompanied by: Self Is patient in pain?: No Allergies amoxicillin Allergy (Verified 08/19/24 11:28) Rash levofloxacin (From Levaquin) Allergy (Verified 08/19/24 11:28) Vomiting promethazine (From Phenergan) Allergy (Verified 08/19/24 11:28) Other Medications ???Medication ???Instructions ???Recorded ???Confirmed ???Type aspirin 81 mg tablet,delayed 81 mg PO QDAY 10/05/17 08/19/24 History release (Adult Aspirin Regimen) cholecalciferol (vitamin D3) 50 2,000 unit PO DAILY 10/05/17 08/19/24 History mcg (2,000 unit) capsule flash glucose scanning reader #1 ea 11/11/19 08/19/24 Rx (FreeStyle John 14 Day Cadet) cyanocobalamin (vitamin B-12) 2,500 mcg PO .THREE TIMES A WEEK 07/27/22 08/19/24 History 2,500 mcg tablet docusate sodium 100 mg capsule 100 mg PO DAILY 07/27/22 08/19/24 History (Colace) True Metrix Glucose Test Strip #50 ea 11/10/22 08/19/24 Rx (blood sugar diagnostic) blood-glucose meter (True Metrix #1 ea 11/10/22 08/19/24 Rx Glucose Meter kit) atorvastatin 80 mg tablet 80 mg PO QHS #90 tabs 11/07/23 08/19/24 Rx dapagliflozin propanediol 10 mg 10 mg PO QDAY diabetes #90 tabs 11/07/23 08/19/24 Rx tablet flash glucose sensor (FreeStyle #6 ea 11/07/23 08/19/24 Rx John 14 Day Sensor kit) glimepiride 2 mg tablet 1 mg (1/2 x 2 mg) PO DAILY #90 tabs 11/07/23 08/19/24 Rx lisinopril 20 mg tablet See Rx Instructions .Route 11/07/23 08/19/24 Rx .COMPLEX #90 tabs calcium carbonate (Calcium 600) 600 mg PO DAILY 04/09/24 08/19/24 History Ozempic 2 mg/dose (8 mg/3 mL) 2 mg (0.75 mL) subcut QWEEK #9 mL 05/07/24 08/19/24 Rx subcutaneous pen injector (semaglutide) blood-glucose meter,continuous #1 ea 05/07/24 08/19/24 Rx (FreeStyle John 3 Cadet) venlafaxine 75 mg tablet 225 mg (3 x 75 mg) PO QHS 06/28/24 08/19/24 Rx ANTIDEPRESSANT 90 days #270 tabs blood-glucose sensor (FreeStyle #2 ea 07/16/24 08/19/24 Rx John 3 Plus Sensor device) Have you fallen in the past year?: No [facility] Medical History 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 Overactive bladder Leg wound, left Obstructive sleep apnea Traumatic open wound of left lower leg with delayed healing Itching of ear Health care maintenance Preventative health care Abdominal pain History of Clostridium difficile infection Alcohol use History of kidney stones Easy bruising History of hiatal hernia Heartburn CPAP (continuous positive airway pressure) dependence History of stress test Early satiety Chronic nausea Wound of right lower extremity Cellulitis of right lower leg Contusion of right lower leg Abrasion, right lower leg, initial encounter Grief reaction Tachycardia Arthritis Vitamin D deficiency History of breast cancer Surgical History Hx of cataract extraction History of colonoscopy bunionecmy of right foot abdominal tram flap History of total mastectomy of right breast Family History Sister Breast cancer Grandmother Breast cancer Uncle Breast cancer Mother Heart disease Thyroid disorder Father Heart disease CVA (cerebral vascular accident) Cancer prostate Brother Crohns disease Grandfather CVA (cerebral vascular accident) Grandmother Diabetes Social History Smoking Status: Never smoker alcohol intake: current alcohol intake frequency: a few times a month Alcohol type: beer substance use type: does not use caffeine: Yes what type of physical activity do you participate in: walking frequency: 5-6 times per week do you feel safe at home: Yes HPI HPI Chief Complaint: 6m f/u Details: MARYAN HAQ, is a 69 F who presents to the office today for follow-up of her chronic conditions. No acute concerns at this time. History of overactive bladder, has been on oxybutynin however she stat (more content not included)... Normal [facility] Microalb:Creat Ratio,Random URon 08-19-2024 Creatinine [Mass/Vol] 73.20 mg/dL Normal NO RAN GE EST. [facility] Comment on above: Performed By: #### L 502.0250 #### [facility] [address] [place], [place], [id number] MALB:CRE 67.2 mg/g CRE High <30 mg/g CRE [facility] Comment on above: Performed By: #### L 502.0250 #### [facility] [address] [place], [place], [id number] MICROALBUMIN,UR 49.2 mg/L Normal NO RANGE EST. [facility] Comment on above: Performed By: #### L 502.0250 #### [facility] [address] [place], [place], [id number] Anaerobic cultureOrdered By: Ronaldo Kothari on 01-09-2024 Bacteria identified Anaer cx Nom (Unsp spec) No growth in 5 days. [facility] Gram stain for investigation of transfusion reactionOrdered By: Ronaldo Kothari on 01-09-2024 Microscopic observation Gram stain Nom (Unsp spec) [facility] Routine wound cultureOrdered By: Ronaldo Kothari on 01-09-2024 Bacteria identified Cx Nom (Wound) No growth aerobically. [facility] Laboratory - Hematology and Cell countson 11-07-2023 HbA1c (Bld) [Mass fraction] 7.3 % 4.2-6.3 [facility] Basophil percentageOrdered B y: Wan Jain on 08-14-2023 Chloride [Moles/Vol] 107 mmol/L 98-107 [facility] Glucose [Mass/Vol] 150 mg/dL 74-106 [facility] Comment on above: Fasting Glucose resu lt greater than or equal to 126 mg/dL suggests DIABETES MELLITUS per A.D.A. criteria. Potassium [Moles/Vol] 5.1 mmol/L 3.5-5.1 [facility] Sodium [Moles/Vol] 141 mmol/L 136-145 [facility] Laboratory - Chemistry and C hemistry - challengeOrdered By: Wan Jain on 08-14-2023 CO2 [Moles/Vol] 29.0 mmol/L 21.0-32.0 [facility] Urea nitrogen/Creatinine [Mass ratio] 19.6 mg/mg - [facility] No Panel InformationOrdered By: Wan Jain on 08-14-2023 Estimated GFR (MDRD) Amer 90 mL/min >60 [facility] Comment on above: GFR Calc Estimated GFR (MDRD) Non-Af Amer 74 mL/min >60 [facility] Comment on above: Non- GFR Calc Serum or plasma calcium antoni urement (mass/volume)Ordered By: Wan Jain on 08-14-2023 Calcium [Mass/Vol] 9.2 mg/dL 8.5-10.1 [facility] Serum or plasma creatinine m easurement (mass/volume)Ordered By: Wan Jain on 08-14-2023 Creatinine [Mass/Vol] 0.82 mg/dL 0.55-1.02 [facility] Comment on above: The validity of the calculated GFR & GFRAA in patients over 70 years has not been determined. Clinical correlation is essential. Serum or plasma urea nitroge n measurement (mass/volume)Ordered By: Wan Jain on 08-14-2023 Urea nitrogen [Mass/Vol] 16 mg/dL 04-11 [facility] Thin prep Papanicolaou smear with manual screeningOrdered By: Wan Jain on 08-14-2023 Thin prep Papanicolaou smear with manual screening 02-06 [facility] Whole blood hemoglobin A1c/t otal hemoglobin ratio (mass fraction)Ordered By: Wan Jain on 08-14-2023 HbA1c (Bld) [Mass fraction] 6.4 % 3.8-5.6 [facility] Comment on above: Normal < 5.7 % Predi abetic 5.7 - 6.4 % Diabetic >or= 6.5 % Please note range changes. Laboratory - Hematology and Cell countson 05-09-2023 HbA1c (Bld) [Mass fraction] 6.3 % 4.2-6.3 [facility] Basophil percentageOrdered B y: Wan Jain on 02-10-2023 Bilirubin [Mass/Vol] 0.20 mg/dL 0.20-1.00 [facility] Comment on above: For patients on eltr ombopag therapy, use of Dimension Debary TBIL is not recommended. Chloride [Moles/Vol] 108 mmol/L 98-107 [facility] Cholesterol [Mass/Vol] 147 mg/dL <200 [facility] Comment on above: <200 mg/dL Desirable 200-240 mg/dL Borderline >240 mg/dL High Risk Glucose [Mass/Vol] 133 mg/dL 74-106 [facility] Comment on above: Fasting Glucose resu lt greater than or equal to 126 mg/dL suggests DIABETES MELLITUS per A.D.A. criteria. Potassium [Moles/Vol] 5.0 mmol/L 3.5-5.1 [facility] Protein [Mass/Vol] 7.6 g/dL 6.4-8.2 [facility] Sodium [Moles/Vol] 139 mmol/L 136-145 [facility] Triglyceride [Mass/Vol] 76 mg/dL <199 [facility] Comment on above: The drugs N-Acetylcy steine and Metamizole may falsely depress this assay.Serum Triglycerides Reference Interval Normal <150 mg/dL Borderline high 150 - 199 mg/dL High 200 - 499 mg/dL Very High > or = 500 mg/dL Laboratory - Chemistry and C hemistry - challengeOrdered By: Wan Jain on 02-10-2023 ALP [Catalytic activity/Vol] 120 U/L 45-117 [facility] ALT [Catalytic activity/Vol] 31 U/L 13-56 [facility] CO2 [Moles/Vol] 26.0 mmol/L 21.0-32.0 [facility] Globulin (S) [Mass/Vol] 3.8 g/dL 2.2-4.2 [facility] Urea nitrogen/Creatinine [Mass ratio] 24.8 mg/mg 10-20 [facility] Laboratory - Hematology and Cell countson 02-10-2023 HbA1c (Bld) [Mass fraction] 6.6 % 4.2-6.3 [facility] No Panel InformationOrdered By: Wan Jain on 02-10-2023 Estimated GFR (MDRD) Amer 103 mL/min >60 [facility] Comment on above: GFR Calc Estimated GFR (MDRD) Non-Af Amer 85 mL/min >60 [facility] Comment on above: Non- GFR Calc Serum or plasma albumin antoni urement (mass/volume)Ordered By: Wan Jain on 02-10-2023 Albumin [Mass/Vol] 3.8 g/dL 3.2-5.0 [facility] Serum or plasma albumin/glob ulin mass ratioOrdered By: Wan Jain on 02-10-2023 Albumin/Globulin [Mass ratio] 1.0 {ratio} 0.9-2.4 [facility] Serum or plasma calcium antoni urement (mass/volume)Ordered By: Wan Jain on 02-10-2023 Calcium [Mass/Vol] 9.2 mg/dL 8.5-10.1 [facility] Serum or plasma cholesterol in HDL measurement (mass/volume)Ordered By: Wan Jain on 02-10-2023 Cholesterol in HDL [Mass/Vol] 43 mg/dL >40 [facility] Comment on above: The drugs N-Acetylcy steine and Metamizole may falsely depress this assay. Reference Range HDL <40 mg/dL Low HDL Cholesterol HDL >or= 60 mg/dL High HDL Cholesterol Serum or plasma cholesterol in VLDL measurement (mass/volume)Ordered By: Wan Jain on 02-10-2023 Cholesterol in VLDL [Mass/Vol] 15 mg/dL 5-40 [facility] Serum or plasma creatinine m easurement (mass/volume)Ordered By: Wan Jain on 02-10-2023 Creatinine [Mass/Vol] 0.73 mg/dL 0.55-1.02 [facility] Comment on above: The validity of the calculated GFR & GFRAA in patients over 70 years has not been determined. Clinical correlation is essential. Serum or plasma low density lipoprotein (LDL) cholesterol measurement (mass/volume)Ordered By: Wan Jain on 02-10-2023 Cholesterol in LDL [Mass/Vol] 89 mg/dL 0-130 [facility] Serum or plasma urea nitroge n measurement (mass/volume)Ordered By: Wan Jain on 02-10-2023 Urea nitrogen [Mass/Vol] 18 mg/dL 7-18 [facility] Thin prep Papanicolaou smear with manual screeningOrdered By: Wan Jain on 02-10-2023 Thin prep Papanicolaou smear with manual screening 21 U/L 15-37 [facility] Thin prep Papanicolaou smear with manual screening 5 5-15 [facility] Laboratory - Hematology and Cell countson 11-10-2022 HbA1c (Bld) [Mass fraction] 6.6 % [facility] Absolute lymphocyte countOrd ered By: Dr. Jain on 09-30-2022 Lymphocytes Auto (Unsp spec) [#/Vol] 1.84 10*3/uL 0.83-4.51 [facility] Basophil percentageOrdered B y: Dr. Jain on 09-30-2022 Basophils/100 WBC (Bld) 0.8 % 0-1 [facility] Chloride [Moles/Vol] 106 mmol/L 98-107 [facility] Eosinophils/100 WBC (Bld) 3.1 % 0-5 [facility] Glucose [Mass/Vol] 170 mg/dL 74-106 [facility] Comment on above: Fasting Glucose resu lt greater than or equal to 126 mg/dL suggests DIABETES MELLITUS per A.D.A. criteria. Neutrophils (Bld) [#/Vol] 5.6 10*3/uL 2.0-7.7 [facility] Neutrophils/100 WBC (Bld) 66.3 % 47-70 [facility] Potassium [Moles/Vol] 4.2 mmol/L 3.5-5.1 [facility] Sodium [Moles/Vol] 137 mmol/L 136-145 [facility] WBC (Bld) [#/Vol] 8.5 10*3/uL 4.4-11.0 [facility] Blood erythrocytes count (nu mber/volume)Ordered By: Dr. Jain on 09-30-2022 RBC (Bld) [#/Vol] 5.07 10*6/uL 4.2-5.[address] [facility] Blood hemoglobin measurement (mass/volume)Ordered By: Dr. Jain on 09-30-2022 Hemoglobin (Bld) [Mass/Vol] 15.0 g/dL 12.0-15.0 [facility] Blood lymphocytes/100 leukoc ytesOrdered By: Dr. Jain on 09-30-2022 Lymphocytes/100 WBC (Bld) 21.6 % 19-41 [facility] Blood monocytes/100 leukocyt esOrdered By: Dr. Jain on 09-30-2022 Monocytes/100 WBC (Bld) 8.0 % 0-10 [facility] Blood platelet mean volumeOr dered By: Dr. Jain on 09-30-2022 Platelet mean volume (Bld) [Entitic vol] 10.9 fL 6.2-12.0 [facility] Determination of erythrocyte mean corpuscular volume (MCV)Ordered By: Dr. Jain on 09-30-2022 MCV (RBC) [Entitic vol] 90.1 fL 81-99 [facility] Hematocrit Auto (Bld) [Volum e fraction]Ordered By: Dr. Jain on 09-30-2022 Hematocrit (Bld) [Volume fraction] 45.7 % 37-47 [facility] Laboratory - Chemistry and C hemistry - challengeOrdered By: Dr. Jain on 09-30-2022 CO2 [Moles/Vol] 29.0 mmol/L 21.0-32.0 [facility] Urea nitrogen/Creatinine [Mass ratio] 28.8 mg/mg 10-20 [facility] Laboratory - Hematology and Cell countsOrdered By: Dr. Jain on 09-30-2022 Erythrocyte distribution width (RBC) [Entitic vol] 41.6 fL 35.1-43.9 [facility] Erythrocyte distribution width (RBC) [Ratio] 12.7 % 11.6-14.6 [facility] Immature granulocytes/100 WBC (Bld) 0.200 % 0.0-0.9 [facility] Comment on above: IG% - Immature Granu locytes (promyelocytes, myelocytes and metamyelocytes) > 1% indicates that a LEFT SHIFT is Present. MCH (RBC) [Entitic mass] 29.6 pg 27.0-32.0 [facility] Nucleated RBC/100 WBC (Bld) [Ratio] 0 % 0-5 [facility] MCHC Auto (RBC) [Mass/Vol]Or dered By: Dr. Jain on 09-30-2022 MCHC (RBC) [Mass/Vol] 32.8 g/dL 32-36 [facility] No Panel InformationOrdered By: Dr. Jain on 09-30-2022 Estimated GFR (MDRD) Amer 84 mL/min >60 [facility] Comment on above: GFR Calc Estimated GFR (MDRD) Non-Af Amer 69 mL/min >60 [facility] Comment on above: Non- GFR Calc Platelets bldOrdered By: Dr. Jain on 09-30-2022 Platelets (Bld) [#/Vol] 236 10*3/uL 150-450 [facility] Serum or plasma calcium antoni urement (mass/volume)Ordered By: Dr. Jain on 09-30-2022 Calcium [Mass/Vol] 9.5 mg/dL 8.5-10.1 [facility] Serum or plasma creatinine m easurement (mass/volume)Ordered By: Dr. Jain on 09-30-2022 Creatinine [Mass/Vol] 0.87 mg/dL 0.55-1.02 [facility] Comment on above: The validity of the calculated GFR & GFRAA in patients over 70 years has not been determined. Clinical correlation is essential. Serum or plasma urea nitroge n measurement (mass/volume)Ordered By: Dr. Jain on 09-30-2022 Urea nitrogen [Mass/Vol] 25 mg/dL 7-18 [facility] Thin prep Papanicolaou smear with manual screeningOrdered By: Dr. Jain on 09-30-2022 Thin prep Papanicolaou smear with manual screening 2 5-15 [facility] Whole blood hemoglobin A1c/t otal hemoglobin ratio (mass fraction)Ordered By: Joana Davalos on 09-30-2022 HbA1c (Bld) [Mass fraction] 6.4 % 3.8-5.6 [facility] Comment on above: Normal < 5.7 % Predi abetic 5.7 - 6.4 % Diabetic >or= 6.5 % Please note range changes. Basophil percentageon 2021 Bilirubin [Mass/Vol] 0.30 mg/dL 0.20-1.00 [facility] Work Phone: Comment on above: For patients on eltr ombopag therapy, use of Dimension Debary TBIL is not recommended. Chloride [Moles/Vol] 104 mmol/L 98-107 [facility] Work Phone: Cholesterol [Mass/Vol] 155 mg/dL <200 [facility] Work Phone: Comment on above: <200 mg/dL Desirable 200-240 mg/dL Borderline >240 mg/dL High Risk Glucose [Mass/Vol] 159 mg/dL 74-106 [facility] Work Phone: Comment on above: Fasting Glucose resu lt greater than or equal to 126 mg/dL suggests DIABETES MELLITUS per A.D.A. criteria. Potassium [Moles/Vol] 4.5 mmol/L 3.5-5.1 [facility] Work Phone: Protein [Mass/Vol] 7.6 g/dL 6.4-8.2 [facility] Work Phone: Sodium [Moles/Vol] 135 mmol/L 136-145 [facility] Work Phone: Triglyceride [Mass/Vol] 120 mg/dL <199 [facility] Work Phone: Comment on above: The drugs N-Acetylcy steine and Metamizole may falsely depress this assay.Serum Triglycerides Reference Interval Normal <150 mg/dL Borderline high 150 - 199 mg/dL High 200 - 499 mg/dL Very High > or = 500 mg/dL Laboratory - Chemistry and C hemistry - challengeon 05-03-2022 ALP [Catalytic activity/Vol] 89 U/L 45-117 [facility] Work Phone: ALT [Catalytic activity/Vol] 27 U/L 13-56 [facility] Work Phone: CO2 [Moles/Vol] 26.0 mmol/L 21.0-32.0 [facility] Work Phone: Globulin (S) [Mass/Vol] 3.9 g/dL 2.2-4.2 [facility] Work Phone: Urea nitrogen/Creatinine [Mass ratio] 28.7 mg/mg 10-20 [facility] Work Phone: No Panel Informationon 08-09 -2022 Estimated GFR (MDRD) Amer 92 mL/min >60 [facility] Work Phone: Comment on above: GFR Calc Estimated GFR (MDRD) Non-Af Amer 76 mL/min >60 [facility] Work Phone: Comment on above: Non- GFR Calc Thyroid Stimulating Hormone (TSH) 1.44 uIU/mL 0.358-3.74 [facility] Work Phone: Vitamin D 25-Hydroxy 50.6 ng/mL [facility] Work Phone: Comment on above: Vitamin D 25(OH) Sta tus Range Deficiency <20 ng/mL (50nmol/L) Insufficiency 20 - 30 ng/mL (50 - 75 nmol/L) Sufficiency 30 - 100 ng/mL (75 - 250 nmol/L) Toxicity >100 ng/mL (>250 nmol/L) Serum or plasma albumin antoni urement (mass/volume)on 05-03-2022 Albumin [Mass/Vol] 3.7 g/dL 3.2-5.0 [facility] Work Phone: Serum or plasma albumin/glob ulin mass ratioon 05-03-2022 Albumin/Globulin [Mass ratio] 0.9 {ratio} 0.9-2.4 [facility] Work Phone: Serum or plasma calcium antoni urement (mass/volume)on 05-03-2022 Calcium [Mass/Vol] 8.7 mg/dL 8.5-10.1 [facility] Work Phone: Serum or plasma cholesterol in HDL measurement (mass/volume)on 05-03-2022 Cholesterol in HDL [Mass/Vol] 49 mg/dL >40 [facility] Work Phone: Comment on above: The drugs N-Acetylcy steine and Metamizole may falsely depress this assay. Reference Range HDL <40 mg/dL Low HDL Cholesterol HDL >or= 60 mg/dL High HDL Cholesterol Serum or plasma cholesterol in VLDL measurement (mass/volume)on 05-03-2022 Cholesterol in VLDL [Mass/Vol] 24 mg/dL 5-40 [facility] Work Phone: Serum or plasma creatinine m easurement (mass/volume)on 05-03-2022 Creatinine [Mass/Vol] 0.80 mg/dL 0.55-1.02 [facility] Work Phone: Comment on above: The validity of the calculated GFR & GFRAA in patients over 70 years has not been determined. Clinical correlation is essential. Serum or plasma low density lipoprotein (LDL) cholesterol measurement (mass/volume)on 05-03-2022 Cholesterol in LDL [Mass/Vol] 82 mg/dL 0-130 [facility] Work Phone: Serum or plasma urea nitroge n measurement (mass/volume)on 05-03-2022 Urea nitrogen [Mass/Vol] 23 mg/dL 7-18 [facility] Work Phone: Thin prep Papanicolaou smear with manual screeningon 05-03-2022 Thin prep Papanicolaou smear with manual screening 16 U/L 15-37 [facility] Work Phone: Thin prep Papanicolaou smear with manual screening 5 5-15 [facility] Work Phone: Laboratory - Hematology and Cell countson 04-20-2022 HbA1c (Bld) [Mass fraction] 6.8 % [facility] Work Phone: Giardia lamblia ag stool EIA on 01-17-2022 G. lamblia Ag IA Ql (Stl) Negative Negative [facility] Work Phone: Comment on above: Performed at: [address] [id number] Director: Romeo Dozier PhD, Phone: [phone] No Panel Informationon 01-17 Stool Calprotectin 174 ug/g 0-120 [facility] Work Phone: Comment on above: Concentration Interp retation Follow-Up<16 - 50 ug/g Normal None>50 -120 ug/g Borderline Re-evaluate in 4-6 weeks >120 ug/g Abnormal Repeat as clinically indicatedPerformed at: - [facility] [id number] [place], [place] [id number] Director: Tino Darden MD, Phone: [phone] No Panel Informationon 01-15 Enteric Bacteriology [facility] Work Phone: Laboratory - Hematology and Cell countson 01-14-2022 HbA1c (Bld) [Mass fraction] 7.1 % [facility] Work Phone: Laboratory - Hematology and Cell countson 10-18-2021 HbA1c (Bld) [Mass fraction] 5.7 % [facility] Work Phone: Office Visit: Office visit d epression and insomnia.on 06-30-2017 Alcoholism counseling (procedure) no Invalid Interpretation Code [facility] Work Phone: Documentation of current medications (procedure) Done Invalid Interpretation Code [facility] Work Phone: Fall risk assessment No Invalid Interpretation Code [facility] Work Phone: Tobacco smoking status NHIS Never Invalid Interpretation Code [facility] Work Phone: Tobacco use HS Former smoker Invalid Interpretation Code [facility] Work Phone: Lab Report: Comprehensive Me tabolic Profilon 06-27-2017 Alanine aminotransferase (ALT) 34 U/L Invalid Interpretation Code 12-78 [facility] Work Phone: Albumin 3.8 g/dL Invalid Interpretation Code 3.4-5.0 [facility] Work Phone: Albumin/Globulin Ratio 1 {ratio} Invalid Interpretation Code 0.9-2.4 [facility] Work Phone: Alkaline phosphatase (ALP) 102 U/L Invalid Interpretation Code 45-117 [facility] Work Phone: Anion gap 8 mmol/L Invalid Interpretation Code 5-15 [facility] Work Phone: Aspartate aminotransferase (AST) 20 U/L Invalid Interpretation Code 15-37 [facility] Work Phone: Bilirubin (total) 0.50 mg/dL Invalid Interpretation Code 0.20-1.00 [facility] Work Phone: BUN/Creatinine Ratio 26.3 RATIO High 10-20 [facility] Work Phone: Calcium 8.6 mg/dL Invalid Interpretation Code 8.5-10.1 [facility] Work Phone: Chloride 104 mmol/L Invalid Interpretation Code 98-107 [facility] Work Phone: CO2 25.0 mmol/L Invalid Interpretation Code 21.0-32.0 [facility] Work Phone: Creatinine 0.61 mg/dL Invalid Interpretation Code 0.55-1.02 [facility] Work Phone: eGFR (non-black) 128 mL/min/{1.73_m2} Invalid Interpretation Code >60 [facility] Work Phone: eGFR (non-black) 106 mL/min/{1.73_m2} Invalid Interpretation Code >60 [facility] Work Phone: Globulin 3.8 g/dL High 2.3-3.5 [facility] Work Phone: Glucose mass conc 135 mg/dL High 70-110 [facility] Work Phone: Potassium molar conc 4.2 mmol/L Invalid Interpretation Code 3.5-5.1 [facility] Work Phone: Protein 7.6 g/dL Invalid Interpretation Code 6.4-8.2 [facility] Work Phone: Sodium 137 mmol/L Invalid Interpretation Code 136-145 [facility] Work Phone: Urea nitrogen 16 mg/dL Invalid Interpretation Code 7-18 [facility] Work Phone: Lab Report: Hemoglobin A1con 06-27-2017 Hemoglobin A1c/Hemoglobin.total mass fraction (Bld) 7.5 % High 4.2-6.3 [facility] Work Phone: Lab Report: Lipid Profileon 06-27-2017 Cholesterol 151 mg/dL Invalid Interpretation Code 200 [facility] Work Phone: HDL Cholesterol 43 mg/dL Invalid Interpretation Code [facility] Work Phone: LDL Cholesterol 91 mg/dL Invalid Interpretation Code 0-130 [facility] Work Phone: Triglyceride 87 mg/dL Invalid Interpretation Code [facility] Work Phone: very low density lipoproteins 17 mg/dL Invalid Interpretation Code 5-40 [facility] Work Phone: Lab Report: Microalb:Creat R atio,Random URon 06-27-2017 ACR (microalbumin/creatin ine) ratio 67.0 MG/G CRE High <30 mg/g CRE [facility] Work Phone: Urine, creatinine 45.40 mg/dL Invalid Interpretation Code NO RANGE EST. [facility] Work Phone: Urine, microalbumin 3.04 mg/dL Invalid Interpretation Code Units converted. See lab report for original value. [facility] Work Phone: Lab Report: CBC W/Diff, Auto matedon 04-24-2017 Absolute Neut 4.4 X10 3/UL Invalid Interpretation Code 2.0-7.7 [facility] Work Phone: Basophils/100 WBC Auto (Bld) 0.6 % Invalid Interpretation Code 0-1 [facility] Work Phone: Eosinophils/100 leukocytes 2.2 % Invalid Interpretation Code 0-5 [facility] Work Phone: Erythrocyte distribution width Auto Ratio (RBC) 13.0 % Invalid Interpretation Code 11.6-14.6 [facility] Work Phone: Erythrocytes (RBC) 4.86 10*6/uL Invalid Interpretation Code 4.2-5.4 [facility] Work Phone: Hematocrit (HCT) 43.0 % Invalid Interpretation Code 37-47 [facility] Work Phone: Hemoglobin mass conc (Bld) 14.5 g/dL Invalid Interpretation Code 12.0-15.0 [facility] Work Phone: Immature granulocytes/100 WBC (Bld) 0.100 % Invalid Interpretation Code 0.0-0.9 [facility] Work Phone: Lymphocytes 1.72 X10 3/UL Invalid Interpretation Code 0.83-4.51 [facility] Work Phone: Lymphocytes/100 leukocytes 25.3 % Invalid Interpretation Code 19-41 [facility] Work Phone: MCH 29.8 pg Invalid Interpretation Code 27.0-32.0 [facility] Work Phone: MCHC mass conc (RBC) 33.7 G/GL Invalid Interpretation Code 32-36 [facility] Work Phone: MCV 88.5 fL Invalid Interpretation Code 81-99 [facility] Work Phone: Monocytes/100 leukocytes 7.6 % Invalid Interpretation Code 0-10 [facility] Work Phone: Neutrophils/100 WBC Auto (Bld) 64.2 % Invalid Interpretation Code 47-70 [facility] Work Phone: Platelets 216 10*3/mm3 Invalid Interpretation Code 150-450 [facility] Work Phone: PMV by Alex 11.9 fL Invalid Interpretation Code 6.2-12.0 [facility] Work Phone: RDW SD 41.9 fL Invalid Interpretation Code 35.1-43.9 [facility] Work Phone: WBC (Leukocytes) 6.8 10*3/uL Invalid Interpretation Code 4.4-11.0 [facility] Work Phone: Lab Report: Vitamin D,25 Hyd roxyon 03-22-2017 Vitamin D 25-OH 39.8 ng/mL Invalid Interpretation Code [facility] Work Phone: External Other: Preferred Me thod of Contacton 03-21-2017 methcontact secmsg Invalid Interpretation Code [facility] Work Phone: Lab Report: Thyroid Stim Hor sofi (TSH)on 03-21-2017 Thyroid stimulating hormone (TSH) 1.56 u[iU]/mL Invalid Interpretation Code 0.358-3.74 [facility] Work Phone: Office Visiton 03-20-2017 Adult depression screening assessment Adult depression screening assessment Invalid Interpretation Code [facility] Work Phone: No Panel Information Enteric Bacteriology [facility] Work Phone: Vital Signs Date Time Vital Sign Value Performing Clinician Facility 05-14-2025 08:07-0400 Body height 170.[address] Wan Jain MD Work Phone: [facility] 05-14-2025 08:07-0400 Body mass index (BMI) [Ratio] 22.4 kg/m2 Dr. Wan Jain MD Work Phone: [facility] 05-14-2025 08:07-0400 Body weight 64.[address] Wan Jain MD Work Phone: [facility] 05-14-2025 08:07-0400 Diastolic blood pressure 63 mm[Hg] Dr. Wan Jain MD Work Phone: [facility] 05-14-2025 08:07-0400 Heart rate 74 /min Dr. Wan Jain MD Work Phone: [facility] 05-14-2025 08:07-0400 SaO2% (BldA) [Mass fraction] 98 % Dr. Wan Jain MD Work Phone: [facility] 05-14-2025 08:07-0400 Systolic blood pressure 91 mm[Hg] Dr. Wan Jain MD Work Phone: [facility] 02-24-2025 08:36-0400 Body height 170.[address] Wan Jain MD Work Phone: [facility] 02-24-2025 08:36-0400 Body mass index (BMI) [Ratio] 22.1 kg/m2 Dr. Wan Jain MD Work Phone: [facility] 02-24-2025 08:36-0400 Body temperature 97.7 [degF] Dr. Wan Jain MD Work Phone: [facility] 02-24-2025 08:36-0400 Body weight 63.[address] Wan Jain MD Work Phone: [facility] 02-24-2025 08:36-0400 Diastolic blood pressure 62 mm[Hg] Dr. Wan Jain MD Work Phone: [facility] 02-24-2025 08:36-0400 Heart rate 73 /min Dr. Wan Jain MD Work Phone: [facility] 02-24-2025 08:36-0400 Respiratory rate 14 /min Dr. Wan Jain MD Work Phone: [facility] 02-24-2025 08:36-0400 SaO2% (BldA) [Mass fraction] 99 % Dr. Wan Jain MD Work Phone: [facility] 02-24-2025 08:36-0400 Systolic blood pressure 106 mm[Hg] Dr. Wan Jain MD Work Phone: [facility] 01-16-2024 13:08-0400 Body mass index (BMI) [Ratio] 22.4 kg/m2 Dr. Wan Jain Work Phone: [facility] 01-16-2024 13:08-0400 Body temperature 97 [degF] Dr. Wan Jain Work Phone: [facility] 01-16-2024 13:08-0400 Diastolic blood pressure 66 mm[Hg] Dr. Wan Jain Work Phone: [facility] 01-16-2024 13:08-0400 Heart rate 101 /min Dr. Wan Jain Work Phone: [facility] 01-16-2024 13:08-0400 Respiratory rate 18 /min Dr. Wan Jain Work Phone: [facility] 01-16-2024 13:08-0400 Systolic blood pressure 123 mm[Hg] Dr. Wan Jain Work Phone: [facility] 01-09-2024 12:59-0400 Body height 170.[address] Wan Jain Work Phone: [facility] 01-09-2024 12:59-0400 Body weight 64.[address] Wan Jain Work Phone: [facility] 12-26-2023 12:53-0400 Body mass index (BMI) [Ratio] 24 kg/m2 Dr. Wan Jain Work Phone: [facility] 12-26-2023 12:53-0400 Body temperature 97.6 [degF] Dr. Wan Jain Work Phone: [facility] 12-26-2023 12:53-0400 Body weight 67.[address] Wan Jain Work Phone: [facility] 12-26-2023 12:53-0400 Diastolic blood pressure 68 mm[Hg] Dr. Wan Jain Work Phone: [facility] 12-26-2023 12:53-0400 Heart rate 78 /min Dr. Wan Jain Work Phone: [facility] 12-26-2023 12:53-0400 Respiratory rate 16 /min Dr. Wan Jain Work Phone: [facility] 12-26-2023 12:53-0400 SaO2% (BldA) [Mass fraction] 98 % Dr. Wan Jain Work Phone: [facility] 12-26-2023 12:53-0400 Systolic blood pressure 118 mm[Hg] Dr. Wan Jain Work Phone: [facility] 12-21-2023 13:27-0400 Body mass index (BMI) [Ratio] 24.6 kg/m2 Dr. Wan Jain Work Phone: [facility] 12-21-2023 13:27-0400 Body temperature 97.5 [degF] Dr. Wan Jain Work Phone: [facility] 12-21-2023 13:27-0400 Body weight 69.[address] Wan Jain Work Phone: [facility] 12-21-2023 13:27-0400 Diastolic blood pressure 72 mm[Hg] Dr. Wan Jain Work Phone: [facility] 12-21-2023 13:27-0400 Heart rate 92 /min Dr. Wan Jain Work Phone: [facility] 12-21-2023 13:27-0400 Respiratory rate 16 /min Dr. Wan Jain Work Phone: [facility] 12-21-2023 13:27-0400 SaO2% (BldA) [Mass fraction] 99 % Dr. Wan Jain Work Phone: [facility] 12-21-2023 13:27-0400 Systolic blood pressure 122 mm[Hg] Dr. Wan Jain Work Phone: [facility] 11-07-2023 08:02-0500 Body mass index (BMI) [Ratio] 23.8 kg/m2 Dr. Wna Jain Work Phone: [facility] 11-07-2023 08:02-0500 Body temperature 98.8 [degF] Dr. Wan Jain Work Phone: [facility] 11-07-2023 08:02-0500 Body weight 66.[address] Wan Jain Work Phone: [facility] 11-07-2023 08:02-0500 Diastolic blood pressure 66 mm[Hg] Dr. Wan Jain Work Phone: [facility] 11-07-2023 08:02-0500 Heart rate 72 /min Dr. Wan Jain Work Phone: [facility] 11-07-2023 08:02-0500 Respiratory rate 16 /min Dr. Wan Jain Work Phone: [facility] 11-07-2023 08:02-0500 SaO2% (BldA) [Mass fraction] 97 % Dr. Wan Jain Work Phone: [facility] 11-07-2023 08:02-0500 Systolic blood pressure 100 mm[Hg] Dr. Wan Jain Work Phone: [facility] 10-31-2023 05:39-0500 Body mass index (BMI) [Ratio] 23.8 kg/m2 Dr. Wan Jain Work Phone: [facility] 10-31-2023 05:39-0500 Body temperature 97.8 [degF] Dr. Wan Jain Work Phone: [facility] 10-31-2023 05:39-0500 Body weight 67.[address] Wan Jain Work Phone: [facility] 10-31-2023 05:39-0500 Diastolic blood pressure 78 mm[Hg] Dr. Wan Jain Work Phone: [facility] 10-31-2023 05:39-0500 Heart rate 64 /min Dr. Wan Jain Work Phone: [facility] 10-31-2023 05:39-0500 Respiratory rate 16 /min Dr. Wan Jain Work Phone: [facility] 10-31-2023 05:39-0500 SaO2% (BldA) [Mass fraction] 99 % Dr. Wan Jain Work Phone: [facility] 10-31-2023 05:39-0500 Systolic blood pressure 112 mm[Hg] Dr. Wan Jain Work Phone: [facility] 08-14-2023 08:00-0500 Body height 167.[address] Wan Jain Work Phone: [facility] 08-14-2023 08:00-0500 Body mass index (BMI) [Ratio] 23.3 kg/m2 Dr. Wan Jain Work Phone: [facility] 08-14-2023 08:00-0500 Body temperature 97.2 [degF] Dr. Wan Jain Work Phone: [facility] 08-14-2023 08:00-0500 Body weight 65.[address] Wan Jain Work Phone: [facility] 08-14-2023 08:00-0500 Diastolic blood pressure 64 mm[Hg] Dr. Wan Jain Work Phone: [facility] 08-14-2023 08:00-0500 Heart rate 66 /min Dr. Wan Jain Work Phone: [facility] 08-14-2023 08:00-0500 Respiratory rate 16 /min Dr. Wan Jain Work Phone: [facility] 08-14-2023 08:00-0500 SaO2% (BldA) [Mass fraction] 95 % Dr. Wan Jain Work Phone: [facility] 08-14-2023 08:00-0500 Systolic blood pressure 124 mm[Hg] Dr. Wan Jain Work Phone: [facility] 05-09-2023 10:51-0400 Body mass index (BMI) [Ratio] 23.6 kg/m2 Dr. Wan Jain Work Phone: [facility] 05-09-2023 10:51-0400 Body temperature 98 [degF] Dr. Wan Jain Work Phone: [facility] 05-09-2023 10:51-0400 Body weight 66.[address] Wan Jain Work Phone: [facility] 05-09-2023 10:51-0400 Diastolic blood pressure 62 mm[Hg] Dr. Wan Jain Work Phone: [facility] 05-09-2023 10:51-0400 Heart rate 68 /min Dr. Wan Jain Work Phone: [facility] 05-09-2023 10:51-0400 Respiratory rate 16 /min Dr. Wan Jain Work Phone: [facility] 05-09-2023 10:51-0400 SaO2% (BldA) [Mass fraction] 97 % Dr. Wan Jain Work Phone: [facility] 05-09-2023 10:51-0400 Systolic blood pressure 94 mm[Hg] Dr. Wan Jain Work Phone: [facility] 04-21-2023 23:36-0400 Respiratory rate 17 /min Dr. Wan Jain Work Phone: [facility] 04-21-2023 23:10-0400 Body temperature 96.8 [degF] Dr. Wan Jain Work Phone: [facility] 04-21-2023 23:10-0400 Diastolic blood pressure 80 mm[Hg] Dr. Wan Jain Work Phone: [facility] 04-21-2023 23:10-0400 Heart rate 80 /min Dr. Wan Jain Work Phone: [facility] 04-21-2023 23:10-0400 Systolic blood pressure 118 mm[Hg] Dr. aWn Jain Work Phone: [facility] 04-21-2023 23:03-0400 Body height 167.[address] Wan Jain Work Phone: [facility] 04-21-2023 23:03-0400 Body mass index (BMI) [Ratio] 24.1 kg/m2 Dr. Wan Jain Work Phone: [facility] 04-21-2023 23:03-0400 Body weight 67.[address] Wan Jain Work Phone: [facility] 04-20-2023 07:58-0400 Body mass index (BMI) [Ratio] 23.7 kg/m2 Dr. Wan Jain Work Phone: [facility] 04-20-2023 07:58-0400 Body weight 66.[address] Wan Jain Work Phone: [facility] 02-10-2023 08:16-0400 Body mass index (BMI) [Ratio] 23.1 kg/m2 Dr. Wan Jain Work Phone: [facility] 02-10-2023 08:16-0400 Body temperature 96.6 [degF] Dr. Wan Jain Work Phone: [facility] 02-10-2023 08:16-0400 Body weight 65.[address] Wan Jain Work Phone: [facility] 02-10-2023 08:16-0400 Diastolic blood pressure 78 mm[Hg] Dr. Wan Jain Work Phone: [facility] 02-10-2023 08:16-0400 Heart rate 68 /min Dr. Wan Jain Work Phone: [facility] 02-10-2023 08:16-0400 Respiratory rate 18 /min Dr. Wan Jain Work Phone: [facility] 02-10-2023 08:16-0400 SaO2% (BldA) [Mass fraction] 99 % Dr. Wan Jain Work Phone: [facility] 02-10-2023 08:16-0400 Systolic blood pressure 124 mm[Hg] Dr. Wan Jain Work Phone: [facility] 11-10-2022 11:36-0500 Body height 167.[address] Wan Jain Work Phone: [facility] 11-10-2022 11:36-0500 Body mass index (BMI) [Ratio] 23.8 kg/m2 Dr. Wan Jain Work Phone: [facility] 11-10-2022 11:36-0500 Body temperature 96.5 [degF] Dr. Wan Jain Work Phone: [facility] 11-10-2022 11:36-0500 Body weight 67.[address] Wan Jain Work Phone: [facility] 11-10-2022 11:36-0500 Diastolic blood pressure 59 mm[Hg] Dr. Wan Jain Work Phone: [facility] 11-10-2022 11:36-0500 Heart rate 73 /min Dr. Wan Jain Work Phone: [facility] 11-10-2022 11:36-0500 Respiratory rate 18 /min Dr. Wan Jain Work Phone: [facility] 11-10-2022 11:36-0500 SaO2% (BldA) [Mass fraction] 96 % Dr. Wan Jain Work Phone: [facility] 11-10-2022 11:36-0500 Systolic blood pressure 96 mm[Hg] Dr. Wan Jain Work Phone: [facility] 10-31-2022 08:06-0500 Body mass index (BMI) [Ratio] 23.3 kg/m2 Dr. Wan Jain Work Phone: [facility] 10-31-2022 08:06-0500 Body temperature 97.3 [degF] Dr. Wan Jain Work Phone: [facility] 10-31-2022 08:06-0500 Body weight 65.[address] Wan Jain Work Phone: [facility] 10-31-2022 08:06-0500 Diastolic blood pressure 70 mm[Hg] Dr. Wan Jain Work Phone: [facility] 10-31-2022 08:06-0500 Heart rate 64 /min Dr. Wan Jain Work Phone: [facility] 10-31-2022 08:06-0500 Respiratory rate 18 /min Dr. Wan Jain Work Phone: [facility] 10-31-2022 08:06-0500 SaO2% (BldA) [Mass fraction] 97 % Dr. Wan Jain Work Phone: [facility] 10-31-2022 08:06-0500 Systolic blood pressure 103 mm[Hg] Dr. Wan Jain Work Phone: [facility] 07-27-2022 09:35-0400 Body height 167.[address] Wan Jain Work Phone: [facility] 07-27-2022 09:35-0400 Body mass index (BMI) [Ratio] 24 kg/m2 Dr. Wan Jain Work Phone: [facility] 07-27-2022 09:35-0400 Body temperature 96.1 [degF] Dr. Wan Jain Work Phone: [facility] 07-27-2022 09:35-0400 Body weight 67.[address] Wan Jain Work Phone: [facility] 07-27-2022 09:35-0400 Diastolic blood pressure 72 mm[Hg] Dr. Wan Jain Work Phone: [facility] 07-27-2022 09:35-0400 Heart rate 75 /min Dr. Wan Jain Work Phone: [facility] 07-27-2022 09:35-0400 Respiratory rate 18 /min Dr. Wan Jain Work Phone: [facility] 07-27-2022 09:35-0400 SaO2% (BldA) [Mass fraction] 99 % Dr. Wan Jain Work Phone: [facility] 07-27-2022 09:35-0400 Systolic blood pressure 124 mm[Hg] Dr. Wan Jain Work Phone: [facility] 04-20-2022 11:04-0400 Body height 167.[address] Wan Jain Work Phone: [facility] Work Phone: 04-20-2022 11:04-0400 Body mass index (BMI) [Ratio] 23.4 kg/m2 Dr. Wan Jain Work Phone: [facility] Work Phone: 04-20-2022 11:04-0400 Body temperature 96.6 [degF] Dr. Wan Jain Work Phone: [facility] Work Phone: 04-20-2022 11:04-0400 Body weight 65.[address] aWn Jain Work Phone: [facility] Work Phone: 04-20-2022 11:04-0400 Diastolic blood pressure 70 mm[Hg] Dr. Wan Jain Work Phone: [facility] Work Phone: 04-20-2022 11:04-0400 Heart rate 90 /min Dr. Wan Jain Work Phone: [facility] Work Phone: 04-20-2022 11:04-0400 Respiratory rate 18 /min Dr. Wan Jain Work Phone: [facility] Work Phone: 04-20-2022 11:04-0400 SaO2% (BldA) [Mass fraction] 100 % Dr. Wan Jain Work Phone: [facility] Work Phone: 04-20-2022 11:04-0400 Systolic blood pressure 110 mm[Hg] Dr. Wan Jain Work Phone: [facility] Work Phone: 01-03-2022 08:06-0400 Body height 167.[address] Wan Jain Work Phone: [facility] Work Phone: 01-03-2022 08:06-0400 Body mass index (BMI) [Ratio] 22.6 kg/m2 Dr. Wan Jain Work Phone: [facility] Work Phone: 01-03-2022 08:06-0400 Body temperature 97.7 [degF] Dr. Wan Jain Work Phone: [facility] Work Phone: 01-03-2022 08:06-0400 Body weight 63.[address] Wan Jain Work Phone: [facility] Work Phone: 01-03-2022 08:06-0400 Diastolic blood pressure 70 mm[Hg] Dr. Wan Jain Work Phone: [facility] Work Phone: 01-03-2022 08:06-0400 Heart rate 73 /min Dr. Wan Jain Work Phone: [facility] Work Phone: 01-03-2022 08:06-0400 Respiratory rate 14 /min Dr. Wan Jain Work Phone: [facility] Work Phone: 01-03-2022 08:06-0400 SaO2% (BldA) [Mass fraction] 99 % Dr. Wan Jain Work Phone: [facility] Work Phone: 01-03-2022 08:06-0400 Systolic blood pressure 114 mm[Hg] Dr. Wan Jain Work Phone: [facility] Work Phone: 11-01-2021 11:52-0500 Body mass index (BMI) [Ratio] 22.4 kg/m2 Dr. Wan Jain Work Phone: [facility] Work Phone: 11-01-2021 11:52-0500 Body temperature 98 [degF] Dr. Wan Jain Work Phone: [facility] Work Phone: 11-01-2021 11:52-0500 Body weight 63.[address] Wan Jain Work Phone: [facility] Work Phone: 11-01-2021 11:52-0500 Diastolic blood pressure 73 mm[Hg] Dr. Wan Jain Work Phone: [facility] Work Phone: 11-01-2021 11:52-0500 Heart rate 75 /min Dr. aWn Jain Work Phone: [facility] Work Phone: 11-01-2021 11:52-0500 Respiratory rate 16 /min Dr. Wan Jain Work Phone: [facility] Work Phone: 11-01-2021 11:52-0500 SaO2% (BldA) [Mass fraction] 99 % Dr. Wan Jain Work Phone: [facility] Work Phone: 11-01-2021 11:52-0500 Systolic blood pressure 110 mm[Hg] Dr. Wan Jain Work Phone: [facility] Work Phone: 10-18-2021 07:05-0500 Body mass index (BMI) [Ratio] 22.6 kg/m2 Dr. Wan Jain Work Phone: [facility] Work Phone: 10-18-2021 07:05-0500 Body temperature 5.9 [degF] Dr. Wan Jain Work Phone: [facility] Work Phone: 10-18-2021 07:05-0500 Body weight 63.[address] Wan Jain Work Phone: [facility] Work Phone: 10-18-2021 07:05-0500 Diastolic blood pressure 78 mm[Hg] Dr. Wan Jain Work Phone: [facility] Work Phone: 10-18-2021 07:05-0500 Heart rate 71 /min Dr. Wan Jain Work Phone: [facility] Work Phone: 10-18-2021 07:05-0500 Respiratory rate 16 /min Dr. Wan Jain Work Phone: [facility] Work Phone: 10-18-2021 07:05-0500 SaO2% (BldA) [Mass fraction] 99 % Dr. Wan Jain Work Phone: [facility] Work Phone: 10-18-2021 07:05-0500 Systolic blood pressure 122 mm[Hg] Dr. Wan Jain Work Phone: [facility] Work Phone: 06-30-2017 15:45-0400 BMI (Body Mass Index) 27.27 kg/m2 Tyson WATTERSP-C [facility] Work Phone: 06-30-2017 15:45-0400 Body Temperature 96.7 [degF] Tyson Sampson [employer] Work Phone: 06-30-2017 15:45-0400 BP Diastolic 74 mm[Hg] Tyson Adrián [employer] Work Phone: 06-30-2017 15:45-0400 BP Systolic 113 mm[Hg] Tyson Sampson [employer] Work Phone: 06-30-2017 15:45-0400 Height 167.64 cm Tyson Sampson [employer] Work Phone: 06-30-2017 15:45-0400 Pulse (Heart Rate) 87 /min Tyson Sampson [employer] Work Phone: 06-30-2017 15:45-0400 Respiratory Rate 16 /min Tyson Sampson [employer] Work Phone: 06-30-2017 15:45-0400 Weight 76.66 kg Tyson Mendozader [employer] Work Phone: Encounters Encounter Date Encounter Type Care Provider Facility Start: 05-27-2025 End: 05-27-[address] Wan Jain MD Work Phone: -Laboratory Start: 05-27-2025 End: 05-27-2025 Patient encounter procedure Joana Davalos NP-C -Laboratory Work Phone: Start: 05-27-2025 End: 05-27-2025 ambulatory Wan Jain Facility:[facility] Start: 05-14-2025 End: 05-14-2025 Patient encounter procedure Joana SMITHC -[facility] Work Phone: Start: 05-14-2025 End: 05-14-[address] Wan Jain MD Work Phone: -[facility] Start: 03-27-2025 End: 03-27-[address] Wan Jain MD Work Phone: -Outpatient Breast Imaging Start: 03-27-2025 End: 03-27-[address] Wan Jain MD -[facility]patient [facility] Work Phone: Start: 03-27-2025 End: 03-27-2025 ambulatory Wan Jain Facility:[facility] Start: 03-25-2025 End: 03-25-[address] Wan Jain MD Work Phone: -Laboratory Start: 03-25-2025 End: 03-25-[address] Wan Jain MD -Laboratory Work Phone: Start: 03-25-2025 Non-patient / Non-visit Dr. Maegan Doss MD -[facility] Work Phone: Start: 03-25-2025 End: 03-25-2025 ambulatory Wan Jain Facility:[facility] Start: 02-24-2025 End: 02-24-[address] Wan Jain MD -[facility] Work Phone: Start: 02-24-2025 End: 02-24-[address] Wan Jain MD [facility] Start: 02-24-2025 End: 02-24-[address] Wan Jain MD Work Phone: [facility] Work Phone: Start: 09-13-2024 End: 09-13-2024 ambulatory Joseph Bolivar Facility:[facility] Start: 08-19-2024 End: 08-19-2024 ambulatory Wan Jain Facility:[facility] Start: 08-19-2024 End: 08-19-2024 ambulatory Wan Jain Facility:[facility] Start: 01-16-2024 End: 01-23-[address] Wan Jain Work Phone: [facility] Work Phone: Start: 01-16-2024 End: 01-23-[address] Wan Jain Work Phone: [facility] Work Phone: Start: 12-26-2023 End: 12-26-[address] Wan Jain Work Phone: [facility] Work Phone: Start: 12-21-2023 End: 12-21-[address] Wan Jain Work Phone: [facility] Work Phone: Start: 11-07-2023 End: 11-07-[address] Wan Jain Work Phone: [facility] Work Phone: Start: 10-31-2023 End: 10-31-[address] Wan Jain Work Phone: [facility] Work Phone: Start: 08-14-2023 End: 08-14-[address] Wan Jain Work Phone: [facility] Work Phone: Start: 08-14-2023 End: 08-14-2023 Encounter for general adult medical examination without abnormal findings Dr. Wan Jain Work Phone: [facility] Start: 08-14-2023 End: 08-14-[address] Wan Jain Work Phone: [facility] Work Phone: Start: 05-09-2023 End: 05-09-[address] Wan Jain Work Phone: [facility] Work Phone: Start: 04-21-2023 End: 04-21-2023 Emergency department patient visit Dr. Wan Jain Work Phone: [facility]-Emergency Department Work Phone: Start: 04-20-2023 End: 04-20-[address] Wan Jain Work Phone: [facility] Work Phone: Start: 02-10-2023 End: 02-10-2023 Encounter for general adult medical examination without abnormal findings Dr. Wan Jain Work Phone: [facility] Start: 02-10-2023 End: 02-10-[address] Wan Jain Work Phone: [facility] Work Phone: Start: 11-10-2022 End: 11-10-[address] Wan Jain Work Phone: [facility] Start: 10-31-2022 End: 10-31-[address] Wan Jain Work Phone: [facility]-Pulmonary Medicine [facility] Start: 10-24-2022 End: 10-24-[address] Wan Jain Work Phone: [facility] Start: 10-21-2022 End: 10-21-[address] Wan Jain Work Phone: [facility] Work Phone: Start: 10-21-2022 End: 10-21-[address] Wan Jain Work Phone: [facility]-Physical Therapy Start: 10-11-[address] Ann Jain Work Phone: [facility] Start: 09-30-2022 End: 09-30-[address] Wan Jain Work Phone: [facility] Work Phone: Start: 09-30-2022 End: 09-30-[address] Wan Jain Work Phone: [facility]-Laboratory Start: 09-12-2022 End: 09-12-[address] Wan Jain Work Phone: [facility] Start: 08-09-2022 End: 08-09-[address] Wan Jain Work Phone: [facility]-Outpatient Breast Imaging Start: 07-27-2022 End: 07-27-2022 Encounter for general adult medical examination without abnormal findings Dr. Wan Jain Work Phone: [facility] Start: 07-27-2022 End: 07-27-[address] Wan Jain Work Phone: [facility] Start: 05-03-2022 End: 05-03-[address] Wan Jain Work Phone: [facility]Laboratory Start: 04-20-2022 End: 04-20-[address] Wan Jain Work Phone: [facility] Start: 02-25-2022 End: 02-25-[address] Wan Vega Phone: [facility] Start: 01-17-2022 End: 01-17-[address] Wan Jain Work Phone: [facility] Start: 01-15-2022 End: 01-15-[address] [facility] Start: 01-14-2022 End: 01-14-[address] Wan Vega Phone: [facility] Start: 01-03-[address] Wan Jain Work Phone: [facility] Start: 01-03-[address] Wan Vega Phone: [facility] Start: 01-03-2022 End: 01-03-2022 Encounter for general adult medical examination without abnormal findings Dr. Wan Vega Phone: [facility] Start: 01-03-2022 End: 01-03-[address] Wan Jain Work Phone: [facility] Start: 12-02-2021 End: 12-02-[address] Wan Jain Work Phone: [facility] Start: 11-01-2021 End: 11-01-[address] Wan Jain Work Phone: [facility] Start: 10-21-2021 End: 10-21-[address] Wan Jain Work Phone: [facility] Start: 10-18-2021 End: 10-18-[address] Wan Jain Work Phone: [facility] Procedures Date Procedure Procedure Detail Performing Clinician Start: 05-27-2025 Urine microalbumin/creatinine ratio measurement Dr. Wan Jain MD Work Phone: Start: 05-27-2025 Vitamin D, 25-hydrox y measurement Dr. Wan Jain MD Work Phone: Comment on above: Vitamin D StatusDefi ciency: <20 ng/mL (50nmol/L)Insufficiency: 20-30 ng/mL (50-75 nmol/L)Sufficiency: 30-100 ng/mL (75-250 nmol/L)Toxicity: >100 ng/mL (>250 nmol/L) Start: 03-27-2025 Screening mammograph y of left breast Dr. Wan Jain MD Work Phone: Start: 01-09-[address] Wan Jain Work Phone: Start: 01-09-2024 Investigation of transfusion reaction Dr. Wan Jain Work Phone: Start: 01-09-2024 Microbial culture, routine Dr. Wan Jain Work Phone: Start: 09-12-2022 Plain X-ray of shoulder Dr. Wan Jain Work Phone: Start: 09-12-2022 X-ray of cervical spine Dr. Wan Jain Work Phone: Start: 08-09-2022 Screening mammograph y of left breast Dr. Wan Jain Work Phone: Start: 01-15-2022 End: 01-15-[address] Wan Jain Work Phone: Start: 01-15-[address] Rome Jain Work Phone: Start: 01-15-2022 End: 01-15-[address] Wan reid Work Phone: Start: 06-27-2017 End: 07-05-2017 *CMP Complete Metabolic Panel Allison Beck NP Work Phone: Start: 06-27-2017 End: 07-05-2017 *Microalbumin, Creatine Ratio, rand urine Allison Beck NP Work Phone: Start: 06-27-2017 End: 07-05-2017 Hemoglobin A1c/Hemoglobin.total in Blood Allison Beck NP Work Phone: Start: 06-27-2017 End: 07-05-2017 Lipid 1996 panel - Serum or Plasma Allison Beck NP Work Phone: Start: 04-24-2017 End: 04-24-2017 *CBC with Differential Wan burns MD Work Phone: Start: 03-20-2017 End: 03-21-2017 *CMP Complete Metabolic Panel Allison Beck NP Work Phone: Start: 03-20-2017 End: 03-21-2017 *Microalbumin, Creatine Ratio, rand urine Allison Beck NP Work Phone: Start: 03-20-2017 End: 03-21-2017 25-Hydroxyvitamin D2+25-Hydroxyvitamin D3 [Mass/volume] in Serum or Plasma Allison Beck [employer] Work Phone: Start: 03-20-2017 End: 03-21-2017 Hemoglobin A1c/Hemoglobin.total in Blood Allison Beck [employer] Work Phone: Start: 03-20-2017 End: 03-21-2017 Lipid 1996 panel - Serum or Plasma Allison Beck [employer] Work Phone: Start: 03-20-2017 End: 03-21-2017 Thyrotropin [Units/volume] in Serum or Plasma Allison Beck [employer] Work Phone: Start: 02-07-2017 End: 02-14-2017 Arthrocentesis aspir&/inj interm jt/burs w/o us Sunita Smith Work Phone: Clostridium difficil e detection Dr. Wan Jain Work Phone: Enteric Bacteriology Dr. Chava Jain Work Phone: History of cataract extraction Hx of cataract extraction Dr. Wan Jain Work Phone: Comment on above: BL eyes Lactoferrin measurement Dr. Wan Jain Work Phone: Ova OR parasites identification Dr. Wan Jain Work Phone: Plan of Treatment Date Care Activity Detail Author Start: 12-26-2023 Patient referral [facility] Work Phone: Start: 09-12-2022 Patient referral [facility] Work Phone: Start: 01-15-2022 Ova and Parasites Ova and Parasites [facility] Work Phone: Start: 01-03-2022 Patient referral [facility] Work Phone: Start: 10-05-2017 End: 10-05-2017 Appointment Appointment [facility] Work Phone: Start: 06-30-2017 End: 06-30-2017 *EKG (Done in Hospital) *EKG (Done in Hospital) [facility] Work Phone: Start: 06-30-2017 End: 06-30-2017 Follow Up Appt 3 months Follow Up Appt 3 months [facility] Work Phone: Start: 06-27-2017 End: 07-05-2017 *CMP Complete Metabolic Panel *CMP Complete Metabolic Panel [facility] Work Phone: Start: 06-27-2017 End: 07-05-2017 *Microalbumin, Creatine Ratio, rand urine *Microalbumin, Creatine Ratio, rand urine [facility] Work Phone: Start: 06-27-2017 End: 07-05-2017 Hemoglobin A1c/Hemoglobin.total mass fraction (Bld) *HgA1C [facility] Work Phone: Start: 06-27-2017 End: 07-05-2017 Lipid panel [AGGREGATE] *Lipid Profile [facility] Work Phone: Start: 04-24-2017 End: 04-24-2017 *CBC with Differential *CBC with Differential [facility] Work Phone: Start: 04-24-2017 End: 04-24-2017 Follow Up Appt 2 months Follow Up Appt 2 months [facility] Work Phone: Start: 04-24-2017 End: 04-24-2017 Podiatry Referral Podiatry Referral [facility] Work Phone: Start: 03-20-2017 End: 03-21-2017 *CMP Complete Metabolic Panel *CMP Complete Metabolic Panel [facility] Work Phone: Start: 03-20-2017 End: 03-21-2017 *Microalbumin, Creatine Ratio, rand urine *Microalbumin, Creatine Ratio, rand urine [facility] Work Phone: Start: 03-20-2017 End: 03-21-2017 25-Hydroxyvitamin D2+25-Hydroxyvitamin D3 [Mass/volume] in Serum or Plasma *Vitamin D (Calciferol) [facility] Work Phone: Start: 03-20-2017 End: 03-21-2017 Hemoglobin A1c/Hemoglobin.total mass fraction (Bld) *HgA1C [facility] Work Phone: Start: 03-20-2017 End: 03-21-2017 Lipid panel [AGGREGATE] *Lipid Profile [facility] Work Phone: Start: 03-20-2017 End: 03-21-2017 Thyroid stimulating hormone (TSH) *TSH [facility] Work Phone: Start: 02-06-2017 End: 02-06-2017 Radex wrist complete minimum 3 views X-Ray, Wrist [facility] Work Phone: Comprehensive metabo lic 2000 panel - Serum or Plasma [facility] Hemoglobin A1c/Hemoglobin.total in Blood [facility] Work Phone: Lipid 1996 panel - S eric or Plasma [facility] MG Breast - left Screening [facility] MG Breast - left Screening [facility] Patient Education ED Wound Check (No Infection) [facility] Work Phone: Patient referral [facility] Work Phone: Thyroid stimulating hormone measurement [facility] Urine microalbumin/creatinine ratio measurement [facility] Vitamin D, 25-hydrox y measurement [facility] Vitamin D, 25-hydrox y measurement [facility] Immunizations Immunization Date Immunization Notes Care Provider Gallo hair 08-14-2023 influenza, injectabl e, quadrivalent, preservative free Dr. Wan Jain Work Phone: [facility] 07-27-2022 influenza, injectabl e, quadrivalent, preservative free Dr. Wan Jain Work Phone: [facility] 07-27-2022 influenza, seasonal, injectable Dr. Wan Jain Work Phone: [facility] 07-05-2021 Covid (Pfizer) Dr. Wan Jain Work Phone: [facility] 01-07-2021 pneumococcal vaccine , unspecified formulation Dr. Wan Jain Work Phone: [facility] Work Phone: 01-07-2021 pneumococcal polysaccharide vaccine, [address] Wan Jain Work Phone: [facility] 06-24-2020 Flucelvax Quad 2020 (PF) (flu vac qs 2019(4 yr up)CD(PF)) 60 mcg ([address] Wan Jain Work Phone: [facility] Work Phone: 06-24-2020 influenza, injectable,quadrivalent, preservative free, pediatric Dr. Wan Jain Work Phone: [facility] 08-07-2019 Flucelvax Quad 2019 (PF) (flu vac qs 2018(4 yr up)CD(PF)) 60 mcg ([address] Wan Jain Work Phone: [facility] Work Phone: 08-07-[address] Wan Jain Work Phone: [facility] 05-07-2019 pneumococcal conjuga te vaccine, [address] Wan Jain Work Phone: [facility] 05-07-2019 pneumococcal vaccine , unspecified formulation Dr. Wan Jain Work Phone: [facility] Work Phone: 10-05-2017 influenza, injectabl e, quadrivalent, preservative free Dr. Wan Jain Work Phone: [facility] 10-05-2017 influenza, seasonal, injectable Dr. Wan Jain Work Phone: [facility] Payers Date Payer Category Payer Self-pay [id number] 2024 Private Health Insurance [facility] [id number] Medicare [id number] Unknown [id number] Unknown [id number] [id number] Unknown [id number] [id number] Unknown [id number] [id number] [id number] Unknown [id number] [id number] [id number] Unknown [id number] [id number] [id number] Unknown [id number] [id number] [id number] Unknown [id number] [id number] [id number] Unknown [id number] [id number] [id number] Social History Date Type Detail Facility Start: 01-03-2022 End: 12-26-2023 Tobacco smoking status PAIS Unknown if ever smoked [facility] Start: 01-04-2019 Non-smoker [facility] Start: 1955 Sex Assigned At Female [facility] Start: 12-26-2023 Tobacco smoking stat us PAIS Never smoked tobacco (finding) [facility] Medical Equipment Procedure Code Equipment Code Equipment Origin al Text Equipment Identifier Dates Pen Needle, Diab etic (Ultra-Thin Ii Ins Pen Stockett) 29 gauge x 1/2 needle Start: 04-19-2021 Pen Needle, Diab etic (Easy Comfort Pen Stockett) 31 gauge x 5/16 needle Start: 05-03-2018 End: 05-04-2018 Pen Needle, Diab etic (Easy Comfort Pen Stockett) 31 gauge x 5/16 needle Start: 05-04-2018 End: 10-30-2018 Pen Needle, Diab etic (Ultra-Thin Ii Ins Pen Stockett) 29 gauge x 1/2 needle Start: 11-11-2019 End: 04-21-2020 Pen Needle, Diab etic (Ultra-Thin Ii Ins Pen Stockett) 29 gauge x 1/2 needle Start: 11-01-2019 End: 11-01-2019 Pen Needle, Diab etic (Ultra-Thin Ii Ins Pen Stockett) 29 gauge x 1/2 needle Start: 11-01-2019 End: 11-11-2019 Pen Needle, Diab etic (Ultra-Thin Ii Ins Pen [employer]ett) 29 gauge x 1/2 needle Start: 04-21-2020 End: 09-21-2020 Pen Needle, Diab etic (Ultra-Thin Ii Ins Pen Stockett) 29 gauge x 1/2 needle Start: 09-21-2020 End: 11-17-2020 Pen Needle, Diab etic (Ultra-Thin Ii Ins Pen [employer]ett) 29 gauge x 1/2 needle Start: 11-17-2020 End: 04-19-2021 Pen Needle, Diab etic (Ultra-Thin Ii Ins Pen [employer]ett) 29 gauge x 1/2 needle Start: 04-19-2021 Pen Needle, Diab etic (Easy Comfort Pen Stockett) 31 gauge x 5/16 needle Start: 05-03-2018 End: 05-04-2018 Pen Needle, Diab etic (Easy Comfort Pen [employer]ett) 31 gauge x 5/16 needle Start: 05-04-2018 End: 10-30-2018 Pen Needle, Diab etic (Ultra-Thin Ii Ins Pen Stockett) 29 gauge x 1/2 needle Start: 11-11-2019 End: 04-21-2020 Pen Needle, Diab etic (Ultra-Thin Ii Ins Pen [employer]ett) 29 gauge x 1/2 needle Start: 11-01-2019 End: 11-01-2019 Pen Needle, Diab etic (Ultra-Thin Ii Ins Pen [employer]ett) 29 gauge x 1/2 needle Start: 11-01-2019 End: 11-11-2019 Pen Needle, Diab etic (Ultra-Thin Ii Ins Pen [employer]ett) 29 gauge x 1/2 needle Start: 04-21-2020 End: 09-21-2020 Pen Needle, Diab etic (Ultra-Thin Ii Ins Pen Stockett) 29 gauge x 1/2 needle Start: 09-21-2020 End: 11-17-2020 Pen Needle, Diab etic (Ultra-Thin Ii Ins Pen Stockett) 29 gauge x 1/2 needle Start: 11-17-2020 End: 04-19-2021 Pen Needle, Diab etic (Ultra-Thin Ii Ins Pen Stockett) 29 gauge x 1/2 needle Start: 04-19-2021 Pen Needle, Diab etic (Easy Comfort Pen Stockett) 31 gauge x 5/16 needle Start: 05-03-2018 End: 05-04-2018 Pen Needle, Diab etic (Easy Comfort Pen Stockett) 31 gauge x 5/16 needle Start: 05-04-2018 End: 10-30-2018 Pen Needle, Diab etic (Ultra-Thin Ii Ins Pen Stockett) 29 gauge x 1/2 needle Start: 11-11-2019 End: 04-21-2020 Pen Needle, Diab etic (Ultra-Thin Ii Ins Pen Stockett) 29 gauge x 1/2 needle Start: 11-01-2019 End: 11-01-2019 Pen Needle, Diab etic (Ultra-Thin Ii Ins Pen Stockett) 29 gauge x 1/2 needle Start: 11-01-2019 End: 11-11-2019 Pen Needle, Diab etic (Ultra-Thin Ii Ins Pen Stockett) 29 gauge x 1/2 needle Start: 04-21-2020 End: 09-21-2020 Pen Needle, Diab etic (Ultra-Thin Ii Ins Pen Stockett) 29 gauge x 1/2 needle Start: 09-21-2020 End: 11-17-2020 Pen Needle, Diab etic (Ultra-Thin Ii Ins Pen Stockett) 29 gauge x 1/2 needle Start: 11-17-2020 End: 04-19-2021 Blood Sugar Diagnostic (True Metrix Glucose Test Strip) strip Start: 11-10-2022 Pen Needle, Diab etic (Ultra-Thin Ii Ins Pen Stockett) 29 gauge x 1/2 needle Start: 04-19-2021 Pen Needle, Diab etic (Easy Comfort Pen Stockett) 31 gauge x 5/16 needle Start: 05-03-2018 End: 05-04-2018 Pen Needle, Diab etic (Easy Comfort Pen Stockett) 31 gauge x 5/16 needle Start: 05-04-2018 End: 10-30-2018 Pen Needle, Diab etic (Ultra-Thin Ii Ins Pen Stockett) 29 gauge x 1/2 needle Start: 11-11-2019 End: 04-21-2020 Pen Needle, Diab etic (Ultra-Thin Ii Ins Pen Stockett) 29 gauge x 1/2 needle Start: 11-01-2019 End: 11-01-2019 Pen Needle, Diab etic (Ultra-Thin Ii Ins Pen Stockett) 29 gauge x 1/2 needle Start: 11-01-2019 End: 11-11-2019 Pen Needle, Diab etic (Ultra-Thin Ii Ins Pen Stockett) 29 gauge x 1/2 needle Start: 04-21-2020 End: 09-21-2020 Pen Needle, Diab etic (Ultra-Thin Ii Ins Pen Stockett) 29 gauge x 1/2 needle Start: 09-21-2020 End: 11-17-2020 Pen Needle, Diab etic (Ultra-Thin Ii Ins Pen Stockett) 29 gauge x 1/2 needle Start: 11-17-2020 End: 04-19-2021 Blood Sugar Diagnostic (True Metrix Glucose Test Strip) strip Start: 11-10-2022 Pen Needle, Diab etic (Ultra-Thin Ii Ins Pen Stockett) 29 gauge x 1/2 needle Start: 04-19-2021 Pen Needle, Diab etic (Easy Comfort Pen Stockett) 31 gauge x 5/16 needle Start: 05-03-2018 End: 05-04-2018 Pen Needle, Diab etic (Easy Comfort Pen Stockett) 31 gauge x 5/16 needle Start: 05-04-2018 End: 10-30-2018 Pen Needle, Diab etic (Ultra-Thin Ii Ins Pen Stockett) 29 gauge x 1/2 needle Start: 11-11-2019 End: 04-21-2020 Pen Needle, Diab etic (Ultra-Thin Ii Ins Pen Stockett) 29 gauge x 1/2 needle Start: 11-01-2019 End: 11-01-2019 Pen Needle, Diab etic (Ultra-Thin Ii Ins Pen Stockett) 29 gauge x 1/2 needle Start: 11-01-2019 End: 11-11-2019 Pen Needle, Diab etic (Ultra-Thin Ii Ins Pen Stockett) 29 gauge x 1/2 needle Start: 04-21-2020 End: 09-21-2020 Pen Needle, Diab etic (Ultra-Thin Ii Ins Pen Stockett) 29 gauge x 1/2 needle Start: 09-21-2020 End: 11-17-2020 Pen Needle, Diab etic (Ultra-Thin Ii Ins Pen Stockett) 29 gauge x 1/2 needle Start: 11-17-2020 End: 04-19-2021 Blood Sugar Diagnostic (True Metrix Glucose Test Strip) strip Start: 11-10-2022 Pen Needle, Diab etic (Ultra-Thin Ii Ins Pen Stockett) 29 gauge x 1/2 needle Start: 04-19-2021 Pen Needle, Diab etic (Easy Comfort Pen Stockett) 31 gauge x 5/16 needle Start: 05-03-2018 End: 05-04-2018 Pen Needle, Diab etic (Easy Comfort Pen Stockett) 31 gauge x 5/16 needle Start: 05-04-2018 End: 10-30-2018 Pen Needle, Diab etic (Ultra-Thin Ii Ins Pen Stockett) 29 gauge x 1/2 needle Start: 11-11-2019 End: 04-21-2020 Pen Needle, Diab etic (Ultra-Thin Ii Ins Pen Stockett) 29 gauge x 1/2 needle Start: 11-01-2019 End: 11-01-2019 Pen Needle, Diab etic (Ultra-Thin Ii Ins Pen Stockett) 29 gauge x 1/2 needle Start: 11-01-2019 End: 11-11-2019 Pen Needle, Diab etic (Ultra-Thin Ii Ins Pen Stockett) 29 gauge x 1/2 needle Start: 04-21-2020 End: 09-21-2020 Pen Needle, Diab etic (Ultra-Thin Ii Ins Pen Stockett) 29 gauge x 1/2 needle Start: 09-21-2020 End: 11-17-2020 Pen Needle, Diab etic (Ultra-Thin Ii Ins Pen Stockett) 29 gauge x 1/2 needle Start: 11-17-2020 End: 04-19-2021 Blood Sugar Diagnostic (True Metrix Glucose Test Strip) strip Start: 11-10-2022 Pen Needle, Diab etic (Ultra-Thin Ii Ins Pen Stockett) 29 gauge x 1/2 needle Start: 04-19-2021 Pen Needle, Diab etic (Easy Comfort Pen Stockett) 31 gauge x 5/16 needle Start: 05-03-2018 End: 05-04-2018 Pen Needle, Diab etic (Easy Comfort Pen Stockett) 31 gauge x 5/16 needle Start: 05-04-2018 End: 10-30-2018 Pen Needle, Diab etic (Ultra-Thin Ii Ins Pen Stockett) 29 gauge x 1/2 needle Start: 11-11-2019 End: 04-21-2020 Pen Needle, Diab etic (Ultra-Thin Ii Ins Pen Stockett) 29 gauge x 1/2 needle Start: 11-01-2019 End: 11-01-2019 Pen Needle, Diab etic (Ultra-Thin Ii Ins Pen Stockett) 29 gauge x 1/2 needle Start: 11-01-2019 End: 11-11-2019 Pen Needle, Diab etic (Ultra-Thin Ii Ins Pen Stockett) 29 gauge x 1/2 needle Start: 04-21-2020 End: 09-21-2020 Pen Needle, Diab etic (Ultra-Thin Ii Ins Pen Stockett) 29 gauge x 1/2 needle Start: 09-21-2020 End: 11-17-2020 Pen Needle, Diab etic (Ultra-Thin Ii Ins Pen Stockett) 29 gauge x 1/2 needle Start: 11-17-2020 End: 04-19-2021 Blood Sugar Diagnostic (True Metrix Glucose Test Strip) strip Start: 11-10-2022 Pen Needle, Diab etic (Easy Comfort Pen Stockett) 31 gauge x 5/16 needle Start: 05-03-2018 End: 05-04-2018 Pen Needle, Diab etic (Easy Comfort Pen Stockett) 31 gauge x 5/16 needle Start: 05-04-2018 End: 10-30-2018 Pen Needle, Diab etic (Ultra-Thin Ii Ins Pen Stockett) 29 gauge x 1/2 needle Start: 11-11-2019 End: 04-21-2020 Pen Needle, Diab etic (Ultra-Thin Ii Ins Pen Stockett) 29 gauge x 1/2 needle Start: 11-01-2019 End: 11-01-2019 Pen Needle, Diab etic (Ultra-Thin Ii Ins Pen Stockett) 29 gauge x 1/2 needle Start: 04-19-2021 End: 05-07-2024 Pen Needle, Diab etic (Ultra-Thin Ii Ins Pen Stockett) 29 gauge x 1/2 needle Start: 11-01-2019 End: 11-11-2019 Pen Needle, Diab etic (Ultra-Thin Ii Ins Pen Stockett) 29 gauge x 1/2 needle Start: 04-21-2020 End: 09-21-2020 Pen Needle, Diab etic (Ultra-Thin Ii Ins Pen Stockett) 29 gauge x 1/2 needle Start: 09-21-2020 End: 11-17-2020 Pen Needle, Diab etic (Ultra-Thin Ii Ins Pen Stockett) 29 gauge x 1/2 needle Start: 11-17-2020 End: 04-19-2021 Blood Sugar Diagnostic (True Metrix Glucose Test Strip) strip Start: 11-10-2022 Pen Needle, Diab etic (Easy Comfort Pen Stockett) 31 gauge x 5/16 needle Start: 05-03-2018 End: 05-04-2018 Pen Needle, Diab etic (Easy Comfort Pen Stockett) 31 gauge x 5/16 needle Start: 05-04-2018 End: 10-30-2018 Pen Needle, Diab etic (Ultra-Thin Ii Ins Pen Stockett) 29 gauge x 1/2 needle Start: 11-11-2019 End: 04-21-2020 Pen Needle, Diab etic (Ultra-Thin Ii Ins Pen Stockett) 29 gauge x 1/2 needle Start: 11-01-2019 End: 11-01-2019 Pen Needle, Diab etic (Ultra-Thin Ii Ins Pen Stockett) 29 gauge x 1/2 needle Start: 04-19-2021 End: 05-07-2024 Pen Needle, Diab etic (Ultra-Thin Ii Ins Pen Stockett) 29 gauge x 1/2 needle Start: 11-01-2019 End: 11-11-2019 Pen Needle, Diab etic (Ultra-Thin Ii Ins Pen Stockett) 29 gauge x 1/2 needle Start: 04-21-2020 End: 09-21-2020 Pen Needle, Diab etic (Ultra-Thin Ii Ins Pen Stockett) 29 gauge x 1/2 needle Start: 09-21-2020 End: 11-17-2020 Pen Needle, Diab etic (Ultra-Thin Ii Ins Pen Stockett) 29 gauge x 1/2 needle Start: 11-17-2020 End: 04-19-2021 Blood Sugar Diagnostic (True Metrix Glucose Test Strip) strip Start: 11-10-2022 Pen Needle, Diab etic (Easy Comfort Pen Stockett) 31 gauge x 5/16 needle Start: 05-03-2018 End: 05-04-2018 Pen Needle, Diab etic (Easy Comfort Pen Stockett) 31 gauge x 5/16 needle Start: 05-04-2018 End: 10-30-2018 Pen Needle, Diab etic (Ultra-Thin Ii Ins Pen Stockett) 29 gauge x 1/2 needle Start: 11-11-2019 End: 04-21-2020 Pen Needle, Diab etic (Ultra-Thin Ii Ins Pen Stockett) 29 gauge x 1/2 needle Start: 11-01-2019 End: 11-01-2019 Pen Needle, Diab etic (Ultra-Thin Ii Ins Pen Stockett) 29 gauge x 1/2 needle Start: 04-19-2021 End: 05-07-2024 Pen Needle, Diab etic (Ultra-Thin Ii Ins Pen Stockett) 29 gauge x 1/2 needle Start: 11-01-2019 End: 11-11-2019 Pen Needle, Diab etic (Ultra-Thin Ii Ins Pen Stockett) 29 gauge x 1/2 needle Start: 04-21-2020 End: 09-21-2020 Pen Needle, Diab etic (Ultra-Thin Ii Ins Pen Stockett) 29 gauge x 1/2 needle Start: 09-21-2020 End: 11-17-2020 Pen Needle, Diab etic (Ultra-Thin Ii Ins Pen Stockett) 29 gauge x 1/2 needle Start: 11-17-2020 End: 04-19-2021 Blood Sugar Diagnostic (True Metrix Glucose Test Strip) strip Start: 11-10-2022 Pen Needle, Diab etic (Easy Comfort Pen Stockett) 31 gauge x 5/16 needle Start: 05-03-2018 End: 05-04-2018 Pen Needle, Diab etic (Easy Comfort Pen Stockett) 31 gauge x 5/16 needle Start: 05-04-2018 End: 10-30-2018 Pen Needle, Diab etic (Ultra-Thin Ii Ins Pen Stockett) 29 gauge x 1/2 needle Start: 11-11-2019 End: 04-21-2020 Pen Needle, Diab etic (Ultra-Thin Ii Ins Pen Stockett) 29 gauge x 1/2 needle Start: 11-01-2019 End: 11-01-2019 Pen Needle, Diab etic (Ultra-Thin Ii Ins Pen Stockett) 29 gauge x 1/2 needle Start: 04-19-2021 End: 05-07-2024 Pen Needle, Diab etic (Ultra-Thin Ii Ins Pen [employer]ett) 29 gauge x 1/2 needle Start: 11-01-2019 End: 11-11-2019 Pen Needle, Diab etic (Ultra-Thin Ii Ins Pen Stockett) 29 gauge x 1/2 needle Start: 04-21-2020 End: 09-21-2020 Pen Needle, Diab etic (Ultra-Thin Ii Ins Pen Stockett) 29 gauge x 1/2 needle Start: 09-21-2020 End: 11-17-2020 Pen Needle, Diab etic (Ultra-Thin Ii Ins Pen Stockett) 29 gauge x 1/2 needle Start: 11-17-2020 End: 04-19-2021 Blood Sugar Diagnostic (True Metrix Glucose Test Strip) strip Start: 11-10-2022 Pen Needle, Diab etic (Easy Comfort Pen Stockett) 31 gauge x 5/16 needle Start: 05-03-2018 End: 05-04-2018 Pen Needle, Diab etic (Easy Comfort Pen Stockett) 31 gauge x 5/16 needle Start: 05-04-2018 End: 10-30-2018 Pen Needle, Diab etic (Ultra-Thin Ii Ins Pen Stockett) 29 gauge x 1/2 needle Start: 11-11-2019 End: 04-21-2020 Pen Needle, Diab etic (Ultra-Thin Ii Ins Pen Stockett) 29 gauge x 1/2 needle Start: 11-01-2019 End: 11-01-2019 Pen Needle, Diab etic (Ultra-Thin Ii Ins Pen [employer]ett) 29 gauge x 1/2 needle Start: 04-19-2021 End: 05-07-2024 Pen Needle, Diab etic (Ultra-Thin Ii Ins Pen [employer]ett) 29 gauge x 1/2 needle Start: 11-01-2019 End: 11-11-2019 Pen Needle, Diab etic (Ultra-Thin Ii Ins Pen Stockett) 29 gauge x 1/2 needle Start: 04-21-2020 End: 09-21-2020 Pen Needle, Diab etic (Ultra-Thin Ii Ins Pen Stockett) 29 gauge x 1/2 needle Start: 09-21-2020 End: 11-17-2020 Pen Needle, Diab etic (Ultra-Thin Ii Ins Pen [employer]ett) 29 gauge x 1/2 needle Start: 11-17-2020 End: 04-19-2021 Clinical Notes 01-31-2023 to 02-24-2025 Note Date & Type Note Facility 02-24-2025 Evaluation note Diagnosis Onset Date Resolution Blood in left ear canal acute J une 2024 8:24am Health care maintenance acute J une 2024 8:24am Anxiety and depression chronic Ju [place] 2024 8:24am Hypertension chronic February 24 8:24am [facility] Work Phone: 1(982) 620-890506-02-2025 Evaluation note* Diagnosis Onset Date Resolution Status Admit Date Blood in left ear canal acute J une 2024 8:24am Health care maintenance acute J une 2024 8:24am Anxiety and depression chronic Ju ne 2024 8:24am Hypertension chronic February 24 8:24am Body mass index [BMI] 22.0-2 2.9, adult chronic May 14 8:06am Hypertension chronic May 14, 2025 8:06am Mixed hyperlipidemia chronic Augu 2024 8:06am Type 2 diabetes mellitus chronic May 14, 2025 8:06am [facility] Work Phone: [phone]) 372-784004-23-2024 History and physical note Author Ronaldo Kothari [facility] January 16, 2024 1:34pm Note Date/Time January 16, 2024 1:3 4pm [facility] [address] [place] [id number] H&P Exam - Wound Care 01/16/24 1326 MR#: [id number] Acct: [id number] Name: MARYAN HOGAN Rep #:[id number] : [id number] 68 From: Ronaldo Magaña PCP: Dr. Wan Jain MD Status:R EG RCR Location: History of Present Illness Date of Service: 01/16/24 Chief Complaint: Traumatic left pretibial wound History of Wound: This is a 68-year-old female who presented with a traumatic wound on the left pretibial surface. This occurred approximately 4 to5 weeks prior to her admission, when she impacted the left pretibial surface against a metal object in her garage. She subsequently developed swelling and redness in the periwound area, for which she was evaluated and treated by her primary care physician. She received a 10-day course of Keflex which was taken orally. She had been using bacitracin ointment topically on an intermittent basis, and at times using only dry gauze. Since the time of her injury, the traumatic wound failed to heal and progress. This prompted her to seek medical attention in the [facility]. She is of normal body habitus. She is active, and ambulates liberally without limitations. She denies swelling in her lower extremities. She has no history of thrombophlebitis. [facility] Medical History Abdominal pain Abrasion, right lower leg, initial encounter Alcohol use Arthritis Cellulitis of right lower leg Chronic nausea Contusion of right lower leg CPAP (continuous positive airway pressure) dependence Early satiety Easy bruising Grief reaction Health care maintenance Heartburn History of breast cancer History of Clostridium difficile infection History of hiatal hernia History of kidney stones History of stress test Itching of ear Leg wound, left Obstructive sleep apnea Preventative health care Tachycardia Traumatic open wound of left lower leg with delayed healing Vitamin D deficiency Wound of right lower extremity Home Medications aspirin 81 mg tablet,delayed release (Adult Aspirin Regimen) 81 mg PO QDAY 10/05/17 [History Last Taken 01/02/19] cholecalciferol (vitamin D3) 50 mcg (2,000 unit) capsule 2,000 unit PO DAILY 10/05/17 [History Last Taken Unknown] flash glucose scanning reader (FAST FELT John 14 Day Cadet) #1 ea 11/11/19 [Rx Last Taken Unknown] pen needle, diabetic 29 gauge x 1/2 (Ultra-Thin II Insulin Pen Stockett) #100 ea04/19/21 [Rx Last Taken Unknown] oxybutynin chloride 10 mg tablet,extended release 24 hr 15 mg PO DAILY 04/20/22 [History Last Taken Unknown] cyanocobalamin (vitamin B-12) 2,500 mcg tablet 2,500 mcg PO .THREE TIMES A WEEK 07/27/22 [History Last Taken Unknown] docusate sodium 100 mg capsule (Colace) 100 mg PO DAILY 07/27/22 [History Last Taken Unknown] True Metrix Glucose Test Strip (blood sugar diagnostic) #50 ea 11/10/22 [Rx Last Taken Unknown] blood-glucose meter (True Metrix Glucose Meter kit) #1 ea 11/10/22 [Rx Last Taken Unknown] Ozempic 1 mg/dose (4 mg/3 mL) subcutaneous pen injector (semaglutide) 1 mg (0.75mL) subcut QWEEK #3 mL 11/07/23 [Rx Last Taken Unknown] atorvastatin 80 mg tablet 80 mg PO QHS #90 tabs 11/07/23 [Rx Last Taken Unknown] dapagliflozin propanediol 10 mg tablet 10 mg PO QDAY diabetes #90 tabs 11/07/23 [Rx Last Taken Unknown] flash glucose sensor (FreeStyle John 14 Day Sensor kit) #6 ea 11/07/23 [Rx Last Taken Unknown] glimepiride 2 mg tablet 1 mg (1/2 x 2 mg) PO DAILY #90 tabs 11/07/23 [Rx Last Taken Unknown] lisinopril 20 mg tablet See Rx Instructions .Route .COMPLEX #90 tabs 11/07/23 [Rx Last Taken Unknown] venlafaxine 75 mg tablet 275 mg PO QHS ANTIDEPRESSANT 01/09/24 [History Last Taken Unknown] Allergy/AdvReac Type Severity Reaction Status Date / Time amoxicillin Allergy Rash Verified 12/26/23 12:50 levofloxacin [From Levaquin] Allergy Vomiting Verified 12/26/23 12:50 promethazine [From Phenergan] Allergy Other Verified 12/26/23 12:50 Family History Sister Breast cancer Grandmother Breast cancer Uncle Breast cancer Mother Heart disease Thyroid disorder Father Heart disease CVA (cerebral vascular accident) Cancer prostate Brother Crohns disease Grandfather CVA (cerebral vascular accident) Grandmother Diabetes Surgical History abdominal tram flap bunionecmy of right foot History of colonoscopy History of total mastectomy of right breast Hx of cataract extraction Social History Smoking Status: Never smoker alcohol intake: current alcohol intake frequency: a few times a month Alcohol type: beer substance use type: does not use caffeine: Yes what type of physical activity do you participate in: walking frequency: 5-6 times per week do you feel safe at home: Yes Vital Signs Vital Signs Vital Signs: 01/16/24 13:08 Temperature 97 F L Temperature Source Temporal Pulse Rate 101 H Respiratory Rate 18 Blood Pressure 123/66 H Blood Pressure Mean 85 Blood Pressure Source Monitor Blood Pressure Position Semi-Fowlers Blood Pressure Location Left Arm Weight Weight: 143 lb Body Mass Index (BMI) 22.4 Physical Exam Const alert, oriented x3, no apparent distress, average body habitus and well nourished General Appearance: cooperative, comfortable, well kempt and well developed Orientation / Consciousness: awake, oriented to person, oriented to place and oriented to time Exam Limitations: no limitations HEENT normocephalic, head/scalp atraumatic and hearing grossly normal bilaterally Head and Scalp: normal to inspection, normocephalic and atraumatic Face and Sinus: normal facial exam Nose: external nose normal External Ear: external ears normal Eyes PERRL and EOMs intact bilaterally General Eye: normal appearance of both eyes Sclera: sclera normal Neck full ROM General: normal visual inspection and trachea midline Resp normal respiratory effort, normal air movement, no retractions, no use of accessory muscles and clear to auscultation bilaterally Effort and Inspection: able to speak in complete sentences and symmetric chest movement Cardio regular rate, regular rhythm, S1 normal heart sound, S2 normal heart sound and no murmurs Extremity no calf tenderness General Extremity: Negative for clubbing or cyanosis Skin Wound Narrative: A traumatic wound is noted on the patient's left pretibial surface. Dimensions are documented elsewhere. The wound appears to be smaller than noted 1 week ago. The base of the wound is generally pink and healthy in appearance, with evidence of active, healthy granulation tissue. There is a small amount of bioburden. No significant periwound erythema is noted. No swelling or edema are noted in the lower extremities bilaterally. No other wounds or ulcerations are observed. Neuro oriented x3, CN's II-XII intact bilaterally, moves all extremities and no focal motor deficits Sensorium / Orientation: awake, alert, oriented to person, oriented to place andoriented to time Psych Appearance: grossly normal and appropriate Attitude: calm Activity / Motor Behavior: appropriate eye contact Speech: normal speech Mood & Affect: euthymic mood Thought Process: normal thought process Thought Content: normal thought content Attention / Concentration: attention grossly intact Debridement Note Debridement Note Wound debrided: Left pretibial surface Laterality: Left Type of Debridement: Excisional debridement Anesthesia Used: 5% Lidocaine Gel Depth: Down to and including healthy tissue and in the subcutaneous layer Percentage of wound debrided: 100 Instrument Used: 3mm curette Tissue Removed: Bioburden Severity: Fat Layer Exposed Amount of bleeding with debridement: Mild Bleeding Controlled with: Compression and gauze Patient tolerated procedure: Patient tolerated procedure well Post-Debridement Measurements and Additional Note: Post-Debridement Measurements/Treatment WC - Nurse 1 - General Ulcer Assessment Start: 01/09/24 12:59 Freq: Status: Active Protocol: WC.LOWEXT Activity Type Activity Date Activity User E-sign Co-sign Detail Recorded Client Recorded Date Recorded By Document 01/09/24 12:59 RB Desktop 01/09/24 13:10 RB Document 01/16/24 13:08 RB Desktop 01/16/24 13:13 RB 01/09/24 01/16/24 12:59 13:08 WC - Today's Visit Information Type of service Nurse-only Follow-up Visit Visit (Physician/SERVICE CAPTAIN ) Arrival Mode Ambulatory Ambulatory Transfer Assistance None None Patient Identification Verified (Name & Yes Yes ) Patient Requires Transmission-Based No No Precautions Height and Weight Height 5 ft 7 in Weight 143 lb Weight in Pounds 143.0 lbs Body Mass Index (BMI) 22.4 22.4 BMI Classification Normal Normal BSA - Snehal 1.75 Vital Signs Temperature (97.8 F-99.1 F) 98 F 97 F L Temperature Source Temporal Temporal Pulse Rate (60-100) 83 101 H Pulse Location Monitor Monitor Respiratory Rate (12-18) 18 18 Respiratory rate source Observation Observation Blood Pressure (90/60-120/80) 121/65 H 123/66 H Blood Pressure Mean 83 85 Source Monitor Monitor Position Semi-Fowlers Semi-Fowlers Blood Pressure Location Left Arm Left Arm History Since Last Visit- (Skip if this is Patient's initial visit) Have you changed medications since your No last visit? Any new allergies or adverse reactions No Had a fall/change in ADL's that may No increase risk of falls Signs or symptoms of abuse and/or No neglect since last visit Have you been in the hospital since your No last visit? Has dressing in place as prescribed Yes Has compression in place as prescribed Yes Has offloadiing in place as prescribed No Experienced any changes in pain level or No management Pain Scale: 0-10 Numeric Is Patient Pain Free? Yes Yes Lower Extremity Assessment/ Foot Assessment/ Toe Nail Assessment Right -Posterior Tibial Palpable Yes -Posterior Tibial Doppler Multiphasic -Dorsalis Pedis Palpable Yes -Dorsalis Pedis Doppler Multiphasic -Extremity Color Normal -Hair Growth on Legs No -Hair Growth on Toes No -Temperature of Extremity Cool -Capillary Refill Greater than 3 Seconds -Dependent Rubor No -Blanched when Elevated No -Lipodermatosclerosis No -Other Deformity No -Prior Foot Ulcer No -Charcot Joint No -Prior Amputation No -Thick No -Discolored No -Deformed No -Improper Length & Hygeine Yes Left -Posterior Tibial Palpable Yes -Posterior Tibial Doppler Multiphasic -Dorsalis Pedis Palpable Yes -Dorsalis Pedis Doppler Multiphasic -Extremity Color Normal -Hair Growth on Legs No -Hair Growth on Toes No -Temperature of Extremity Cool -Capillary Refill Greater than 3 Seconds -Dependent Rubor No -Blanched when Elevated No -Lipodermatosclerosis No -Other Deformity No -Prior Foot Ulcer No -Charcot Joint No -Prior Amputation No -Thick No -Discolored No -Deformed No -Improper Length & Hygeine Yes Neuropathy Assessment Feet - Top Side and Bottom <Entered> (a) Communication Assessment Preferred language Afghan Business Attorney Required No Able to Read Yes Able to Write Yes Communication Tools None Caregiver Communication Skills No Impairment Impairment Right Hearing Abillity Normal Left Hearing Abillity Normal Visual Assistive Devices None Functional Assessment Recent Decline in Ability to Perform Denies Any Declines Assistive Device With Patient No Culture/Muslim/Convict Guard Cultural/Muslim Needs that may affect No Treatment Plan Would you allow our hospital neurosurgery research director to No meet you for the purpose of spiritual/ emotional support? Convict Guard to contact place of jewish No Teaching: Wound Center *Welcome to the Wound Center -Person Taught Patient -Teaching Method Discussion -Response to teaching Verbalize understanding (a) 1 - + throughout WC - Nurse 1 - General Ulcer Measurement Start: 01/09/24 12:59 Freq: Status: Active Protocol: Activity Type Activity Date Activity User E-sign Co-sign Detail Recorded Client Recorded Date Recorded By Document 01/09/24 12:59 RB Desktop 01/09/24 13:10 RB Document 01/16/24 13:08 RB Desktop 01/16/24 13:13 RB 01/09/24 01/16/24 12:59 13:08 Wound Center Nurse 1 2. LLE anterior -Combined with other wound No No -Current Size (cm) - Length 1 1 -Current Size (cm) - Width 0.6 0.7 -Current Size (cm) - Depth 0.1 0.2 -Total Square Cm 0.6 0.7 -Photo Taken Yes -Tunneling No No -Undermining/Tunneling No No -Circular Undermining No No -Exudate Amt Medium Medium -Exudate Type Serosanguineous Serosanguineous -Wound Margin Distinct, Distinct, Outline Outline Attached Attached -Granulation Amt Small (1-33%) Medium (34-66%) -Granulation Quality Herreid -Slough/Fibrin Yes Yes -Necrosis Amt Large (67-100%) Medium (34-66%) -Necrotic Tissue Type Eschar Adherent Slough -Structure Exposed N/A N/A -Texture (Kevin-wound Skin Appearance) Assessed Assessed -Moisture (Kevin-wound Skin Appearance) Assessed Assessed -Color (Kevin-wound Skin Appearance) Assessed, Assessed Erythema -Temperature (Kevin-wound Skin No Abnormality No Abnormality Appearance) (Pt Warm) (Pt Warm) -Tenderness on Palpation (Kevin-wound No No Skin Appearance) -Ulcer Cleansing Wound Cleanser Wound Cleanser -Foul Odor after Cleansing No No -Anesthetic Used 4% Lidocaine 5% Lidocaine Solution Gel Lower Limb Edema Present Yes Yes Left Calf (cm) 34.6 33.2 Left Ankle (cm) 19 19.4 WC - Nurse 2 - General Ulcer CM Notes Start: 01/09/24 12:59 Freq: Status: Active Protocol: Activity Type Activity Date Activity User E-sign Co-sign Detail Recorded Client Recorded Date Recorded By Document 01/09/24 13:23 Wickr Laptop 01/09/24 13:34 Document 01/16/24 13:23 Wickr Laptop 01/16/24 13:25 01/09/24 01/16/24 13:23 13:23 Wound Center Nurse 2 2. LLE anterior -Time 13:25 13:23 -Correct Patient Yes Yes -Correct Side, Site, Position Yes Yes -Correct Procedure Yes Yes -Procedure Performed Yes Yes -Type of Procedure Debridement Debridement -Clinical Debridement Subcutaneous Subcutaneous -Tissue Removed Subcutaneous Subcutaneous -Post Debridement (cm) - Length 1.2 1.1 -Post Debridement (cm) - Width 1.0 0.9 -Post Debridement (cm) - Depth 0.2 0.1 -Total Square (Post) (cm) 1.20 0.99 -Area of Debridement (cm) - Length 1.2 1.1 -Area of Debridement (cm) - Width 1.0 0.9 -Total Square (Area) (cm) 1.20 0.99 -Tunneling No No -Undermining/Tunneling No No -Circular Undermining No No -Wound/Ulcer Outcome Not Healed Not Healed -Ulcer Cleansing Rinsed/ Rinsed/ Irrigated with Irrigated with Saline Saline -Foul Odor after Cleansing No No -Bioengineered Tissue No No -Bleeding Controlled with Pressure Pressure -Treatment Response Procedure Procedure Tolerated Well Tolerated Well -Offloading No No -Debridement - Subq, 1st 20sq cm Yes Yes Pain Scale: 0-10 Numeric Is Patient Pain Free? Yes Yes - Nurse 3 - General Ulcer D/C NN Start: 01/09/24 12:59 Freq: Status: Active Protocol: Activity Type Activity Date Activity User E-sign Co-sign Detail Recorded Client Recorded Date Recorded By Document 01/09/24 13:44 Laptop 01/09/24 13:44 01/09/24 13:44 Wound Care Center Nurse 3 2. LLE anterior -Ulcer Cleansing Rinsed/ Irrigated with Saline -Foul Odor after Cleansing No -Primary Dressing Applied Aquacel AG 4x4 -Primary Dressing Covered/Secured with Dry Gauze, Secured with Tape -Aquacel AG 4x4 1 Pain Scale: 0-10 Numeric Is Patient Pain Free? Yes WC - Visit Discharge Discharge Condition Stable Ambulatory Status Ambulatory Transportation Private Auto Medication Reconcilliation completed & Yes provided to patient/care provider Clinical Summary of Care Provided Yes Assessment/Plan Assessment/Plan (1) Traumatic open wound of left lower leg with delayed healing: CODE(S): S81.802D - Unspecified open wound, left lower leg, subsequent encounter (2) Leg wound, left: CODE(S): S81.802A - Unspecified open wound, left lower leg, initial encounter QUALIFIERS: Encounter type: initial encounter Qualified Code(s): S81.802A - Unspecified open wound, left lower leg, initial encounter (3) Type 2 diabetes mellitus: CODE(S): E11.9 - Type 2 diabetes mellitus without complications QUALIFIERS: Diabetes mellitus taffy candy maker insulin use: unspecified taffy candy maker insulin use status Diabetes mellitus complication status: with other specified complication Qualified Code(s): E11.69 - Type 2 diabetes mellitus with other specified complication (4) Mixed hyperlipidemia: CODE(S): E78.2 - Mixed hyperlipidemia (5) Sleep apnea: CODE(S): G47.30 - Sleep apnea, unspecified QUALIFIERS: Sleep apnea type: obstructive Qualified Code(s): G47.33 - Obstructive sleep apnea (adult) (pediatric) (6) Hypertension: CODE(S): I10 - Essential (primary) hypertension QUALIFIERS: Hypertension type: essential hypertension Qualified Code(s): I10 - Essential (primary) hypertension (7) Obstructive sleep apnea: CODE(S): G47.33 - Obstructive sleep apnea (adult) (pediatric) PLAN: Plan This is a 68-year-old female who is active and functional. She is of normal body habitus. She suffers from diabetes mellitus, hyperlipidemia, hypertension,and obstructive sleep apnea. She sustained a traumatic wound to the left pretibial surface approximately 4 to 5 weeks prior to her presentation at the [facility]. The wound had shown little progress toward healing, prompting her to seek medical attention. Debridement has been performed in the wound healing center today. The wound appears much improved since the patient's initial visit. Recent culture results have been reviewed, and are negative for aerobic and anaerobic bacterial growth. The patient has been counseled to optimize nutritional intake. She is already collaborating with an parcel post truck driver for glycemic control. Review of past laboratory results reveals a hemoglobin A1c of 7.3 on November 07, 2023. We areto continue the use of moistened Aquacel silver, which will be applied daily. The patient has been instructed in appropriate means of application. She is to be allowed to shower on a daily basis. The patient will return in 2 weeks, as she will accompanying her to the [facility] next week, where he is scheduled to undergo hip replacement surgery. Total time: 22 minutes 01/16/241333 <Electronically signed by Ronaldo Kothari MD> Cosigner Signature (if applicable): CC: ~ Signed [facility] Work Phone: 1(646) 200-134504-16-2024 History and physical note Author Ronaldo Kothari [facility] January 09, 2024 1:52pm Note Date/Time January 09, 2024 1:5 3pm [facility] [address] [place] [address] H&P Exam - Wound Care 01/09/241334 MR#: [id number] Acct: [id number] Name: MARYAN HOGAN Rep #:[id number] : 1955 68 From: Ronaldo Magaña PCP: Dr. Wan Jain MD Status:R EG RCR Location: History of Present Illness Date of Service: 01/09/24 Chief Complaint: Traumatic left pretibial wound History of Wound: This is a 68-year-old female who presents with a traumatic wound on the left pretibial surface. This occurred approximate 4 to 5weeks prior to her admission, when she impacted the left pretibial surface against a metal object in her garage. She subsequently developed swelling and redness in the periwound area, for which she was evaluated and treated by her primary care physician. She has received a 10-day course of Keflex which was taken orally. She has been using bacitracin ointment topically on intermittent basis, and at times using only dry gauze. Since the time of her injury, the traumatic wound has failed to heal and progress. This has prompted her to seek medical attention in the [facility]. She is of normal body habitus. She is active, and ambulates liberally without limitations. She denies swelling in her lower extremities. She has no history of thrombophlebitis. [facility] Medical History Abdominal pain Abrasion, right lower leg, initial encounter Alcohol use Arthritis Cellulitis of right lower leg Chronic nausea Contusion of right lower leg CPAP (continuous positive airway pressure) dependence Early satiety Easy bruising Grief reaction Health care maintenance Heartburn History of breast cancer History of Clostridium difficile infection History of hiatal hernia History of kidney stones History of stress test Itching of ear Leg wound, left Obstructive sleep apnea Preventative health care Tachycardia Traumatic open wound of left lower leg with delayed healing Vitamin D deficiency Wound of right lower extremity Home Medications aspirin 81 mg tablet,delayed release (Adult Aspirin Regimen) 81 mg PO QDAY 10/05/17 [History Last Taken 01/02/19] cholecalciferol (vitamin D3) 50 mcg (2,000 unit) capsule 2,000 unit PO DAILY 10/05/17 [History Last Taken Unknown] flash glucose scanning reader (FAST FELT John 14 Day Cadet) #1 ea 11/11/19 [Rx Last Taken Unknown] pen needle, diabetic 29 gauge x 1/2 (Ultra-Thin II Insulin Pen Stockett) #100 ea04/19/21 [Rx Last Taken Unknown] oxybutynin chloride 10 mg tablet,extended release 24 hr 15 mg PO DAILY 04/20/22 [History Last Taken Unknown] cyanocobalamin (vitamin B-12) 2,500 mcg tablet 2,500 mcg PO .THREE TIMES A WEEK 07/27/22 [History Last Taken Unknown] docusate sodium 100 mg capsule (Colace) 100 mg PO DAILY 07/27/22 [History Last Taken Unknown] True Metrix Glucose Test Strip (blood sugar diagnostic) #50 ea 11/10/22 [Rx Last Taken Unknown] blood-glucose meter (True Metrix Glucose Meter kit) #1 ea 11/10/22 [Rx Last Taken Unknown] Ozempic 1 mg/dose (4 mg/3 mL) subcutaneous pen injector (semaglutide) 1 mg (0.75mL) subcut QWEEK #3 mL 11/07/23 [Rx Last Taken Unknown] atorvastatin 80 mg tablet 80 mg PO QHS #90 tabs 11/07/23 [Rx Last Taken Unknown] dapagliflozin propanediol 10 mg tablet 10 mg PO QDAY diabetes #90 tabs 11/07/23 [Rx Last Taken Unknown] flash glucose sensor (FreeStyle John 14 Day Sensor kit) #6 ea 11/07/23 [Rx Last Taken Unknown] glimepiride 2 mg tablet 1 mg (1/2 x 2 mg) PO DAILY #90 tabs 11/07/23 [Rx Last Taken Unknown] lisinopril 20 mg tablet See Rx Instructions .Route .COMPLEX #90 tabs 11/07/23 [Rx Last Taken Unknown] venlafaxine 75 mg tablet 275 mg PO QHS ANTIDEPRESSANT 01/09/24 [History Last Taken Unknown] Allergy/AdvReac Type Severity Reaction Status Date / Time amoxicillin Allergy Rash Verified 12/26/23 12:50 levofloxacin [From Levaquin] Allergy Vomiting Verified 12/26/23 12:50 promethazine [From Phenergan] Allergy Other Verified 12/26/23 12:50 Family History Sister Breast cancer Grandmother Breast cancer Uncle Breast cancer Mother Heart disease Thyroid disorder Father Heart disease CVA (cerebral vascular accident) Cancer prostate Brother Crohns disease Grandfather CVA (cerebral vascular accident) Grandmother Diabetes Surgical History abdominal tram flap bunionecmy of right foot History of colonoscopy History of total mastectomy of right breast Hx of cataract extraction Social History Smoking Status: Never smoker alcohol intake: current alcohol intake frequency: a few times a month Alcohol type: beer substance use type: does not use caffeine: Yes what type of physical activity do you participate in: walking frequency: 5-6 times per week do you feel safe at home: Yes Vital Signs Vital Signs Vital Signs: 01/09/24 12:59 Temperature 98 F Temperature Source Temporal Pulse Rate 83 Respiratory Rate 18 Blood Pressure 121/65 H Blood Pressure Mean 83 Blood Pressure Source Monitor Blood Pressure Position Semi-Fowlers Blood Pressure Location Left Arm Weight Weight: 143 lb Body Mass Index (BMI) 22.4 Physical Exam Const alert, oriented x3, no apparent distress, average body habitus and well nourished General Appearance: cooperative, comfortable, well kempt and well developed Orientation / Consciousness: awake, oriented to person, oriented to place and oriented to time Exam Limitations: no limitations HEENT normocephalic, head/scalp atraumatic and hearing grossly normal bilaterally Head and Scalp: normal to inspection, normocephalic and atraumatic Face and Sinus: normal facial exam Nose: external nose normal External Ear: external ears normal Eyes PERRL and EOMs intact bilaterally General Eye: normal appearance of both eyes Sclera: sclera normal Neck full ROM General: normal visual inspection and trachea midline Resp normal respiratory effort, normal air movement, no retractions, no use of accessory muscles and clear to auscultation bilaterally Effort and Inspection: able to speak in complete sentences and symmetric chest movement Cardio regular rate, regular rhythm, S1 normal heart sound, S2 normal heart sound and no murmurs Extremity no calf tenderness General Extremity: Negative for clubbing or cyanosis Skin Wound Narrative: A traumatic wound is noted on the patient's left pretibial surface. Dimensions are documented elsewhere. There is eschar at the site of the wound, as well as a significant amount of bioburden. A faint rim of erythema is noted about the wound. No swelling or edema are noted in the lower extremities bilaterally. Noother wounds or ulcerations are observed. Neuro oriented x3, CN's II-XII intact bilaterally, moves all extremities and no focal motor deficits Sensorium / Orientation: awake, alert, oriented to person, oriented to place andoriented to time Psych Appearance: grossly normal and appropriate Attitude: calm Activity / Motor Behavior: appropriate eye contact Speech: normal speech Mood & Affect: euthymic mood Thought Process: normal thought process Thought Content: normal thought content Attention / Concentration: attention grossly intact Debridement Note Debridement Note Wound debrided: Left pretibial surface Laterality: Left Type of Debridement: Excisional debridement Anesthesia Used: 5% Lidocaine Gel Depth: Down to and including healthy tissue and in the subcutaneous layer Percentage of wound debrided: 100 Instrument Used: 5mm curette Tissue Removed: Bioburden and eschar Severity: Fat Layer Exposed Amount of bleeding with debridement: Mild Bleeding Controlled with: Compression and gauze Patient tolerated procedure: Patient tolerated procedure well Post-Debridement Measurements and Additional Note: Post-Debridement Measurements/Treatment - Nurse 1 - General Ulcer Assessment Start: 01/09/24 12:59 Freq: Status: Active Protocol: .LOWEXT Activity Type Activity Date Activity User E-sign Co-sign Detail Recorded Client Recorded Date Recorded By Document 01/09/24 12:59 Desktop 01/09/24 13:10 01/09/24 12:59 - Today's Visit Information Type of service Nurse-only Visit Arrival Mode Ambulatory Transfer Assistance None Patient Identification Verified (Name & Yes ) Patient Requires Transmission-Based No Precautions Height and Weight Height 5 ft 7 in Weight 143 lb Weight in Pounds 143.0 lbs Body Mass Index (BMI) 22.4 BMI Classification Normal BSA - Snehal 1.75 Vital Signs Temperature (97.8 F-99.1 F) 98 F Temperature Source Temporal Pulse Rate (60-100) 83 Pulse Location Monitor Respiratory Rate (12-18) 18 Respiratory rate source Observation Blood Pressure (90/60-120/80) 121/65 H Blood Pressure Mean 83 Source Monitor Position Semi-Fowlers Blood Pressure Location Left Arm Pain Scale: 0-10 Numeric Is Patient Pain Free? Yes Lower Extremity Assessment/ Foot Assessment/ Toe Nail Assessment Right -Posterior Tibial Palpable Yes -Posterior Tibial Doppler Multiphasic -Dorsalis Pedis Palpable Yes -Dorsalis Pedis Doppler Multiphasic -Extremity Color Normal -Hair Growth on Legs No -Hair Growth on Toes No -Temperature of Extremity Cool -Capillary Refill Greater than 3 Seconds -Dependent Rubor No -Blanched when Elevated No -Lipodermatosclerosis No -Other Deformity No -Prior Foot Ulcer No -Charcot Joint No -Prior Amputation No -Thick No -Discolored No -Deformed No -Improper Length & Hygeine Yes Left -Posterior Tibial Palpable Yes -Posterior Tibial Doppler Multiphasic -Dorsalis Pedis Palpable Yes -Dorsalis Pedis Doppler Multiphasic -Extremity Color Normal -Hair Growth on Legs No -Hair Growth on Toes No -Temperature of Extremity Cool -Capillary Refill Greater than 3 Seconds -Dependent Rubor No -Blanched when Elevated No -Lipodermatosclerosis No -Other Deformity No -Prior Foot Ulcer No -Charcot Joint No -Prior Amputation No -Thick No -Discolored No -Deformed No -Improper Length & Hygeine Yes Neuropathy Assessment Feet - Top Side and Bottom <Entered> (a) Communication Assessment Preferred language Afghan Business Attorney Required No Able to Read Yes Able to Write Yes Communication Tools None Caregiver Communication Skills No Impairment Impairment Right Hearing Abillity Normal Left Hearing Abillity Normal Visual Assistive Devices None Functional Assessment Recent Decline in Ability to Perform Denies Any Declines Assistive Device With Patient No Culture/Muslim/Convict Guard Cultural/Muslim Needs that may affect No Treatment Plan Would you allow our hospital neurosurgery research director to No meet you for the purpose of spiritual/ emotional support? Convict Guard to contact place of jewish No Teaching: Wound Center *Welcome to the Wound Center -Person Taught Patient -Teaching Method Discussion -Response to teaching Verbalize understanding (a) 1 - + throughout WC - Nurse 1 - General Ulcer Measurement Start: 01/09/24 12:59 Freq: Status: Active Protocol: Activity Type Activity Date Activity User E-sign Co-sign Detail Recorded Client Recorded Date Recorded By Document 01/09/24 12:59 RB Desktop 01/09/24 13:10 RB 01/09/24 12:59 Wound Center Nurse 1 2. LLE anterior -Combined with other wound No -Current Size (cm) - Length 1 -Current Size (cm) - Width 0.6 -Current Size (cm) - Depth 0.1 -Total Square Cm 0.6 -Photo Taken Yes -Tunneling No -Undermining/Tunneling No -Circular Undermining No -Exudate Amt Medium -Exudate Type Serosanguineous -Wound Margin Distinct, Outline Attached -Granulation Amt Small (1-33%) -Slough/Fibrin Yes -Necrosis Amt Large (67-100%) -Necrotic Tissue Type Eschar -Structure Exposed N/A -Texture (Kevin-wound Skin Appearance) Assessed -Moisture (Kevin-wound Skin Appearance) Assessed -Color (Kevin-wound Skin Appearance) Assessed, Erythema -Temperature (Kevin-wound Skin No Abnormality Appearance) (Pt Warm) -Tenderness on Palpation (Kevin-wound No Skin Appearance) -Ulcer Cleansing Wound Cleanser -Foul Odor after Cleansing No -Anesthetic Used 4% Lidocaine Solution Lower Limb Edema Present Yes Left Calf (cm) 34.6 Left Ankle (cm) 19 WC - Nurse 2 - General Ulcer CM Notes Start: 01/09/24 12:59 Freq: Status: Active Protocol: Activity Type Activity Date Activity User E-sign Co-sign Detail Recorded Client Recorded Date Recorded By Document 01/09/24 13:23 Laptop 01/09/24 13:34 01/09/24 13:23 Wound Center Nurse 2 2. LLE anterior -Time 13:25 -Correct Patient Yes -Correct Side, Site, Position Yes -Correct Procedure Yes -Procedure Performed Yes -Type of Procedure Debridement -Clinical Debridement Subcutaneous -Tissue Removed Subcutaneous -Post Debridement (cm) - Length 1.2 -Post Debridement (cm) - Width 1.0 -Post Debridement (cm) - Depth 0.2 -Total Square (Post) (cm) 1.20 -Area of Debridement (cm) - Length 1.2 -Area of Debridement (cm) - Width 1.0 -Total Square (Area) (cm) 1.20 -Tunneling No -Undermining/Tunneling No -Circular Undermining No -Wound/Ulcer Outcome Not Healed -Ulcer Cleansing Rinsed/ Irrigated with Saline -Foul Odor after Cleansing No -Bioengineered Tissue No -Bleeding Controlled with Pressure -Treatment Response Procedure Tolerated Well -Offloading No -Debridement - Subq, 1st 20sq cm Yes Pain Scale: 0-10 Numeric Is Patient Pain Free? Yes Assessment/Plan Assessment/Plan (1) Traumatic open wound of left lower leg with delayed healing: CODE(S): S81.802D - Unspecified open wound, left lower leg, subsequent encounter (2) Leg wound, left: CODE(S): S81.802A - Unspecified open wound, left lower leg, initial encounter QUALIFIERS: Encounter type: initial encounter Qualified Code(s): S81.802A - Unspecified open wound, left lower leg, initial encounter (3) Type 2 diabetes mellitus: CODE(S): E11.9 - Type 2 diabetes mellitus without complications QUALIFIERS: Diabetes mellitus fpc insulin use: unspecified taffy candy maker insulin use status Diabetes mellitus complication status: with other specified complication Qualified Code(s): E11.69 - Type 2 diabetes mellitus with other specified complication (4) Mixed hyperlipidemia: CODE(S): E78.2 - Mixed hyperlipidemia (5) Sleep apnea: CODE(S): G47.30 - Sleep apnea, unspecified QUALIFIERS: Sleep apnea type: obstructive Qualified Code(s): G47.33 - Obstructive sleep apnea (adult) (pediatric) (6) Hypertension: CODE(S): I10 - Essential (primary) hypertension QUALIFIERS: Hypertension type: essential hypertension Qualified Code(s): I10 - Essential (primary) hypertension (7) Obstructive sleep apnea: CODE(S): G47.33 - Obstructive sleep apnea (adult) (pediatric) PLAN: Plan This is a 68-year-old female who is active and functional. She is of normal body habitus. She suffers from diabetes mellitus, hyperlipidemia, hypertension,and obstructive sleep apnea. She sustained a traumatic wound to the left pretibial surface approximately 4 to 5 weeks prior to her presentation at the [facility]. The wound has shown little progress toward healing, prompting her to seek medical attention. Debridement has been performed in the wound healing center today. The eschar and nonviable tissue present at the surface of the wound have been largely removed. The woundbed appears relatively healthy. Because of a faint rim of kevin-wound erythema, swab wound cultures have been obtained for both aerobic and anaerobic bacterial growth. Culture results will be awaited, though may take several days. The patient has been counseled to optimize nutritional intake. She is already collaborating with an parcel post truck driver for glycemic control. Review of past laboratory results reveals a hemoglobin A1c of 7.3 on November 07, 2023. We aretemperamentally use of Aquacel silver, apply daily. Patient has been instructedin appropriate means of application. She is to be allowed to shower on a daily basis. The patient will return in 1 week for reevaluation. Total time: 46 minutes 01/09/24 1352 <Electronically signed by Ronaldo Kothari MD> Cosigner Signature (if applicable): CC: ~ Signed [facility] Work Phone: 1(486) 527-991607-28-2023 Discharge summary Author Esau Strickland [facility] April 21, 2023 11:29pm Note Date/Time April 21, 2023 11:2 8pm [facility] Medical Records Department [address] [place] [address] Emergency Department Summary 04/21/23 MR#: [id number] Acct: [id number] Name: MARYAN HOGAN Rep #:[id number] : 1955 68 From: Esau Strickland MD PCP: Dr. Wan Jain MD Status:R EG ER Location: ED HPI History of Present Illness Chief Complaint: Wound Informant: patient Narrative Narrative: 4 days ago, patient tripped over a washer cutter hose, landed on her right knee scraping it and bruising it. She has been able to walk on it without difficulty, she has been on her feet a lot today and it is more sore today, and she noticed more redness and a little swelling around the scabbed abrasion and is concerned about infection. No fevers, chills, systemic symptoms. She is a diabetic. [facility] Medical History Abdominal pain Abrasion, right lower leg, initial encounter Alcohol use Arthritis Cellulitis of right lower leg Chronic nausea Contusion of right lower leg CPAP (continuous positive airway pressure) dependence Early satiety Easy bruising Grief reaction Health care maintenance Heartburn History of breast cancer History of Clostridium difficile infection History of hiatal hernia History of kidney stones History of stress test Itching of ear Preventative health care Tachycardia Vitamin D deficiency Wound of right lower extremity Home Medications aspirin 81 mg tablet,delayed release (Adult Aspirin Regimen) 81 mg PO QDAY 10/05/17 [History Last Taken 01/02/19] cholecalciferol (vitamin D3) 50 mcg (2,000 unit) capsule 2,000 unit PO DAILY 10/05/17 [History Last Taken Unknown] flash glucose scanning reader (FreeStyle John 14 Day Cadet) #1 ea 11/11/19 [Rx Last Taken Unknown] pen needle, diabetic 29 gauge x 1/2 (Ultra-Thin II Insulin Pen Stockett) #100 ea04/19/21 [Rx Last Taken Unknown] venlafaxine 75 mg tablet 225 mg (3 x 75 mg) PO QHS ANTIDEPRESSANT #270 tabs 02/18/22 [Rx Last Taken Unknown] dapagliflozin propanediol 10 mg tablet 10 mg PO QDAY diabetes #90 tabs 04/20/22 [Rx Last Taken Unknown] oxybutynin chloride 10 mg tablet,extended release 24 hr 15 mg PO DAILY 04/20/22 [History Last Taken Unknown] cyanocobalamin (vitamin B-12) 2,500 mcg tablet 2,500 mcg PO .THREE TIMES A WEEK 07/27/22 [History Last Taken Unknown] docusate sodium 100 mg capsule (Colace) 100 mg PO BID 07/27/22 [History Last Taken Unknown] celecoxib 200 mg capsule (Celebrex) 200 mg PO DAILY #60 caps 09/12/22 [Rx Last Taken Unknown] Ozempic 1 mg/dose (4 mg/3 mL) subcutaneous pen injector (semaglutide) 1 mg (0.75mL) subcut QWEEK #3 mL 11/02/22 [Rx Last Taken Unknown] True Metrix Glucose Test Strip (blood sugar diagnostic) #50 ea 11/10/22 [Rx Last Taken Unknown] blood-glucose meter (True Metrix Glucose Meter kit) #1 ea 11/10/22 [Rx Last Taken Unknown] flash glucose sensor (FreeStyle John 14 Day Sensor kit) #6 ea 11/11/22 [Rx Last Taken Unknown] lisinopril 20 mg tablet See Rx Instructions .Route .COMPLEX #90 tabs 02/15/23 [Rx Last Taken Unknown] atorvastatin 80 mg tablet 80 mg PO QHS #90 tabs 02/21/23 [Rx Last Taken Unknown] glimepiride 2 mg tablet 1 mg (1/2 x 2 mg) PO DAILY #90 tabs 03/16/23 [Rx Last Taken Unknown] cephalexin 500 mg capsule 500 mg PO Q6 #40 CAPSULES 04/21/23 [Rx Last Taken Unknown] Allergy/AdvReac Type Severity Reaction Status Date / Time amoxicillin Allergy Rash Verified 04/21/23 23:08 levofloxacin [From Levaquin] Allergy Vomiting Verified 04/21/23 23:08 promethazine [From Phenergan] Allergy Other Verified 04/21/23 23:08 Family History Sister Breast cancer Grandmother Breast cancer Uncle Breast cancer Mother Heart disease Thyroid disorder Father Heart disease CVA (cerebral vascular accident) Cancer prostate Brother Crohns disease Grandfather CVA (cerebral vascular accident) Grandmother Diabetes Surgical History abdominal tram flap bunionecmy of right foot History of colonoscopy History of total mastectomy of right breast Hx of cataract extraction Social History Smoking Status: Never smoker alcohol intake: current alcohol intake frequency: a few times a month Alcohol type: beer substance use type: does not use caffeine: Yes what type of physical activity do you participate in: walking frequency: 5-6 times per week do you feel safe at home: Yes ROS ROS ED Constitutional Constitutional ED: Denies chills or fever(s) Musculoskeletal Musculoskeletal: Reports extremity pain; Denies neck pain Integumentary Reports Abrasions and wounds; Denies rash Neurologic Neurologic: Denies paresthesias or weakness EXAM Physical Exam Const Vital Signs: 04/21/23 23:03 04/21/23 23:06 04/21/23 23:10 Temperature 96.8 F L 96.8 F L 96.8 F L Temperature Source Temporal Temporal Oral Pulse Rate 80 80 80 Respiratory Rate 16 16 16 Blood Pressure 118/80 118/80 118/80 Blood Pressure Mean 92 92 92 Oxygen Delivery Method Room Air Positive well nourished and well developed General Appearance ED: well developed and NAD Neck full ROM and supple Back/Spine normal ROM and normal to inspection Extremity Extremity Narrative: There is a broad-based scab at the distal aspect of the anterior right knee, there is only 1 small area that is open without any bleeding or drainage at the distal aspect of it that is very small. Patient there is very mild erythema surrounding the edges, very faint erythema around that. Objectively not tender,the patient states it is sore. She has very slight edema in the tibia proximal half of the lower leg, nothing distal to that. No palpable cords or calf tenderness. No lymphangitis. Nothing seems to be spreading proximally. Neuro oriented x3, no focal motor deficits and no sensory deficits noted Sensorium / Orientation: alert Psych mental status grossly normal and thought process normal Skin Skin Narrative: Scabbed abrasion/wound right knee, see above. No abscess. Rashes: no rashes MDM MDM MDM Narrative Medical decision making narrative: This wound in my opinion does not appear to be acutely infected. However, the patient is concerned because she is a diabetic and there was a change today. Wediscussed the pros and cons of antibiotics, and although I do not think this is grossly infected, I am not able to rule out the possibility that it is early in the process. I offered her a [id number] prescription for cephalexin, advisingnot to use it if things do not change, she is comfortable with that plan we discussed taking care of the wound. I did offer an x-ray, she declines does notthink she broke anything, I agree. Discharge Plan Triage Chief Complaint: Wound ED Provider: Esau Strickland Dx/Rx/DC Orders Clinical Impression: Visit for wound check, Abrasion of knee, right Instructions: ED Wound Check (No Infection) Prescriptions: New cephalexin [cephalexin] 500 mg capsule 500 mg PO Q6 Qty: 40 0RF No Action aspirin [Adult Aspirin Regimen] 81 mg tablet,delayed release (DR/EC) 81 mg PO QDAY Patient Comments: PT STATES WILL STOP ASPIRIN ON 09/04/21 PER FRIEND INSTRUCTIONS FOR 09/07/21 cholecalciferol (vitamin D3) 2,000 unit capsule 2,000 unit PO DAILY (DME) FreeStyle John 14 Day Cadet [facility] See Rx Instructions .ROUTE .MEDSUPPLY Qty: 1 0RF Rx Instructions: As directed oxybutynin chloride 10 mg tablet extended release 24hr 15 mg PO DAILY Patient Comments: TAKE 1 TABLET ORALLY ONCE PER DAY FOR 30 DAYS (DME) pen needle, diabetic [Ultra-Thin II Ins Pen Stockett] 29 gauge x 1/2 needle See Rx Instructions .ROUTE .MEDSUPPLY Qty: 100 3RF Rx Instructions: As directed twice daily (DME) blood-glucose meter [True Metrix Glucose Meter] Kit See Rx Instructions .Route Qty: 1 0RF Rx Instructions: As directed (DME) True Metrix Glucose Test Strip Strip See Rx Instructions .Route Qty: 50 12RF Rx Instructions: daily cyanocobalamin (vitamin B-12) 2,500 mcg tablet 2,500 mcg PO .THREE TIMES A WEEK docusate sodium [Colace] 100 mg capsule 100 mg PO BID celecoxib [Celebrex] 200 mg capsule 200 mg PO DAILY Qty: 60 0RF Rx Instructions: Do not take in combination with Motrin or other NSAID. Tylenol is okay. venlafaxine 75 mg tablet 225 mg PO QHS Qty: 270 3RF Rx Instructions: . dapagliflozin propanediol 10 mg tablet 10 mg PO QDAY Qty: 90 3RF Ozempic 1 mg/dose (4 mg/3 mL) pen injector 1 mg subcut QWEEK Qty: 3 6RF (DME) FreeStyle John 14 Day Sensor Kit See Rx Instructions .ROUTE .MEDSUPPLY Qty: 6 3RF Rx Instructions: As directed lisinopril 20 mg tablet See Rx Instructions .ROUTE .COMPLEX Qty: 90 3RF Dose Instruction: TAKE 1 TABLET DAILY Rx Instructions: TAKE 1 TABLET DAILY atorvastatin 80 mg tablet 80 mg PO QHS Qty: 90 3RF glimepiride 2 mg tablet 1 mg PO DAILY Qty: 90 1RF Primary Care Provider: Wan Jain Referrals: Wan Jain MD [Primary Care Provider] - 3-5 Days if not improving Activity Restrictions/Additional Instructions: Keep monitoring the wound, if redness and swelling increases outward from the scab, fill and take the prescription as prescribed until completely finished. If it is simply healing and not infected, you should not see worsening/spreadingof the redness. Soreness and itching is normal if it is simply inflamed from normal healing processes. Disposition Disposition: Home, Self Care What to do if you have Problems For any increased pain, shortness of breath, bleeding, nausea or vomiting, chestpain, or any unexpected problems, contact your Primary Care Provider. Call [facility] ([phone]) or report to the closest Emergency Room. Call 911 if necessary. 04/21/23 1822 <Electronically signed by Esau Strickland MD> Cosigner Signature (if applicable): CC: Dr. Wan Jain MD ~ Signed [facility] Work Phone: 1(171) 310-412305-09-2023 Discharge summary Author Mo Hussein [facility] January 31, 2023 11:05am Note Date/Time January 31, 2023 11:05a m [facility] Physical Therapy [facility] [facility] [place] [address] / REHABILITATION SERVICES DISCHARGE SUMMARY MR#: [id number] Acct: [id number] Name: MARYAN HOGAN Rep #: : [id number] From: Cert. ROCAEL Key, OCS Referring Dr.: Dr. Melchor Meehan DO Status: REG R [facility] It has been my pleasure to treat MARYAN HAQ referred by Dr. Rox DO, with the diagnosis of ADHESIVE CAPSULITIS OF LEFT SHOULDER ,CERVICAL DDD for a total of 10 visit(s). Discharge Date: 10/21/22 Please see the following information for a summary of their discharge status. Subjective: Doing better overall ,have some difficulty with raising arm to get in top cupboard Left Shoulder Pain Intensity (Out of 10): 1 % Improvement: 75 Objective/Function: AROM: shoulder flexion 160 degrees ,abduction 155 degrees ,ER 85 ,IR T11. MMT:4/5 RTC ,DELTOID 4-/5 ,MILD PAIN ABDUCTION Goal 1:: Patient to be I with HEP Goal Progress: Goal Met Goal 2:: Patient to demonstrate 75% improvement with improve ROM for function with less pain Goal Progress: Goal Met Goal 3:: Patient to improve AROM shoulder flexion/abduction to 150 degrees and ER to improve function Goal Progress: Goal Met Goal 4:: Patient to improve quick dash by 10 points to improve QOL and function Goal Progress: Goal Met Goal 5:: Patient to improve strength of left shoulder to good to improve function Plan: RTD If there are questions or concerns regarding this patient's physical therapy, please feel free to call me at [phone]. Thank you for the referral of thispatient. Sincerely, Mo Hussein PT, Cert T, OCS Balance/Gait/Functional tests - Balance/Special Test Scores Quick DASH Score: 22.7250 <Electronically signed by Opal Fernando PT. ROCAEL, KAVITA> 01/31/23 1105 CC: Dr. Wan Jain MD; Dr. Melchor Meehan, DO ~ JLA Signed [facility] Work Phone: Evaluation note* Diagnosis Onset Date Resolution Status BMI 24.0-24.9, adult acute Diabetes chronic Hyperlipemia chronic Hypertension chronic Chronic nausea chronic Early satiety chronic Sleep apnea chronic Abdominal pain acute Chronic nausea chronic Health care maintenance acut e Anxiety and depression chron ic Chronic constipation chronic Chronic nausea chronic Hyperlipemia chronic Hypertension chronic Type 2 diabetes mellitus [facility] Work Phone: Evaluation note* Diagnosis Onset Date Resolution Status Diabetes chronic Abdominal pain acute Chronic constipation chronic Hyperlipemia chronic Hypertension chronic Type 2 diabetes mellitus [facility] Work Phone: Evaluation note* Diagnosis Onset Date Resolution Status Health care maintenance acut e Itching of ear acute Hypertension chronic Type 2 diabetes mellitus [facility] on Adhesive capsulitis of left shoulder acute Degenerative disc disease, cervical acute [facility] Work Phone: Evaluation note* Diagnosis Onset Date Resolution Status Adhesive capsulitis of left shoulder acute Sleep apnea chronic Hypertension chronic Mixed hyperlipidemia [facility] Work Phone: Evaluation note* Diagnosis Onset Date Resolution Status Health care maintenance acut e Anxiety and depression chron ic Hypertension chronic Mixed hyperlipidemia chronic Type 2 diabetes mellitus [facility] onic Chronic constipation [facility] Work Phone: Evaluation note* Diagnosis Onset Date Resolution Status Chronic constipation chronic Hypertension chronic Mixed hyperlipidemia chronic Type 2 diabetes mellitus [facility] Health care maintenance acut e Anxiety and depression chron ic Hypertension chronic Type 2 diabetes mellitus [facility] Work Phone: Evaluation note* Diagnosis Onset Date Resolution Status Sleep apnea chronic Hypertension chronic Mixed hyperlipidemia chronic Type 2 diabetes mellitus chr onic Wound of left lower extremity acute Wound of left lower extremity acute Leg wound, left acute Obstructive sleep apnea acut e Traumatic open wound of left lower leg with delayed healing acute Hypertension chronic Mixed hyperlipidemia chronic Sleep apnea chronic Type 2 diabetes mellitus chr onic [facility] Work Phone: Evaluation noteNo assessment information available [facility] Work Phone: Hospital Discharge instructions Additional Instructions Keep monitoring the wound, if redness and swelling increases outward from the scab, fill and take the prescription as prescribed until completely finished. If it is simply healing and not infected, you should not see worsening/spreading of the redness. Soreness and itching is normal if it is simply inflamed from normal healing processes.[facility] Work Phone: Reason for referral (narrative)No reason for referral [facility] Work [facility]: Chief Complaint and Reason for Visit Chief Complaint 6 M FU 1 m fu 1 Y FU 6 wk FU 6 M FU A1C CHECK E ORDER NEED ORDER Reason for Visit BMI 24.0-24.9, adult Diabetes Hyperlipemia Hypertension Chronic nausea Early satiety Sleep apnea Abdominal pain Chronic nausea Health care maintenance Anxiety and depression Chronic constipation Chronic nausea Hyperlipemia Hypertension Type 2 diabetes mellitus Chief Complaint A1C CHECK E ORDER NEED ORDER 3 MO FU 6 M FU E ORDERS Reason for Visit Diabetes Abdominal pain Chronic constipation Hyperlipemia Hypertension Type 2 diabetes mellitus Chief Complaint 6 [facility] DEGENERATIVE DISC DISEASE / RX HERE Reason for Visit Health care maintena nce Itching of ear Hypertension Type 2 diabetes mellitus Adhesive capsulitis of left shoulder Degenerative disc disease, cervical Chief Complaint DEGENERATIVE DISC DI SEASE / RX HERE LEFT SHOULDER 1 Y FU 6 M FU Reason for Visit Adhesive capsulitis of left shoulder Sleep apnea Hypertension Mixed hyperlipidemia Chief Complaint 6 M FU 6 MO FU WOUND Reason for Visit Health care maintena nce Anxiety and depression Hypertension Mixed hyperlipidemia Type 2 diabetes mellitus Chronic constipation Chief Complaint 6 MO FU WOUND 6 M FU 6 M FU Reason for Visit Chronic constipation Hypertension Mixed hyperlipidemia Type 2 diabetes mellitus Health care maintenance Anxiety and depression Hypertension Type 2 diabetes mellitus Chief Complaint 1 Y FU 6 M FU wound on lft oliveira/rash/swelling FOLLOW UP-OK PER [facility] wound Reason for Visit Sleep apnea Hypertension Mixed hyperlipidemia Type 2 diabetes mellitus Wound of left lower extremity Wound of left lower extremity Leg wound, left Obstructive sleep apnea Traumatic open wound of left lower leg with delayed healing Hypertension Mixed hyperlipidemia Sleep apnea Type 2 diabetes mellitus Chief Complaint Admit Date 6 M FU February 24, 2025 8:24a m Chief Complaint Admit Date 6 M FU February 24, 2025 8:24a m INT LAB ORDER March 25, 2025 10:27 am Breast Cancer Screening March 27, 2025 7 :24am Reason for Visit Admit Date Blood in left ear canal February 24, 2025 8 :24am Health care maintenance February 24, 2025 8 :24am Anxiety and depression February 24, 2025 8: 24am Hypertension February 24, 2025 8:24a m Chief Complaint Admit Date 6 M FU February 24, 2025 8:24a m INT LAB ORDER March 25, 2025 10:27 am Breast Cancer Screening March 27, 2025 7 :24am 6 M FU May 14, 2025 8: 06am Chief Complaint Admit Date 6 M FU February 24, 2025 8:24a m INT LAB ORDER March 25, 2025 10:27 am Breast Cancer Screening March 27, 2025 7 :24am 6 M FU May 14, 2025 8: 06am E ORDER May 27, 2025 8:01am Reason for Visit Admit Date Blood in left ear canal February 24, 2025 8 :24am Health care maintenance February 24, 2025 8 :24am Anxiety and depression February 24, 2025 8: 24am Hypertension February 24, 2025 8:24a m Body mass index [BMI] 22.0-22.9, adult A [id number] 8:06am Hypertension May 14, 2025 8: 06am Mixed hyperlipidemia May 14, 2025 8 :06am Type 2 diabetes mellitus May 14 8:06am Family History No Family History Records Found Relationship Condition Age at Onset Recorded Date/T delia sister Malignant neoplasm of breast Unknown grandmother Malignant neoplasm of breast Unknown uncle Malignant neoplasm of breast Unknown mother Cardiac disease Unknown Disorder of thyroid Unknown father Cardiac disease Unknown Cerebrovascular accident (CVA) Unknown Malignant neoplasm Unknown brother Crohn's disease Unknown grandfather Cerebrovascular accident (CVA) Unknown grandmother Diabetes mellitus Unknown Advance Directives No Advanced Directives Records Found Advance Directive Response Recorded Date/ Time Living Will No September 03 5:20pm Power of Workforce Staffing Advisor No September 03, 2021 5:20pm Advance Directive Response Recorded Date/ Time Living Will No September 03, 2 021 4:20pm Power of Workforce Staffing Advisor No September 03, 2021 4:20pm Advance Directive Response Recorded Date/ Time Name of Medical Power of Workforce Staffing Advisor MINH Alfonso April 21, 2023 11:11pm Living Will Yes April 21, 2023 11:11pm Power of Workforce Staffing Advisor Yes April 21 11:11pm Advance Directive Response Recorded Date/ Time Name of Medical Power of Workforce Staffing Advisor MINH MURDOCK April 21, 2023 10:11pm Living Will Yes April 21, 2023 10:11pm Power of Workforce Staffing Advisor Yes April 21 10:11pm Advance Directive Response Recorded Date/ Time Living Will Yes April 21, 2023 11:11pm Power of Workforce Staffing Advisor Yes April 21 11:11pm Summary Purpose Additional Source Comments Goals (unrecognized section and content) Goals may be documented in a n alternate sectionGoals may be documented in an alternate sectionGoals may be documented in an alternate sectionGoals may be documented in an alternate sectionGoals may be documented in an alternate sectionGoals may be documented in an alternate sectionGoals may be documented in an alternate sectionGoals may be documented in an alternate sectionGoals may be documented in an alternate sectionGoals may be documented in an alternate sectionGoals may be documented in an alternate sectionGoals may be documented in an alternate section Care Teams (unrecognized sec tion and content) Team Status: Active Member Role Status Dates Dr. Wan Jain MD Family Provider Active Dr. Wan Jain MD Primary Care Provider Active Team Status: Inactive Member Role Status Dates Dr. Wan Jain MD Primary Care P lukas, Attending Provider, Referring Provider Active Team Status: Inactive Member Role Status Dates Dr. Wan Jain MD Primary Care Provider, Refer ring Provider Active Dr. Melchor Meehan DO Attending Provider Active Team Status: Inactive Member Role Status Dates Dr. Wan Jain MD Primary Care Provider Active Dr. Alvarado Lira MD Attending Provider Active Team Status: Active Member Role Status Dates Dr. Wan Jain MD Primary Care Provider Active Dr. Melchor Meehan DO Attending Provider, Referring Provider Active Team Status: Inactive Member Role Status Dates Dr. Wan Jain MD Primary Care Provider, Refer ring Provider Active Dr. Joseph Lutz MD Attending Provider Active Team Status: Inactive Member Role Status Dates Dr. Wan Jain MD Primary Care Provider, Refer ring Provider Active Dr. Nicolas Cohen MD Attending Provider Active Team Status: Inactive Member Role Status Dates Dr. Wan Jain MD Primary Care Provider Active Dr. Melchor Meehan DO Attending Provider, Referring Provider Active Team Status: Inactive Member Role Status Dates Dr. Wan Jain MD Primary Care Provider, Refer ring Provider Active Dr. Nick Gomez DO Attending Provider Active Team Status: Inactive Member Role Status Dates Dr. Wan Jain MD Primary Care Provider Active Dr. Esau Strickland MD Emergency Provider Active Team Status: Inactive Member Role Status Dates Dr. Wan Jain MD Primary Care Provider Active Dr. Esau Strickland MD Attending Provider, Emergency Provider Active Team Status: Inactive Member Role Status Dates Dr. Wan Jain MD Primary Care Provider, Refer ring Provider Active ATIYA Ramos Attending Provider Active Team Status: Inactive Member Role Status Dates Dr. Ronaldo Kothari MD Attending Provider Active Dr. Wan Jain MD Primary Care Provider Active ATIYA Ramos Referring Provider Active Team Status: Inactive Member Role Status Dates Dr. Wan Jain MD Primary Care Provider Active Start: February 24, 2025 End: February 24, 2025 Dr. Wan Jain MD Attending Provider Active Start: February 24, 2025 End: February 24, 2025 Dr. Wan Jain MD Referring Provider Active Start: February 24, 2025 End: February 24, 2025 Team Status: Active Member Role/Relationship Status Dates Dr. Wan Jain MD Primary Care Provider Active Team Status: Inactive Member Role/Relationship Status Dates Dr. Wan Jain MD Primary Care Provider Active Start: February 24, 2025 End: February 24, 2025 Dr. Wan Jain MD Attending Provider Active Start: February 24, 2025 End: February 24, 2025 Dr. Wan Jain MD Referring Provider Active Start: February 24, 2025 End: February 24, 2025 Team Status: Inactive Member Role/Relationship Status Dates Dr. Wan Jain MD Primary Care Provider Active Start: March 25, 2025 End: March 25, 2025 Dr. Wan Jain MD Attending Provider Active Start: March 25, 2025 End: March 25, 2025 Dr. Wan Jain MD Referring Provider Active Start: March 25, 2025 End: March 25, 2025 Team Status: Active Member Role/Relationship Status Dates Dr. Wan Jain MD Primary Care Provider Active Start: March 27, 2025 Dr. Wan Jain MD Attending Provider Active Start: March 27, 2025 Dr. Wan Jain MD Referring Provider Active Start: March 27, 2025 Team Status: Inactive Member Role/Relationship Status Dates Dr. Wan Jain MD Primary Care Provider Active Start: March 27, 2025 End: March 27, 2025 Dr. Wan Jain MD Attending Provider Active Start: March 27, 2025 End: March 27, 2025 Dr. Wan Jain MD Referring Provider Active Start: March 27, 2025 End: March 27, 2025 Team Status: Inactive Member Role/Relationship Status Dates Dr. Wan Jain MD Primary Care Provider Active Start: March 25, 2025 Dr. Maegan Doss MD Attending Provider Active Start: March 25, 2025 Team Status: Inactive Member Role/Relationship Status Dates Dr. Wan Jain MD Primary Care Provider Active Start: March 25, 2025 End: March 25, 2025 Dr. Wan Jain MD Attending Provider Active Start: March 25, 2025 End: March 25, 2025 Dr. Wan Jian MD Referring Provider Active Start: March 25, 2025 End: March 25, 2025 Team Status: Inactive Member Role/Relationship Status Dates Dr. Wan Jain MD Primary Care Provider Active Start: March 27, 2025 End: March 27, 2025 Dr. Wan Jain MD Attending Provider Active Start: March 27, 2025 End: March 27, 2025 Dr. Wan Jain MD Referring Provider Active Start: March 27, 2025 End: March 27, 2025 Team Status: Inactive Member Role/Relationship Status Dates Dr. Wan Jain MD Primary Care Provider Active Start: May 14, 2025 End: May 14, 2025 Dr. Wan Jain MD Referring Provider Active Start: May 14, 2025 End: May 14, 2025 QUYNH Jackson Attending Provider Active Start: May 14, 2025 End: May 14, 2025 Team Status: Inactive Member Role/Relationship Status Dates Dr. Wan Jain MD Primary Care Provider Active Start: May 27, 2025 End: May 27, 2025 QUYNH Jackson Attending Provider Active Start: May 27, 2025 End: May 27, 2025 QUYNH Jackson Referring Provider Active Start: May 27, 2025 End: May 27, 2025 INFORMATION SOURCE (unrecogn ized section and content) DATE CREATED AUTHOR 06/10/2025 [facility] FOR RECORDS PERTAINING TO PATIENTS WHO ARE OR HAVE BEEN ENROLLED IN A CHEMICAL DEPENDENCY/SUBSTANCEABUSE PROGRAM, SOME INFORMATION MAY BE OMITTED. This clinical summary was aggregated from multiple sources. Caution should be exercised in using it in the provision of clinical care. This summary normalizes information from multiple sources, and as a consequence, information in this document may materially change the coding, format and clinical context of patient data. In addition, data may be omitted in some cases. CLINICAL DECISIONS SHOULD BE BASED ON THE PRIMARY CLINICAL RECORDS. [email or web address] [facility]. provides no warranty or guarantee of the accuracy or completeness of information in this document.
[2025-06-15 22:00] LABS: Hematocrit 38.2 % (37-47); Hemoglobin 12.8 g/dL (12.0-15.0); Immature Granulocytes Count 0.050 X10^3/uL (0.0-0.0); Mean Corp Hgb Conc 33.5 g/dL (32-36); Mean Corpuscular Volume 87.6 fL (81-99); Mean Platelet Vol. 10.8 fl (6.2-12.0); NRBC Flagged by Analyzer 0 % (0-5); Platelet Count 242 K/mm3 (150-450); RBC Distribution Width CV 12.2 % (11.6-14.6); RBC Distribution Width SD 39.3 fl (35.1-43.9); Red Blood Count 4.36 M/mm3 (4.2-5.4); White Blood Count 12.2 K/mm3 (4.4-11.0)
--- NOTE | 2025-06-15 22:04 | EX.ED.DYSGE1 ---
HPI History of Present Illness Chief Complaint: Abd Pain Detail of Chief Complaint: Flank pain 3 weeks ago with concern renal calculus, now right sided abdomin Informant: patient and spouse/S.O. Onset/Context/Timing Onset: Days (Days since she fell hitting the edge of a step. She complains of pain anterior axillary line right lower quadrant down to the inguinal area.) and Weeks (3 weeks ago for 24 hours, thought was ureteral calculus) Context: Sudden Onset Timing: Continuous Quality: Pain Location: right side of abdomen Current Severity: Mild Maximum Severity: Moderate Worsened by: Nothing specific Relieved by: Nothing Associated Symptoms Associated Symptoms: No nausea or vomiting, anorexia Narrative Narrative: Patient is a 70-year-old woman. She initially had flank pain thought to be a struct and stone. She drink plenty of fluids. It resolved after 24 hours. She has had prior stones that have passed. She did not notice a stone. She now presents because of right sided abdomen pain after fall and blunt trauma. She denies dysuria, frequency, urgency or hematuria. She had frequency 3 weeks ago. She denies change in bowels. She believes she may have a bruise. She is not on an antiplatelet or anticoagulant. She is status post failed abdominoplasty/flap surgery. She has a significant scar. She denies fever, chills night sweats. She denies anorexia, nausea or vomiting. She denies diarrhea or constipation. 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 Overactive bladder Leg wound, left Obstructive sleep apnea Traumatic open wound of left lower leg with delayed healing Itching of ear Health care maintenance Preventative health care Abdominal pain History of Clostridium difficile infection Alcohol use History of kidney stones Easy bruising History of hiatal hernia Heartburn CPAP (continuous positive airway pressure) dependence History of stress test Early satiety Chronic nausea Wound of right lower extremity Cellulitis of right lower leg Contusion of right lower leg Abrasion, right lower leg, initial encounter Grief reaction Tachycardia Arthritis Vitamin D deficiency History of breast cancer Home Medications ?Medication ?Instructions ?Recorded ?Last Taken ?Type aspirin 81 mg tablet,delayed 81 mg PO QDAY 10/05/17 01/02/19 History release (Adult Aspirin Regimen) cholecalciferol (vitamin D3) 50 2,000 unit PO DAILY 10/05/17 Unknown History mcg (2,000 unit) capsule cyanocobalamin (vitamin B-12) 2,500 mcg PO .THREE TIMES A WEEK 07/27/22 Unknown History 2,500 mcg tablet docusate sodium 100 mg capsule 100 mg PO DAILY 07/27/22 Unknown History (Colace) True Metrix Glucose Test Strip #50 ea 11/10/22 Unknown Rx (blood sugar diagnostic) blood-glucose meter (True Metrix #1 ea 11/10/22 Unknown Rx Glucose Meter kit) calcium carbonate (Calcium 600) 600 mg PO DAILY 04/09/24 Unknown History atorvastatin 80 mg tablet 80 mg PO QHS #90 tabs 09/13/24 Unknown Rx dapagliflozin propanediol 10 mg 10 mg PO QDAY diabetes #90 tabs 09/13/24 Unknown Rx tablet lisinopril 20 mg tablet See Rx Instructions .Route 09/13/24 Unknown Rx .COMPLEX #90 tabs glimepiride 2 mg tablet 1 mg (1/2 x 2 mg) PO DAILY #90 tabs 12/15/24 Unknown Rx blood-glucose sensor (FreeStyle #6 ea 02/10/25 Unknown Rx John 3 Plus Sensor device) Ozempic 2 mg/dose (8 mg/3 mL) 2 mg (0.75 mL) subcut QWEEK #9 mL 02/20/25 Unknown Rx subcutaneous pen injector (semaglutide) venlafaxine 75 mg tablet 225 mg (3 x 75 mg) PO QHS 02/24/25 Unknown Rx ANTIDEPRESSANT 3 months #270 tabs glimepiride 1 mg tablet 1 mg PO QAM #90 tabs 05/14/25 Unknown Rx sulfamethoxazole 800 1 tab PO BID #14 TABLETS 06/15/25 Unknown Rx mg-trimethoprim 160 mg tablet Allergy/AdvReac Type Severity Reaction Status Date / Time amoxicillin Allergy Rash Verified 06/15/25 20:48 levofloxacin (From Levaquin) Allergy Vomiting Verified 06/15/25 20:48 promethazine (From Phenergan) Allergy Other Verified 06/15/25 20:48 Family History Sister Breast cancer Grandmother Breast cancer Uncle Breast cancer Mother Heart disease Thyroid disorder Father Heart disease CVA (cerebral vascular accident) Cancer prostate Brother Crohns disease Grandfather CVA (cerebral vascular accident) Grandmother Diabetes Surgical History Hx of cataract extraction History of colonoscopy bunionecmy of right foot abdominal tram flap History of total mastectomy of right breast Social History Smoking Status: Never smoker alcohol intake: current alcohol intake frequency: a few times a month Alcohol type: beer substance use type: does not use caffeine: Yes what type of physical activity do you participate in: walking frequency: 5-6 times per week do you feel safe at home: Yes ROS ROS ED Constitutional Constitutional ED: Denies chills, fever(s) or subjective Eyes Eyes: Denies blurry vision or change in vision ENT ENT ED: Denies ear pain or rhinorrhea Cardiovascular Cardiovascular: Denies chest pain or palpitations Respiratory/Chest Respiratory/Chest: Denies cough, dyspnea or dyspnea on exertion Gastrointestinal Gastrointestinal: Reports abdominal pain; Denies constipation, diarrhea, melena or vomiting Genitourinary Genitourinary ED: Reports urinary frequency; Denies dysuria or hematuria Musculoskeletal Musculoskeletal: Reports back pain; Denies arthralgias, myalgias or neck pain Integumentary Reports other Details: Bruise near the anterior superior iliac spine. ; Denies rash Neurologic Neurologic: Denies headache(s) or paresthesias Endocrine Endocrinology: Denies cold intolerance or heat intolerance Hematologic/Lymphatic Hematologic/Lymphatic: Reports systems reviewed and no addt'l complaints, except as documented EXAM Physical Exam Const Vital Signs: 06/15/25 20:47 06/15/25 23:08 Temperature 98.3 F Temperature Source Oral Pulse Rate 108 H Respiratory Rate 20 H 18 Blood Pressure 118/63 118/63 Blood Pressure Mean 81 81 Pulse Ox 98 97 Oxygen Delivery Method Room Air Positive well nourished and well developed General Appearance ED: well developed and NAD; Negative for pallor HEENT Reports moist mucous membranes HEENT Narrative: HEENT is grossly unremarkable. Eyes PERRL and EOMs intact bilaterally General Eye ED: Negative for pale conjunctiva or scleral icterus Neck supple and no JVD Resp normal respiratory effort and clear to auscultation bilaterally Cardio regular rhythm, S1 normal heart sound, S2 normal heart sound and no murmurs Rate: tachycardic GI normal to inspection, nondistended, normoactive bowel sounds, non-distended and no masses; Negative for hepatosplenomegaly GI Narrative: Tenderness right of midline over the bladder. Auscultation: hypoactive bowel sounds Palpation: soft and tender Back/Spine no CVA tenderness Back/Spine Narrative: She does have reproducible right paralumbar pain. Extremity normal to inspection Extremity Narrative: Crispin Jenn 4 test causes pain proximal medial right thigh. Having her she has tenderness over this area. This is in the area of the adductor for Anibal muscle. Adduct against resistance causes her pain in the serum area. Neuro oriented x3, CN's II-XII intact bilaterally and no sensory deficits noted Sensorium / Orientation: alert Motor Exam: strength 5/5 throughout Psych mental status grossly normal Skin no rashes or lesions noted, no wounds and skin turgor normal General Skin Exam: elasticity normal; Negative for jaundice or pallor MDM MDM MDM Narrative Medical decision making narrative: Differential diagnosis is muscle strain, contusion, ureteral stone, infection, symptoms and physical exam is not consistent with appendicitis and would affect her to have more symptoms with this starting 48 hours ago. Furthermore the discomfort started after she had blunt trauma from falling onto the edge of a step. Lab Data Attestation: I reviewed the patient's lab results. Lab results narrative: White count is elevated with slight shift. This is nonspecific. Basic metabolic panel is remarkable glucose of 128 with a normal CO2 anion gap. Labs: Laboratory Results - last 24 hr 06/15/25 06/15/25 21:45 22:52 WBC 12.2 H RBC 4.36 Hgb 12.8 Hct 38.2 MCV 87.6 MCH 29.4 MCHC 33.5 RDW Std Deviation 39.3 RDW Coeff of Conrado 12.2 Plt Count 242 MPV 10.8 Immature Gran % (Auto) 0.400 Neut % (Auto) 82.5 H Lymph % (Auto) 7.0 L [place] % (Auto) 9.0 Eos % (Auto) 0.7 Baso % (Auto) 0.4 Absolute Neuts (auto) 10.0 H Absolute Lymphs (auto) 0.85 Nucleated RBC % 0 Sodium 136 Potassium 4.1 Chloride 102 Carbon Dioxide 21.1 Anion Gap 13 BUN 18 Creatinine 0.79 Estim Creat Clear Calc 64.54 Est GFR (MDRD) Non-Af 81 BUN/Creatinine Ratio 22.2 H Glucose 128 H Calcium 9.2 Urine Color Yellow Urine Clarity Cloudy Urine pH 6.0 Ur Specific [place] 1.020 Urine Protein 30 H Urine Glucose (UA) 1000 H Urine Ketones 5 H Urine Occult Blood 250 H Urine Nitrite Positive H Urine Bilirubin Negative Urine Urobilinogen Normal Ur Leukocyte Esterase 500 H Urine RBC 5-10 SEEN Urine WBC >100 SEEN Ur Squamous Epith Cells 0-5 SEEN Ur Renal Epithelial Cell 0-5 SEEN Urine Bacteria 3+ Urine Mucus 0 SEEN Urine is consistent with infection with greater than 100 WBCs 0 epithelial cells and 3+ bacteria. Macro was positive for glucose, ketones, occult blood nitrites and leukoesterase Radiography Chest X-Ray - ED: 1 View and Read by ED Physician (Single view x-ray of the pelvis reveals no evidence of fracture. She has arthritic changes noted left hip joint. Surgical clips noted left lower quadrant.) Diagnostic Testing: Clinical Impression(s) from Imaging Studies Pelvis X-Ray 06/15/25 21:16 IMPRESSION: No radiographic evidence of an acute displaced fracture. - Other findings and recommendations discussed above. Reading Location: [facility] Treatment and Re-Evaluation :: Patient received her first dose of antibiotics in the emergency department. She was treated with Bactrim since she has allergy to amoxicillin and quinolones. Culture was sent. Patient was offered pain medicine, which she declined. Discharge Plan Triage Chief Complaint: Abd Pain ED Provider: Bacilio Nleson Dx/Rx/DC Orders Clinical Impression: Complicated urinary tract infection, Strain of adductor longus tendon, Low back pain, Injury due to fall, Ketosis Instructions: ED UTIs Women Prescriptions: New sulfamethoxazole-trimethoprim 800-160 mg tablet 1 tab PO BID Qty: 14 0RF No Action aspirin [Adult Aspirin Regimen] 81 mg tablet,delayed release (DR/EC) 81 mg PO QDAY Patient Comments: PT STATES WILL STOP ASPIRIN ON 09/04/21 PER FRIEND INSTRUCTIONS FOR 09/07/21 cholecalciferol (vitamin D3) 2,000 unit capsule 2,000 unit PO DAILY (DME) blood-glucose meter [True Metrix Glucose Meter] Kit See Rx Instructions .Route Qty: 1 0RF Rx Instructions: As directed (DME) True Metrix Glucose Test Strip Strip See Rx Instructions .Route Qty: 50 12RF Rx Instructions: daily cyanocobalamin (vitamin B-12) 2,500 mcg tablet 2,500 mcg PO .THREE TIMES A WEEK docusate sodium [Colace] 100 mg capsule 100 mg PO DAILY atorvastatin 80 mg tablet 80 mg PO QHS Qty: 90 3RF dapagliflozin propanediol 10 mg tablet 10 mg PO QDAY Qty: 90 3RF lisinopril 20 mg tablet See Rx Instructions .ROUTE .COMPLEX Qty: 90 3RF Dose Instruction: TAKE 1 TABLET DAILY Rx Instructions: TAKE 1 TABLET DAILY venlafaxine 75 mg tablet 225 mg PO QHS 90 Days Qty: 270 1RF Rx Instructions: . glimepiride 1 mg tablet 1 mg PO QAM Qty: 90 3RF Rx Instructions: administer with breakfast calcium carbonate [Calcium 600] 600 mg calcium (1,500 mg) tablet 600 mg PO DAILY glimepiride 2 mg tablet 1 mg PO DAILY Qty: 90 1RF (DME) FreeStyle John 3 Plus Sensor Device See Rx Instructions .Route Qty: 6 1RF Rx Instructions: As directed Ozempic 2 mg/dose (8 mg/3 mL) pen injector 2 mg subcut QWEEK Qty: 9 1RF Primary Care Provider: Wan Jain Referrals: Wan Jain MD [Primary Care Provider, Internal Medicine] - 3-5 Days if not improving Print Language: Polish Disposition Disposition: Home, Self Care
[2025-06-15 22:15] LABS: Anion Gap 13 (5-15); BUN 18 mg/dL (4-19); BUN/Creat Ratio 22.2 RATIO (10-20); Calcium,Total 9.2 mg/dL (7.6-11.0); Carbon Dioxide 21.1 mmol/L (21.0-32.0); Chloride 102 mmol/L (98-108); Estimated Creatinine Clearance 64.54 ml/min (50-250); Glucose 128 mg/dL (70-99); Potassium 4.1 mmol/L (3.3-5.1)
[2025-06-15 23:06] LABS: Mucous, Urine 0 SEEN /hpf (<or=2+)
[2025-06-15 23:08] VITALS: BP 118/63; RESP 18; O2SAT 97
[2025-06-15 23:18] LABS: Color, Urine Yellow (Yellow); Glucose, Dipstick 1000 mg/dl (Normal); Ketone-Dipstick 5 mg/dl (Negative); Leukocyte Esterase-Dipstick 500 /ul (Negative); Nitrite-Dipstick Positive (Negative); Occult Blood-Urine 250 /ul (Negative); Protein-Dipstick 30 mg/dl (Negative); Specific Gravity, Urine 1.020 (1.002-1.030); Urine Bilirubin Dipstick Negative (Negative)
[2025-06-15 23:28] LABS: Red Blood Cells-Urine 5-10 SEEN /hpf (0-5); Squamous Epithelial Cells - UA 0-5 SEEN /hpf (5-10)
[2025-06-16 00:17] VITALS: BP 102/73; PULSE 89; RESP 16; TEMP 36.8; O2SAT 97
[2025-06-16] MEDS: Smz/Tmp Ds Tablet 1 TABLET PO (00:17)
== END 2025-06-16 00:21 | disposition home or self-care (01) ==
PROVIDERS: Emergency Provider Emergency Medicine; PCP Internal Medicine; Visit Provider Emergency Medicine
DX: N39.0 Urinary tract infection, site not specified (principal); E88.89 Other specified metabolic disorders; W19.XXXA Unspecified fall, initial encounter; Z85.3 Personal history of malignant neoplasm of breast; S76.219A Strain of adductor muscle, fascia and tendon of unspecified thigh, initial encounter; G47.33 Obstructive sleep apnea (adult) (pediatric); Z99.89 Dependence on other enabling machines and devices; Z87.442 Personal history of urinary calculi
CPT/HCPCS: 72170; 80048; 81001; 85025; 87077; 87086; 87088; 87186; 96374; 96375; 99283; A4216; J2405